=== PATIENT | female | born 1975 | race Caucasian/White ===

== ENCOUNTER → 2021-01-23 09:36 | Outpatient (CLI) | payer BC, OTHER, SELFPAY ==
[2021-01-23 11:00] LABS: Add Manual Diff / Slide Review NO; Basophils Absolute Auto 0 /uL (0-100); Basophils Percent Auto 0.5 % (0-2); Eosinophils Absolute Auto 100 /uL (0-450); Eosinophils Percent Auto 1.3 % (2-4); Hematocrit 39.8 % (36-46); Hemoglobin 13.2 g/dL (12.0-16.0); Lymphocytes Absolute Auto 1500 /uL (1100-4500); Lymphocytes Percent Auto 23.9 % (25-40); Mean Corpuscular HGB Conc 33.2 % (30-36); Mean Corpuscular Hemoglobin 28.2 PG (26-34); Monocytes Absolute Auto 600 /uL (0-900); Monocytes Percent Auto 9.8 % (3-14); Neutrophils Absolute Auto 4000 /uL (1500-7000); Neutrophils Percent Auto 64.5 % (50-75); Platelet Count 216 X10^3/uL (150-400); Red Blood Cell Count 4.69 X10^6/uL (4.0-5.2); Red Cell Distribution Width 13.9 % (11.6-14.8); White Blood Cell Count 6.3 X10^3/uL (4.5-11.0)
[2021-01-23 11:17] LABS: Cholesterol 144 mg/dL (140-199); HDL Cholesterol 40 mg/dL (40-60); LDL Cholesterol Calculated 90 mg/dL (<100); Triglycerides 71 mg/dL (35-150)
[2021-01-23 11:23] LABS: Hemoglobin A1C% w Est Avg Glu 5.2 % (4.0-6.0)
[2021-01-23 12:17] LABS: Thyroid Stimulating Hormone 2.18 uIU/mL (0.47-4.68)
[2021-01-27 09:58] LABS: Percent Free Testosterone 2.05 % (0.50-2.80); Testosterone Free 0.48 ng/dL (0.10-0.85); Testosterone Total 23.3 ng/dL (.)
== END ==
PROVIDERS: PCP Family Medicine; Referring Provider Family Medicine; Visit Provider Family Medicine
DX: L68.0 Hirsutism (principal); N92.6 Irregular menstruation, unspecified; K21.9 Gastro-esophageal reflux disease without esophagitis; J45.20 Mild intermittent asthma, uncomplicated
CPT/HCPCS: 36415; 80061; 83036; 84402; 84403; 84443; 85025

== ENCOUNTER → 2021-01-30 15:47 | Outpatient (CLI) | payer BC, OTHER, SELFPAY ==
--- NOTE | 2021-01-30 15:49 | DI.RAD.S_ITS ---
PROCEDURE: XR KUB INDICATIONS: RLQ pain (no appendix) TECHNIQUE: One view of the abdomen acquired. COMPARISON: None. FINDINGS: Surgical changes and devices: Right abdominal and right upper quadrant surgical clips. Bowel: [id number] stool. Soft tissues: No suspicious abdominal calcifications. Visualized solid organ contours appear normal in size. Bones: No suspicious bony lesions. IMPRESSION: No specific evidence of bowel obstruction seen at this time although if the patient's symptoms do not improve, continued surveillance with abdominal series radiographs could be performed. Dictated by: Ry Jordan M.D. on 01/30/2021 at 16:34 Approved by: Ry Jordan M.D. on 01/30/2021 at 16:35
[2021-01-30 15:52] LABS: Bacteria Urine None Seen; RBC Urine None Seen (0-5/HPF); WBC Urine None Seen (0-5/HPF)
[2021-01-30 16:47] LABS: Add Manual Diff / Slide Review NO; Basophils Absolute Auto 0 /uL (0-100); Basophils Percent Auto 0.4 % (0-2); Eosinophils Absolute Auto 100 /uL (0-450); Eosinophils Percent Auto 1.2 % (2-4); Hematocrit 38.6 % (36-46); Lymphocytes Absolute Auto 2000 /uL (1100-4500); Mean Corpuscular HGB Conc 33.7 % (30-36); Mean Corpuscular Hemoglobin 28.6 PG (26-34); Mean Corpuscular Volume 84.8 fL (80-100); Monocytes Absolute Auto 900 /uL (0-900); Monocytes Percent Auto 10.6 % (3-14); Neutrophils Absolute Auto 5400 /uL (1500-7000); Neutrophils Percent Auto 63.8 % (50-75); Platelet Count 225 X10^3/uL (150-400); Red Blood Cell Count 4.55 X10^6/uL (4.0-5.2); Red Cell Distribution Width 14.3 % (11.6-14.8); White Blood Cell Count 8.5 X10^3/uL (4.5-11.0)
[2021-01-30 17:19] LABS: Alanine Aminotransferase 33 IU/L (<35); Albumin 3.9 g/dL (3.5-5.0); Albumin Globulin Ratio 1.1 (1.0-2.8); Alkaline Phosphatase 78 U/L (38-126); Aspartate Aminotransferase 25 IU/L (14-36); BUN Creatinine Ratio 21.7 (6-22); Bilirubin Total 0.5 mg/dL (0.2-1.3); Blood Urea Nitrogen 15 mg/dL (7-17); Calcium 9.1 mg/dL (8.4-10.2); Carbon Dioxide 27 mmol/L (22-32); Chloride 105 mmol/L (98-107); Estimated Glomerular Filt Rate > 60.0 mL/min (>60); Globulin 3.5 g/dL (1.7-4.1); Glucose 89 mg/dL (70-100); HEMOLYSIS < 15 (0-50); Potassium 4.4 mmol/L (3.4-5.1); Sodium 138 mmol/L (137-145); Total Protein 7.4 g/dL (6.3-8.2)
[2021-01-30 18:19] LABS: Appearance Urine UA CLEAR; Bilirubin Urine UA NEGATIVE (NEGATIVE); Color Urine UA YELLOW; Glucose Urine UA NEGATIVE (Negative); Ketones Urine UA NEGATIVE (NEGATIVE); Leukocyte Esterase Urine UA NEGATIVE (NEGATIVE); Nitrite Urine UA NEGATIVE (Negative); Occult Blood Urine UA NEGATIVE (Negative); Protein Urine UA NEGATIVE (Negative); Specific Gravity Urine UA 1.025 (1.000-1.035); Urobilinogen Urine UA 0.2 E.U./dL (0.2)
[2021-01-30 18:27] LABS: Culture Indicated Urine Cult Not Indicated; Squamous Epithelial Cell Urine 5-10 /HPF (0-5/HPF)
== END ==
PROVIDERS: PCP Family Medicine; Referring Provider Family Medicine; Visit Provider Family Medicine
DX: R10.31 Right lower quadrant pain (principal); L68.0 Hirsutism; N92.6 Irregular menstruation, unspecified
CPT/HCPCS: 36415; 74018; 80053; 81001; 85025

== ENCOUNTER 2021-01-31 17:08 | Emergency (ER) | payer BC, OTHER, SELFPAY ==
[2021-01-31 17:38] VITALS: BP 132/85; PULSE 81; RESP 20; TEMP 37.3; O2SAT 99
--- NOTE | 2021-01-31 17:42 | DI.US.S_ITS ---
PROCEDURE: US PELVIC COMPLETE INDICATIONS: ?RUPTURED OVARIAN CYST TECHNIQUE: Real-time scanning was performed of the pelvic organs, with image documentation. Additional endovaginal scanning was necessary due to incomplete visualization of the adnexal and endometrial structures by transabdominal scanning. COMPARISON: None. FINDINGS: Uterus: Uterus is enlarged measuring 10.8 x 6.2 x 7.0 cm. The endometrium measures 16.6 mm in combined thickness. There is a left posterior subserosal focus of heterogeneous echogenicity measuring 1.9 x 1.8 x 1.7 cm. Ovaries: Right ovary measures 3.3 x 1.8 x 1.7 cm. Left ovary measures 4.0 x 2.4 x 2.7 cm. There is a focus decreased echogenicity within the right ovary measuring 3.0 x 2.0 x 2.7 cm. Other: No pathologic free abdominal or pelvic fluid. IMPRESSION: 1. Uterine fibroid. 2. Simple left ovarian cyst. Dictated by: Tina Byrne M.D. on 01/31/2021 at 18:31 Approved by: Tina Byrne M.D. on 01/31/2021 at 18:32
[2021-01-31] MEDS: KETOROLAC 30 MG/ML VIAL IM (18:27)
[2021-01-31] MEDS: OXYCODONE/ACETAMINOPHEN 5/325 TABLET 1 TAB PO (20:00)
--- NOTE | 2021-01-31 20:44 | ED_ITS ---
HPI - Abdominal Pain General Chief Complaint: Abdominal Pain Stated Complaint: states possible ruptured ovarian cyst Time Seen by Provider: 01/31/21 17:42 Source: patient Mode of arrival: Ambulatory Limitations: no limitations History of Present Illness HPI narrative: 45F nonsmoker with history of ovarian cyst and asthma presents with a chief complaint of a few days of lower abdominal discomfort that reminds her of prior episodes of ovarian trouble. She states that she has pain largely in her right lower quadrant that seems to be worse with motion and improved with rest. She denies any radiation of her discomfort. She denies any fever or chills. She denies vaginal bleeding or discharge. She denies dysuria, frequency or urgency. She was seen and evaluated thoroughly by her primary care provider yesterday with CT scan and lab work. She was instructed to present to the emergency department for worsening symptoms. Related Data Home Medications Medication Instructions Recorded Confirmed cyclobenzaprine 10 mg tablet 10 mg PO tab 01/16/21 01/16/21 ibuprofen 800 mg tablet 800 mg PO tab 01/16/21 01/16/21 Previous Rx's Medication Instructions Recorded albuterol sulfate 90 mcg/actuation 2 puff INHALATION Q6H PRN #6.7 g 01/16/21 aerosol inhaler montelukast 10 mg tablet 10 mg PO BEDTIME #90 tab 01/16/21 omeprazole 20 mg capsule,delayed 20 mg PO BID #180 cap 01/16/21 release hydrocodone-acetaminophen 1 tab PO Q4-6H PRN #10 tab 01/31/21 ketorolac 10 mg PO Q6H PRN #14 tab 01/31/21 ondansetron 4 mg PO TID-QID PRN #10 tab 01/31/21 Allergies Allergy/AdvReac Type Severity Reaction Status Date / Time naproxen Allergy Severe feels Verified 01/16/21 14:53 like throat is closing nitrofurantoin Allergy Severe Rash Verified 01/16/21 14:53 [From Macrobid] Sulfa (Sulfonamide Allergy Severe Rash Verified 01/16/21 14:53 Antibiotics) Review of Systems Constitutional Constitutional: Denies chills, Denies fatigue, Denies fever(s), Denies frequent falls, Denies lethargy and Denies weakness Eyes Eyes: Denies change in vision, Denies eye discharge, Denies irritation and Denies loss of vision ENT Ears, Nose, Mouth, and Throat: Denies change in voice, Denies dizziness, Denies neck pain, Denies sore throat and Denies throat swelling Cardiovascular Cardiovascular: Denies chest pain, Denies irregular heart rhythm, Denies lightheadedness, Denies palpitations, Denies dyspnea, Denies dyspnea on exertion and Denies orthopnea Respiratory Respiratory: Denies cough, Denies dyspnea, Denies dyspnea on exertion and Denies wheezing Gastrointestinal Gastrointestinal: Reports abdominal pain, Denies change in bowel habits, Denies diarrhea, Denies nausea and Denies vomiting Musculoskeletal Musculoskeletal: Denies neck pain and Denies numbness Integumentary/Breasts Skin/Breast: Denies pruritus, Denies erythema, Denies rash and Denies wounds Neurologic Neurologic: Denies behavioral changes, Denies confusion, Denies dizziness, Denies frequent falls, Denies loss of vision, Denies numbness and Denies weakness Psychiatric Psychiatric: Denies anxiety, Denies behavioral changes, Denies confusion, Denies depression, Denies homicidal ideation and Denies suicidal ideation Endocrine Endocrine: Denies fatigue, Denies flushing and Denies palpitations Hematologic/Lymphatic Hematologic/Lymphatic: Denies easy bruising Allergic/Immunologic Allergic/Immunologic: Denies urticaria, Denies throat swelling and Denies wheezing Patient History Medical History Asthma, mild intermittent GERD (gastroesophageal reflux disease) Irregular menstruation Social History Smoking Status: Never smoker second hand exposure: Yes Smoking Status: Never smoker Exam Narrative Exam Narrative: GENERAL: [45] year old patient appears stated age. Well- developed patient, in mild distress. HEAD: Atraumatic. Normocephalic. EYES: Pupils equal round and reactive. Extraocular motions intact. No scleral icterus. No injection or drainage. ENT: Nose without bleeding, purulent drainage. Throat without erythema, tonsillar hypertrophy or exudate. Airway patent. NECK: Trachea midline. Non tender CARDIOVASCULAR: Regular rate and rhythm without murmurs, gallops, or rubs. RESPIRATORY: Clear to auscultation. Breath sounds equal bilaterally. No wheezes, rales, or rhonchi. GASTROINTESTINAL: Abdomen soft, right lower quadrant pain on exam, no rebound or guarding, bowel sounds present in all 4 quadrants, nondistended. EXTREMITIES: No edema or joint tenderness. BACK: Nontender without deformity or crepitance. No flank tenderness. NEURO: AOx3. SKIN: No rash or erythema of visible areas Initial Vital Signs Initial Vital Signs: Vital Signs Temperature 99.1 F 01/31/21 17:38 Pulse Rate 81 01/31/21 17:38 Respiratory Rate 20 01/31/21 17:38 Blood Pressure 132/85 01/31/21 17:38 Pulse Oximetry 99 01/31/21 17:38 Course Orders Ordered: ED Orders 01/31/21 17:42 US pelvic complete Stat 01/31/21 21:05 Complete Blood Count AUTO DIFF Stat Comprehensive Metabolic Panel Stat Discontinued Medications Sodium Chloride (Normal Saline 0.9%) 1,000 mls @ 1,000 mls/hr IV BOLUS ONE Stop: 01/31/21 21:52 Ketorolac Tromethamine (Ketorolac 30 Mg/Ml Vial) 30 mg IM NOW ONE Stop: 01/31/21 17:43 Last Admin: 01/31/21 18:27 Dose: 30 mg Documented by: ESSIE Ondansetron HCl (Ondansetron 4 Mg Odt Prepack) 1 bottle MISC SEEINSTR ONE Stop: 01/31/21 21:50 Last Admin: 01/31/21 22:06 Dose: 1 bottle Documented by: ESSIE Oxycodone/Acetaminophen (Oxycodone/Acetaminophen 5/325 Tablet) 1 tab PO NOW ONE Stop: 01/31/21 17:43 Last Admin: 01/31/21 20:00 Dose: 1 tab Documented by: BANDAR Oxycodone/Acetaminophen (Oxycodone/Apap 5/325 Prepack) 1 bottle MISC SEEINSTR ONE Stop: 01/31/21 21:50 Last Admin: 01/31/21 22:06 Dose: 1 bottle Documented by: ESSIE Reevaluation(s) Reevaluation #1: Patient feeling much better after the above-stated therapies Vital Signs Vital signs: Vital Signs - 8 hr 01/31/21 22:28 Pulse Rate 67 Respiratory Rate 16 Blood Pressure 118/84 Pulse Oximetry 100 MDM - Abdominal Pain Lab Data Result diagrams: 01/31/21 21:05 01/31/21 21:05 Labs: Lab Results 01/31/21 01/31/21 Range/Units 21:05 21:05 WBC 8.9 (4.5-11.0) X10^3/uL RBC 4.63 (4.0-5.2) X10^6/uL Hgb 13.0 (12.0-16.0) g/dL Hct 39.3 (36-46) % MCV 85.0 (80-100) fL MCH 28.2 (26-34) PG MCHC 33.1 (30-36) % RDW 13.9 (11.6-14.8) % Plt Count 206 (150-400) X10^3/uL Neut % (Auto) 65.9 (50-75) % Lymph % (Auto) 24.0 L (25-40) % [place] % (Auto) 8.5 (3-14) % Eos % (Auto) 1.1 L (2-4) % Baso % (Auto) 0.5 (0-2) % Neut # (Auto) 5900 (3031-1128) /uL Lymph # (Auto) 2100 (5838-8757) /uL [place] # (Auto) 800 (0-900) /uL Eos # (Auto) 100 (0-450) /uL Baso # (Auto) 0 (0-100) /uL Sodium 137 (137-145) mmol/L Potassium 3.8 (3.4-5.1) mmol/L Chloride 104 (98-107) mmol/L Carbon Dioxide 26 (22-32) mmol/L BUN 11 (7-17) mg/dL Creatinine 0.67 (0.52-1.04) mg/dL Estimated GFR > 60.0 (>60) mL/min BUN/Creatinine Ratio 16.4 (6-22) Glucose 92 (70-100) mg/dL Calcium 8.6 (8.4-10.2) mg/dL Total Bilirubin 0.5 (0.2-1.3) mg/dL AST 23 (14-36) IU/L ALT 30 (<35) IU/L Alkaline Phosphatase 81 (38-126) U/L Total Protein 7.0 (6.3-8.2) g/dL Albumin 3.8 (3.5-5.0) g/dL Globulin 3.2 (1.7-4.1) g/dL Albumin/Globulin Ratio 1.2 (1.0-2.8) MDM Narrative Medical decision making narrative: Patient felt much better after the above- stated therapies. This feels quite similar to prior episodes of ovarian trouble. Ultrasound is very reassuring and repeat labs are unremarkable. We discussed whether not to pursue another CT scan, however as there is really no change in her symptoms and no change in her labs we will treat symptomatic lead encouraged close follow-up. Patient is given return precautions and is had questions answered to her apparent satisfaction Discharge Plan Departure Patient Disposition: Home Clinical Impression: Pelvic pain Ovarian cyst Qualifiers: Laterality: unspecified laterality Qualified Code(s): N83.209 - Unspecified ovarian cyst, unspecified side Instructions: DI for Abdominal Pain-Adult Activity Restrictions/Additional Instructions: *You have been diagnosed with [pelvic pain, reassuring labs, exam and ultrasound.] *What to do: *Please continue to take your regular medications as directed. [ x] New medication prescriptions sent to your pharmacy: [ ] [ ] New medication written as a paper prescription [ ] No new medications given *Please follow up with your primary care provider in 2-3 days, call for an appointment. Let them know you were seen in the Emergency Department and that we ask that you be seen in follow up. We will electronically transmit a record of today's note if your PCP is in our system *If you do not have a primary care provider please contact the [facility] Resource line at [phone]. They will ask some questions about your medical history and help get you set up with a doctor in the community. *Return to Emergency Department if you should have any new, worsening or concerning symptoms, such as [fever greater than 101 F, shaking chills, worsening pain, persistent vomiting or other bothersome symptoms] Prescriptions: New hydrocodone-acetaminophen 5-325 mg tablet 1 tab PO Q4-6H PRN (Reason: pain) Qty: 10 RF: 0 ketorolac 10 mg tablet 10 mg PO Q6H PRN (Reason: pain) Qty: 14 RF: 0 ondansetron 4 mg tablet,disintegrating 4 mg PO TID-QID PRN (Reason: nausea and vomiting) Qty: 10 RF: 0 No Action ibuprofen 800 mg tablet 800 mg PO RF: 0 cyclobenzaprine 10 mg tablet 10 mg PO RF: 0 omeprazole 20 mg capsule,delayed release(DR/EC) 20 mg PO BID Qty: 180 RF: 2 montelukast [Singulair] 10 mg tablet 10 mg PO BEDTIME Qty: 90 RF: 3 albuterol sulfate [ProAir HFA] 90 mcg/actuation HFA aerosol inhaler 2 puff inhalation Q6H PRN (Reason: bronchospasm) Qty: 6.7 RF: 3 Referrals: Landon Trujillo MD [Primary Care Provider] - Stand Alone Forms: Work Release Note
[2021-01-31 21:20] LABS: Add Manual Diff / Slide Review NO; Basophils Absolute Auto 0 /uL (0-100); Basophils Percent Auto 0.5 % (0-2); Eosinophils Absolute Auto 100 /uL (0-450); Eosinophils Percent Auto 1.1 % (2-4); Hematocrit 39.3 % (36-46); Lymphocytes Absolute Auto 2100 /uL (1100-4500); Mean Corpuscular HGB Conc 33.1 % (30-36); Mean Corpuscular Hemoglobin 28.2 PG (26-34); Monocytes Absolute Auto 800 /uL (0-900); Monocytes Percent Auto 8.5 % (3-14); Neutrophils Absolute Auto 5900 /uL (1500-7000); Neutrophils Percent Auto 65.9 % (50-75); Platelet Count 206 X10^3/uL (150-400); Red Blood Cell Count 4.63 X10^6/uL (4.0-5.2); Red Cell Distribution Width 13.9 % (11.6-14.8); White Blood Cell Count 8.9 X10^3/uL (4.5-11.0)
[2021-01-31 21:24] LABS: Alanine Aminotransferase 30 IU/L (<35); Albumin 3.8 g/dL (3.5-5.0); Albumin Globulin Ratio 1.2 (1.0-2.8); Alkaline Phosphatase 81 U/L (38-126); Aspartate Aminotransferase 23 IU/L (14-36); BUN Creatinine Ratio 16.4 (6-22); Bilirubin Total 0.5 mg/dL (0.2-1.3); Blood Urea Nitrogen 11 mg/dL (7-17); Calcium 8.6 mg/dL (8.4-10.2); Carbon Dioxide 26 mmol/L (22-32); Chloride 104 mmol/L (98-107); Estimated Glomerular Filt Rate > 60.0 mL/min (>60); Globulin 3.2 g/dL (1.7-4.1); Glucose 92 mg/dL (70-100); HEMOLYSIS < 15 (0-50); Potassium 3.8 mmol/L (3.4-5.1); Sodium 137 mmol/L (137-145)
[2021-01-31] MEDS: ONDANSETRON 4 MG ODT PREPACK 1 BOTTLE MISC (22:06)
[2021-01-31] MEDS: OXYCODONE/APAP 5/325 PREPACK 1 BOTTLE MISC (22:06)
[2021-01-31 22:28] VITALS: BP 118/84; PULSE 67; RESP 16; O2SAT 100
== END 2021-01-31 22:28 | disposition home or self-care (01) ==
PROVIDERS: Emergency Provider Emergency Medicine; PCP Family Medicine; Referring Provider Family Medicine
DX: N83.202 Unspecified ovarian cyst, left side (principal); R10.2 Pelvic and perineal pain
CPT/HCPCS: 36415; 76830; 76856; 80053; 85025; 96372; 99284; J1885

== ENCOUNTER 2021-02-01 12:03 | Emergency (ER) | payer BC, OTHER, SELFPAY ==
[2021-02-01 12:05] VITALS: BP 126/82; PULSE 75; RESP 18; TEMP 36.7; O2SAT 98; BMI 42.3
[2021-02-01 12:33] VITALS: PULSE 68; O2SAT 98
--- NOTE | 2021-02-01 12:44 | ED.ABDPAIN ---
HPI - Abdominal Pain General Chief Complaint: Abdominal Pain Stated Complaint: abdominal pain since last Time Seen by Provider: 02/01/21 12:20 Source: patient Mode of arrival: Ambulatory Limitations: no limitations History of Present Illness HPI narrative: Patient is a 45-year-old female who presents with persistent right lower quadrant pain. She was seen evaluated here last night had a pelvic ultrasound diagnosed with an ovarian cyst and discharged home with pain medicine. She has not taken anything for pain and has increasing pain. She has a history of an appendectomy. No fever or chills no changes in bowel habits no nausea or vomiting. MD complaint: abdominal pain Onset (ago): day(s) Pain Consistency: constant Location: RLQ Quality: cramping Migration to: no migration Relieving factors: nothing Related Data Home Medications Medication Instructions Recorded Confirmed cyclobenzaprine 10 mg tablet 10 mg PO tab 01/16/21 01/16/21 ibuprofen 800 mg tablet 800 mg PO tab 01/16/21 01/16/21 Previous Rx's Medication Instructions Recorded albuterol sulfate 90 mcg/actuation 2 puff INHALATION Q6H PRN #6.7 g 01/16/21 aerosol inhaler montelukast 10 mg tablet 10 mg PO BEDTIME #90 tab 01/16/21 omeprazole 20 mg capsule,delayed 20 mg PO BID #180 cap 01/16/21 release hydrocodone-acetaminophen 1 tab PO Q4-6H PRN #10 tab 01/31/21 ketorolac 10 mg PO Q6H PRN #14 tab 01/31/21 ondansetron 4 mg PO TID-QID PRN #10 tab 01/31/21 Allergies Allergy/AdvReac Type Severity Reaction Status Date / Time naproxen Allergy Severe feels Verified 02/01/21 12:52 like throat is closing nitrofurantoin Allergy Severe Rash Verified 02/01/21 12:52 [From Macrobid] Sulfa (Sulfonamide Allergy Severe Rash Verified 02/01/21 12:52 Antibiotics) Review of Systems Review of Systems Narrative: GENERAL: Denies chills, fatigue, malaise, fever, sweats, travel HEENT: Denies sinus pain, ear pain, sore throat, difficulty swallowing, neck pain RESPIRATORY: Denies dyspnea, cough, wheezing, hemoptysis, sputum. CARDIOVASCULAR: Denies chest pain, palpitations, orthopnea, edema GASTROINTESTINAL: See HPI : Denies dysuria, frequency, incontinence, hematuria, urinary retention, flank pain. MUSCULOSKELETAL: Denies weakness, joint pain, or bony pain SKIN: No rash, no erythema, no pruritus NEUROLOGIC: Denies weakness, dizziness, headache, numbness, change in speech, confusion PSYCHIATRIC: No concerning psychosocial issues. 12 point review of systems is negative except for those stated above and HPI Patient History Medical History Asthma, mild intermittent GERD (gastroesophageal reflux disease) Irregular menstruation Social History Smoking Status: Never smoker second hand exposure: Yes Smoking Status: Never smoker Substance Use Type: does not use Exam Initial Vital Signs Initial Vital Signs: Vital Signs Temperature 98.0 F 02/01/21 12:05 Pulse Rate 75 02/01/21 12:05 Respiratory Rate 18 02/01/21 12:05 Blood Pressure 126/82 02/01/21 12:05 Pulse Oximetry 98 02/01/21 12:05 GENERAL: Well-appearing, well-nourished and in no acute distress. HEENT: Head atraumatic,EOMI, pupils reactive, face symmetric, moist mucous membranes CARDIOVASCULAR: Regular rate and rhythm without murmurs, rubs or gallops. RESPIRATORY: Breath sounds equal bilaterally, no wheezes rales or rhonchi. ABDOMEN: Soft, mild right lower quadrant tenderness no guarding or rebound negative Diehl sign. Normoactive bowel sounds all 4 quadrants. No guarding or rebound. EXTREMITIES: Normal range of motion, no clubbing or edema. Neurovascularly intact NEUROLOGICAL: Alert and oriented x4.Normal gait and speech. SKIN: Warm, dry, no laceration, no petechiae, no rashes or lesions. Course Orders Ordered: ED Orders 02/01/21 12:46 CT abdomen pelvis w con Stat 02/01/21 13:10 Complete Blood Count AUTO DIFF Stat Comprehensive Metabolic Panel Stat Discontinued Medications Ketorolac Tromethamine (Ketorolac 30 Mg/Ml Vial) 30 mg IV NOW ONE Stop: 02/01/21 12:50 Last Admin: 02/01/21 12:58 Dose: 30 mg Documented by: MELLY Vital Signs Vital signs: Vital Signs - 8 hr 02/01/21 12:05 02/01/21 12:33 02/01/21 13:45 Temperature 98.0 F Pulse Rate 75 68 62 Respiratory Rate 18 Blood Pressure 126/82 107/69 Pulse Oximetry 98 98 98 02/01/21 14:00 02/01/21 14:30 02/01/21 15:00 Temperature Pulse Rate 57 L 56 L 59 L Respiratory Rate Blood Pressure 106/69 120/77 Pulse Oximetry 97 97 97 MDM - Abdominal Pain Lab Data Attestation: I reviewed the patient's lab results. Result diagrams: 02/01/21 13:10 02/01/21 13:10 Labs: Lab Results 02/01/21 02/01/21 Range/Units 13:10 13:10 WBC 7.4 (4.5-11.0) X10^3/uL RBC 4.90 (4.0-5.2) X10^6/uL Hgb 14.0 (12.0-16.0) g/dL Hct 41.8 (36-46) % MCV 85.4 (80-100) fL MCH 28.5 (26-34) PG MCHC 33.4 (30-36) % RDW 14.3 (11.6-14.8) % Plt Count 205 (150-400) X10^3/uL Neut % (Auto) 68.3 (50-75) % Lymph % (Auto) 20.4 L (25-40) % [place] % (Auto) 9.4 (3-14) % Eos % (Auto) 1.3 L (2-4) % Baso % (Auto) 0.6 (0-2) % Neut # (Auto) 5000 (3563-5576) /uL Lymph # (Auto) 1500 (5323-6906) /uL [place] # (Auto) 700 (0-900) /uL Eos # (Auto) 100 (0-450) /uL Baso # (Auto) 0 (0-100) /uL Sodium 137 (137-145) mmol/L Potassium 4.3 (3.4-5.1) mmol/L Chloride 104 (98-107) mmol/L Carbon Dioxide 28 (22-32) mmol/L BUN 11 (7-17) mg/dL Creatinine 0.78 (0.52-1.04) mg/dL Estimated GFR > 60.0 (>60) mL/min BUN/Creatinine Ratio 14.1 (6-22) Glucose 97 (70-100) mg/dL Calcium 9.1 (8.4-10.2) mg/dL Total Bilirubin 0.8 (0.2-1.3) mg/dL AST 26 (14-36) IU/L ALT 35 H (<35) IU/L Alkaline Phosphatase 84 (38-126) U/L Total Protein 7.7 (6.3-8.2) g/dL Albumin 4.1 (3.5-5.0) g/dL Globulin 3.6 (1.7-4.1) g/dL Albumin/Globulin Ratio 1.1 (1.0-2.8) Point of care testing: Point of Care Testing Test Results Negative Urine Dip Bedside Urine Glucose Negative Bedside Urine Bilirubin - Negative Bedside Urine Ketone - Negative Urine Specific [place] 1.025 Bedside Urine Occult Blood - Negative Bedside Urine pH 6.0 Bedside Urine Protein - Negative Bedside Urine Urobilinogen - Negative Bedside Urine Nitrite - Negative Bedside Urine Leukocytes - Negative Esterase Imaging Data CT scan - abdomen/pelvis: Radiologist's Impression: PROCEDURE: CT ABDOMEN PELVIS W CON INDICATIONS: Right lower quadrant pain. TECHNIQUE: After the administration of intravenous contrast, axial sections acquired from the lung bases to the pubic symphysis. Coronal and sagittal reformats were performed. For radiation dose reduction, the following was used: automated exposure control, adjustment of mA and/or kV according to patient size. COMPARISON: [facility], CR, XR KUB, 01/30/2021, 16:07. [facility], US, US PELVIC COMPLETE, 01/31/2021, 17:01. FINDINGS: Image quality: Excellent. Lung bases: Unremarkable. There is a small hiatal hernia. Heart: No significant findings. ABDOMEN: Liver: Unremarkable. Gallbladder: Surgically removed. Biliary ducts: Unremarkable. Pancreas: Unremarkable. Spleen: Unremarkable. Adrenal Glands: Unremarkable. Kidneys and Ureters: Unremarkable. Stomach and Bowel: Appendix is not identified. There are no inflammatory changes in the right lower quadrant to suggest acute appendicitis. Stomach, small bowel loops, and colon are normal in caliber. There is a moderate amount of stool in colon.. Moderate amount of stool in colon. Peritoneum: No abnormal intraperitoneal fluid. No free air. Ventral Wall: There is a small fat containing umbilical hernia. Abdominal Nodes: No retroperitoneal or mesenteric adenopathy by size criteria. Vessels: Aorta and inferior vena cava are normal in size. PELVIS: Pelvic Organs: There is a 3.5 cm left ovarian cyst. Ovaries are otherwise normal. A 1.1 cm nodule adjacent to the left uterine wall compatible with the subserosal fibroid seen on the pelvic ultrasound. There is a trace amount of free fluid in the cul-de-sac. Bladder: Bladder is contracted. Pelvic Nodes: No enlarged lymph nodes. Miscellaneous: No hernias are seen. Bones: Unremarkable. Subtle sclerotic changes in the superior aspect S1 abutting the superior endplate may be degenerative in nature. IMPRESSION: 1. No acute abnormalities in abdomen or pelvis. 2. Appendix is not identified. No secondary signs for acute appendicitis. 3. Moderate amount of stool in colon. 4. Small hiatal hernia. 5. A 3.5 cm left ovarian cyst. A trace amount of free fluid in the cul-de-sac is probably within the physiological limits. The result was discussed with Dr. Anderson. Dictated by: Elodia Osuna M.D. on 02/01/2021 at 14:23 Approved by: Elodia Osuna M.D. on 02/01/2021 at 14:56 MDM Narrative Medical decision making narrative: Patient states she has had Toradol in the past including last night without any issue and is willing to take it again. Blood work and CT are overall reassuring. CT does not find any abnormal findings are cause of right lower quadrant pain. Discharge Plan Departure Patient Disposition: Home Clinical Impression: Abdominal pain Qualifiers: Abdominal location: right lower quadrant Qualified Code(s): R10.31 - Right lower quadrant pain Instructions: DI for Abdominal Pain-Adult Activity Restrictions/Additional Instructions: *You have been diagnosed with abdominal pain *What to do: At this time there is no evidence or I had identifiable cause for your pain. He actually do have a left ovarian cyst. I recommend taking her pain medication as prescribed last evening. *Continue to take medications as directed *Follow up with your primary care provider in 2-3 days *Return to ER if you should have increasing pain, bloody stool, persistent vomiting, dizziness lightheadedness or passing or any new, worsening or concerning symptoms Prescriptions: No Action ibuprofen 800 mg tablet 800 mg PO RF: 0 cyclobenzaprine 10 mg tablet 10 mg PO RF: 0 omeprazole 20 mg capsule,delayed release(DR/EC) 20 mg PO BID Qty: 180 RF: 2 montelukast [Singulair] 10 mg tablet 10 mg PO BEDTIME Qty: 90 RF: 3 albuterol sulfate [ProAir HFA] 90 mcg/actuation HFA aerosol inhaler 2 puff inhalation Q6H PRN (Reason: bronchospasm) Qty: 6.7 RF: 3 hydrocodone-acetaminophen 5-325 mg tablet 1 tab PO Q4-6H PRN (Reason: pain) Qty: 10 RF: 0 ketorolac 10 mg tablet 10 mg PO Q6H PRN (Reason: pain) Qty: 14 RF: 0 ondansetron 4 mg tablet,disintegrating 4 mg PO TID-QID PRN (Reason: nausea and vomiting) Qty: 10 RF: 0 Referrals: Landon Trujillo MD [Primary Care Provider] -
[2021-02-01] MEDS: KETOROLAC 30 MG/ML VIAL IV (12:58)
[2021-02-01 13:23] LABS: Add Manual Diff / Slide Review NO; Basophils Absolute Auto 0 /uL (0-100); Basophils Percent Auto 0.6 % (0-2); Eosinophils Absolute Auto 100 /uL (0-450); Eosinophils Percent Auto 1.3 % (2-4); Hematocrit 41.8 % (36-46); Lymphocytes Absolute Auto 1500 /uL (1100-4500); Lymphocytes Percent Auto 20.4 % (25-40); Mean Corpuscular HGB Conc 33.4 % (30-36); Mean Corpuscular Hemoglobin 28.5 PG (26-34); Mean Corpuscular Volume 85.4 fL (80-100); Monocytes Absolute Auto 700 /uL (0-900); Monocytes Percent Auto 9.4 % (3-14); Neutrophils Absolute Auto 5000 /uL (1500-7000); Neutrophils Percent Auto 68.3 % (50-75); Platelet Count 205 X10^3/uL (150-400); Red Cell Distribution Width 14.3 % (11.6-14.8); White Blood Cell Count 7.4 X10^3/uL (4.5-11.0)
[2021-02-01 13:31] LABS: Alanine Aminotransferase 35 IU/L (<35); Albumin 4.1 g/dL (3.5-5.0); Albumin Globulin Ratio 1.1 (1.0-2.8); Alkaline Phosphatase 84 U/L (38-126); Aspartate Aminotransferase 26 IU/L (14-36); BUN Creatinine Ratio 14.1 (6-22); Bilirubin Total 0.8 mg/dL (0.2-1.3); Blood Urea Nitrogen 11 mg/dL (7-17); Calcium 9.1 mg/dL (8.4-10.2); Carbon Dioxide 28 mmol/L (22-32); Chloride 104 mmol/L (98-107); Estimated Glomerular Filt Rate > 60.0 mL/min (>60); Globulin 3.6 g/dL (1.7-4.1); Glucose 97 mg/dL (70-100); HEMOLYSIS < 15 (0-50); Potassium 4.3 mmol/L (3.4-5.1); Sodium 137 mmol/L (137-145); Total Protein 7.7 g/dL (6.3-8.2)
[2021-02-01 13:45] VITALS: BP 107/69; PULSE 62; O2SAT 98
[2021-02-01 14:00] VITALS: BP 106/69; PULSE 57; O2SAT 97
[2021-02-01 14:30] VITALS: PULSE 56; O2SAT 97
[2021-02-01 15:00] VITALS: BP 120/77; PULSE 59; O2SAT 97
== END 2021-02-01 15:24 | disposition home or self-care (01) ==
PROVIDERS: Emergency Provider Emergency Medicine; PCP Family Medicine
DX: R10.31 Right lower quadrant pain (principal); N83.209 Unspecified ovarian cyst, unspecified side
CPT/HCPCS: 36415; 74177; 80053; 81003; 81025; 85025; 96374; 99284; J1885; Q9967

== ENCOUNTER → 2021-02-16 16:25 | Outpatient (CLI) | payer BC, OTHER, SELFPAY ==
[2021-02-16 17:18] LABS: COVID19 -Nasal RAPID Negative (Negative)
== END ==
PROVIDERS: PCP Family Medicine; Visit Provider Specialist
DX: Z01.812 Encounter for preprocedural laboratory examination (principal); Z20.822 Contact with and (suspected) exposure to COVID-19
CPT/HCPCS: 87635

== ENCOUNTER 2021-02-17 06:50 | Day surgery (SDC) | payer BC, OTHER, SELFPAY ==
[2021-02-14 08:11] VITALS: BMI 42.1
[2021-02-17] VITALS (10 sets, daily range): BP systolic 109–143; BP diastolic 61–89; PULSE 55–82; RESP 12–18; TEMP 36.1–36.6; O2SAT 98–100; BMI 42.1
--- NOTE | 2021-02-17 | PATH_ITS ---
[facility] Accession Number: [id number] . 01 Material submitted: . PART A: fallopian tube - RT FALLOPIAN TUBE AND OVARY; LT TUBAL REMNANT PART B: endometrium - ENDOMETRIAL . 02 Diagnosis: A. Right Fallopian Tube Remnant and Ovary, Left Tubal Remnant, Right Salpingo-oophorectomy and Left Partial Salpingectomy: Right ovary with multiple benign cortical follicular cysts, stromal thecosis, and one region of intraparenchymal hemorrhage with a partial lining suggestive of benign hemorrhagic follicular cyst. Fallopian tube remnants x 2 with complete cross-sections and no significant histomorphologic abnormality; negative for atypia or malignancy. Aggregate of soft tissue fragments demonstrate portions of cortical ovarian tissue with benign follicular cysts and capsular adhesions, nonspecific. . B. Endometrial: Portions of dys-synchronous endometrium; negative for glandular hyperplasia, cytologic atypia, or malignancy. Some endometrial fragments demonstrate prominent vessels, suggestive of polyp, if clinical and imaging studies are concordant. Some endometrial tissue has attached myometrium; negative for atypia or malignancy. Avulsed portions of squamous mucosa with reactive features; negative for squamous dysplasia or malignancy. MRV 02/23/2021 1329 Local . 02 Electronically signed: . Jessica Chairez MD, Pathologist NPI- [id number] . 01 Gross description: . A. Received in formalin and labeled right fallopian tube and ovary, left tubal remnant. It consists of a 4.2 x 2.5 x 1.5 cm, purple-anders to caballero-anders, bosselated ovary. The resection margin is inked black. The ovary is serially sectioned. Sectioning reveals pink-anders to purple anders, fibrous, focally hemorrhagic cut surfaces with focal areas of cystic degeneration involved in approximately 20% of cut surfaces. Also received are two fragments of continuous fallopian tube ranging from 2.2 cm to 3.2 cm in greatest dimension. The serosa of the tubes is purple-anders and diffusely congested. Sectioning reveals pink-anders unremarkable mucosa, a pinpoint lumen, and verma that average 0.4 cm in thickness. Also received is a 3.5 x 3.5 x 0.9 cm aggregate of pink anders to purple-anders, rubbery, fibrous soft tissue fragments. Sectioning reveals pink-anders, fibrous cut surfaces. Field Hand sections are submitted. . Summary of sections: A1-A3 = Ovary, serially sectioned, pharmacy services representative, one piece. A4 = Fimbria, quadrisected, four pieces. A5 = Fallopian tube, serially sectioned, pharmacy services representative, four pieces. A6-A7 = Additional connective tissue aggregate, three pieces. . B. Received in formalin and labeled endometrial curetting. It consists of a 3.3 x 2.3 x 0.7 cm aggregate of yellow-anders to pink-anders, ragged, diffusely hemorrhagic soft tissue fragments with no distinguishing features. The specimen is submitted entirely. . Summary of sections: B1-B2 = Endometrial curettings, aggregate. ([id number]) /[facility] 02/18/2021 1839 Local . 02 Pathologist provided ICD-10: R93.41, N83.209 . 02 CPT . 904902, [id number] Performed at: 01 [facility] [address] [place] [address] [id number] MD Jim Xie MD Phone: [phone] Performed at: [address] [id number] MD Haily Barnett MD Phone: [phone]
--- NOTE | 2021-02-17 07:17 | SUR.OPER ---
Lithotomy on padded OR bed, head on pillow, arms secured on padded arm boards at <90 degrees abduction. Legs secured in padded yellow fins stirrups.
--- NOTE | 2021-02-17 07:25 | PM.PREOP ---
Pre-operative Note COVID-19 COVID-19 status: Negative Result date/Date tested (Pos, Neg/Pending): 02/16/21 Interval Note History & Physical reviewed/Exam performed by Physician: Yes Changes to H&P: No
[2021-02-17] MEDS: LACTATED RINGERS 1,000 ML 100 ML IV ×2 (07:30→08:25)
[2021-02-17] MEDS: BUPIVACAINE 0.5% (PF) VIAL 30 ML INJ (08:14)
[2021-02-17] MEDS: EPINEPHrine 1 MG/ML 0.15 MG INJ (08:15)
[2021-02-17] MEDS: METOCLOPRAMIDE 10 MG/2 ML INJ IV (09:10)
--- NOTE | 2021-02-17 09:14 | PM.OP.1 ---
Operative Date/Time/Diagnoses Date of procedure: 02/17/21 Time of procedure: 09:15 Pre-op diagnosis: Menorrhagia, right lower quadrant pain with right ovarian cyst Post-op diagnosis: same Procedure & Clinicians Procedure: Hysteroscopy D&C, laparoscopic RSO with left salpingectomy Same procedure as scheduled: Yes Indications: Patient with significant right lower quadrant pain with ovarian cyst on ultrasound requesting right salpingo oophorectomy. Patient with menorrhagia for hysteroscopy D&C with removal of abnormalities if found Surgeon: Keri Raphael Behavioral Geneticist: Ricardo Bliss Anesthesia Type: General Operative Notes Findings: Normal appearing pelvis. Status post bilateral tubal ligation. Small posterior subserosal fibroid. Normal appearing ovaries bilaterally. Minimal scar tissue, no endometriosis, no internal hernias. Closure Type: primary Specimen(s): other (Right fallopian tube and ovary, left fallopian tube remnant, uterine curettings.) Estimated Blood Loss (mL): 10 Blood products transfused: none Procedure in detail: Patient was brought to the operating room where she underwent general anesthesia. She was placed in low [facility] stirrups and prepped and draped in usual sterile fashion. No antibiotics were indicated. Pulsatile stockings were in place and functional. Warming was with blankets. A single-tooth tenaculum was placed on the anterior lip of the cervix and the cervix dilated to #6 Hegar dilator. The Carmen uterine manipulator was placed and balloon inflated with 3 mL of air. The area of the incisions were injected with half percent Marcaine with epinephrine. An incision was made in the umbilicus with a scalpel and the Verres needle placed in the abdomen. Confirmation of correct placement of the needle was performed by withdrawing on the syringe and then allowing fluid to fall freely through the needle. The abdomen was insufflated to 4 L of CO2. A 5 mm trocar was placed under direct visualization. 2 other 5 mm trochars were placed in the right and left lower quadrant under direct visualization after incising the skin. There did not appear to be any damage with placement of the trocars. The left fallopian tube remnant was grasped and removed by cauterizing and cutting the mesosalpinx with the PK generator. The right infundibulopelvic ligament was cauterized and cut with the PK generator. Sequential bites taken along the broad ligament. The utero-ovarian ligament was cauterized and cut allowing the tube and ovary to be freed. The segment of the fallopian tube next to the uterus was also cauterized and cut with the PK on the right side. A 11 mm trocar was placed suprapubically under direct visualization without damage to internal structures. The tubes and right ovary were placed in an Endo-Catch bag brought up out of the abdomen. The bilateral tubes and right ovary were sent to pathology. Adequate hemostasis was noted. The CO2 was allowed to escape from the abdomen. The trochars were removed. Skin was closed with 4-0 monocryl. The procedure was switched to vaginally. The hysteroscope was placed into the uterus with a sorbitol solution running and under constant suction. The resecting loop set at 80 W of cutting was used to resect areas of thickened endometrium. An endometrial curettage was performed. The endometrial curettage was sent to pathology. The patient went to recovery room in good condition counts of instruments and sponges were correct. The sorbitol solution I=O approximately 1000 mL. Complications: none Post-operative Condition: stable Disposition: same day surgery Plan for aftercare: Home when awake and stable
[2021-02-17] MEDS: HYDROMORPHONE 2 MG INJ IV ×2 (09:19→09:24)
[2021-02-17] MEDS: OXYCODONE/ACETAMINOPHEN 5/325 TABLET 1 TAB PO (09:43)
== END 2021-02-17 10:57 | disposition home or self-care (01) ==
PROVIDERS: PCP Family Medicine; Referring Provider Specialist; Visit Provider Specialist
PROC: (CPT 58661; principal; 2021-02-17 07:45)
PROC: 0UDB8ZZ Extraction of Endometrium, Via Natural or Artificial Opening Endoscopic (ICD-10-PCS; CPT 58558; 2021-02-17 07:45)
DX: D25.2 Subserosal leiomyoma of uterus (principal); K21.9 Gastro-esophageal reflux disease without esophagitis; J45.20 Mild intermittent asthma, uncomplicated; N83.01 Follicular cyst of right ovary
CPT/HCPCS: 58661; 58558; 81025; 82962; J0171; J0330; J1100; J1170; J1885; J2405; J2704; J2765; J3010

== ENCOUNTER → 2021-09-15 13:39 | Outpatient (CLI) | payer BC, OTHER, SELFPAY ==
--- NOTE | 2021-09-15 | DI.RAD.S_ITS ---
PROCEDURE: XR SACRUM COCCYX MIN 2V INDICATIONS: Fall (on) (from) other stairs and steps, initial encounter TECHNIQUE: 3 views of the sacrum and coccyx acquired. COMPARISON: [facility], CR, XR LUMBAR SPINE 2-3V, 09/15/2021, 13:36. [facility], CT, CT ABDOMEN PELVIS W CON, 02/01/2021, 13:34. FINDINGS: Bones: No fractures or dislocations. No suspicious bony lesions. SI joints appear symmetric. Soft tissues: Visualized bowel gas pattern is normal. No suspicious soft tissue densities. IMPRESSION: No sacral fracture seen. Dictated by: Homero Palomares M.D. on 09/15/2021 at 16:09 Approved by: Homero Palomares M.D. on 09/15/2021 at 16:10
--- NOTE | 2021-09-15 13:41 | DI.RAD.S_ITS ---
PROCEDURE: XR LUMBAR SPINE 2-3V INDICATIONS: Fell earlier this month. Severe lower back pain TECHNIQUE: 3 views of the lumbar spine were acquired. COMPARISON: None. FINDINGS: Bones: 5 [id number] vertebrae are present. Mild dextrocurvature, which may be positional. Facet arthrosis at L4-S1. No vertebral body compression fractures. No suspicious bony lesions. Soft tissues: Overlying bowel gas pattern is normal. No suspicious soft tissue calcifications. IMPRESSION: No acute osseous abnormality. Dictated by: John Ribera M.D. on 09/15/2021 at 14:14 Approved by: John Ribera M.D. on 09/15/2021 at 14:16
== END ==
PROVIDERS: PCP Family Medicine; Referring Provider Physician Assistant; Visit Provider Physician Assistant
DX: M54.50 Low back pain, unspecified (principal)
CPT/HCPCS: 72100; 72220

== ENCOUNTER → 2022-02-27 10:27 | Outpatient (CLI) | payer BC, OTHER, SELFPAY ==
--- NOTE | 2022-02-27 10:29 | DI.RAD.S_ITS ---
PROCEDURE: XR KNEE RT 3V INDICATIONS: bilateral knee pain TECHNIQUE: 3 views of the knee were acquired. COMPARISON: [facility], CR, XR KNEE LT 3V, 02/27/2022, 11:20. FINDINGS: Bones: No fractures or dislocations. No suspicious bony lesions. Mild medial compartment narrowing and possible mild patellofemoral compartment narrowing. Soft tissues: No joint effusion. No suspicious soft tissue calcifications. IMPRESSION: 1. No acute osseous abnormality. 2. Mild degenerative changes of the knee. Dictated by: Wood Guallpa M.D. on 02/27/2022 at 20:36 Approved by: Wood Guallpa M.D. on 02/27/2022 at 20:38
--- NOTE | 2022-02-27 10:29 | DI.RAD.S_ITS ---
PROCEDURE: XR KNEE LT 3V INDICATIONS: bilateral knee pain TECHNIQUE: 3 views of the knee were acquired. COMPARISON: None. FINDINGS: Bones: No fractures or dislocations. No suspicious bony lesions. Mild medial compartment joint space narrowing. Soft tissues: No joint effusion. No suspicious soft tissue calcifications. IMPRESSION: 1. No acute osseous abnormality. 2. Mild degenerative changes of the knee. Dictated by: Wood Guallpa M.D. on 02/27/2022 at 20:35 Approved by: Wood Guallpa M.D. on 02/27/2022 at 20:36
== END ==
PROVIDERS: Family Provider Family Medicine; PCP Family Medicine; Referring Provider Family Medicine; Visit Provider Family Medicine
DX: M25.561 Pain in right knee (principal); M25.562 Pain in left knee
CPT/HCPCS: 73562

== ENCOUNTER 2022-05-28 14:30 | Outpatient (RCR) | payer BC, OTHER, SELFPAY ==
--- NOTE | 2021-09-26 17:54 | PT.OIE ---
Current Diagnoses Lumbago with sciatica, unspecified side (09/26/21) Past Medical History (Last Reviewed 09/15/21 @ 19:33 by Graciela Newton PA-C) Abnormal vaginal bleeding with endometrial thickness less than 16 mm present on transvaginal ultrasound in premenopausal patient Acne (~1987) Allergies (~2005) Ankle pain (~2017) Asthma, mild intermittent (~2003) Carpal tunnel syndrome (~2008) Chicken pox (~1980) Chronic back pain (~2013) Depression Female hirsutism Foot pain (~2009) Fracture of left wrist GERD (gastroesophageal reflux disease) H/O left wrist surgery (~02/1995) Hemorrhagic cyst History of History of tubal ligation (~03/15/12) History of urinary incontinence (~2008) Hx of appendectomy (~2000) Hx of cholecystectomy (~1997) Irregular menstruation (~2011) Measles Menorrhagia (~1992) Plantar warts (~1993) Recurrent sinusitis Scarlet fever (~1985) Shoulder pain (~2010) Uterine fibroid Past Surgical History (Last Reviewed 09/15/21 @ 19:33 by Graciela Newton PA-C) Anesthesia H/O left wrist surgery (~02/1995) History of History of tubal ligation (~03/15/12) Hx of appendectomy (~2000) Hx of cholecystectomy (~1997) Visit Care Team Role Provider Type Landon Trujillo MD Family Provider Physician Primary Care Provider Specialty: Family Practice Address: [address] [place] [address] Email: [email or web address] Graciela Newton PA-C Attending Provider Advanced Radiation Control Specialist Referring Provider Specialty: Address: [address] [place] [address], [facility] Email: [email or web address] Physical Therapy Initial Evaluation PT-OP-A Visit Information Start: 09/21/21 17:15 Freq: Status: Active Protocol: Document 09/26/21 08:17 LRN (Rec: 09/26/21 09:39 LRN [id number]) Out-Patient Physical Therapy Visit Information Visit Information Visit Type Initial Evaluation Visit Start Time 08:17 Visit Stop Time 09:06 Total Visit Minutes 49 Visit Number 1 Evaluation Information Evaluation Date 09/26/21 Precautions Precautions Per chart review: PTSD, Chronic back pain. 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 PT-OP-B Current Condition Start: 09/21/21 17:15 Freq: Status: Active Protocol: Document 09/26/21 08:17 LRN (Rec: 09/26/21 09:39 [facility] [id number]) Current Condition History of Current Condition Onset Date 07/18/21 Current Complaints LBP, Lewis hip and knee pain. History of Current Condition Low back pain onset 07/18/21, fell down 8 stairs, R foot went out from under her, L knee buckled and L knee ended up bent and behind her when sliding down the stairs feet first (like sliding into a base in baseball). Had horrendous pain. Did not seek medical care hoping it would go away. Two weeks later went to chiropractor and 2 weeks later ended up in ER. hemodialysis patient care specialist was helpful, but she was getting only a couple hours of pain relief. Now children's zoo caretaker gives 3-4 days relief. She feels she has aggrevated an old injury (see Developmental history below). States the L4 -S1 jt is grinding. Has tried yoga stretches and states her problem feels structural and thinks she has started loosening things too soon. States the R>L hip joints hurt , thus now the knees hurt, because of modifying how she goes up/down the stairs. Pt points to her R lateral gluteal ms and sacral region as areas of pain denoted as pelvic pain. Denies urinary problems or lower abdominal pelvic pain. She is having pain with intercourse; therefore the pt may need Pelvic rehabilitation in the future. 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 Pt has been on light duty since fall. Prior Treatments and Tests hemodialysis patient care specialist 1-2 days/ week ([facility] in [place]). X-ray: shows no fractures in Sacrum, Coccyx, and lumbar vertebra. Developmental History Developmental History 17 yrs old fractured what she thinks is the SI, possibly Sacrum L4-S1 Cracked. In 2006 fell on steel pipe landing on L knee. Treatment Goals Patient/Caregiver Goals Pt goals are: *Get hip flexors to release in order to start moving normal (stairs, walking, bending). *Get back to place to start exercising (not doing any currently that is considered purposeful), because she is only doing daily living exercise. *Wear 16# belt around waist and leather gear that carries the items of the belt. * Be able to do Lethel force training (run, crawl, bend, twist, wrestle a suspect, bend down and put someone in handcuffs). Prior Functional Status Baseline Function- ADL's Independent Baseline Function- Mobility Independent Baseline Function- Work/School Was not exercising before fall . Walking 2 miles in/outside Weight lifting legs, arms, back a couple yrs ago Baseline Function- Other Able to sleep without pain. Current Functional Impairments (Reported) Functional Limitations- ADL's Limited in ability to bend, lift > 15#, twisting, sitting > 1 hr, standing > 1 hr, able to sleep w/medication. Sitting to drive >1.5 hrs is too much. Functional Limitations- Mobility/Gait Stride is short on both sides and slower than normal. Functional Limitations- Work/School On light duty. 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 At home has 3 children and spouse has 2 children. PT-OP-C Subjective Start: 09/21/21 17:15 Freq: Status: Active Protocol: Document 09/26/21 08:17 LRN (Rec: 09/26/21 09:39 LRN [id number]) Patient Questionnaires Oswestry Low Back Index Oswestry Score 40 Oswestry Impairment 40 to 59% Impaired (Score 40- 59) OP-PT Pain Assessment Pain Assessment Grid Paper Pain Assessment Grid Completed Yes Location Knees Pain Location Details Bilateral knees Intensity 8 Description Aching,Sharp Frequency Frequent Pain Duration R knee 3-5/10, L knee 3-8 Pain Aggravating Factors Activity Pain Alleviating Factors Cold Hip Flexors Pain Location Details Hip flexors Intensity 6 Scale Used Numeric (0 - 10) Description Acute,Sharp Description- Other Pain range 4-6 Frequency Frequent Pain Duration 3-6/10 Pain Aggravating Factors Activity Pain Alleviating Factors Cold,Medication Sacrum Pain Location Details Sacral region Intensity 6 Scale Used Numeric (0 - 10) Description Aching,Sharp Description- Other Pain range 3-6/10 Frequency Frequent Pain Aggravating Factors Activity Pain Alleviating Factors Cold,Medication Other Pain Alleviating Factors Moving helps relieve pain that starts @ 3/10. Uses ice at end of work day. PT-OP-H Neuro Start: 09/21/21 17:15 Freq: Status: Active Protocol: Document 09/26/21 08:17 LRN (Rec: 09/26/21 09:39 LRN [id number]) Sensation Evaluation Gross Sensation Gross Sensation WNL PT-OP-J Posture/Palpation/Skin Start: 09/21/21 17:15 Freq: Status: Active Protocol: Document 09/26/21 08:17 LRN (Rec: 09/26/21 09:39 LRN [id number]) Posture Evaluation Position Standing L-Spine Posture Increased Lordosis Shoulder Posture (R) Elevated Pelvis Posture Anteriorly Tilted Weight Distribution Balanced Comments Posture Comments Dowagers hump Level Iliac Crest. Palpation Assessment Location Piriformis Palpation Location Lewis Piriformis Palpation Findings Soft Tissue Tightness,Muscle Guarding,Tenderness Low Back Palpation Location Paraspinals and QL bilaterally Palpation Findings Soft Tissue Tightness,Muscle Guarding,Tenderness PT-OP-K Range of Motion Start: 09/21/21 17:15 Freq: Status: Active Protocol: Document 09/26/21 08:17 LRN (Rec: 09/26/21 09:39 LRN [id number]) Lumbar Spine Range of Motion Lumbar Spine Active Degrees Testing Position Standing Flexion 85 Extension 18 Rotation Left 30 Rotation Right 25 Lateral Flexion Left 15 Lateral Flexion Right 10 ROM Limitations Soft Tissue Tightness,Pain Comments Pain R SB is at R Piriformis Active Percentage Comments Error in reporting AROM in percentage, see below for degree's ROM. Hip Goniometric Range of Motion Hip Right Active Testing Position Supine Straight Leg Raise 75 Internal Rotation 30 External Rotation 55 Left Passive Testing Position Supine Straight Leg Raise 78 Internal Rotation 10 External Rotation 65 PT-OP-L Special Tests Start: 09/21/21 17:15 Freq: Status: Active Protocol: Document 09/26/21 08:17 LRN (Rec: 09/26/21 09:39 LRN [id number]) Special Tests Lumbar Spine Special Tests Vertical Spine Loading Test Results negative Comments Performed in standing Slump Test Results Positive Left: SIJ pain, Negative R. Comments Hamstring tight on R. Straight Leg Raise Test Results Borderline positive Left Comments 75 deg's Right (posterior hip pain), 78 deg's Left (lumbar pain) Hip Special Tests Piriformis Test Results L positive, R anterior groin pain Comments ............... PT-OP-M Strength Start: 09/21/21 17:15 Freq: Status: Active Protocol: Document 09/26/21 08:17 LRN (Rec: 09/26/21 09:39 [facility] [id number]) Trunk Strength Trunk Manual Muscle Testing Core Stabilization Pt able to maintain core stability with hip flexion ms testing. Hip Strength Hip Manual Muscle Testing Right Flexion (L2) 5 Normal External Rotation 5 Normal Internal Rotation 3 Fair Left Flexion (L2) 5 Normal External Rotation 5 Normal Internal Rotation 3 Fair PT-OP-Q Treatments Start: 09/21/21 17:15 Freq: Status: Active Protocol: Document 09/26/21 08:17 LRN (Rec: 09/26/21 09:39 [facility] [id number]) Self-Care/Home Management Treatment Education Patient Education Body Mechanics Other Education Discussed results of evaluation, goals, and plan of care (POC). Pt agreeable to goals and POC. Discussed transfer training on /off plinth Activities Self-Care/Home Management Activities Discussed self care at home: use of ice, proper transfer technique. PT-OP-T Assessment and Plan Start: 09/21/21 17:15 Freq: Status: Active Protocol: Document 09/26/21 08:17 LRN (Rec: 09/26/21 09:39 [facility] [id number]) Physical Therapy Assessment Rehab Potential Rehabilitation Potential Good Evaluation Complexity Number of Personal Factors/Comorbidities 3 or More Number of Body Systems Impaired 3 Clinical Presentation at Evaluation Evolving Impairments Impairments Activity Tolerance,Pain, Posture,ROM,Soft Tissue Mobility,Strength,Transfers Goals Four Impairment Decreased function Impairment CHRISTELLE 20/50 = 40/100 (40-59% impaired, score 40-59). Stride is short on both sides and slower than normal. Limited in ability to bend, lift > 15#, twisting, sitting > 1 hr, standing > 1 hr, able to sleep w/medication. Sitting to drive >1.5 hrs is too much. Short Term Goal (STG) Pt will be able to improve hip flexors mobility to start moving normal (stairs, walking , bending). STG Duration 11/25/21 Penitentiary Goal (LTG) Improve function per CHRISTELLE score of 20-39 (20-39% impaired, score 20-39) LTG Duration 01/24/22 Three Impairment Decreased strength and work function. Impairment Pt on light duty. Not able to run, crawl, bend, twist, wrestle a suspect, bend down and put someone in handcuffs Short Term Goal (STG) Pt will be able to tolerate wearing a 16# belt around waist (leather gear and items it holds) while walking around for her job. 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 LTG Duration 01/24/22 Two Impairment Decreased ability to ex due to LBP, Lewis hip pain, Lewis knee pain. Impairment Pt not execising due to: LBP 4-6/10, R hip pain: anterolateral 4-6 /10, posterior 2-4/10, L hip pain: anterior 2-5/10, R knee pain: medial & lateral 3-8/10, L knee pain: medial & lateral 3-5/10. Short Term Goal (STG) Decrease bilateral hip and knee pain with pt able to intiate exercising (weight lifting) beyond her daily activities. STG Duration 11/25/21 Penitentiary Goal (LTG) Pt will be able to tolerate movements (run, crawl, bend, twist, wrestle someone to the ground to put handcuffs on) with tolerable pain, to complete quaterly Lethel force training. LTG Duration 01/24/22 One Impairment Pt lacks appropriate self care HEP. Short Term Goal (STG) Pt will be educated in log roll technique for transfers STG Duration 10/03/21 [employer] Code Enforcement Officer Goal (LTG) Independent with a self care HEP. LTG Duration 01/24/22 Assessment Summary Assessment Pt presents with soft tissue and mechanical dysfunction of the lumbar, hips and pelvic region. She has symptoms of L Piriformis syndrome and SIJ dysfunction due to her sliding down stairs with the R leg straight out in front and the L leg bent behind her with the knee in ~90 deg's flexion. She has soft tissue pain and muscle guarding at the L SIJ, bilateral low back and gluteal muscles, pain in the bilateral IT band and in the low back at the sacral level. She has stiffness and decreased mobility of her low back and hip rotators. She may have involvement of her lumbar spine. She presents with L hip pain on Trunk R SB and with sitting Slump Test she has onset of L SIJ pain. The pt is being seen by a chiropractor for adjustments that the pt notes provides her with 3-4 days of relief. The pt will benefit from skilled physical therapy for focus on decreasing soft tissue muscle guarding and pain, improving lumbar/hip mobility and for hip/core/pelvic stabilization. Pt education will be focused on proper transfers, self care and home exercise. Physical Therapy Plan Frequency and Duration Frequency of Treatment 2x/Week Plan of Care Start Date 09/26/21 Plan of Care End Date 01/24/22 Therapeutic Interventions Therapeutic Interventions Home Exercise Program,Joint Mobilizations,Manual Therapy, Neuromuscular Re-education, Patient/Caregiver Education, Self-Care/Home Management,Soft Tissue Mobilization,Taping, Therapeutic Activities, Therapeutic Exercises Modalities Cold Pack/Ice Massage,Electric Stimulation,Hot Packs, Ultrasound Next Visit Focus/Plan Next Note Type Treatment Note Next Visit Plan Mobility: ROM ex's for hip rotators, LB (KTC) Stabilization: Core, hips/ pelvis. Manual: STM: Lewis Piriformis, Gluteals, IT Bands, QL, lumbar Paraspinals. S/CS. Education: Transfer training, body mechanics training. Modalities: MH/IFES [LB] or [ L SIJ]. Assess: L SIJ, Pelvis (for rotation), Lumbar (traction)
--- NOTE | 2021-10-03 12:36 | PT.OTN ---
Current Diagnoses Lumbago with sciatica, unspecified side (10/03/21) Physical Therapy Treatment Note PT-OP-A Visit Information Start: 09/21/21 17:15 Freq: Status: Active Protocol: Document 10/03/21 08:10 LRN (Rec: 10/03/21 09:03 LRN [id number]) Out-Patient Physical Therapy Visit Information Visit Information Visit Type Treatment Note Visit Start Time 08:15 Visit Stop Time 09:01 Total Visit Minutes 46 Visit Number 2 Evaluation Information Evaluation Date 09/26/21 Precautions Precautions Per chart review: PTSD, Chronic back pain. 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 PT-OP-B Current Condition Start: 09/21/21 17:15 Freq: Status: Active Protocol: Document 09/26/21 08:17 LRN (Rec: 09/26/21 09:39 LRN [id number]) Current Condition History of Current Condition Onset Date 07/18/21 Current Complaints LBP, Lewis hip and knee pain. History of Current Condition Low back pain onset 07/18/21, fell down 8 stairs, R foot went out from under her, L knee buckled and L knee ended up bent and behind her when sliding down the stairs feet first (like sliding into a base in baseball). Had horrendous pain. Did not seek medical care hoping it would go away. Two weeks later went to chiropractor and 2 weeks later ended up in ER. child care aide was helpful, but she was getting only a couple hours of pain relief. Now day care worker gives 3-4 days relief. She feels she has aggrevated an old injury (see Developmental history below). States the L4 -S1 jt is grinding. Has tried yoga stretches and states her problem feels structural and thinks she has started loosening things too soon. States the R>L hip joints hurt , thus now the knees hurt, because of modifying how she goes up/down the stairs. Pt points to her R lateral gluteal ms and sacral region as areas of pain denoted as pelvic pain. Denies urinary problems or lower abdominal pelvic pain. She is having pain with intercourse; therefore the pt may need Pelvic rehabilitation in the future. 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 Pt has been on light duty since fall. Prior Treatments and Tests child care aide 1-2 days/ week ([facility] in [place]). X-ray: shows no fractures in Sacrum, Coccyx, and lumbar vertebra. Developmental History Developmental History 17 yrs old fractured what she thinks is the SI, possibly Sacrum L4-S1 Cracked. In 2006 fell on steel pipe landing on L knee. Treatment Goals Patient/Caregiver Goals Pt goals are: *Get hip flexors to release in order to start moving normal (stairs, walking, bending). *Get back to place to start exercising (not doing any currently that is considered purposeful), because she is only doing daily living exercise. *Wear 16# belt around waist and leather gear that carries the items of the belt. * Be able to do Lethel force training (run, crawl, bend, twist, wrestle a suspect, bend down and put someone in handcuffs). Prior Functional Status Baseline Function- ADL's Independent Baseline Function- Mobility Independent Baseline Function- Work/School Was not exercising before fall . Walking 2 miles in/outside Weight lifting legs, arms, back a couple yrs ago Baseline Function- Other Able to sleep without pain. Current Functional Impairments (Reported) Functional Limitations- ADL's Limited in ability to bend, lift > 15#, twisting, sitting > 1 hr, standing > 1 hr, able to sleep w/medication. Sitting to drive >1.5 hrs is too much. Functional Limitations- Mobility/Gait Stride is short on both sides and slower than normal. Functional Limitations- Work/School On light duty. 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 At home has 3 children and spouse has 2 children. PT-OP-C Subjective Start: 09/21/21 17:15 Freq: Status: Active Protocol: Document 10/03/21 08:10 LRN (Rec: 10/03/21 09:03 LRN [id number]) OP-PT Subjective Patient Comments Patient Comments Sore, chiro put her to lift no more than 10# and to not wear the service belt. Has been trying to wear it for the past 3 weeks. It causes severe in lumbar spine with stabbing pain on the R side. Next chiro visit is Mon or Tues (1x /week). PT-OP-H Neuro Start: 09/21/21 17:15 Freq: Status: Active Protocol: Document 09/26/21 08:17 LRN (Rec: 09/26/21 09:39 LRN [id number]) Sensation Evaluation Gross Sensation Gross Sensation WNL PT-OP-J Posture/Palpation/Skin Start: 09/21/21 17:15 Freq: Status: Active Protocol: Document 10/03/21 08:10 LRN (Rec: 10/03/21 09:03 LRN [id number]) Palpation Assessment Location L innominate Palpation Details Decreased PA mobility of L Ischial Tub Sacrum Palpation Location Sacrum Palpation Details Decreased mobility L inferior glide & PA of right DEEPIKA ( sacrum in R rot) ASIS Palpation Location ASIS Palpation Details R low and inflared. PT-OP-K Range of Motion Start: 09/21/21 17:15 Freq: Status: Active Protocol: Document 09/26/21 08:17 LRN (Rec: 09/26/21 09:39 LRN [id number]) Lumbar Spine Range of Motion Lumbar Spine Active Degrees Testing Position Standing Flexion 85 Extension 18 Rotation Left 30 Rotation Right 25 Lateral Flexion Left 15 Lateral Flexion Right 10 ROM Limitations Soft Tissue Tightness,Pain Comments Pain R SB is at R Piriformis Active Percentage Comments Error in reporting AROM in percentage, see below for degree's ROM. Hip Goniometric Range of Motion Hip Right Active Testing Position Supine Straight Leg Raise 75 Internal Rotation 30 External Rotation 55 Left Passive Testing Position Supine Straight Leg Raise 78 Internal Rotation 10 External Rotation 65 PT-OP-L Special Tests Start: 09/21/21 17:15 Freq: Status: Active Protocol: Document 10/03/21 08:10 LRN (Rec: 10/03/21 09:03 LRN [id number]) Special Tests Hip Special Tests YOJANA Test Results R possible positive Comments R side pain in posterolateral thigh L side groin pain. PT-OP-M Strength Start: 09/21/21 17:15 Freq: Status: Active Protocol: Document 09/26/21 08:17 LRN (Rec: 09/26/21 09:39 LRN [id number]) Trunk Strength Trunk Manual Muscle Testing Core Stabilization Pt able to maintain core stability with hip flexion ms testing. Hip Strength Hip Manual Muscle Testing Right Flexion (L2) 5 Normal External Rotation 5 Normal Internal Rotation 3 Fair Left Flexion (L2) 5 Normal External Rotation 5 Normal Internal Rotation 3 Fair PT-OP-Q Treatments Start: 09/21/21 17:15 Freq: Status: Active Protocol: Document 10/03/21 08:10 LRN (Rec: 10/03/21 09:03 LRN [id number]) Therapeutic Exercises Sidelying Exercises TA Sidelying Exercise Name TA Side left Reps/Minutes 10 H - 4' Comments Pt given extra rest Manual Therapy Treatment Soft Tissue Mobilization superior L Sacrum Body Location Inferior glide of L side of sacrum Mobilization Type Sustained Pressure Body Position Prone Comments Inferior glide Hips Body Location Right Piriformis Mobilization Type Strumming Intensity/Depth Moderate Body Position Prone Comments Very tight and tender along R sacral border > L Sacral border. LB Body Location Lewis QL, Sacrum Mobilization Type Strumming Intensity/Depth Moderate Body Position Prone Comments Greater tightness on R side L/S Paraspinal Body Location Lewis Paraspinals Mobilization Type Strumming Intensity/Depth Moderate Body Position Prone Comments Greater tightness on R side Joint Mobilizations SIJ Comments ................ inflare, L outflare correction. Self-Care/Home Management Treatment Activities Self-Care/Home Management Activities I/S pt to do TA contraction & use Ice to R Lateral hip often as needed. PT-OP-R Modalities Start: 09/21/21 17:15 Freq: Status: Active Protocol: Document 10/03/21 08:10 LRN (Rec: 10/03/21 09:03 LRN [id number]) Ultrasound Therapy Treatment R Grtt Trochanteric Bursa Treatment Duration (minutes) 8 Patient Position Sidelying Coupling Medium Ultrasound Gel Applicator Size (cm2) 10 Mode Setting Pulsed Duty Cycle 50% Intensity Setting (w/cm2) 1.0 PT-OP-T Assessment and Plan Start: 09/21/21 17:15 Freq: Status: Active Protocol: Document 10/03/21 08:10 LRN (Rec: 10/03/21 09:03 LRN [id number]) Physical Therapy Assessment Goals Four Impairment Decreased function Impairment CHRISTELLE 20/50 = 40/100 (40-59% impaired, score 40-59). Stride is short on both sides and slower than normal. Limited in ability to bend, lift > 15#, twisting, sitting > 1 hr, standing > 1 hr, able to sleep w/medication. Sitting to drive >1.5 hrs is too much. Short Term Goal (STG) Pt will be able to improve hip flexors mobility to start moving normal (stairs, walking , bending). STG Duration 11/25/21 Alf Goal (LTG) Improve function per CHRISTELLE score of 20-39 (20-39% impaired, score 20-39) LTG Duration 01/24/22 Three Impairment Decreased strength and work function. Impairment Pt on light duty. Not able to run, crawl, bend, twist, wrestle a suspect, bend down and put someone in handcuffs Short Term Goal (STG) Pt will be able to tolerate wearing a 16# belt around waist (leather gear and items it holds) while walking around for her job. 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 LTG Duration 01/24/22 Two Impairment Decreased ability to ex due to LBP, Lewis hip pain, Lewis knee pain. Impairment Pt not execising due to: LBP 4-6/10, R hip pain: anterolateral 4-6 /10, posterior 2-4/10, L hip pain: anterior 2-5/10, R knee pain: medial & lateral 3-8/10, L knee pain: medial & lateral 3-5/10. Short Term Goal (STG) Decrease bilateral hip and knee pain with pt able to intiate exercising (weight lifting) beyond her daily activities. STG Duration 11/25/21 Alf Goal (LTG) Pt will be able to tolerate movements (run, crawl, bend, twist, wrestle someone to the ground to put handcuffs on) with tolerable pain, to complete quaterly Lethel force training. LTG Duration 01/24/22 One Impairment Pt lacks appropriate self care HEP. Short Term Goal (STG) Pt will be educated in log roll technique for transfers STG Duration 10/03/21 Alf Goal (LTG) Independent with a self care HEP. LTG Duration 01/24/22 Assessment Summary Assessment Pt continues to present with soft tissue and mechanical dysfunction of the lumbar, hips and pelvic region, with symptoms of L Trochanteric Bursitis, Piriformis syndrome and SIJ dysfunction due to her sliding down stairs with the R leg straight out in front and the L leg bent behind her with the knee in ~90 deg's flexion. In supine: Able to correct R inflare after mob of R for inflare and L for outflare; leg length then appeared to be equal with equal level at ASIS' ( initially shown as lower R ASIS). Was unable to mobilize Sacrum due to tightness of R paraspinals, QL & Piriformis. Possible R greater trochanteric bursitis with extreme tenderness on palpation. Small area of bruising on R lateral thigh proximally along IT Band region. Pt slightly less pain at R hip after Ultrasound. Physical Therapy Plan Frequency and Duration Frequency of Treatment 2x/Week Plan of Care Start Date 09/26/21 Plan of Care End Date 01/24/22 Next Visit Focus/Plan Next Note Type Treatment Note Next Visit Plan Mobility: ROM ex's for hip rotators, LB ([facility]) Stabilization: Core, hips/ pelvis. Manual: Infer glide of R superior sacrum & balancing of pelvis, STM: Lewis Piriformis, Gluteals, IT Bands, QL, lumbar Paraspinals. S/CS. Education: Transfer training, body mechanics training. Modalities: MH/IFES [LB] or [ L SIJ]. Assess: L SIJ, Pelvis (for rotation), Lumbar (traction)
--- NOTE | 2021-10-05 08:15 | PT.OTN ---
Current Diagnoses Lumbago with sciatica, unspecified side (10/09/21) Physical Therapy Treatment Note PT-OP-A Visit Information Start: 09/21/21 17:15 Freq: Status: Active Protocol: Document 10/05/21 08:15 LRN (Rec: 10/05/21 09:05 LRN [id number]) Out-Patient Physical Therapy Visit Information Visit Information Visit Type Treatment Note Visit Start Time 08:15 Visit Stop Time 09:00 Total Visit Minutes 45 Visit Number 3 Evaluation Information Evaluation Date 09/26/21 Precautions Precautions Per chart review: PTSD, Chronic back pain. 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 PT-OP-B Current Condition Start: 09/21/21 17:15 Freq: Status: Active Protocol: Document 09/26/21 08:17 LRN (Rec: 09/26/21 09:39 LRN [id number]) Current Condition History of Current Condition Onset Date 07/18/21 Current Complaints LBP, Lewis hip and knee pain. History of Current Condition Low back pain onset 07/18/21, fell down 8 stairs, R foot went out from under her, L knee buckled and L knee ended up bent and behind her when sliding down the stairs feet first (like sliding into a base in baseball). Had horrendous pain. Did not seek medical care hoping it would go away. Two weeks later went to chiropractor and 2 weeks later ended up in ER. vision care associate was helpful, but she was getting only a couple hours of pain relief. Now clinical manager home care gives 3-4 days relief. She feels she has aggrevated an old injury (see Developmental history below). States the L4 -S1 jt is grinding. Has tried yoga stretches and states her problem feels structural and thinks she has started loosening things too soon. States the R>L hip joints hurt , thus now the knees hurt, because of modifying how she goes up/down the stairs. Pt points to her R lateral gluteal ms and sacral region as areas of pain denoted as pelvic pain. Denies urinary problems or lower abdominal pelvic pain. She is having pain with intercourse; therefore the pt may need Pelvic rehabilitation in the future. 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 Pt has been on light duty since fall. Prior Treatments and Tests vision care associate 1-2 days/ week ([facility] in [place]). X-ray: shows no fractures in Sacrum, Coccyx, and lumbar vertebra. Developmental History Developmental History 17 yrs old fractured what she thinks is the SI, possibly Sacrum L4-S1 Cracked. In 2006 fell on steel pipe landing on L knee. Treatment Goals Patient/Caregiver Goals Pt goals are: *Get hip flexors to release in order to start moving normal (stairs, walking, bending). *Get back to place to start exercising (not doing any currently that is considered purposeful), because she is only doing daily living exercise. *Wear 16# belt around waist and leather gear that carries the items of the belt. * Be able to do Lethel force training (run, crawl, bend, twist, wrestle a suspect, bend down and put someone in handcuffs). Prior Functional Status Baseline Function- ADL's Independent Baseline Function- Mobility Independent Baseline Function- Work/School Was not exercising before fall . Walking 2 miles in/outside Weight lifting legs, arms, back a couple yrs ago Baseline Function- Other Able to sleep without pain. Current Functional Impairments (Reported) Functional Limitations- ADL's Limited in ability to bend, lift > 15#, twisting, sitting > 1 hr, standing > 1 hr, able to sleep w/medication. Sitting to drive >1.5 hrs is too much. Functional Limitations- Mobility/Gait Stride is short on both sides and slower than normal. Functional Limitations- Work/School On light duty. 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 At home has 3 children and spouse has 2 children. PT-OP-C Subjective Start: 09/21/21 17:15 Freq: Status: Active Protocol: Document 10/05/21 08:15 LRN (Rec: 10/05/21 09:05 LRN [id number]) OP-PT Subjective Patient Comments Patient Comments Really sore, after last session. All pain is muscle related. 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 Low back pain. PT-OP-H Neuro Start: 09/21/21 17:15 Freq: Status: Active Protocol: Document 09/26/21 08:17 LRN (Rec: 09/26/21 09:39 LRN [id number]) Sensation Evaluation Gross Sensation Gross Sensation WNL PT-OP-J Posture/Palpation/Skin Start: 09/21/21 17:15 Freq: Status: Active Protocol: Document 10/03/21 08:10 LRN (Rec: 10/03/21 09:03 LRN [id number]) Palpation Assessment Location L innominate Palpation Details Decreased PA mobility of L Ischial Tub Sacrum Palpation Location Sacrum Palpation Details Decreased mobility L inferior glide & PA of right DEEPIKA ( sacrum in R rot) ASIS Palpation Location ASIS Palpation Details R low and inflared. PT-OP-K Range of Motion Start: 09/21/21 17:15 Freq: Status: Active Protocol: Document 09/26/21 08:17 LRN (Rec: 09/26/21 09:39 LRN [id number]) Lumbar Spine Range of Motion Lumbar Spine Active Degrees Testing Position Standing Flexion 85 Extension 18 Rotation Left 30 Rotation Right 25 Lateral Flexion Left 15 Lateral Flexion Right 10 ROM Limitations Soft Tissue Tightness,Pain Comments Pain R SB is at R Piriformis Active Percentage Comments Error in reporting AROM in percentage, see below for degree's ROM. Hip Goniometric Range of Motion Hip Right Active Testing Position Supine Straight Leg Raise 75 Internal Rotation 30 External Rotation 55 Left Passive Testing Position Supine Straight Leg Raise 78 Internal Rotation 10 External Rotation 65 PT-OP-L Special Tests Start: 09/21/21 17:15 Freq: Status: Active Protocol: Document 10/03/21 08:10 LRN (Rec: 10/03/21 09:03 LRN [id number]) Special Tests Hip Special Tests YOJANA Test Results R possible positive Comments R side pain in posterolateral thigh L side groin pain. PT-OP-M Strength Start: 09/21/21 17:15 Freq: Status: Active Protocol: Document 09/26/21 08:17 LRN (Rec: 09/26/21 09:39 LRN [id number]) Trunk Strength Trunk Manual Muscle Testing Core Stabilization Pt able to maintain core stability with hip flexion ms testing. Hip Strength Hip Manual Muscle Testing Right Flexion (L2) 5 Normal External Rotation 5 Normal Internal Rotation 3 Fair Left Flexion (L2) 5 Normal External Rotation 5 Normal Internal Rotation 3 Fair PT-OP-Q Treatments Start: 09/21/21 17:15 Freq: Status: Active Protocol: Document 10/05/21 08:15 LRN (Rec: 10/05/21 09:05 [facility] [id number]) Therapeutic Exercises Supine Exercises TA tightening Supine Exercise Name TA tightening training/ awareness training Reps/Minutes 6' Comments Phys help for awareness of self cuing at ASIS' Piriformis Supine Exercise Name Piriformis Side bilateral Reps/Minutes 6' Fig 4 Supine Exercise Name Fig 4 Side right Reps/Minutes 3' Manual Therapy Treatment Joint Mobilizations SIJ Joint Correctioni of L innominate outflare Body Position Supine Reps/Duration 10' Comments Correction on L side. Self-Care/Home Management Treatment Education Patient Education Home Exercise Program Activities Self-Care/Home Management Activities Issued & reveiwed HEP: TA tightening and neutral spine TA tightening. Fig 4 (R side) & Piriformis (bilaterally). PT-OP-R Modalities Start: 09/21/21 17:15 Freq: Status: Active Protocol: Document 10/05/21 08:15 LRN (Rec: 10/09/21 16:19 [facility] [id number]) Electric Stimulation Electric Stimulation Functional Electric Stimulation Body Location Sacrum Duration (Minutes) 15 Target/Sweep Target Patient Position Hooklying Combined With Heat/Cold Cold Pack Comments Good tolerance Hot Pack/Cold Pack Treatment Cold Pack Location Low Back Patient Position Hooklying Treatment Duration (minutes) 15 Patient Tolerance Good PT-OP-T Assessment and Plan Start: 09/21/21 17:15 Freq: Status: Active Protocol: Document 10/05/21 08:15 LRN (Rec: 10/05/21 09:05 [facility] [id number]) Physical Therapy Assessment Goals Four Impairment Decreased function Impairment CHRISTELLE 20/50 = 40/100 (40-59% impaired, score 40-59). Stride is short on both sides and slower than normal. Limited in ability to bend, lift > 15#, twisting, sitting > 1 hr, standing > 1 hr, able to sleep w/medication. Sitting to drive >1.5 hrs is too much. Short Term Goal (STG) Pt will be able to improve hip flexors mobility to start moving normal (stairs, walking , bending). STG Duration 11/25/21 Usp Goal (LTG) Improve function per CHRISTELLE score of 20-39 (20-39% impaired, score 20-39) LTG Duration 01/24/22 Three Impairment Decreased strength and work function. Impairment Pt on light duty. Not able to run, crawl, bend, twist, wrestle a suspect, bend down and put someone in handcuffs Short Term Goal (STG) Pt will be able to tolerate wearing a 16# belt around waist (leather gear and items it holds) while walking around for her job. 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 LTG Duration 01/24/22 Two Impairment Decreased ability to ex due to LBP, Lewis hip pain, Lewis knee pain. Impairment Pt not execising due to: LBP 4-6/10, R hip pain: anterolateral 4-6 /10, posterior 2-4/10, L hip pain: anterior 2-5/10, R knee pain: medial & lateral 3-8/10, L knee pain: medial & lateral 3-5/10. Short Term Goal (STG) Decrease bilateral hip and knee pain with pt able to intiate exercising (weight lifting) beyond her daily activities. STG Duration 11/25/21 Data Power Consultant Goal (LTG) Pt will be able to tolerate movements (run, crawl, bend, twist, wrestle someone to the ground to put handcuffs on) with tolerable pain, to complete quaterly Lethel force training. LTG Duration 01/24/22 One Impairment Pt lacks appropriate self care HEP. Short Term Goal (STG) Pt will be educated in log roll technique for transfers STG Duration 10/03/21 Data Power Consultant Goal (LTG) Independent with a self care HEP. LTG Duration 01/24/22 Assessment Summary Assessment Pt shows good transfer technique sit>supine. Pt able to correct L outflare; therefore L lateral hip stretch not painful (was painful to start before SIJ correction). Pt's L TA is inhibited and weak when pt fernanda. Physical Therapy Plan Frequency and Duration Frequency of Treatment 2x/Week Plan of Care Start Date 09/26/21 Plan of Care End Date 01/24/22 Next Visit Focus/Plan Next Note Type Treatment Note Next Visit Plan Assess response to ESTim at lower level than pt uses at home on her personal TNS unit. Review proper transfer sit<> sup Review ROM ex's for hip rotators & TA tightening for equal contraction on L side compared to R side. Mobility: Add HEP ROM ex's for LB ([facility]) Stabilization: Core, hips/ pelvis (LE roll in/outs). Manual: Infer glide of R superior sacrum & balancing of pelvis, STM: Lewis Piriformis, Gluteals, IT Bands, QL, lumbar Paraspinals. S/CS. Education: body mechanics training. Modalities: MH/IFES [LB] or [ L SIJ]. Assess: L SIJ, Pelvis (for rotation), Lumbar (traction)
--- NOTE | 2021-10-05 09:07 | PT.OTN ---
Current Diagnoses Lumbago with sciatica, unspecified side (10/05/21) Physical Therapy Treatment Note PT-OP-A Visit Information Start: 09/21/21 17:15 Freq: Status: Active Protocol: Document 10/05/21 08:15 LRN (Rec: 10/05/21 09:05 LRN [id number]) Out-Patient Physical Therapy Visit Information Visit Information Visit Type Treatment Note Visit Start Time 08:15 Visit Stop Time 09:00 Total Visit Minutes 45 Visit Number 3 Evaluation Information Evaluation Date 09/26/21 Precautions Precautions Per chart review: PTSD, Chronic back pain. 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 PT-OP-B Current Condition Start: 09/21/21 17:15 Freq: Status: Active Protocol: Document 09/26/21 08:17 LRN (Rec: 09/26/21 09:39 LRN [id number]) Current Condition History of Current Condition Onset Date 07/18/21 Current Complaints LBP, Lewis hip and knee pain. History of Current Condition Low back pain onset 07/18/21, fell down 8 stairs, R foot went out from under her, L knee buckled and L knee ended up bent and behind her when sliding down the stairs feet first (like sliding into a base in baseball). Had horrendous pain. Did not seek medical care hoping it would go away. Two weeks later went to chiropractor and 2 weeks later ended up in ER. senior care assistant was helpful, but she was getting only a couple hours of pain relief. Now child care teacher gives 3-4 days relief. She feels she has aggrevated an old injury (see Developmental history below). States the L4 -S1 jt is grinding. Has tried yoga stretches and states her problem feels structural and thinks she has started loosening things too soon. States the R>L hip joints hurt , thus now the knees hurt, because of modifying how she goes up/down the stairs. Pt points to her R lateral gluteal ms and sacral region as areas of pain denoted as pelvic pain. Denies urinary problems or lower abdominal pelvic pain. She is having pain with intercourse; therefore the pt may need Pelvic rehabilitation in the future. 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 Pt has been on light duty since fall. Prior Treatments and Tests senior care assistant 1-2 days/ week ([facility] in [place]). X-ray: shows no fractures in Sacrum, Coccyx, and lumbar vertebra. Developmental History Developmental History 17 yrs old fractured what she thinks is the SI, possibly Sacrum L4-S1 Cracked. In 2006 fell on steel pipe landing on L knee. Treatment Goals Patient/Caregiver Goals Pt goals are: *Get hip flexors to release in order to start moving normal (stairs, walking, bending). *Get back to place to start exercising (not doing any currently that is considered purposeful), because she is only doing daily living exercise. *Wear 16# belt around waist and leather gear that carries the items of the belt. * Be able to do Lethel force training (run, crawl, bend, twist, wrestle a suspect, bend down and put someone in handcuffs). Prior Functional Status Baseline Function- ADL's Independent Baseline Function- Mobility Independent Baseline Function- Work/School Was not exercising before fall . Walking 2 miles in/outside Weight lifting legs, arms, back a couple yrs ago Baseline Function- Other Able to sleep without pain. Current Functional Impairments (Reported) Functional Limitations- ADL's Limited in ability to bend, lift > 15#, twisting, sitting > 1 hr, standing > 1 hr, able to sleep w/medication. Sitting to drive >1.5 hrs is too much. Functional Limitations- Mobility/Gait Stride is short on both sides and slower than normal. Functional Limitations- Work/School On light duty. 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 At home has 3 children and spouse has 2 children. PT-OP-C Subjective Start: 09/21/21 17:15 Freq: Status: Active Protocol: Document 10/05/21 08:15 LRN (Rec: 10/05/21 09:05 LRN [id number]) OP-PT Subjective Patient Comments Patient Comments Really sore, after last session. All pain is muscle related. 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 Low back pain. PT-OP-H Neuro Start: 09/21/21 17:15 Freq: Status: Active Protocol: Document 09/26/21 08:17 LRN (Rec: 09/26/21 09:39 LRN [id number]) Sensation Evaluation Gross Sensation Gross Sensation WNL PT-OP-J Posture/Palpation/Skin Start: 09/21/21 17:15 Freq: Status: Active Protocol: Document 10/03/21 08:10 LRN (Rec: 10/03/21 09:03 LRN [id number]) Palpation Assessment Location L innominate Palpation Details Decreased PA mobility of L Ischial Tub Sacrum Palpation Location Sacrum Palpation Details Decreased mobility L inferior glide & PA of right DEEPIKA ( sacrum in R rot) ASIS Palpation Location ASIS Palpation Details R low and inflared. PT-OP-K Range of Motion Start: 09/21/21 17:15 Freq: Status: Active Protocol: Document 09/26/21 08:17 LRN (Rec: 09/26/21 09:39 LRN [id number]) Lumbar Spine Range of Motion Lumbar Spine Active Degrees Testing Position Standing Flexion 85 Extension 18 Rotation Left 30 Rotation Right 25 Lateral Flexion Left 15 Lateral Flexion Right 10 ROM Limitations Soft Tissue Tightness,Pain Comments Pain R SB is at R Piriformis Active Percentage Comments Error in reporting AROM in percentage, see below for degree's ROM. Hip Goniometric Range of Motion Hip Right Active Testing Position Supine Straight Leg Raise 75 Internal Rotation 30 External Rotation 55 Left Passive Testing Position Supine Straight Leg Raise 78 Internal Rotation 10 External Rotation 65 PT-OP-L Special Tests Start: 09/21/21 17:15 Freq: Status: Active Protocol: Document 10/03/21 08:10 LRN (Rec: 10/03/21 09:03 LRN [id number]) Special Tests Hip Special Tests YOJANA Test Results R possible positive Comments R side pain in posterolateral thigh L side groin pain. PT-OP-M Strength Start: 09/21/21 17:15 Freq: Status: Active Protocol: Document 09/26/21 08:17 LRN (Rec: 09/26/21 09:39 LRN [id number]) Trunk Strength Trunk Manual Muscle Testing Core Stabilization Pt able to maintain core stability with hip flexion ms testing. Hip Strength Hip Manual Muscle Testing Right Flexion (L2) 5 Normal External Rotation 5 Normal Internal Rotation 3 Fair Left Flexion (L2) 5 Normal External Rotation 5 Normal Internal Rotation 3 Fair PT-OP-Q Treatments Start: 09/21/21 17:15 Freq: Status: Active Protocol: Document 10/05/21 08:15 LRN (Rec: 10/05/21 09:05 LRN [id number]) Therapeutic Exercises Supine Exercises TA tightening Supine Exercise Name TA tightening training/ awareness training Reps/Minutes 6' Comments Phys help for awareness of self cuing at ASIS' Piriformis Supine Exercise Name Piriformis Side bilateral Reps/Minutes 6' Fig 4 Supine Exercise Name Fig 4 Side right Reps/Minutes 3' Manual Therapy Treatment Joint Mobilizations SIJ Joint Correctioni of L innominate outflare Body Position Supine Reps/Duration 10' Comments Correction on L side. Self-Care/Home Management Treatment Education Patient Education Home Exercise Program Activities Self-Care/Home Management Activities Issued & reveiwed HEP: TA tightening and neutral spine TA tightening. Fig 4 (R side) & Piriformis (bilaterally). PT-OP-R Modalities Start: 09/21/21 17:15 Freq: Status: Active Protocol: Document 10/03/21 08:10 LRN (Rec: 10/03/21 09:03 [facility] [id number]) Ultrasound Therapy Treatment R Grtt Trochanteric Bursa Treatment Duration (minutes) 8 Patient Position Sidelying Coupling Medium Ultrasound Gel Applicator Size (cm2) 10 Mode Setting Pulsed Duty Cycle 50% Intensity Setting (w/cm2) 1.0 PT-OP-T Assessment and Plan Start: 09/21/21 17:15 Freq: Status: Active Protocol: Document 10/05/21 08:15 LRN (Rec: 10/05/21 09:05 [facility] [id number]) Physical Therapy Assessment Goals Four Impairment Decreased function Impairment CHRISTELLE 20/50 = 40/100 (40-59% impaired, score 40-59). Stride is short on both sides and slower than normal. Limited in ability to bend, lift > 15#, twisting, sitting > 1 hr, standing > 1 hr, able to sleep w/medication. Sitting to drive >1.5 hrs is too much. Short Term Goal (STG) Pt will be able to improve hip flexors mobility to start moving normal (stairs, walking , bending). STG Duration 11/25/21 Global Implementation Manager Goal (LTG) Improve function per CHRISTELLE score of 20-39 (20-39% impaired, score 20-39) LTG Duration 01/24/22 Three Impairment Decreased strength and work function. Impairment Pt on light duty. Not able to run, crawl, bend, twist, wrestle a suspect, bend down and put someone in handcuffs Short Term Goal (STG) Pt will be able to tolerate wearing a 16# belt around waist (leather gear and items it holds) while walking around for her job. 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 LTG Duration 01/24/22 Two Impairment Decreased ability to ex due to LBP, Lewis hip pain, Lewis knee pain. Impairment Pt not execising due to: LBP 4-6/10, R hip pain: anterolateral 4-6 /10, posterior 2-4/10, L hip pain: anterior 2-5/10, R knee pain: medial & lateral 3-8/10, L knee pain: medial & lateral 3-5/10. Short Term Goal (STG) Decrease bilateral hip and knee pain with pt able to intiate exercising (weight lifting) beyond her daily activities. STG Duration 11/25/21 Global Implementation Manager Goal (LTG) Pt will be able to tolerate movements (run, crawl, bend, twist, wrestle someone to the ground to put handcuffs on) with tolerable pain, to complete quaterly Lethel force training. LTG Duration 01/24/22 One Impairment Pt lacks appropriate self care HEP. Short Term Goal (STG) Pt will be educated in log roll technique for transfers STG Duration 10/03/21 Global Implementation Manager Goal (LTG) Independent with a self care HEP. LTG Duration 01/24/22 Assessment Summary Assessment Pt shows good transfer technique sit>supine. Pt able to correct L outflare; therefore L lateral hip stretch not painful (was painful to start before SIJ correction). Pt's L TA is inhibited and weak when pt fernanda. Physical Therapy Plan Frequency and Duration Frequency of Treatment 2x/Week Plan of Care Start Date 09/26/21 Plan of Care End Date 01/24/22 Next Visit Focus/Plan Next Note Type Treatment Note Next Visit Plan Assess response to ESTim at lower level than pt uses at home on her personal TNS unit. Review proper transfer sit<> sup Review ROM ex's for hip rotators & TA tightening for equal contraction on L side compared to R side. Mobility: Add HEP ROM ex's for LB (KTC) Stabilization: Core, hips/ pelvis (LE roll in/outs). Manual: Infer glide of R superior sacrum & balancing of pelvis, STM: Lewis Piriformis, Gluteals, IT Bands, QL, lumbar Paraspinals. S/CS. Education: body mechanics training. Modalities: MH/IFES [LB] or [ L SIJ]. Assess: L SIJ, Pelvis (for rotation), Lumbar (traction)
--- NOTE | 2021-10-09 16:34 | PT.OTN ---
Current Diagnoses Lumbago with sciatica, unspecified side (10/09/21) Physical Therapy Treatment Note PT-OP-A Visit Information Start: 09/21/21 17:15 Freq: Status: Active Protocol: Document 10/09/21 14:31 LRN (Rec: 10/09/21 15:09 LRN [id number]) Out-Patient Physical Therapy Visit Information Visit Information Visit Type Treatment Note Visit Start Time 14:31 Visit Stop Time 15:17 Total Visit Minutes 46 Visit Number 4 Evaluation Information Evaluation Date 09/26/21 Precautions Precautions Per chart review: PTSD, Chronic back pain. 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 PT-OP-B Current Condition Start: 09/21/21 17:15 Freq: Status: Active Protocol: Document 09/26/21 08:17 LRN (Rec: 09/26/21 09:39 LRN [id number]) Current Condition History of Current Condition Onset Date 07/18/21 Current Complaints LBP, Lewis hip and knee pain. History of Current Condition Low back pain onset 07/18/21, fell down 8 stairs, R foot went out from under her, L knee buckled and L knee ended up bent and behind her when sliding down the stairs feet first (like sliding into a base in baseball). Had horrendous pain. Did not seek medical care hoping it would go away. Two weeks later went to chiropractor and 2 weeks later ended up in ER. geriatric care manager was helpful, but she was getting only a couple hours of pain relief. Now career services manager gives 3-4 days relief. She feels she has aggrevated an old injury (see Developmental history below). States the L4 -S1 jt is grinding. Has tried yoga stretches and states her problem feels structural and thinks she has started loosening things too soon. States the R>L hip joints hurt , thus now the knees hurt, because of modifying how she goes up/down the stairs. Pt points to her R lateral gluteal ms and sacral region as areas of pain denoted as pelvic pain. Denies urinary problems or lower abdominal pelvic pain. She is having pain with intercourse; therefore the pt may need Pelvic rehabilitation in the future. 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 Pt has been on light duty since fall. Prior Treatments and Tests geriatric care manager 1-2 days/ week ([facility] in [place]). X-ray: shows no fractures in Sacrum, Coccyx, and lumbar vertebra. Developmental History Developmental History 17 yrs old fractured what she thinks is the SI, possibly Sacrum L4-S1 Cracked. In 2006 fell on steel pipe landing on L knee. Treatment Goals Patient/Caregiver Goals Pt goals are: *Get hip flexors to release in order to start moving normal (stairs, walking, bending). *Get back to place to start exercising (not doing any currently that is considered purposeful), because she is only doing daily living exercise. *Wear 16# belt around waist and leather gear that carries the items of the belt. * Be able to do Lethel force training (run, crawl, bend, twist, wrestle a suspect, bend down and put someone in handcuffs). Prior Functional Status Baseline Function- ADL's Independent Baseline Function- Mobility Independent Baseline Function- Work/School Was not exercising before fall . Walking 2 miles in/outside Weight lifting legs, arms, back a couple yrs ago Baseline Function- Other Able to sleep without pain. Current Functional Impairments (Reported) Functional Limitations- ADL's Limited in ability to bend, lift > 15#, twisting, sitting > 1 hr, standing > 1 hr, able to sleep w/medication. Sitting to drive >1.5 hrs is too much. Functional Limitations- Mobility/Gait Stride is short on both sides and slower than normal. Functional Limitations- Work/School On light duty. 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 At home has 3 children and spouse has 2 children. PT-OP-C Subjective Start: 09/21/21 17:15 Freq: Status: Active Protocol: Document 10/09/21 14:31 LRN (Rec: 10/09/21 15:09 LRN [id number]) OP-PT Subjective Patient Comments Patient Comments States lower lumbar screamed at her all weekend long. STates she also saw her Chiropractor the day sfter therapy. Pain is worse in the sacral pain. ESTim felt good. PT-OP-H Neuro Start: 09/21/21 17:15 Freq: Status: Active Protocol: Document 09/26/21 08:17 LRN (Rec: 09/26/21 09:39 LRN [id number]) Sensation Evaluation Gross Sensation Gross Sensation WNL PT-OP-J Posture/Palpation/Skin Start: 09/21/21 17:15 Freq: Status: Active Protocol: Document 10/03/21 08:10 LRN (Rec: 10/03/21 09:03 LRN [id number]) Palpation Assessment Location L innominate Palpation Details Decreased PA mobility of L Ischial Tub Sacrum Palpation Location Sacrum Palpation Details Decreased mobility L inferior glide & PA of right DEEPIKA ( sacrum in R rot) ASIS Palpation Location ASIS Palpation Details R low and inflared. PT-OP-K Range of Motion Start: 09/21/21 17:15 Freq: Status: Active Protocol: Document 09/26/21 08:17 LRN (Rec: 09/26/21 09:39 LRN [id number]) Lumbar Spine Range of Motion Lumbar Spine Active Degrees Testing Position Standing Flexion 85 Extension 18 Rotation Left 30 Rotation Right 25 Lateral Flexion Left 15 Lateral Flexion Right 10 ROM Limitations Soft Tissue Tightness,Pain Comments Pain R SB is at R Piriformis Active Percentage Comments Error in reporting AROM in percentage, see below for degree's ROM. Hip Goniometric Range of Motion Hip Right Active Testing Position Supine Straight Leg Raise 75 Internal Rotation 30 External Rotation 55 Left Passive Testing Position Supine Straight Leg Raise 78 Internal Rotation 10 External Rotation 65 PT-OP-L Special Tests Start: 09/21/21 17:15 Freq: Status: Active Protocol: Document 10/03/21 08:10 LRN (Rec: 10/03/21 09:03 LRN [id number]) Special Tests Hip Special Tests YOJANA Test Results R possible positive Comments R side pain in posterolateral thigh L side groin pain. PT-OP-M Strength Start: 09/21/21 17:15 Freq: Status: Active Protocol: Document 09/26/21 08:17 LRN (Rec: 09/26/21 09:39 LRN [id number]) Trunk Strength Trunk Manual Muscle Testing Core Stabilization Pt able to maintain core stability with hip flexion ms testing. Hip Strength Hip Manual Muscle Testing Right Flexion (L2) 5 Normal External Rotation 5 Normal Internal Rotation 3 Fair Left Flexion (L2) 5 Normal External Rotation 5 Normal Internal Rotation 3 Fair PT-OP-Q Treatments Start: 09/21/21 17:15 Freq: Status: Active Protocol: Document 10/09/21 14:31 LRN (Rec: 10/09/21 15:09 LRN [id number]) Therapeutic Exercises Supine Exercises TA tightening Supine Exercise Name TA tightening training - I/S for HEP Reps/Minutes 6' Comments Phys help for awareness of self cuing at ASIS' Prone Exercises Hip ER stretch Prone Exercise Name Stretch to ER's - Contract/ Relax Side bilateral Reps/Minutes 8' TA tightening Prone Exercise Name TA - I/S for HEP Reps/Minutes 6' Sidelying Exercises TA Sidelying Exercise Name TA - I/S for HEP Side right Reps/Minutes 10 H - 6' Comments Pt given extra rest Manual Therapy Treatment Soft Tissue Mobilization Balancing of Sacrum/SIJ's Body Location SIJ's/Sacrum Mobilization Type Myofascial Release Intensity/Depth Moderate Body Position Prone PT-OP-R Modalities Start: 09/21/21 17:15 Freq: Status: Active Protocol: Document 10/09/21 14:31 LRN (Rec: 10/09/21 15:09 LRN [id number]) Electric Stimulation Electric Stimulation Functional Electric Stimulation Body Location [Sacrum] Duration (Minutes) 10 Intensity 9 Target/Sweep Target Patient Position Hooklying Combined With Heat/Cold Cold Pack Comments Legs on Bolster Hot Pack/Cold Pack Treatment Cold Pack Location Low Back Patient Position Hooklying Treatment Duration (minutes) 10 Patient Tolerance Good Comments Done with EStim Legs on Bolster PT-OP-T Assessment and Plan Start: 09/21/21 17:15 Freq: Status: Active Protocol: Document 10/09/21 14:31 LRN (Rec: 10/09/21 15:09 LRN [id number]) Physical Therapy Assessment Goals Four Impairment Decreased function Impairment CHRISTELLE 20/50 = 40/100 (40-59% impaired, score 40-59). Stride is short on both sides and slower than normal. Limited in ability to bend, lift > 15#, twisting, sitting > 1 hr, standing > 1 hr, able to sleep w/medication. Sitting to drive >1.5 hrs is too much. Short Term Goal (STG) Pt will be able to improve hip flexors mobility to start moving normal (stairs, walking , bending). STG Duration 11/25/21 Clay Maker Goal (LTG) Improve function per CHRISTELLE score of 20-39 (20-39% impaired, score 20-39) LTG Duration 01/24/22 Three Impairment Decreased strength and work function. Impairment Pt on light duty. Not able to run, crawl, bend, twist, wrestle a suspect, bend down and put someone in handcuffs Short Term Goal (STG) Pt will be able to tolerate wearing a 16# belt around waist (leather gear and items it holds) while walking around for her job. 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 LTG Duration 01/24/22 Two Impairment Decreased ability to ex due to LBP, Lewis hip pain, Lewis knee pain. Impairment Pt not execising due to: LBP 4-6/10, R hip pain: anterolateral 4-6 /10, posterior 2-4/10, L hip pain: anterior 2-5/10, R knee pain: medial & lateral 3-8/10, L knee pain: medial & lateral 3-5/10. Short Term Goal (STG) Decrease bilateral hip and knee pain with pt able to intiate exercising (weight lifting) beyond her daily activities. STG Duration 11/25/21 Clay Maker Goal (LTG) Pt will be able to tolerate movements (run, crawl, bend, twist, wrestle someone to the ground to put handcuffs on) with tolerable pain, to complete quaterly Lethel force training. LTG Duration 01/24/22 One Impairment Pt lacks appropriate self care HEP. Short Term Goal (STG) Pt will be educated in log roll technique for transfers (10/09/21: Pt educated in log roll technique for transfers) STG Duration 10/03/21 (10/09/21: MET GOAL) Fpc Goal (LTG) Independent with a self care HEP. (10/09/21: HEP I/S: TA tightening in sidelie for strengthening and practice in prone & sup). LTG Duration 01/24/22 (10/09/21: Progressed) Progress Towards Goals Progress Comments Progressed HEP. STG #1: MET GOAL. Assessment Summary Assessment Pt pain level of sacrum to start is 2/10 and pain only at sacral level across low back. Pt has fairly good mechanics with sit<>supine transfer, but could benefit from further training, her legs/feet move separately when transferring. Pelvis was neutral today possibly from seeing chiropractor this morning. Pt has + response to use of EStim to decrease pain. Physical Therapy Plan Frequency and Duration Frequency of Treatment 2x/Week Plan of Care Start Date 09/26/21 Plan of Care End Date 01/24/22 Next Visit Focus/Plan Next Note Type Treatment Note Next Visit Plan Review proper transfer sit<> sup Review ROM ex's for hip ER's/R hip IR, & TA tightening for equal contraction on L side compared to R side. Mobility: Add HEP ROM ex's for LB (KTC) Stabilization: Core, hips/ pelvis (LE roll in/outs). Manual: Infer glide of R superior sacrum & balancing of pelvis, STM: Lewis Piriformis, Gluteals, IT Bands, QL, lumbar Paraspinals. S/CS. Education: body mechanics training. Modalities: MH/IFES [LB] or [ L SIJ]. Assess: L SIJ, Pelvis (for rotation), Lumbar (traction)
--- NOTE | 2021-10-16 16:28 | PT.OTN ---
Current Diagnoses Lumbago with sciatica, unspecified side (10/16/21) Physical Therapy Treatment Note PT-OP-A Visit Information Start: 09/21/21 17:15 Freq: Status: Active Protocol: Document 10/16/21 08:17 LRN (Rec: 10/16/21 09:02 LRN [id number]) Out-Patient Physical Therapy Visit Information Visit Information Visit Type Treatment Note Visit Start Time 08:17 Visit Stop Time 08:59 Total Visit Minutes 42 Visit Number 5 Evaluation Information Evaluation Date 09/26/21 Precautions Precautions Per chart review: PTSD, Chronic back pain. 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 PT-OP-B Current Condition Start: 09/21/21 17:15 Freq: Status: Active Protocol: Document 09/26/21 08:17 LRN (Rec: 09/26/21 09:39 LRN [id number]) Current Condition History of Current Condition Onset Date 07/18/21 Current Complaints LBP, Lewis hip and knee pain. History of Current Condition Low back pain onset 07/18/21, fell down 8 stairs, R foot went out from under her, L knee buckled and L knee ended up bent and behind her when sliding down the stairs feet first (like sliding into a base in baseball). Had horrendous pain. Did not seek medical care hoping it would go away. Two weeks later went to chiropractor and 2 weeks later ended up in ER. housekeeper child care was helpful, but she was getting only a couple hours of pain relief. Now healthcare network pricing consultant gives 3-4 days relief. She feels she has aggrevated an old injury (see Developmental history below). States the L4 -S1 jt is grinding. Has tried yoga stretches and states her problem feels structural and thinks she has started loosening things too soon. States the R>L hip joints hurt , thus now the knees hurt, because of modifying how she goes up/down the stairs. Pt points to her R lateral gluteal ms and sacral region as areas of pain denoted as pelvic pain. Denies urinary problems or lower abdominal pelvic pain. She is having pain with intercourse; therefore the pt may need Pelvic rehabilitation in the future. 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 Pt has been on light duty since fall. Prior Treatments and Tests housekeeper child care 1-2 days/ week ([facility] in [place]). X-ray: shows no fractures in Sacrum, Coccyx, and lumbar vertebra. Developmental History Developmental History 17 yrs old fractured what she thinks is the SI, possibly Sacrum L4-S1 Cracked. In 2006 fell on steel pipe landing on L knee. Treatment Goals Patient/Caregiver Goals Pt goals are: *Get hip flexors to release in order to start moving normal (stairs, walking, bending). *Get back to place to start exercising (not doing any currently that is considered purposeful), because she is only doing daily living exercise. *Wear 16# belt around waist and leather gear that carries the items of the belt. * Be able to do Lethel force training (run, crawl, bend, twist, wrestle a suspect, bend down and put someone in handcuffs). Prior Functional Status Baseline Function- ADL's Independent Baseline Function- Mobility Independent Baseline Function- Work/School Was not exercising before fall . Walking 2 miles in/outside Weight lifting legs, arms, back a couple yrs ago Baseline Function- Other Able to sleep without pain. Current Functional Impairments (Reported) Functional Limitations- ADL's Limited in ability to bend, lift > 15#, twisting, sitting > 1 hr, standing > 1 hr, able to sleep w/medication. Sitting to drive >1.5 hrs is too much. Functional Limitations- Mobility/Gait Stride is short on both sides and slower than normal. Functional Limitations- Work/School On light duty. 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 At home has 3 children and spouse has 2 children. PT-OP-C Subjective Start: 09/21/21 17:15 Freq: Status: Active Protocol: Document 10/16/21 08:17 LRN (Rec: 10/16/21 09:02 LRN [id number]) OP-PT Subjective Patient Comments Patient Comments Not able to go without Ms relaxor over the weekend. Feels the L abdominal ms is engaging better, but instabiity of SI is causing a lot of pain. Pain acoss LB is 4/10. Pt going to chiropractor after therapy and is supposed to go to work, but might not now. PT-OP-H Neuro Start: 09/21/21 17:15 Freq: Status: Active Protocol: Document 09/26/21 08:17 LRN (Rec: 09/26/21 09:39 LRN [id number]) Sensation Evaluation Gross Sensation Gross Sensation WNL PT-OP-J Posture/Palpation/Skin Start: 09/21/21 17:15 Freq: Status: Active Protocol: Document 10/03/21 08:10 LRN (Rec: 10/03/21 09:03 LRN [id number]) Palpation Assessment Location L innominate Palpation Details Decreased PA mobility of L Ischial Tub Sacrum Palpation Location Sacrum Palpation Details Decreased mobility L inferior glide & PA of right DEEPIKA ( sacrum in R rot) ASIS Palpation Location ASIS Palpation Details R low and inflared. PT-OP-K Range of Motion Start: 09/21/21 17:15 Freq: Status: Active Protocol: Document 09/26/21 08:17 LRN (Rec: 09/26/21 09:39 LRN [id number]) Lumbar Spine Range of Motion Lumbar Spine Active Degrees Testing Position Standing Flexion 85 Extension 18 Rotation Left 30 Rotation Right 25 Lateral Flexion Left 15 Lateral Flexion Right 10 ROM Limitations Soft Tissue Tightness,Pain Comments Pain R SB is at R Piriformis Active Percentage Comments Error in reporting AROM in percentage, see below for degree's ROM. Hip Goniometric Range of Motion Hip Right Active Testing Position Supine Straight Leg Raise 75 Internal Rotation 30 External Rotation 55 Left Passive Testing Position Supine Straight Leg Raise 78 Internal Rotation 10 External Rotation 65 PT-OP-L Special Tests Start: 09/21/21 17:15 Freq: Status: Active Protocol: Document 10/03/21 08:10 LRN (Rec: 10/03/21 09:03 LRN [id number]) Special Tests Hip Special Tests YOJANA Test Results R possible positive Comments R side pain in posterolateral thigh L side groin pain. PT-OP-M Strength Start: 09/21/21 17:15 Freq: Status: Active Protocol: Document 09/26/21 08:17 LRN (Rec: 09/26/21 09:39 LRN [id number]) Trunk Strength Trunk Manual Muscle Testing Core Stabilization Pt able to maintain core stability with hip flexion ms testing. Hip Strength Hip Manual Muscle Testing Right Flexion (L2) 5 Normal External Rotation 5 Normal Internal Rotation 3 Fair Left Flexion (L2) 5 Normal External Rotation 5 Normal Internal Rotation 3 Fair PT-OP-Q Treatments Start: 09/21/21 17:15 Freq: Status: Active Protocol: Document 10/16/21 08:17 LRN (Rec: 10/16/21 09:02 LRN [id number]) Therapeutic Exercises Supine Exercises Bridge Supine Exercise Name Bridge Reps/Minutes 10x Comments Pt moves slowly due to pain TA tightening Supine Exercise Name TA tightening training - I/S for HEP Reps/Minutes 4' Comments Phys help for awareness of self cuing at ASIS' Piriformis Supine Exercise Name Piriformis Side bilateral Reps/Minutes 6' Fig 4 Supine Exercise Name Fig 4 Side right Reps/Minutes 3' Prone Exercises TA tightening Prone Exercise Name TA after SIJ balancing Reps/Minutes 2' Sidelying Exercises TA Sidelying Exercise Name TA - I/S for HEP Side right Reps/Minutes 10 H - 10' Comments Pt given extra rest Therapeutic Activity Therapeutic Activity Sit<>Sit Name Sit<>stand transfers Reps/Minutes 3' Manual Therapy Treatment Soft Tissue Mobilization Balancing of Sacrum/SIJ's Body Location SIJ's/Sacrum Mobilization Type Myofascial Release Intensity/Depth Moderate Body Position Prone Comments Inferior glide L sacrum x 2 PA of R DEEPIKA x 2 6 pt SIJ balancing. PT-OP-R Modalities Start: 09/21/21 17:15 Freq: Status: Active Protocol: Document 10/09/21 14:31 LRN (Rec: 10/09/21 15:09 [facility] [id number]) Electric Stimulation Electric Stimulation Functional Electric Stimulation Body Location [Sacrum] Duration (Minutes) 10 Intensity 9 Target/Sweep Target Patient Position Hooklying Combined With Heat/Cold Cold Pack Comments Legs on Bolster Hot Pack/Cold Pack Treatment Cold Pack Location Low Back Patient Position Hooklying Treatment Duration (minutes) 10 Patient Tolerance Good Comments Done with EStim Legs on Bolster PT-OP-T Assessment and Plan Start: 09/21/21 17:15 Freq: Status: Active Protocol: Document 10/16/21 08:17 LRN (Rec: 10/16/21 09:02 [facility] [id number]) Physical Therapy Assessment Goals Four Impairment Decreased function Impairment CHRISTELLE 20/50 = 40/100 (40-59% impaired, score 40-59). Stride is short on both sides and slower than normal. Limited in ability to bend, lift > 15#, twisting, sitting > 1 hr, standing > 1 hr, able to sleep w/medication. Sitting to drive >1.5 hrs is too much. Short Term Goal (STG) Pt will be able to improve hip flexors mobility to start moving normal (stairs, walking , bending). STG Duration 11/25/21 Senior Living Goal (LTG) Improve function per CHRISTELLE score of 20-39 (20-39% impaired, score 20-39) LTG Duration 01/24/22 Three Impairment Decreased strength and work function. Impairment Pt on light duty. Not able to run, crawl, bend, twist, wrestle a suspect, bend down and put someone in handcuffs Short Term Goal (STG) Pt will be able to tolerate wearing a 16# belt around waist (leather gear and items it holds) while walking around for her job. 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 LTG Duration 01/24/22 Two Impairment Decreased ability to ex due to LBP, Lewis hip pain, Lewis knee pain. Impairment Pt not execising due to: LBP 4-6/10, R hip pain: anterolateral 4-6 /10, posterior 2-4/10, L hip pain: anterior 2-5/10, R knee pain: medial & lateral 3-8/10, L knee pain: medial & lateral 3-5/10. Short Term Goal (STG) Decrease bilateral hip and knee pain with pt able to intiate exercising (weight lifting) beyond her daily activities. STG Duration 11/25/21 Senior Living Goal (LTG) Pt will be able to tolerate movements (run, crawl, bend, twist, wrestle someone to the ground to put handcuffs on) with tolerable pain, to complete quaterly Lethel force training. LTG Duration 01/24/22 One Impairment Pt lacks appropriate self care HEP. Short Term Goal (STG) Pt will be educated in log roll technique for transfers (10/09/21: Pt educated in log roll technique for transfers) STG Duration 10/03/21 (10/09/21: MET GOAL) Truck Headlight Assembler Goal (LTG) Independent with a self care HEP. (10/09/21: HEP I/S: TA tightening in sidelie for strengthening and practice in prone & sup). LTG Duration 01/24/22 (10/09/21: Progressed) Assessment Summary Assessment Pt reports feeling same after therapy but she may be more prone to cramping now. Pain below ribcage is notable in supine with pt wincing. Transfer sit to supine was wutg good mechanics and not painful, but supine lying is. Physical Therapy Plan Frequency and Duration Frequency of Treatment 2x/Week Plan of Care Start Date 09/26/21 Plan of Care End Date 01/24/22 Next Visit Focus/Plan Next Note Type Treatment Note Next Visit Plan Assess response to manual therapy of last session and s/ p chiropractic treatment. ROM ex's for hip ER's/R hip IR , & TA tightening for equal contraction on L side compared to R side. Mobility: Add HEP ROM ex's for LB (KTC) Stabilization: Core, hips/ pelvis (LE roll in/outs). Manual: Infer glide of R superior sacrum & balancing of pelvis, STM: Lewis Piriformis, Gluteals, IT Bands, QL, lumbar Paraspinals. S/CS. Education: body mechanics training. Modalities: MH/IFES [LB] or [ L SIJ]. Assess: L SIJ, Pelvis (for rotation), Lumbar (traction)
--- NOTE | 2021-10-20 16:57 | PT.OTN ---
Current Diagnoses Lumbago with sciatica, unspecified side (10/20/21) Physical Therapy Treatment Note PT-OP-A Visit Information Start: 09/21/21 17:15 Freq: Status: Active Protocol: Document 10/20/21 08:18 LRN (Rec: 10/20/21 09:04 LRN [id number]) Out-Patient Physical Therapy Visit Information Visit Information Visit Type Treatment Note Visit Start Time 08:18 Visit Stop Time 09:00 Total Visit Minutes 42 Visit Number 6 Evaluation Information Evaluation Date 09/26/21 Precautions Precautions Per chart review: PTSD, Chronic back pain. 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 PT-OP-B Current Condition Start: 09/21/21 17:15 Freq: Status: Active Protocol: Document 09/26/21 08:17 LRN (Rec: 09/26/21 09:39 LRN [id number]) Current Condition History of Current Condition Onset Date 07/18/21 Current Complaints LBP, Lewis hip and knee pain. History of Current Condition Low back pain onset 07/18/21, fell down 8 stairs, R foot went out from under her, L knee buckled and L knee ended up bent and behind her when sliding down the stairs feet first (like sliding into a base in baseball). Had horrendous pain. Did not seek medical care hoping it would go away. Two weeks later went to chiropractor and 2 weeks later ended up in ER. post acute care registered nurse was helpful, but she was getting only a couple hours of pain relief. Now point of care technician gives 3-4 days relief. She feels she has aggrevated an old injury (see Developmental history below). States the L4 -S1 jt is grinding. Has tried yoga stretches and states her problem feels structural and thinks she has started loosening things too soon. States the R>L hip joints hurt , thus now the knees hurt, because of modifying how she goes up/down the stairs. Pt points to her R lateral gluteal ms and sacral region as areas of pain denoted as pelvic pain. Denies urinary problems or lower abdominal pelvic pain. She is having pain with intercourse; therefore the pt may need Pelvic rehabilitation in the future. 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 Pt has been on light duty since fall. Prior Treatments and Tests post acute care registered nurse 1-2 days/ week ([facility] in [place]). X-ray: shows no fractures in Sacrum, Coccyx, and lumbar vertebra. Developmental History Developmental History 17 yrs old fractured what she thinks is the SI, possibly Sacrum L4-S1 Cracked. In 2006 fell on steel pipe landing on L knee. Treatment Goals Patient/Caregiver Goals Pt goals are: *Get hip flexors to release in order to start moving normal (stairs, walking, bending). *Get back to place to start exercising (not doing any currently that is considered purposeful), because she is only doing daily living exercise. *Wear 16# belt around waist and leather gear that carries the items of the belt. * Be able to do Lethel force training (run, crawl, bend, twist, wrestle a suspect, bend down and put someone in handcuffs). Prior Functional Status Baseline Function- ADL's Independent Baseline Function- Mobility Independent Baseline Function- Work/School Was not exercising before fall . Walking 2 miles in/outside Weight lifting legs, arms, back a couple yrs ago Baseline Function- Other Able to sleep without pain. Current Functional Impairments (Reported) Functional Limitations- ADL's Limited in ability to bend, lift > 15#, twisting, sitting > 1 hr, standing > 1 hr, able to sleep w/medication. Sitting to drive >1.5 hrs is too much. Functional Limitations- Mobility/Gait Stride is short on both sides and slower than normal. Functional Limitations- Work/School On light duty. 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 At home has 3 children and spouse has 2 children. PT-OP-C Subjective Start: 09/21/21 17:15 Freq: Status: Active Protocol: Document 10/20/21 08:18 LRN (Rec: 10/20/21 09:04 LRN [id number]) OP-PT Subjective Patient Comments Patient Comments After last session, was toasted and the chiropractor was really gentle. Had to take ms relaxors. Better than post treatment and better than yesterday. SI popped on the R side when bending down to get a file and had a knot in th back, but yesterday was okay. Feels the L side engages better than when first started. States her low back switches. PT-OP-H Neuro Start: 09/21/21 17:15 Freq: Status: Active Protocol: Document 09/26/21 08:17 LRN (Rec: 09/26/21 09:39 LRN [id number]) Sensation Evaluation Gross Sensation Gross Sensation WNL PT-OP-J Posture/Palpation/Skin Start: 09/21/21 17:15 Freq: Status: Active Protocol: Document 10/03/21 08:10 LRN (Rec: 10/03/21 09:03 LRN [id number]) Palpation Assessment Location L innominate Palpation Details Decreased PA mobility of L Ischial Tub Sacrum Palpation Location Sacrum Palpation Details Decreased mobility L inferior glide & PA of right DEEPIKA ( sacrum in R rot) ASIS Palpation Location ASIS Palpation Details R low and inflared. PT-OP-K Range of Motion Start: 09/21/21 17:15 Freq: Status: Active Protocol: Document 09/26/21 08:17 LRN (Rec: 09/26/21 09:39 LRN [id number]) Lumbar Spine Range of Motion Lumbar Spine Active Degrees Testing Position Standing Flexion 85 Extension 18 Rotation Left 30 Rotation Right 25 Lateral Flexion Left 15 Lateral Flexion Right 10 ROM Limitations Soft Tissue Tightness,Pain Comments Pain R SB is at R Piriformis Active Percentage Comments Error in reporting AROM in percentage, see below for degree's ROM. Hip Goniometric Range of Motion Hip Right Active Testing Position Supine Straight Leg Raise 75 Internal Rotation 30 External Rotation 55 Left Passive Testing Position Supine Straight Leg Raise 78 Internal Rotation 10 External Rotation 65 PT-OP-L Special Tests Start: 09/21/21 17:15 Freq: Status: Active Protocol: Document 10/03/21 08:10 LRN (Rec: 10/03/21 09:03 LRN [id number]) Special Tests Hip Special Tests YOJANA Test Results R possible positive Comments R side pain in posterolateral thigh L side groin pain. PT-OP-M Strength Start: 09/21/21 17:15 Freq: Status: Active Protocol: Document 09/26/21 08:17 LRN (Rec: 09/26/21 09:39 LRN [id number]) Trunk Strength Trunk Manual Muscle Testing Core Stabilization Pt able to maintain core stability with hip flexion ms testing. Hip Strength Hip Manual Muscle Testing Right Flexion (L2) 5 Normal External Rotation 5 Normal Internal Rotation 3 Fair Left Flexion (L2) 5 Normal External Rotation 5 Normal Internal Rotation 3 Fair PT-OP-Q Treatments Start: 09/21/21 17:15 Freq: Status: Active Protocol: Document 10/20/21 08:18 LRN (Rec: 10/20/21 09:04 LRN [id number]) Therapeutic Exercises Supine Exercises DKTC stretch Supine Exercise Name Assisted DKTC stretch Reps/Minutes 10 x 10 Bridge Supine Exercise Name Bridge Reps/Minutes 10x Comments Pt moves slowly due to pain TA tightening Supine Exercise Name TA tightening training - I/S for HEP Reps/Minutes 4' Comments Phys help for awareness of self cuing at ASIS' Prone Exercises TA tightening Prone Exercise Name TA tightening Reps/Minutes 2' Sidelying Exercises TA Sidelying Exercise Name TA Side bilateral Reps/Minutes 10 H - 10' Comments Pt given extra rest Manual Therapy Treatment Soft Tissue Mobilization Hips Body Location Lewis L>R Piriformis Mobilization Type Strumming Intensity/Depth Moderate Body Position Prone Comments Mild tight and tender along L sacral border > R Sacral border. LB Body Location Lewis QL, Sacrum Mobilization Type Strumming Intensity/Depth Moderate Body Position Prone Comments Mild Greater tightness on R side L/S Paraspinal Body Location Lewis Paraspinals Mobilization Type Strumming Intensity/Depth Moderate Body Position Prone Comments Mild Greater tightness on R side PT-OP-R Modalities Start: 09/21/21 17:15 Freq: Status: Active Protocol: Document 10/20/21 08:18 LRN (Rec: 10/20/21 09:04 LRN [id number]) Electric Stimulation Electric Stimulation Interferential Current (IFC) Body Location Sacrum Duration (Minutes) 15 Intensity 9 Frequency [upper L/S > Lower gluteals Target/Sweep Target Patient Position Hooklying Combined With Heat/Cold Hot Pack Comments Legs on Bolster Hot Pack/Cold Pack Treatment Hot Pack Location Low Back Patient Position Hooklying Treatment Duration (minutes) 10 Patient Tolerance Good Comments Done with EStim Legs on Bolster PT-OP-T Assessment and Plan Start: 09/21/21 17:15 Freq: Status: Active Protocol: Document 10/20/21 08:18 LRN (Rec: 10/20/21 09:04 LRN [id number]) Physical Therapy Assessment Goals Three Impairment Decreased strength and work function. Impairment Pt on light duty. Not able to run, crawl, bend, twist, wrestle a suspect, bend down and put someone in handcuffs Short Term Goal (STG) Pt will be able to tolerate wearing a 16# belt around waist (leather gear and items it holds) while walking around for her job. 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 LTG Duration 01/24/22 Two Impairment Decreased ability to ex due to LBP, Lewis hip pain, Lewis knee pain. Impairment Pt not execising due to: LBP 4-6/10, R hip pain: anterolateral 4-6 /10, posterior 2-4/10, L hip pain: anterior 2-5/10, R knee pain: medial & lateral 3-8/10, L knee pain: medial & lateral 3-5/10. Short Term Goal (STG) Decrease bilateral hip and knee pain with pt able to intiate exercising (weight lifting) beyond her daily activities. STG Duration 11/25/21 Pattern Changer And Repairer Goal (LTG) Pt will be able to tolerate movements (run, crawl, bend, twist, wrestle someone to the ground to put handcuffs on) with tolerable pain, to complete quaterly Lethel force training. LTG Duration 01/24/22 One Impairment Pt lacks appropriate self care HEP. Short Term Goal (STG) Pt will be educated in log roll technique for transfers (10/09/21: Pt educated in log roll technique for transfers) STG Duration 10/03/21 (10/09/21: MET GOAL) Pattern Changer And Repairer Goal (LTG) Independent with a self care HEP. (10/09/21: HEP I/S: TA tightening in sidelie for strengthening and practice in prone & sup). LTG Duration 01/24/22 (10/09/21: Progressed) Progress Towards Goals Progress Comments No worsening in hips/LB after treatment. Assessment Summary Assessment Pt had continued soreness since last session untl yesterday, had pop in her back ; possible self mobilization. Today her tightness is at the L hips (last session was R hip). She appears to have symmetry at her SIJ and LB, only mild tightness in R gluteals with slight R rot of sacrum; possibly due to L gluteal tightness (as noted by tenderness L vs R gluteals). Pt TA strength improved with L>R strength in supine. Pt appears to be gaining symmetry in low back. Her Sacrum is very flexed, causing anterior tilt of pelvis. Physical Therapy Plan Next Visit Focus/Plan Next Note Type Treatment Note Next Visit Plan Assess response to manual therapy of last session and s/ p chiropractic treatment. ROM ex's for hip ER's/R hip IR , & TA tightening for equal contraction on L side compared to R side. Mobility: Add HEP ROM ex's for LB (KTC) Stabilization: Core, hips/ pelvis (LE roll in/outs). Manual: Infer glide of R superior sacrum & balancing of pelvis, STM: Lewis Piriformis, Gluteals, IT Bands, QL, lumbar Paraspinals. S/CS. Education: body mechanics training. Modalities: MH/IFES [LB] or [ L SIJ]. Assess: L SIJ, Pelvis (for rotation), Lumbar (traction)
--- NOTE | 2021-10-23 14:09 | PT.OTN ---
Current Diagnoses Lumbago with sciatica, unspecified side (10/23/21) Physical Therapy Treatment Note PT-OP-A Visit Information Start: 09/21/21 17:15 Freq: Status: Active Protocol: Document 10/23/21 13:07 LRN (Rec: 10/23/21 14:08 LRN [id number]) Out-Patient Physical Therapy Visit Information Visit Information Visit Type Treatment Note Visit Start Time 13:07 Visit Stop Time 13:50 Total Visit Minutes 50 Visit Number 7 Evaluation Information Evaluation Date 09/26/21 Precautions Precautions Per chart review: PTSD, Chronic back pain. 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 PT-OP-B Current Condition Start: 09/21/21 17:15 Freq: Status: Active Protocol: Document 09/26/21 08:17 LRN (Rec: 09/26/21 09:39 LRN [id number]) Current Condition History of Current Condition Onset Date 07/18/21 Current Complaints LBP, Lewis hip and knee pain. History of Current Condition Low back pain onset 07/18/21, fell down 8 stairs, R foot went out from under her, L knee buckled and L knee ended up bent and behind her when sliding down the stairs feet first (like sliding into a base in baseball). Had horrendous pain. Did not seek medical care hoping it would go away. Two weeks later went to chiropractor and 2 weeks later ended up in ER. day care teacher was helpful, but she was getting only a couple hours of pain relief. Now client care representative gives 3-4 days relief. She feels she has aggrevated an old injury (see Developmental history below). States the L4 -S1 jt is grinding. Has tried yoga stretches and states her problem feels structural and thinks she has started loosening things too soon. States the R>L hip joints hurt , thus now the knees hurt, because of modifying how she goes up/down the stairs. Pt points to her R lateral gluteal ms and sacral region as areas of pain denoted as pelvic pain. Denies urinary problems or lower abdominal pelvic pain. She is having pain with intercourse; therefore the pt may need Pelvic rehabilitation in the future. 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 Pt has been on light duty since fall. 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 X-ray: shows no fractures in Sacrum, Coccyx, and lumbar vertebra. Developmental History Developmental History 17 yrs old fractured what she thinks is the SI, possibly Sacrum L4-S1 Cracked. In 2006 fell on steel pipe landing on L knee. Treatment Goals Patient/Caregiver Goals Pt goals are: *Get hip flexors to release in order to start moving normal (stairs, walking, bending). *Get back to place to start exercising (not doing any currently that is considered purposeful), because she is only doing daily living exercise. *Wear 16# belt around waist and leather gear that carries the items of the belt. * Be able to do Lethel force training (run, crawl, bend, twist, wrestle a suspect, bend down and put someone in handcuffs). Prior Functional Status Baseline Function- ADL's Independent Baseline Function- Mobility Independent Baseline Function- Work/School Was not exercising before fall . Walking 2 miles in/outside Weight lifting legs, arms, back a couple yrs ago Baseline Function- Other Able to sleep without pain. Current Functional Impairments (Reported) Functional Limitations- ADL's Limited in ability to bend, lift > 15#, twisting, sitting > 1 hr, standing > 1 hr, able to sleep w/medication. Sitting to drive >1.5 hrs is too much. Functional Limitations- Mobility/Gait Stride is short on both sides and slower than normal. Functional Limitations- Work/School On light duty. 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 At home has 3 children and spouse has 2 children. PT-OP-C Subjective Start: 09/21/21 17:15 Freq: Status: Active Protocol: Document 10/23/21 13:07 LRN (Rec: 10/23/21 14:08 LRN [id number]) OP-PT Subjective Patient Comments Patient Comments Terrible weekend. After last session went great and made it through work, then went to [employer] and something gvien in her mid back (~T6-L1) , her back locked up and couldn't bend/twist. Happened again this morning. Did see the chiro after therapy last session, but won't see him until tomorrow. PT-OP-H Neuro Start: 09/21/21 17:15 Freq: Status: Active Protocol: Document 09/26/21 08:17 LRN (Rec: 09/26/21 09:39 LRN [id number]) Sensation Evaluation Gross Sensation Gross Sensation WNL PT-OP-J Posture/Palpation/Skin Start: 09/21/21 17:15 Freq: Status: Active Protocol: Document 10/03/21 08:10 LRN (Rec: 10/03/21 09:03 LRN [id number]) Palpation Assessment Location L innominate Palpation Details Decreased PA mobility of L Ischial Tub Sacrum Palpation Location Sacrum Palpation Details Decreased mobility L inferior glide & PA of right DEEPIKA ( sacrum in R rot) ASIS Palpation Location ASIS Palpation Details R low and inflared. PT-OP-K Range of Motion Start: 09/21/21 17:15 Freq: Status: Active Protocol: Document 09/26/21 08:17 LRN (Rec: 09/26/21 09:39 LRN [id number]) Lumbar Spine Range of Motion Lumbar Spine Active Degrees Testing Position Standing Flexion 85 Extension 18 Rotation Left 30 Rotation Right 25 Lateral Flexion Left 15 Lateral Flexion Right 10 ROM Limitations Soft Tissue Tightness,Pain Comments Pain R SB is at R Piriformis Active Percentage Comments Error in reporting AROM in percentage, see below for degree's ROM. Hip Goniometric Range of Motion Hip Right Active Testing Position Supine Straight Leg Raise 75 Internal Rotation 30 External Rotation 55 Left Passive Testing Position Supine Straight Leg Raise 78 Internal Rotation 10 External Rotation 65 PT-OP-L Special Tests Start: 09/21/21 17:15 Freq: Status: Active Protocol: Document 10/03/21 08:10 LRN (Rec: 10/03/21 09:03 LRN [id number]) Special Tests Hip Special Tests [id number] Test Results R possible positive Comments R side pain in posterolateral thigh L side groin pain. PT-OP-M Strength Start: 09/21/21 17:15 Freq: Status: Active Protocol: Document 09/26/21 08:17 LRN (Rec: 09/26/21 09:39 LRN [id number]) Trunk Strength Trunk Manual Muscle Testing Core Stabilization Pt able to maintain core stability with hip flexion ms testing. Hip Strength Hip Manual Muscle Testing Right Flexion (L2) 5 Normal External Rotation 5 Normal Internal Rotation 3 Fair Left Flexion (L2) 5 Normal External Rotation 5 Normal Internal Rotation 3 Fair PT-OP-Q Treatments Start: 09/21/21 17:15 Freq: Status: Active Protocol: Document 10/23/21 13:07 LRN (Rec: 10/23/21 14:08 LRN [id number]) Therapeutic Exercises Supine Exercises Aurora hip AB Supine Exercise Name BKFO w/Lev 3 TB Side bilateral Equipment Used Lev 3 TBand Reps/Minutes 10 H (3 breaths) x 10 Comments Extra time to determine 10 hold with breath TA tightening Supine Exercise Name TA tightening with sup<>prone transfers x 2 Reps/Minutes 5' Prone Exercises TA tightening Prone Exercise Name TA tightening Reps/Minutes 2' Manual Therapy Treatment Soft Tissue Mobilization Mid Thoracic paraspinals Body Location Mid Thoracic Mobilization Type Strumming,Sustained Pressure Intensity/Depth Superficial to Moderate Body Position Prone Balancing of Sacrum/SIJ's Body Location SIJ's/Sacrum Mobilization Type Myofascial Release Intensity/Depth Moderate Body Position Prone Comments Inferior glide R sacrum x 2 PA of R DEEPIKA x 2, R ALA x 1, & Ischium Pub balancing LB Body Location Lewis Sacral border Mobilization Type Strumming Intensity/Depth Moderate Body Position Prone Comments Mild Greater tightness on R side Joint Mobilizations T2-T5 Joint T2, T2, T4, T5 Direction AP Grade II Body Position Prone Reps/Duration 10 Comments Balancing of mid T/S Manual Techniques Placement of pt's electrode Type Placed pt's personal 2 electrodes Body Location T2-T4 Paraspinals, bilaterally Body Position Prone Reps/Duration 2' Comments Pt left to turn her personal TNS unit on. PT-OP-R Modalities Start: 09/21/21 17:15 Freq: Status: Active Protocol: Document 10/20/21 08:18 LRN (Rec: 10/20/21 09:04 LRN [id number]) Electric Stimulation Electric Stimulation Interferential Current (IFC) Body Location Sacrum Duration (Minutes) 15 Intensity 9 Frequency [upper L/S > Lower gluteals Target/Sweep Target Patient Position Hooklying Combined With Heat/Cold Hot Pack Comments Legs on Bolster Hot Pack/Cold Pack Treatment Hot Pack Location Low Back Patient Position Hooklying Treatment Duration (minutes) 10 Patient Tolerance Good Comments Done with EStim Legs on Bolster PT-OP-T Assessment and Plan Start: 09/21/21 17:15 Freq: Status: Active Protocol: Document 10/23/21 13:07 LRN (Rec: 10/23/21 14:08 LRN [id number]) Physical Therapy Assessment Goals Four Impairment Decreased function Impairment CHRISTELLE 20/50 = 40/100 (40-59% impaired, score 40-59). Stride is short on both sides and slower than normal. Limited in ability to bend, lift > 15#, twisting, sitting > 1 hr, standing > 1 hr, able to sleep w/medication. Sitting to drive >1.5 hrs is too much. Short Term Goal (STG) Pt will be able to improve hip flexors mobility to start moving normal (stairs, walking , bending). STG Duration 11/25/21 Penitentiary Goal (LTG) Improve function per CHRISTELLE score of 20-39 (20-39% impaired, score 20-39) LTG Duration 01/24/22 Three Impairment Decreased strength and work function. Impairment Pt on light duty. Not able to run, crawl, bend, twist, wrestle a suspect, bend down and put someone in handcuffs Short Term Goal (STG) Pt will be able to tolerate wearing a 16# belt around waist (leather gear and items it holds) while walking around for her job. 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 LTG Duration 01/24/22 Two Impairment Decreased ability to ex due to LBP, Lewis hip pain, Lewis knee pain. Impairment Pt not execising due to: LBP 4-6/10, R hip pain: anterolateral 4-6 /10, posterior 2-4/10, L hip pain: anterior 2-5/10, R knee pain: medial & lateral 3-8/10, L knee pain: medial & lateral 3-5/10. Short Term Goal (STG) Decrease bilateral hip and knee pain with pt able to intiate exercising (weight lifting) beyond her daily activities. STG Duration 11/25/21 Penitentiary Goal (LTG) Pt will be able to tolerate movements (run, crawl, bend, twist, wrestle someone to the ground to put handcuffs on) with tolerable pain, to complete quaterly Lethel force training. LTG Duration 01/24/22 One Impairment Pt lacks appropriate self care HEP. Short Term Goal (STG) Pt will be educated in log roll technique for transfers (10/09/21: Pt educated in log roll technique for transfers) STG Duration 10/03/21 (10/09/21: MET GOAL) Penitentiary Goal (LTG) Independent with a self care HEP. (10/09/21: HEP I/S: TA tightening in sidelie for strengthening and practice in prone & sup). LTG Duration 01/24/22 (10/09/21: Progressed) Progress Towards Goals Progress Towards Goals Progressing Toward Goals Progress Comments No back pain complaints after therapy. Assessment Summary Assessment Pt lumbar LB (QL & Paraspinals ) appears to have symmetry of tone and positioning. Sacrum is R rotated. Pt had onset of midback ms spasms after pelvic balancing, but eliminated after STM of midback. No complaints of pain after treatment. Pt improved symmetry of pelvis and low back after manual therapy may be resulting in shifting of positioning of upper back and therefore ms spasms. With exercise to minimize pub separation, pt tends to breath hold, but she was able to do breathing with aurora hip AB after training. Physical Therapy Plan Frequency and Duration Frequency of Treatment 2x/Week Plan of Care Start Date 09/26/21 Plan of Care End Date 01/24/22 Next Visit Focus/Plan Next Note Type Treatment Note Next Visit Plan Assess response to manual therapy of last session for the day without chiro care. ROM ex's for hip ER's/R hip IR , & TA tightening for equal contraction on L side compared to R side. Mobility: Add HEP ROM ex's for LB (KT) Stabilization: Core, hips/ pelvis (LE roll in/outs). Manual: Balancing of pelvis, STM: Lewis Piriformis, Gluteals as needed, IT Bands. Education: body mechanics training. Modalities: MH/IFES [LB] or [ L SIJ]. Assess: L SIJ, Pelvis (for rotation), Lumbar (traction)
--- NOTE | 2021-10-27 10:18 | PT.OTN ---
Current Diagnoses Lumbago with sciatica, unspecified side (10/27/21) Physical Therapy Treatment Note PT-OP-A Visit Information Start: 09/21/21 17:15 Freq: Status: Active Protocol: Document 10/27/21 08:17 LRN (Rec: 10/27/21 09:03 LRN [id number]) Out-Patient Physical Therapy Visit Information Visit Information Visit Type Treatment Note Visit Start Time 08:17 Visit Stop Time 08:55 Total Visit Minutes 38 Visit Number 8 Evaluation Information Evaluation Date 09/26/21 Precautions Precautions Per chart review: PTSD, Chronic back pain. 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 PT-OP-B Current Condition Start: 09/21/21 17:15 Freq: Status: Active Protocol: Document 09/26/21 08:17 LRN (Rec: 09/26/21 09:39 LRN [id number]) Current Condition History of Current Condition Onset Date 07/18/21 Current Complaints LBP, Lewis hip and knee pain. History of Current Condition Low back pain onset 07/18/21, fell down 8 stairs, R foot went out from under her, L knee buckled and L knee ended up bent and behind her when sliding down the stairs feet first (like sliding into a base in baseball). Had horrendous pain. Did not seek medical care hoping it would go away. Two weeks later went to chiropractor and 2 weeks later ended up in ER. medicare compliance auditor was helpful, but she was getting only a couple hours of pain relief. Now medicare compliance auditor gives 3-4 days relief. She feels she has aggrevated an old injury (see Developmental history below). States the L4 -S1 jt is grinding. Has tried yoga stretches and states her problem feels structural and thinks she has started loosening things too soon. States the R>L hip joints hurt , thus now the knees hurt, because of modifying how she goes up/down the stairs. Pt points to her R lateral gluteal ms and sacral region as areas of pain denoted as pelvic pain. Denies urinary problems or lower abdominal pelvic pain. She is having pain with intercourse; therefore the pt may need Pelvic rehabilitation in the future. 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 Pt has been on light duty since fall. Prior Treatments and Tests medicare compliance auditor 1-2 days/ week ([facility] in [place]). X-ray: shows no fractures in Sacrum, Coccyx, and lumbar vertebra. Developmental History Developmental History 17 yrs old fractured what she thinks is the SI, possibly Sacrum L4-S1 Cracked. In 2006 fell on steel pipe landing on L knee. Treatment Goals Patient/Caregiver Goals Pt goals are: *Get hip flexors to release in order to start moving normal (stairs, walking, bending). *Get back to place to start exercising (not doing any currently that is considered purposeful), because she is only doing daily living exercise. *Wear 16# belt around waist and leather gear that carries the items of the belt. * Be able to do Lethel force training (run, crawl, bend, twist, wrestle a suspect, bend down and put someone in handcuffs). Prior Functional Status Baseline Function- ADL's Independent Baseline Function- Mobility Independent Baseline Function- Work/School Was not exercising before fall . Walking 2 miles in/outside Weight lifting legs, arms, back a couple yrs ago Baseline Function- Other Able to sleep without pain. Current Functional Impairments (Reported) Functional Limitations- ADL's Limited in ability to bend, lift > 15#, twisting, sitting > 1 hr, standing > 1 hr, able to sleep w/medication. Sitting to drive >1.5 hrs is too much. Functional Limitations- Mobility/Gait Stride is short on both sides and slower than normal. Functional Limitations- Work/School On light duty. 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 At home has 3 children and spouse has 2 children. PT-OP-C Subjective Start: 09/21/21 17:15 Freq: Status: Active Protocol: Document 10/27/21 08:17 LRN (Rec: 10/27/21 09:03 LRN [id number]) OP-PT Subjective Patient Comments Patient Comments Was sore from the lowback and up, after last session and used self TNS machine several times that day. Next day, Dulce Maria saw chiro and the back ( from bra line to top of hips) seized up while he was working on her. Was sore in the low [place] R hip socket feels sore. Seeing chiro this afternoon and also going to work. PT-OP-H Neuro Start: 09/21/21 17:15 Freq: Status: Active Protocol: Document 09/26/21 08:17 LRN (Rec: 09/26/21 09:39 LRN [id number]) Sensation Evaluation Gross Sensation Gross Sensation WNL PT-OP-J Posture/Palpation/Skin Start: 09/21/21 17:15 Freq: Status: Active Protocol: Document 10/03/21 08:10 LRN (Rec: 10/03/21 09:03 LRN [id number]) Palpation Assessment Location L innominate Palpation Details Decreased PA mobility of L Ischial Tub Sacrum Palpation Location Sacrum Palpation Details Decreased mobility L inferior glide & PA of right DEEPIKA ( sacrum in R rot) ASIS Palpation Location ASIS Palpation Details R low and inflared. PT-OP-K Range of Motion Start: 09/21/21 17:15 Freq: Status: Active Protocol: Document 09/26/21 08:17 LRN (Rec: 09/26/21 09:39 LRN [id number]) Lumbar Spine Range of Motion Lumbar Spine Active Degrees Testing Position Standing Flexion 85 Extension 18 Rotation Left 30 Rotation Right 25 Lateral Flexion Left 15 Lateral Flexion Right 10 ROM Limitations Soft Tissue Tightness,Pain Comments Pain R SB is at R Piriformis Active Percentage Comments Error in reporting AROM in percentage, see below for degree's ROM. Hip Goniometric Range of Motion Hip Right Active Testing Position Supine Straight Leg Raise 75 Internal Rotation 30 External Rotation 55 Left Passive Testing Position Supine Straight Leg Raise 78 Internal Rotation 10 External Rotation 65 PT-OP-L Special Tests Start: 09/21/21 17:15 Freq: Status: Active Protocol: Document 10/03/21 08:10 LRN (Rec: 10/03/21 09:03 LRN [id number]) Special Tests Hip Special Tests YOJANA Test Results R possible positive Comments R side pain in posterolateral thigh L side groin pain. PT-OP-M Strength Start: 09/21/21 17:15 Freq: Status: Active Protocol: Document 09/26/21 08:17 LRN (Rec: 09/26/21 09:39 LRN [id number]) Trunk Strength Trunk Manual Muscle Testing Core Stabilization Pt able to maintain core stability with hip flexion ms testing. Hip Strength Hip Manual Muscle Testing Right Flexion (L2) 5 Normal External Rotation 5 Normal Internal Rotation 3 Fair Left Flexion (L2) 5 Normal External Rotation 5 Normal Internal Rotation 3 Fair PT-OP-Q Treatments Start: 09/21/21 17:15 Freq: Status: Active Protocol: Document 10/27/21 08:17 LRN (Rec: 10/27/21 09:03 LRN [id number]) Therapeutic Exercises Supine Exercises [place] hip AB Supine Exercise Name BKFO w/Lev 2 & 3 TB Side bilateral Equipment Used Lev 2 & 3 TBand Reps/Minutes 10 H (3 breaths), 15x @ each band Comments Extra time to determine 10 hold with breath DKTC stretch Supine Exercise Name DKTC stretch w/bolster/PF & breathing Equipment Used bolster to rest legs on for LB stretch Reps/Minutes 10 x 5, stopped due to LBP Comments Cuing needed for breathing & PF contraction, xtra time for positioning Bridge Supine Exercise Name Bridge Reps/Minutes 15 x Comments Pt moves slowly due to pain Sidelying Exercises TA/CLamshell Sidelying Exercise Name TA/Clamshelll Side bilateral Reps/Minutes 10x each, moving slowly Comments light cuing at ASIS to keep pelvis netural TA Sidelying Exercise Name TA Side bilateral Reps/Minutes 10 H - 10' Comments Pt given extra rest Manual Therapy Treatment Soft Tissue Mobilization Mid Thoracic paraspinals Body Location Mid Thoracic Mobilization Type Strumming Intensity/Depth Superficial to Moderate Body Position Prone LB Body Location Sacrum/Isch TUb Mobilization Type Sustained Pressure Intensity/Depth Moderate Body Position Prone Comments Assessing mobility Self-Care/Home Management Treatment Education Patient Education Home Exercise Program Other Education Educated pt in use of the different resistance TBands issued (issued today Lev 2), for movement ex vs isometric ex. PT-OP-R Modalities Start: 09/21/21 17:15 Freq: Status: Active Protocol: Document 10/20/21 08:18 LRN (Rec: 10/20/21 09:04 LRN [id number]) Electric Stimulation Electric Stimulation Interferential Current (IFC) Body Location Sacrum Duration (Minutes) 15 Intensity 9 Frequency [upper L/S > Lower gluteals Target/Sweep Target Patient Position Hooklying Combined With Heat/Cold Hot Pack Comments Legs on Bolster Hot Pack/Cold Pack Treatment Hot Pack Location Low Back Patient Position Hooklying Treatment Duration (minutes) 10 Patient Tolerance Good Comments Done with EStim Legs on Bolster PT-OP-T Assessment and Plan Start: 09/21/21 17:15 Freq: Status: Active Protocol: Document 10/27/21 08:17 LRN (Rec: 10/27/21 09:03 LRN [id number]) Physical Therapy Assessment Goals Four Impairment Decreased function Impairment CHRISTELLE 20/50 = 40/100 (40-59% impaired, score 40-59). Stride is short on both sides and slower than normal. Limited in ability to bend, lift > 15#, twisting, sitting > 1 hr, standing > 1 hr, able to sleep w/medication. Sitting to drive >1.5 hrs is too much. Short Term Goal (STG) Pt will be able to improve hip flexors mobility to start moving normal (stairs, walking , bending). STG Duration 11/25/21 [facility] Goal (LTG) Improve function per CHRISTELLE score of 20-39 (20-39% impaired, score 20-39) LTG Duration 01/24/22 Three Impairment Decreased strength and work function. Impairment Pt on light duty. Not able to run, crawl, bend, twist, wrestle a suspect, bend down and put someone in handcuffs Short Term Goal (STG) Pt will be able to tolerate wearing a 16# belt around waist (leather gear and items it holds) while walking around for her job. 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 LTG Duration 01/24/22 Two Impairment Decreased ability to ex due to LBP, Lewis hip pain, Lewis knee pain. Impairment Pt not execising due to: LBP 4-6/10, R hip pain: anterolateral 4-6 /10, posterior 2-4/10, L hip pain: anterior 2-5/10, R knee pain: medial & lateral 3-8/10, L knee pain: medial & lateral 3-5/10. Short Term Goal (STG) Decrease bilateral hip and knee pain with pt able to intiate exercising (weight lifting) beyond her daily activities. STG Duration 11/25/21 [facility] Goal (LTG) Pt will be able to tolerate movements (run, crawl, bend, twist, wrestle someone to the ground to put handcuffs on) with tolerable pain, to complete quaterly Lethel force training. LTG Duration 01/24/22 One Impairment Pt lacks appropriate self care HEP. Short Term Goal (STG) Pt will be educated in log roll technique for transfers (10/09/21: Pt educated in log roll technique for transfers) STG Duration 10/03/21 (10/09/21: MET GOAL) [facility] Goal (LTG) Independent with a self care HEP. (10/09/21: HEP I/S: TA tightening in sidelie for strengthening and practice in prone & sup). LTG Duration 01/24/22 (10/09/21: Progressed) Assessment Summary Assessment Pt moves slowly through exercises. Her pain is now in the lower back vs at midback. Improved tolerance to ex with pt able to perform DKTC stretch without assistance. Pain less after treatment, start was 3-4/10, after treatment 3/10 walking and 1/ 10 sitting. Physical Therapy Plan Frequency and Duration Frequency of Treatment 2x/Week Plan of Care Start Date 09/26/21 Plan of Care End Date 01/24/22 Next Visit Focus/Plan Next Note Type Treatment Note Next Visit Plan If tolerated, add ROM ex's for hip ER's/R hip IR, & TA tightening for equal contraction on L side compared to R side. Mobility: Add HEP ROM ex's for LB ([facility]) Stabilization: Core, hips/ pelvis (LE roll in/outs). Manual: Balancing of pelvis, STM: Lewis Piriformis, Gluteals as needed, IT Bands. Education: body mechanics training. Modalities: MH/IFES [LB] or [ L SIJ]. Assess: L SIJ, Pelvis (for rotation), Lumbar (traction)
--- NOTE | 2021-10-30 10:17 | PT.OTN ---
Current Diagnoses Lumbago with sciatica, unspecified side (10/30/21) Physical Therapy Treatment Note PT-OP-A Visit Information Start: 09/21/21 17:15 Freq: Status: Active Protocol: Document 10/30/21 09:06 LRN (Rec: 10/30/21 10:12 LRN [id number]) Out-Patient Physical Therapy Visit Information Visit Information Visit Type Treatment Note Visit Start Time 09:06 Visit Stop Time 09:56 Total Visit Minutes 50 Visit Number 9 Evaluation Information Evaluation Date 09/26/21 Precautions Precautions Per chart review: PTSD, Chronic back pain. 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 PT-OP-B Current Condition Start: 09/21/21 17:15 Freq: Status: Active Protocol: Document 09/26/21 08:17 LRN (Rec: 09/26/21 09:39 LRN [id number]) Current Condition History of Current Condition Onset Date 07/18/21 Current Complaints LBP, Lewis hip and knee pain. History of Current Condition Low back pain onset 07/18/21, fell down 8 stairs, R foot went out from under her, L knee buckled and L knee ended up bent and behind her when sliding down the stairs feet first (like sliding into a base in baseball). Had horrendous pain. Did not seek medical care hoping it would go away. Two weeks later went to chiropractor and 2 weeks later ended up in ER. rn home care was helpful, but she was getting only a couple hours of pain relief. Now child caregiver private home gives 3-4 days relief. She feels she has aggrevated an old injury (see Developmental history below). States the L4 -S1 jt is grinding. Has tried yoga stretches and states her problem feels structural and thinks she has started loosening things too soon. States the R>L hip joints hurt , thus now the knees hurt, because of modifying how she goes up/down the stairs. Pt points to her R lateral gluteal ms and sacral region as areas of pain denoted as pelvic pain. Denies urinary problems or lower abdominal pelvic pain. She is having pain with intercourse; therefore the pt may need Pelvic rehabilitation in the future. 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 Pt has been on light duty since fall. Prior Treatments and Tests rn home care 1-2 days/ week ([facility] in [place]). X-ray: shows no fractures in Sacrum, Coccyx, and lumbar vertebra. Developmental History Developmental History 17 yrs old fractured what she thinks is the SI, possibly Sacrum L4-S1 Cracked. In 2006 fell on steel pipe landing on L knee. Treatment Goals Patient/Caregiver Goals Pt goals are: *Get hip flexors to release in order to start moving normal (stairs, walking, bending). *Get back to place to start exercising (not doing any currently that is considered purposeful), because she is only doing daily living exercise. *Wear 16# belt around waist and leather gear that carries the items of the belt. * Be able to do Lethel force training (run, crawl, bend, twist, wrestle a suspect, bend down and put someone in handcuffs). Prior Functional Status Baseline Function- ADL's Independent Baseline Function- Mobility Independent Baseline Function- Work/School Was not exercising before fall . Walking 2 miles in/outside Weight lifting legs, arms, back a couple yrs ago Baseline Function- Other Able to sleep without pain. Current Functional Impairments (Reported) Functional Limitations- ADL's Limited in ability to bend, lift > 15#, twisting, sitting > 1 hr, standing > 1 hr, able to sleep w/medication. Sitting to drive >1.5 hrs is too much. Functional Limitations- Mobility/Gait Stride is short on both sides and slower than normal. Functional Limitations- Work/School On light duty. 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 At home has 3 children and spouse has 2 children. PT-OP-C Subjective Start: 09/21/21 17:15 Freq: Status: Active Protocol: Document 10/30/21 09:06 LRN (Rec: 10/30/21 10:12 LRN [id number]) OP-PT Subjective Patient Comments Patient Comments States her mid back has been a problem all weekend long. Chiropractic treatment helped for a couple hours. PT-OP-H Neuro Start: 09/21/21 17:15 Freq: Status: Active Protocol: Document 09/26/21 08:17 LRN (Rec: 09/26/21 09:39 LRN [id number]) Sensation Evaluation Gross Sensation Gross Sensation WNL PT-OP-J Posture/Palpation/Skin Start: 09/21/21 17:15 Freq: Status: Active Protocol: Document 10/03/21 08:10 LRN (Rec: 10/03/21 09:03 LRN [id number]) Palpation Assessment Location L innominate Palpation Details Decreased PA mobility of L Ischial Tub Sacrum Palpation Location Sacrum Palpation Details Decreased mobility L inferior glide & PA of right DEEPIKA ( sacrum in R rot) ASIS Palpation Location ASIS Palpation Details R low and inflared. PT-OP-K Range of Motion Start: 09/21/21 17:15 Freq: Status: Active Protocol: Document 09/26/21 08:17 LRN (Rec: 09/26/21 09:39 LRN [id number]) Lumbar Spine Range of Motion Lumbar Spine Active Degrees Testing Position Standing Flexion 85 Extension 18 Rotation Left 30 Rotation Right 25 Lateral Flexion Left 15 Lateral Flexion Right 10 ROM Limitations Soft Tissue Tightness,Pain Comments Pain R SB is at R Piriformis Active Percentage Comments Error in reporting AROM in percentage, see below for degree's ROM. Hip Goniometric Range of Motion Hip Right Active Testing Position Supine Straight Leg Raise 75 Internal Rotation 30 External Rotation 55 Left Passive Testing Position Supine Straight Leg Raise 78 Internal Rotation 10 External Rotation 65 PT-OP-L Special Tests Start: 09/21/21 17:15 Freq: Status: Active Protocol: Document 10/03/21 08:10 LRN (Rec: 10/03/21 09:03 LRN [id number]) Special Tests Hip Special Tests YOJANA Test Results R possible positive Comments R side pain in posterolateral thigh L side groin pain. PT-OP-M Strength Start: 09/21/21 17:15 Freq: Status: Active Protocol: Document 09/26/21 08:17 LRN (Rec: 09/26/21 09:39 LRN [id number]) Trunk Strength Trunk Manual Muscle Testing Core Stabilization Pt able to maintain core stability with hip flexion ms testing. Hip Strength Hip Manual Muscle Testing Right Flexion (L2) 5 Normal External Rotation 5 Normal Internal Rotation 3 Fair Left Flexion (L2) 5 Normal External Rotation 5 Normal Internal Rotation 3 Fair PT-OP-Q Treatments Start: 09/21/21 17:15 Freq: Status: Active Protocol: Document 10/30/21 09:06 LRN (Rec: 10/30/21 10:12 LRN [id number]) Therapeutic Exercises Prone Exercises TA tightening Prone Exercise Name TA tightening Reps/Minutes 8x Comments Pt moves slow with ex Sidelying Exercises TA Sidelying Exercise Name TA Side bilateral Reps/Minutes 10 H , 5x R, 8x L Comments Pt given extra rest, slow w/ex 's Sitting Exercises Cat/Cow Sitting Exercise Name Cat/Cow for flex of mid>Low back as tolerated Reps/Minutes 6' Comments Cuing for ROM tolerance and rest when needed. Manual Therapy Treatment Soft Tissue Mobilization Mid T/S > L/S Body Location T/S > L/S Paraspinals and QL Mobilization Type Myofascial Release,Strumming, Trigger Point Release Intensity/Depth Superficial Body Position Prone Mid Thoracic paraspinals Body Location Mid Thoracic Mobilization Type Strumming,Trigger Point Release Intensity/Depth Superficial to Moderate Body Position Prone Comments Trigger point release was not well tolerated. Extra time taken to move into different positions. Self-Care/Home Management Treatment Education Patient Education Home Exercise Program Other Education Pt I/S to increase use of ice/ heat for pain and to do HEP when tolerated. Activities Self-Care/Home Management Activities I/S pt in sitting cat/cow ex to improve lower thoracic flex mobility. PT-OP-R Modalities Start: 09/21/21 17:15 Freq: Status: Active Protocol: Document 10/30/21 09:06 LRN (Rec: 10/30/21 10:12 LR [id number]) Electric Stimulation Electric Stimulation Pre-Modulated Body Location Mid T/S (~T5/T6 level) > L5 level Duration (Minutes) 11 Intensity 12 R, 10 L Patient Position Hooklying Combined With Heat/Cold Cold Pack Hot Pack/Cold Pack Treatment Cold Pack Location MId>Low BAck Patient Position Hooklying Treatment Duration (minutes) 11 Comments Treatment in conjunction with EStim Ultrasound Therapy Treatment T/S > L/S Treatment Duration (minutes) 8 Patient Position Sitting Coupling Medium Ultrasound Gel Applicator Size (cm2) 10 Mode Setting Continuous Intensity Setting (w/cm2) 1.0 PT-OP-T Assessment and Plan Start: 09/21/21 17:15 Freq: Status: Active Protocol: Document 10/30/21 09:06 LRN (Rec: 10/30/21 10:12 LRN [id number]) Physical Therapy Assessment Progress Towards Goals Progress Comments Pain with modalities decreased from 410 to 310. Assessment Summary Assessment Pt had very low tolerance to trigger point treatment, tolerable to superficial massage to T/S paraspinals. Pt had lower tolerance to Premod EStim on the L side than R. Tight in upper T/S on L, and mildly tight R gluteals. US & ex decreased back pain from 4-10/19. Pain with estim from 3- Physical Therapy Plan Frequency and Duration Frequency of Treatment 2x/Week Plan of Care Start Date 09/26/21 Plan of Care End Date 01/24/22 Next Visit Focus/Plan Next Note Type Treatment Note Next Visit Plan Assess response to treatment for pain management. When tolerated, add ROM ex's for hip ER's/R hip IR, & TA tightening for equal contraction on L side compared to R side. Mobility: Add HEP ROM ex's for LB ([facility]) Stabilization: Core, hips/ pelvis (LE roll in/outs). Manual: Balancing of pelvis, STM: Lewis Piriformis, Gluteals as needed, IT Bands. Education: body mechanics training. Modalities: MH/IFES [LB] or [ L SIJ]. Assess: L SIJ, Pelvis (for rotation), Lumbar (traction)
--- NOTE | 2021-11-06 10:30 | PT.OTN ---
Current Diagnoses Lumbago with sciatica, unspecified side (11/06/21) Physical Therapy Treatment Note PT-OP-A Visit Information Start: 09/21/21 17:15 Freq: Status: Active Protocol: Document 11/06/21 08:14 LRN (Rec: 11/06/21 09:05 LRN [id number]) Out-Patient Physical Therapy Visit Information Visit Information Visit Type Progress Note Visit Start Time 08:14 Visit Stop Time 09:00 Total Visit Minutes 46 Visit Number 10 Evaluation Information Evaluation Date 09/26/21 Precautions Precautions Per chart review: PTSD, Chronic back pain. 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 PT-OP-B Current Condition Start: 09/21/21 17:15 Freq: Status: Active Protocol: Document 09/26/21 08:17 LRN (Rec: 09/26/21 09:39 LRN [id number]) Current Condition History of Current Condition Onset Date 07/18/21 Current Complaints LBP, Lewis hip and knee pain. History of Current Condition Low back pain onset 07/18/21, fell down 8 stairs, R foot went out from under her, L knee buckled and L knee ended up bent and behind her when sliding down the stairs feet first (like sliding into a base in baseball). Had horrendous pain. Did not seek medical care hoping it would go away. Two weeks later went to chiropractor and 2 weeks later ended up in ER. home care specialist was helpful, but she was getting only a couple hours of pain relief. Now grounds caretaker gives 3-4 days relief. She feels she has aggrevated an old injury (see Developmental history below). States the L4 -S1 jt is grinding. Has tried yoga stretches and states her problem feels structural and thinks she has started loosening things too soon. States the R>L hip joints hurt , thus now the knees hurt, because of modifying how she goes up/down the stairs. Pt points to her R lateral gluteal ms and sacral region as areas of pain denoted as pelvic pain. Denies urinary problems or lower abdominal pelvic pain. She is having pain with intercourse; therefore the pt may need Pelvic rehabilitation in the future. 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 Pt has been on light duty since fall. Prior Treatments and Tests home care specialist 1-2 days/ week ([facility] in [place]). X-ray: shows no fractures in Sacrum, Coccyx, and lumbar vertebra. Developmental History Developmental History 17 yrs old fractured what she thinks is the SI, possibly Sacrum L4-S1 Cracked. In 2006 fell on steel pipe landing on L knee. Treatment Goals Patient/Caregiver Goals Pt goals are: *Get hip flexors to release in order to start moving normal (stairs, walking, bending). *Get back to place to start exercising (not doing any currently that is considered purposeful), because she is only doing daily living exercise. *Wear 16# belt around waist and leather gear that carries the items of the belt. * Be able to do Lethel force training (run, crawl, bend, twist, wrestle a suspect, bend down and put someone in handcuffs). Prior Functional Status Baseline Function- ADL's Independent Baseline Function- Mobility Independent Baseline Function- Work/School Was not exercising before fall . Walking 2 miles in/outside Weight lifting legs, arms, back a couple yrs ago Baseline Function- Other Able to sleep without pain. Current Functional Impairments (Reported) Functional Limitations- ADL's Limited in ability to bend, lift > 15#, twisting, sitting > 1 hr, standing > 1 hr, able to sleep w/medication. Sitting to drive >1.5 hrs is too much. Functional Limitations- Mobility/Gait Stride is short on both sides and slower than normal. Functional Limitations- Work/School On light duty. 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 At home has 3 children and spouse has 2 children. PT-OP-C Subjective Start: 09/21/21 17:15 Freq: Status: Active Protocol: Document 11/06/21 08:14 LRN (Rec: 11/06/21 09:05 LRN [id number]) OP-PT Subjective Patient Comments Patient Comments Since 11/02/21 she has had ms spasms of the back. After last session went to outpt and had a shot of Toradol. Did not go to work or chiropractor . Went to work Thurs and on the way home the back was in so much spasm, stopped at ER in [facility] and was given a patch of lidocaine, taking the edge off the pain PT-OP-H Neuro Start: 09/21/21 17:15 Freq: Status: Active Protocol: Document 09/26/21 08:17 LRN (Rec: 09/26/21 09:39 LRN [id number]) Sensation Evaluation Gross Sensation Gross Sensation WNL PT-OP-J Posture/Palpation/Skin Start: 09/21/21 17:15 Freq: Status: Active Protocol: Document 10/03/21 08:10 LRN (Rec: 10/03/21 09:03 LRN [id number]) Palpation Assessment Location L innominate Palpation Details Decreased PA mobility of L Ischial Tub Sacrum Palpation Location Sacrum Palpation Details Decreased mobility L inferior glide & PA of right DEEPIKA ( sacrum in R rot) ASIS Palpation Location ASIS Palpation Details R low and inflared. PT-OP-K Range of Motion Start: 09/21/21 17:15 Freq: Status: Active Protocol: Document 11/06/21 08:14 LRN (Rec: 11/06/21 09:05 LRN [id number]) Hip Goniometric Range of Motion Hip Right Active Testing Position Supine Internal Rotation 32 External Rotation 75 Left Passive Testing Position Supine Internal Rotation 25 External Rotation 85 PT-OP-L Special Tests Start: 09/21/21 17:15 Freq: Status: Active Protocol: Document 11/06/21 08:14 LRN (Rec: 11/06/21 09:05 LRN [id number]) Special Tests Lumbar Spine Special Tests Slump Test Results negative Straight Leg Raise Test Results 90 left, 95 right Comments C/O hip socket pain bilterally . PT-OP-M Strength Start: 09/21/21 17:15 Freq: Status: Active Protocol: Document 09/26/21 08:17 LRN (Rec: 09/26/21 09:39 LRN [id number]) Trunk Strength Trunk Manual Muscle Testing Core Stabilization Pt able to maintain core stability with hip flexion ms testing. Hip Strength Hip Manual Muscle Testing Right Flexion (L2) 5 Normal External Rotation 5 Normal Internal Rotation 3 Fair Left Flexion (L2) 5 Normal External Rotation 5 Normal Internal Rotation 3 Fair PT-OP-Q Treatments Start: 09/21/21 17:15 Freq: Status: Active Protocol: Document 11/06/21 08:14 LRN (Rec: 11/06/21 09:05 LRN [id number]) Therapeutic Exercises Supine Exercises DKTC stretch Supine Exercise Name DKTC stretch w/bolster/PF & breathing Equipment Used bolster to rest legs on for LB stretch Reps/Minutes 10 x 5, stopped due to LBP Comments Cuing needed for breathing & PF contraction, xtra time for positioning Bridge Supine Exercise Name Bridge Reps/Minutes 1 x Comments Pt moves slowly due to pain TA tightening Supine Exercise Name TA tightening Reps/Minutes 3' Comments R stronger contraction than L. Piriformis Supine Exercise Name Piriformis stretch bilaterally and on the left Side left Reps/Minutes 8' Fig 4 Supine Exercise Name Fig 4 Side right Reps/Minutes 3' Manual Therapy Treatment Soft Tissue Mobilization Mid T/S > L/S Body Location R T/S > L/S Paraspinals Mobilization Type Myofascial Release,Trigger Point Release Intensity/Depth Moderate Body Position Supine Joint Mobilizations T/S Joint T5-T6 & T8-T11 Direction AP Body Position Supine Reps/Duration 19' Comments Balancing of T/S at sternum, Sternalcostal joints & lower ribs for costovertebral joints . PT-OP-R Modalities Start: 09/21/21 17:15 Freq: Status: Active Protocol: Document 10/30/21 09:06 LRN (Rec: 10/30/21 10:12 LRN [id number]) Electric Stimulation Electric Stimulation Pre-Modulated Body Location Mid T/S (~T5/T6 level) > L5 level Duration (Minutes) 11 Intensity 12 R, 10 L Patient Position Hooklying Combined With Heat/Cold Cold Pack Hot Pack/Cold Pack Treatment Cold Pack Location MId>Low BAck Patient Position Hooklying Treatment Duration (minutes) 11 Comments Treatment in conjunction with EStim Ultrasound Therapy Treatment T/S > L/S Treatment Duration (minutes) 8 Patient Position Sitting Coupling Medium Ultrasound Gel Applicator Size (cm2) 10 Mode Setting Continuous Intensity Setting (w/cm2) 1.0 PT-OP-T Assessment and Plan Start: 09/21/21 17:15 Freq: Status: Active Protocol: Document 11/06/21 08:14 LRN (Rec: 11/06/21 09:05 N [id number]) Physical Therapy Assessment Rehab Potential Rehabilitation Potential Good Evaluation Complexity Number of Personal Factors/Comorbidities 3 or More Number of Body Systems Impaired 3 Clinical Presentation at Evaluation Evolving Impairments Impairments Activity Tolerance,Pain, Posture,ROM,Soft Tissue Mobility,Strength,Transfers Goals Four Impairment Decreased function Impairment CHRISTELLE 20/50 = 40/100 (40-59% impaired, score 40-59). Stride is short on both sides and slower than normal. Limited in ability to bend, lift > 15#, twisting, sitting > 1 hr, standing > 1 hr, able to sleep w/medication. Sitting to drive >1.5 hrs is too much. Short Term Goal (STG) Pt will be able to improve hip flexors mobility to start moving normal (stairs, walking , bending). (11/06/21: Walking with small shuffle steps, stairs are difficult, bending is very difficult). STG Duration 11/25/21 [facility] Goal (LTG) Improve function per CHRISTELLE score of 20-39 (20-39% impaired, score 20-39) LTG Duration 01/24/22 Three Impairment Decreased strength and work function. Impairment Pt on light duty. Not able to run, crawl, bend, twist, wrestle a suspect, bend down and put someone in handcuffs Short Term Goal (STG) Pt will be able to tolerate wearing a 16# belt around waist (leather gear and items it holds) while walking around for her job. 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 LTG Duration 01/24/22 Two Impairment Decreased ability to ex due to LBP, Lewis hip pain, Lewis knee pain. Impairment Pt not execising due to: LBP 4-6/10, R hip pain: anterolateral 4-6 /10, posterior 2-4/10, L hip pain: anterior 2-5/10, R knee pain: medial & lateral 3-8/10, L knee pain: medial & lateral 3-5/10. Short Term Goal (STG) Decrease bilateral hip and knee pain with pt able to intiate exercising (weight lifting) beyond her daily activities. STG Duration 11/25/21 [facility] Goal (LTG) Pt will be able to tolerate movements (run, crawl, bend, twist, wrestle someone to the ground to put handcuffs on) with tolerable pain, to complete quaterly Lethel force training. LTG Duration 01/24/22 One Impairment Pt lacks appropriate self care HEP. Short Term Goal (STG) Pt will be educated in log roll technique for transfers (10/09/21: Pt educated in log roll technique for transfers) STG Duration 10/03/21 (10/09/21: MET GOAL) [facility] Goal (LTG) Independent with a self care HEP. (10/09/21: HEP I/S: TA tightening in sidelie for strengthening and practice in prone & sup). LTG Duration 01/24/22 (10/09/21: Progressed) Progress Towards Goals Progress Comments Improved hip mobility bilateral and improved symmetry. Assessment Summary Assessment Pt attends in flare up state with thoracic pain from shoulder blades to low back since 11/02/21. Pt response to treatment last session was not enough to minimize pain; therefore pt sought visit to walk in clinic afterwards for medications. Her low back and pelvic alignment is normal, but it appears her upper back is responding to the mechanical correction. Pt has improved her TA tightening strength on L side but it is weaker than R side. Normalizing of hip mobility is improving with 10 deg's greater ER in right and 7 deg' s greater IR on left. Pt lumbar and pelvic region appears symmetrical. Her thoracic region is in L rotation at T5-T6 & T8-T11 with greater tenderness at corresponding Costosternal joints and costovertebral joints. I would recommend the pt continue physical therapy and that she will benefit from continued therapy to facilitate normalization of her thoracic and lumbar spine positioning and to improve her core and LE strength in order to return the pt back to her prior level of function. Physical Therapy Plan Frequency and Duration Frequency of Treatment 2x/Week Plan of Care Start Date 09/26/21 Plan of Care End Date 01/24/22 Therapeutic Interventions Therapeutic Interventions Home Exercise Program,Joint Mobilizations,Manual Therapy, Neuromuscular Re-education, Patient/Caregiver Education, Self-Care/Home Management,Soft Tissue Mobilization,Taping, Therapeutic Activities, Therapeutic Exercises Modalities Cold Pack/Ice Massage,Electric Stimulation,Hot Packs, Ultrasound Next Visit Focus/Plan Next Note Type Treatment Note Next Visit Plan Progress HEP with issuance of ROM ex's for R hip ER/L hip IR , & TA tightening (L>R) for equal contraction on L side compared to R side and for LB (KTC) Manual therapy to: Normalize & stabilize Thoracic Core, hips /pelvis (LE roll in/outs). Manual: Balancing of thoracic region, STM: Lewis T/S paraspinals, check LB/IT Bands . Education: body mechanics training. Modalities: MH/IFES [thoracic & lumbar spine.
--- NOTE | 2021-11-06 17:00 | PT.OTN ---
Current Diagnoses Lumbago with sciatica, unspecified side (11/06/21) Physical Therapy Treatment Note PT-OP-A Visit Information Start: 09/21/21 17:15 Freq: Status: Active Protocol: Document 11/06/21 08:14 LRN (Rec: 11/06/21 09:05 LRN [id number]) Out-Patient Physical Therapy Visit Information Visit Information Visit Type Progress Note Visit Start Time 08:14 Visit Stop Time 09:00 Total Visit Minutes 46 Visit Number 10 Evaluation Information Evaluation Date 09/26/21 Precautions Precautions Per chart review: PTSD, Chronic back pain. 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 PT-OP-B Current Condition Start: 09/21/21 17:15 Freq: Status: Active Protocol: Document 09/26/21 08:17 LRN (Rec: 09/26/21 09:39 LRN [id number]) Current Condition History of Current Condition Onset Date 07/18/21 Current Complaints LBP, Lewis hip and knee pain. History of Current Condition Low back pain onset 07/18/21, fell down 8 stairs, R foot went out from under her, L knee buckled and L knee ended up bent and behind her when sliding down the stairs feet first (like sliding into a base in baseball). Had horrendous pain. Did not seek medical care hoping it would go away. Two weeks later went to chiropractor and 2 weeks later ended up in ER. health care coach was helpful, but she was getting only a couple hours of pain relief. Now patient care nursing assistant gives 3-4 days relief. She feels she has aggrevated an old injury (see Developmental history below). States the L4 -S1 jt is grinding. Has tried yoga stretches and states her problem feels structural and thinks she has started loosening things too soon. States the R>L hip joints hurt , thus now the knees hurt, because of modifying how she goes up/down the stairs. Pt points to her R lateral gluteal ms and sacral region as areas of pain denoted as pelvic pain. Denies urinary problems or lower abdominal pelvic pain. She is having pain with intercourse; therefore the pt may need Pelvic rehabilitation in the future. 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 Pt has been on light duty since fall. Prior Treatments and Tests health care coach 1-2 days/ week ([facility] in [place]). X-ray: shows no fractures in Sacrum, Coccyx, and lumbar vertebra. Developmental History Developmental History 17 yrs old fractured what she thinks is the SI, possibly Sacrum L4-S1 Cracked. In 2006 fell on steel pipe landing on L knee. Treatment Goals Patient/Caregiver Goals Pt goals are: *Get hip flexors to release in order to start moving normal (stairs, walking, bending). *Get back to place to start exercising (not doing any currently that is considered purposeful), because she is only doing daily living exercise. *Wear 16# belt around waist and leather gear that carries the items of the belt. * Be able to do Lethel force training (run, crawl, bend, twist, wrestle a suspect, bend down and put someone in handcuffs). Prior Functional Status Baseline Function- ADL's Independent Baseline Function- Mobility Independent Baseline Function- Work/School Was not exercising before fall . Walking 2 miles in/outside Weight lifting legs, arms, back a couple yrs ago Baseline Function- Other Able to sleep without pain. Current Functional Impairments (Reported) Functional Limitations- ADL's Limited in ability to bend, lift > 15#, twisting, sitting > 1 hr, standing > 1 hr, able to sleep w/medication. Sitting to drive >1.5 hrs is too much. Functional Limitations- Mobility/Gait Stride is short on both sides and slower than normal. Functional Limitations- Work/School On light duty. 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 At home has 3 children and spouse has 2 children. PT-OP-C Subjective Start: 09/21/21 17:15 Freq: Status: Active Protocol: Document 11/06/21 08:14 LRN (Rec: 11/06/21 09:05 LRN [id number]) OP-PT Subjective Patient Comments Patient Comments Since 11/02/21 she has had ms spasms of the back. After last session went to outpt and had a shot of Toradol. Did not go to work or chiropractor . Went to work Thurs and on the way home the back was in so much spasm, stopped at ER in [facility] and was given a patch of lidocaine, taking the edge off the pain Patient Questionnaires Oswestry Low Back Index Oswestry Score 31 Oswestry Impairment 20 to 39% Impaired (Score 20- 39) OP-PT Pain Assessment Location Thoracic region Pain Location Details L thoracic region Intensity 9 Scale Used Numeric (0 - 10) Description Shooting Sternum Pain Location Details Sternal region Intensity 3 Scale Used Numeric (0 - 10) Description Spasm Knees Pain Location Details Bilateral knees Intensity 0 Scale Used Numeric (0 - 10) Hip Flexors Pain Location Details Hip flexors Intensity 0 Scale Used Numeric (0 - 10) Description- Other Pain with palpation Sacrum Pain Location Details Sacral region on palpation Intensity 4 Scale Used Numeric (0 - 10) PT-OP-H Neuro Start: 09/21/21 17:15 Freq: Status: Active Protocol: Document 09/26/21 08:17 LRN (Rec: 09/26/21 09:39 LRN [id number]) Sensation Evaluation Gross Sensation Gross Sensation WNL PT-OP-J Posture/Palpation/Skin Start: 09/21/21 17:15 Freq: Status: Active Protocol: Document 10/03/21 08:10 LRN (Rec: 10/03/21 09:03 LRN [id number]) Palpation Assessment Location L innominate Palpation Details Decreased PA mobility of L Ischial Tub Sacrum Palpation Location Sacrum Palpation Details Decreased mobility L inferior glide & PA of right DEEPIKA ( sacrum in R rot) ASIS Palpation Location ASIS Palpation Details R low and inflared. PT-OP-K Range of Motion Start: 09/21/21 17:15 Freq: Status: Active Protocol: Document 11/06/21 08:14 LRN (Rec: 11/06/21 09:05 LRN [id number]) Hip Goniometric Range of Motion Hip Right Active Testing Position Supine Internal Rotation 32 External Rotation 75 Left Passive Testing Position Supine Internal Rotation 25 External Rotation 85 PT-OP-L Special Tests Start: 09/21/21 17:15 Freq: Status: Active Protocol: Document 11/06/21 08:14 LRN (Rec: 11/06/21 09:05 LRN [id number]) Special Tests Lumbar Spine Special Tests Slump Test Results negative Straight Leg Raise Test Results 90 left, 95 right Comments C/O hip socket pain bilterally . PT-OP-M Strength Start: 09/21/21 17:15 Freq: Status: Active Protocol: Document 09/26/21 08:17 LRN (Rec: 09/26/21 09:39 LRN [id number]) Trunk Strength Trunk Manual Muscle Testing Core Stabilization Pt able to maintain core stability with hip flexion ms testing. Hip Strength Hip Manual Muscle Testing Right Flexion (L2) 5 Normal External Rotation 5 Normal Internal Rotation 3 Fair Left Flexion (L2) 5 Normal External Rotation 5 Normal Internal Rotation 3 Fair PT-OP-Q Treatments Start: 09/21/21 17:15 Freq: Status: Active Protocol: Document 11/06/21 08:14 LRN (Rec: 11/06/21 09:05 LRN [id number]) Therapeutic Exercises Supine Exercises DKTC stretch Supine Exercise Name DKTC stretch w/bolster/PF & breathing Equipment Used bolster to rest legs on for LB stretch Reps/Minutes 10 x 5, stopped due to LBP Comments Cuing needed for breathing & PF contraction, xtra time for positioning Bridge Supine Exercise Name Bridge Reps/Minutes 1 x Comments Pt moves slowly due to pain TA tightening Supine Exercise Name TA tightening Reps/Minutes 3' Comments R stronger contraction than L. Piriformis Supine Exercise Name Piriformis stretch bilaterally and on the left Side left Reps/Minutes 8' Fig 4 Supine Exercise Name Fig 4 Side right Reps/Minutes 3' Manual Therapy Treatment Soft Tissue Mobilization Mid T/S > L/S Body Location R T/S > L/S Paraspinals Mobilization Type Myofascial Release,Trigger Point Release Intensity/Depth Moderate Body Position Supine Joint Mobilizations T/S Joint T5-T6 & T8-T11 Direction AP Body Position Supine Reps/Duration 19' Comments Balancing of T/S at sternum, Sternalcostal joints & lower ribs for costovertebral joints . PT-OP-R Modalities Start: 09/21/21 17:15 Freq: Status: Active Protocol: Document 10/30/21 09:06 LRN (Rec: 10/30/21 10:12 LRN [id number]) Electric Stimulation Electric Stimulation Pre-Modulated Body Location Mid T/S (~T5/T6 level) > L5 level Duration (Minutes) 11 Intensity 12 R, 10 L Patient Position Hooklying Combined With Heat/Cold Cold Pack Hot Pack/Cold Pack Treatment Cold Pack Location MId>Low BAck Patient Position Hooklying Treatment Duration (minutes) 11 Comments Treatment in conjunction with EStim Ultrasound Therapy Treatment T/S > L/S Treatment Duration (minutes) 8 Patient Position Sitting Coupling Medium Ultrasound Gel Applicator Size (cm2) 10 Mode Setting Continuous Intensity Setting (w/cm2) 1.0 PT-OP-T Assessment and Plan Start: 09/21/21 17:15 Freq: Status: Active Protocol: Document 11/06/21 08:14 LRN (Rec: 11/06/21 09:05 LRN [id number]) Physical Therapy Assessment Rehab Potential Rehabilitation Potential Good Evaluation Complexity Number of Personal Factors/Comorbidities 3 or More Number of Body Systems Impaired 3 Clinical Presentation at Evaluation Evolving Impairments Impairments Activity Tolerance,Pain, Posture,ROM,Soft Tissue Mobility,Strength,Transfers Goals Four Impairment Decreased function Impairment CHRISTELLE 20/50 = 40/100 (40-59% impaired, score 40-59). Stride is short on both sides and slower than normal. Limited in ability to bend, lift > 15#, twisting, sitting > 1 hr, standing > 1 hr, able to sleep w/medication. Sitting to drive >1.5 hrs is too much. Short Term Goal (STG) Pt will be able to improve hip flexors mobility to start moving normal (stairs, walking , bending). (11/06/21: Walking with small shuffle steps, stairs are difficult, bending is very difficult). STG Duration 11/25/21 Fiber [employer] Assembly Worker Goal (LTG) Improve function per CHRISTELLE score of 20-39 (20-39% impaired, score 20-39) LTG Duration 01/24/22 Three Impairment Decreased strength and work function. Impairment Pt on light duty. Not able to run, crawl, bend, twist, wrestle a suspect, bend down and put someone in handcuffs Short Term Goal (STG) Pt will be able to tolerate wearing a 16# belt around waist (leather gear and items it holds) while walking around for her job. 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 LTG Duration 01/24/22 Two Impairment Decreased ability to ex due to LBP, Lewis hip pain, Lewis knee pain. Impairment Pt not execising due to: LBP 4-6/10, R hip pain: anterolateral 4-6 /10, posterior 2-4/10, L hip pain: anterior 2-5/10, R knee pain: medial & lateral 3-8/10, L knee pain: medial & lateral 3-5/10. Short Term Goal (STG) Decrease bilateral hip and knee pain with pt able to intiate exercising (weight lifting) beyond her daily activities. STG Duration 11/25/21 [employer] Assembly Worker Goal (LTG) Pt will be able to tolerate movements (run, crawl, bend, twist, wrestle someone to the ground to put handcuffs on) with tolerable pain, to complete quaterly Lethel force training. LTG Duration 01/24/22 One Impairment Pt lacks appropriate self care HEP. Short Term Goal (STG) Pt will be educated in log roll technique for transfers (10/09/21: Pt educated in log roll technique for transfers) STG Duration 10/03/21 (10/09/21: MET GOAL) Fiber Optic Assembly Worker Goal (LTG) Independent with a self care HEP. (10/09/21: HEP I/S: TA tightening in sidelie for strengthening and practice in prone & sup). LTG Duration 01/24/22 (10/09/21: Progressed) Progress Towards Goals Progress Comments Improved hip mobility bilateral and improved symmetry. Assessment Summary Assessment Pt attends in flare up state with thoracic pain from shoulder blades to low back since 11/02/21. Pt response to treatment last session was not enough to minimize midback pain; therefore pt sought visit to walk in clinic afterwards for medications. Her low back and pelvic alignment is normal, but it appears her upper back is responding to the mechanical corrections (normalization) of the low back. Her complaints recently has been of mid to low back pain. Pt has improved her TA tightening strength on L side but it is weaker than R side. Normalizing of hip mobility is improving with 10 deg's greater ER in right and 7 deg' s greater IR on left. Pt lumbar and pelvic region appears symmetrical. Her thoracic region is in L rotation at T5-T6 & T8-T11 with greater tenderness at corresponding Costosternal joints and costovertebral joints. I would recommend the pt continue physical therapy to facilitate normalization of her thoracic and lumbar spine positioning and to improve her core and LE strength in order to return the pt back to her prior level of function. The pt has been slow to progress due to her difficulty of prolonged driving posturing to [place] and back for her job; therefore her recovery may be longer than initially expected. Physical Therapy Plan Frequency and Duration Frequency of Treatment 2x/Week Plan of Care Start Date 09/26/21 Plan of Care End Date 01/24/22 Therapeutic Interventions Therapeutic Interventions Home Exercise Program,Joint Mobilizations,Manual Therapy, Neuromuscular Re-education, Patient/Caregiver Education, Self-Care/Home Management,Soft Tissue Mobilization,Taping, Therapeutic Activities, Therapeutic Exercises Modalities Cold Pack/Ice Massage,Electric Stimulation,Hot Packs, Ultrasound Next Visit Focus/Plan Next Note Type Treatment Note Next Visit Plan Progress HEP with issuance of ROM ex's for R hip ER/L hip IR , & TA tightening (L>R) for equal contraction on L side compared to R side and for LB (KTC) Manual therapy to: Normalize & stabilize Thoracic Core, hips /pelvis (LE roll in/outs). Manual: Balancing of thoracic region, STM: Lewis T/S paraspinals, check LB/IT Bands . Education: body mechanics training. Modalities: MH/IFES [thoracic & lumbar spine.
--- NOTE | 2021-11-10 16:58 | PT.OTN ---
Current Diagnoses Lumbago with sciatica, unspecified side (11/10/21) Physical Therapy Treatment Note PT-OP-A Visit Information Start: 09/21/21 17:15 Freq: Status: Active Protocol: Document 11/10/21 08:16 LRN (Rec: 11/10/21 09:07 LRN [id number]) Out-Patient Physical Therapy Visit Information Visit Information Visit Type Treatment Note Visit Note 1 after PN Visit Start Time 08:16 Visit Stop Time 09:02 Total Visit Minutes 46 Visit Number 11 Evaluation Information Evaluation Date 09/26/21 Precautions Precautions Per chart review: PTSD, Chronic back pain. 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 PT-OP-B Current Condition Start: 09/21/21 17:15 Freq: Status: Active Protocol: Document 09/26/21 08:17 LRN (Rec: 09/26/21 09:39 LRN [id number]) Current Condition History of Current Condition Onset Date 07/18/21 Current Complaints LBP, Lewis hip and knee pain. History of Current Condition Low back pain onset 07/18/21, fell down 8 stairs, R foot went out from under her, L knee buckled and L knee ended up bent and behind her when sliding down the stairs feet first (like sliding into a base in baseball). Had horrendous pain. Did not seek medical care hoping it would go away. Two weeks later went to chiropractor and 2 weeks later ended up in ER. campground caretaker was helpful, but she was getting only a couple hours of pain relief. Now summer child caregiver gives 3-4 days relief. She feels she has aggrevated an old injury (see Developmental history below). States the L4 -S1 jt is grinding. Has tried yoga stretches and states her problem feels structural and thinks she has started loosening things too soon. States the R>L hip joints hurt , thus now the knees hurt, because of modifying how she goes up/down the stairs. Pt points to her R lateral gluteal ms and sacral region as areas of pain denoted as pelvic pain. Denies urinary problems or lower abdominal pelvic pain. She is having pain with intercourse; therefore the pt may need Pelvic rehabilitation in the future. 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 Pt has been on light duty since fall. Prior Treatments and Tests campground caretaker 1-2 days/ week ([facility] in [place]). X-ray: shows no fractures in Sacrum, Coccyx, and lumbar vertebra. Developmental History Developmental History 17 yrs old fractured what she thinks is the SI, possibly Sacrum L4-S1 Cracked. In 2006 fell on steel pipe landing on L knee. Treatment Goals Patient/Caregiver Goals Pt goals are: *Get hip flexors to release in order to start moving normal (stairs, walking, bending). *Get back to place to start exercising (not doing any currently that is considered purposeful), because she is only doing daily living exercise. *Wear 16# belt around waist and leather gear that carries the items of the belt. * Be able to do Lethel force training (run, crawl, bend, twist, wrestle a suspect, bend down and put someone in handcuffs). Prior Functional Status Baseline Function- ADL's Independent Baseline Function- Mobility Independent Baseline Function- Work/School Was not exercising before fall . Walking 2 miles in/outside Weight lifting legs, arms, back a couple yrs ago Baseline Function- Other Able to sleep without pain. Current Functional Impairments (Reported) Functional Limitations- ADL's Limited in ability to bend, lift > 15#, twisting, sitting > 1 hr, standing > 1 hr, able to sleep w/medication. Sitting to drive >1.5 hrs is too much. Functional Limitations- Mobility/Gait Stride is short on both sides and slower than normal. Functional Limitations- Work/School On light duty. 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 At home has 3 children and spouse has 2 children. PT-OP-C Subjective Start: 09/21/21 17:15 Freq: Status: Active Protocol: Document 11/10/21 08:16 LRN (Rec: 11/10/21 09:07 LRN [id number]) OP-PT Subjective Patient Comments Patient Comments Shuffling again. Pain in lower midback, Sacrum, and R Piriformis. Had massage and pain relief for 16 hrs. Tues folded laundry, had accupuncture, saw ortho surgeon (will be getting MRI), took DA to [place]. Pain returned Wed. PT-OP-H Neuro Start: 09/21/21 17:15 Freq: Status: Active Protocol: Document 09/26/21 08:17 LRN (Rec: 09/26/21 09:39 LRN [id number]) Sensation Evaluation Gross Sensation Gross Sensation WNL PT-OP-J Posture/Palpation/Skin Start: 09/21/21 17:15 Freq: Status: Active Protocol: Document 10/03/21 08:10 LRN (Rec: 10/03/21 09:03 LRN [id number]) Palpation Assessment Location L innominate Palpation Details Decreased PA mobility of L Ischial Tub Sacrum Palpation Location Sacrum Palpation Details Decreased mobility L inferior glide & PA of right DEEPIKA ( sacrum in R rot) ASIS Palpation Location ASIS Palpation Details R low and inflared. PT-OP-K Range of Motion Start: 09/21/21 17:15 Freq: Status: Active Protocol: Document 11/10/21 08:16 LRN (Rec: 11/10/21 09:07 LRN [id number]) Hip Goniometric Range of Motion Hip Right Active Testing Position Supine Internal Rotation 30 External Rotation 45 Comments Measurements were approximate Left Passive Testing Position Supine Internal Rotation 25 External Rotation 45 Comments Measurements were approximate PT-OP-L Special Tests Start: 09/21/21 17:15 Freq: Status: Active Protocol: Document 11/06/21 08:14 LRN (Rec: 11/06/21 09:05 LRN [id number]) Special Tests Lumbar Spine Special Tests Slump Test Results negative Straight Leg Raise Test Results 90 left, 95 right Comments C/O hip socket pain bilterally . PT-OP-M Strength Start: 09/21/21 17:15 Freq: Status: Active Protocol: Document 09/26/21 08:17 LRN (Rec: 09/26/21 09:39 LRN [id number]) Trunk Strength Trunk Manual Muscle Testing Core Stabilization Pt able to maintain core stability with hip flexion ms testing. Hip Strength Hip Manual Muscle Testing Right Flexion (L2) 5 Normal External Rotation 5 Normal Internal Rotation 3 Fair Left Flexion (L2) 5 Normal External Rotation 5 Normal Internal Rotation 3 Fair PT-OP-Q Treatments Start: 09/21/21 17:15 Freq: Status: Active Protocol: Document 11/10/21 08:16 LRN (Rec: 11/10/21 09:07 LRN [id number]) Therapeutic Exercises Supine Exercises Lateral Hip stretch Supine Exercise Name Lateral Hip stretch Side left Reps/Minutes 3' Comments cuing for proper positioning. DKTC stretch Supine Exercise Name DKTC stretch w/bolster/PF & breathing Equipment Used bolster to rest legs on for LB stretch Reps/Minutes 1x Comments Cuing needed for breathing & PF contraction, xtra time for positioning TA tightening Supine Exercise Name TA tightening Reps/Minutes 3' Comments R stronger contraction than L. Piriformis Supine Exercise Name Piriformis stretch bilaterally and on the left Side left Reps/Minutes 8' Fig 4 Supine Exercise Name Fig 4 Side bilateral Reps/Minutes 3' Sidelying Exercises TA Sidelying Exercise Name TA Side bilateral Reps/Minutes 10 H , 5x R, 8x L Comments Pt given extra rest, slow w/ex 's Manual Therapy Treatment Soft Tissue Mobilization Balancing of Sacrum/SIJ's Body Location Balancing at Pubs Mobilization Type Myofascial Release Body Position Supine L/S Paraspinal Body Location Lewis Paraspinals L 2-4 Mobilization Type Strumming Intensity/Depth Moderate Body Position Prone Comments Mild Greater tightness on R side Joint Mobilizations SIJ Joint Lewis SIJ: Direction Correcting anterior rot R innominate Body Position Supine Comments Also correcting Inflare L, Outflare R. PT-OP-R Modalities Start: 09/21/21 17:15 Freq: Status: Active Protocol: Document 10/30/21 09:06 LRN (Rec: 10/30/21 10:12 LRN [id number]) Electric Stimulation Electric Stimulation Pre-Modulated Body Location Mid T/S (~T5/T6 level) > L5 level Duration (Minutes) 11 Intensity 12 R, 10 L Patient Position Hooklying Combined With Heat/Cold Cold Pack Hot Pack/Cold Pack Treatment Cold Pack Location MId>Low BAck Patient Position Hooklying Treatment Duration (minutes) 11 Comments Treatment in conjunction with EStim Ultrasound Therapy Treatment T/S > L/S Treatment Duration (minutes) 8 Patient Position Sitting Coupling Medium Ultrasound Gel Applicator Size (cm2) 10 Mode Setting Continuous Intensity Setting (w/cm2) 1.0 PT-OP-T Assessment and Plan Start: 09/21/21 17:15 Freq: Status: Active Protocol: Document 11/10/21 08:16 LRN (Rec: 11/10/21 09:07 LRN [id number]) Physical Therapy Assessment Goals Three Impairment Decreased strength and work function. Impairment Pt on light duty. Not able to run, crawl, bend, twist, wrestle a suspect, bend down and put someone in handcuffs Short Term Goal (STG) Pt will be able to tolerate wearing a 16# belt around waist (leather gear and items it holds) while walking around for her job. 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 LTG Duration 01/24/22 Two Impairment Decreased ability to ex due to LBP, Lewis hip pain, Lewis knee pain. Impairment Pt not execising due to: LBP 4-6/10, R hip pain: anterolateral 4-6 /10, posterior 2-4/10, L hip pain: anterior 2-5/10, R knee pain: medial & lateral 3-8/10, L knee pain: medial & lateral 3-5/10. Short Term Goal (STG) Decrease bilateral hip and knee pain with pt able to intiate exercising (weight lifting) beyond her daily activities. STG Duration 11/25/21 Cyber Security Goal (LTG) Pt will be able to tolerate movements (run, crawl, bend, twist, wrestle someone to the ground to put handcuffs on) with tolerable pain, to complete quaterly Lethel force training. LTG Duration 01/24/22 One Impairment Pt lacks appropriate self care HEP. Short Term Goal (STG) Pt will be educated in log roll technique for transfers (10/09/21: Pt educated in log roll technique for transfers) STG Duration 10/03/21 (10/09/21: MET GOAL) Half-Way Goal (LTG) Independent with a self care HEP. (10/09/21: HEP I/S: TA tightening in sidelie for strengthening and practice in prone & sup). (11/10/21: Reviewed previously issued HEP: Hip ER, and IR (L >R) stretch. LTG Duration 01/24/22 (10/09/21: Progressed) Assessment Summary Assessment Corrected R outflare and anterior rotated innominate. Hip ER was close to symmetrica bilaterally, L hip IR is decreased compared to R. No significant change in pain after treatment. Pt may be doing too much and keeps exacerbating her condition. Driving 1 hr to and from her job is making progress slow. Physical Therapy Plan Frequency and Duration Frequency of Treatment 2x/Week Plan of Care Start Date 09/26/21 Plan of Care End Date 01/24/22 Next Visit Focus/Plan Next Note Type Treatment Note Next Visit Plan TA tightening (L>R) for equal contraction on L side compared to R side and for LB (KTC) Manual therapy to: Normalize & stabilize Thoracic Core, hips /pelvis (LE roll in/outs). Manual: Balancing of thoracic region, STM: Lewis T/S paraspinals, check LB/IT Bands . Education: body mechanics training. Exer: Stabilize LB/Pelvis and strengthen thoracic region. Modalities: MH/IFES [thoracic & lumbar spine].
--- NOTE | 2021-11-13 16:48 | PT.OTN ---
Current Diagnoses Lumbago with sciatica, unspecified side (11/13/21) Physical Therapy Treatment Note PT-OP-A Visit Information Start: 09/21/21 17:15 Freq: Status: Active Protocol: Document 11/13/21 08:17 LRN (Rec: 11/13/21 12:39 LRN [id number]) Out-Patient Physical Therapy Visit Information Visit Information Visit Type Treatment Note Visit Start Time 08:16 Visit Stop Time 08:56 Total Visit Minutes 40 Visit Number 12 Evaluation Information Evaluation Date 09/26/21 Precautions Precautions Per chart review: PTSD, Chronic back pain. 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 PT-OP-B Current Condition Start: 09/21/21 17:15 Freq: Status: Active Protocol: Document 09/26/21 08:17 LRN (Rec: 09/26/21 09:39 LRN [id number]) Current Condition History of Current Condition Onset Date 07/18/21 Current Complaints LBP, Lewis hip and knee pain. History of Current Condition Low back pain onset 07/18/21, fell down 8 stairs, R foot went out from under her, L knee buckled and L knee ended up bent and behind her when sliding down the stairs feet first (like sliding into a base in baseball). Had horrendous pain. Did not seek medical care hoping it would go away. Two weeks later went to chiropractor and 2 weeks later ended up in ER. certified caregiver was helpful, but she was getting only a couple hours of pain relief. Now pharmacist critical care gives 3-4 days relief. She feels she has aggrevated an old injury (see Developmental history below). States the L4 -S1 jt is grinding. Has tried yoga stretches and states her problem feels structural and thinks she has started loosening things too soon. States the R>L hip joints hurt , thus now the knees hurt, because of modifying how she goes up/down the stairs. Pt points to her R lateral gluteal ms and sacral region as areas of pain denoted as pelvic pain. Denies urinary problems or lower abdominal pelvic pain. She is having pain with intercourse; therefore the pt may need Pelvic rehabilitation in the future. 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 Pt has been on light duty since fall. Prior Treatments and Tests certified caregiver 1-2 days/ week ([facility] in [place]). X-ray: shows no fractures in Sacrum, Coccyx, and lumbar vertebra. Developmental History Developmental History 17 yrs old fractured what she thinks is the SI, possibly Sacrum L4-S1 Cracked. In 2006 fell on steel pipe landing on L knee. Treatment Goals Patient/Caregiver Goals Pt goals are: *Get hip flexors to release in order to start moving normal (stairs, walking, bending). *Get back to place to start exercising (not doing any currently that is considered purposeful), because she is only doing daily living exercise. *Wear 16# belt around waist and leather gear that carries the items of the belt. * Be able to do Lethel force training (run, crawl, bend, twist, wrestle a suspect, bend down and put someone in handcuffs). Prior Functional Status Baseline Function- ADL's Independent Baseline Function- Mobility Independent Baseline Function- Work/School Was not exercising before fall . Walking 2 miles in/outside Weight lifting legs, arms, back a couple yrs ago Baseline Function- Other Able to sleep without pain. Current Functional Impairments (Reported) Functional Limitations- ADL's Limited in ability to bend, lift > 15#, twisting, sitting > 1 hr, standing > 1 hr, able to sleep w/medication. Sitting to drive >1.5 hrs is too much. Functional Limitations- Mobility/Gait Stride is short on both sides and slower than normal. Functional Limitations- Work/School On light duty. 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 At home has 3 children and spouse has 2 children. PT-OP-C Subjective Start: 09/21/21 17:15 Freq: Status: Active Protocol: Document 11/13/21 08:17 LRN (Rec: 11/13/21 12:39 LRN [id number]) OP-PT Subjective Patient Comments Patient Comments Worst pain is in the hip sockets (pointing to SIJ's) bilaterally and states at the end of the day her midback pain starts. Hurts to be in uniform. Pain is 2-3/10. PT-OP-H Neuro Start: 09/21/21 17:15 Freq: Status: Active Protocol: Document 09/26/21 08:17 LRN (Rec: 09/26/21 09:39 LRN [id number]) Sensation Evaluation Gross Sensation Gross Sensation WNL PT-OP-J Posture/Palpation/Skin Start: 09/21/21 17:15 Freq: Status: Active Protocol: Document 10/03/21 08:10 LRN (Rec: 10/03/21 09:03 LRN [id number]) Palpation Assessment Location L innominate Palpation Details Decreased PA mobility of L Ischial Tub Sacrum Palpation Location Sacrum Palpation Details Decreased mobility L inferior glide & PA of right DEEPIKA ( sacrum in R rot) ASIS Palpation Location ASIS Palpation Details R low and inflared. PT-OP-K Range of Motion Start: 09/21/21 17:15 Freq: Status: Active Protocol: Document 11/10/21 08:16 LRN (Rec: 11/10/21 09:07 LRN [id number]) Hip Goniometric Range of Motion Hip Right Active Testing Position Supine Internal Rotation 30 External Rotation 45 Comments Measurements were approximate Left Passive Testing Position Supine Internal Rotation 25 External Rotation 45 Comments Measurements were approximate PT-OP-L Special Tests Start: 09/21/21 17:15 Freq: Status: Active Protocol: Document 11/06/21 08:14 LRN (Rec: 11/06/21 09:05 LRN [id number]) Special Tests Lumbar Spine Special Tests Slump Test Results negative Straight Leg Raise Test Results 90 left, 95 right Comments C/O hip socket pain bilterally . PT-OP-M Strength Start: 09/21/21 17:15 Freq: Status: Active Protocol: Document 09/26/21 08:17 LRN (Rec: 09/26/21 09:39 LRN [id number]) Trunk Strength Trunk Manual Muscle Testing Core Stabilization Pt able to maintain core stability with hip flexion ms testing. Hip Strength Hip Manual Muscle Testing Right Flexion (L2) 5 Normal External Rotation 5 Normal Internal Rotation 3 Fair Left Flexion (L2) 5 Normal External Rotation 5 Normal Internal Rotation 3 Fair PT-OP-Q Treatments Start: 09/21/21 17:15 Freq: Status: Active Protocol: Document 11/13/21 08:17 LRN (Rec: 11/13/21 12:39 LRN [id number]) Therapeutic Exercises Supine Exercises Piriformis Supine Exercise Name Piriformis stretch Side left Reps/Minutes 2' Fig 4 Supine Exercise Name Fig 4 Side bilateral Reps/Minutes 3' Comments Pt reported feeling a pop in R hip socket and less pain with ex. Sidelying Exercises TA/CLamshell Sidelying Exercise Name TA/Clamshell Side bilateral Reps/Minutes 10x each, moving slowly Comments light cuing at ASIS to keep pelvis netural Manual Therapy Treatment Soft Tissue Mobilization L Ribs Body Location Ribs 3-7 Mobilization Type Myofascial Release Intensity/Depth Superficial to moderate Body Position R sidelie Comments v cuing needed for pt to breath into hands on her lateral ribs to get greater excursion of ribs, and quick releases. I/S pt in deep breathing in R sidelie for self mob of L ribs with self manual cuing of lateral side of ribs. Mid T/S > L/S Body Location R T/S > L/S Paraspinals Mobilization Type Myofascial Release,Trigger Point Release Intensity/Depth Moderate Body Position Supine Mid Thoracic paraspinals Body Location Mid Thoracic Mobilization Type Strumming,Trigger Point Release Intensity/Depth Superficial to Moderate Body Position Prone Comments Trigger point release was not well tolerated. Extra time taken to move into different positions. PT-OP-R Modalities Start: 09/21/21 17:15 Freq: Status: Active Protocol: Document 11/13/21 08:17 LRN (Rec: 11/13/21 12:39 LRN [id number]) Electric Stimulation Electric Stimulation Interferential Current (IFC) Body Location [T5-T6], Supraspinatus>LB Duration (Minutes) 10 Intensity 13 Target/Sweep Sweep Patient Position Hooklying Combined With Heat/Cold Cold Pack Comments Legs on bolster Large CP in mid>LB Cervical CP at sacral level. Hot Pack/Cold Pack Treatment Cold Pack Location Back & Sacrum Patient Position Hooklying Treatment Duration (minutes) 10 Patient Tolerance Good Comments Bolster under legs PT-OP-T Assessment and Plan Start: 09/21/21 17:15 Freq: Status: Active Protocol: Document 11/13/21 08:17 LRN (Rec: 11/13/21 12:39 LRN [id number]) Physical Therapy Assessment Goals Four Impairment Decreased function Impairment CHRISTELLE 20/50 = 40/100 (40-59% impaired, score 40-59). Stride is short on both sides and slower than normal. Limited in ability to bend, lift > 15#, twisting, sitting > 1 hr, standing > 1 hr, able to sleep w/medication. Sitting to drive >1.5 hrs is too much. Short Term Goal (STG) Pt will be able to improve hip flexors mobility to start moving normal (stairs, walking , bending). (11/06/21: Walking with small shuffle steps, stairs are difficult, bending is very difficult). STG Duration 11/25/21 Prison Goal (LTG) Improve function per CHRISTELLE score of 20-39 (20-39% impaired, score 20-39) LTG Duration 01/24/22 Three Impairment Decreased strength and work function. Impairment Pt on light duty. Not able to run, crawl, bend, twist, wrestle a suspect, bend down and put someone in handcuffs Short Term Goal (STG) Pt will be able to tolerate wearing a 16# belt around waist (leather gear and items it holds) while walking around for her job. 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 LTG Duration 01/24/22 Two Impairment Decreased ability to ex due to LBP, Lewis hip pain, Lewis knee pain. Impairment Pt not execising due to: LBP 4-6/10, R hip pain: anterolateral 4-6 /10, posterior 2-4/10, L hip pain: anterior 2-5/10, R knee pain: medial & lateral 3-8/10, L knee pain: medial & lateral 3-5/10. Short Term Goal (STG) Decrease bilateral hip and knee pain with pt able to intiate exercising (weight lifting) beyond her daily activities. STG Duration 11/25/21 Prison Goal (LTG) Pt will be able to tolerate movements (run, crawl, bend, twist, wrestle someone to the ground to put handcuffs on) with tolerable pain, to complete quaterly Lethel force training. LTG Duration 01/24/22 One Impairment Pt lacks appropriate self care HEP. Short Term Goal (STG) Pt will be educated in log roll technique for transfers (10/09/21: Pt educated in log roll technique for transfers) STG Duration 10/03/21 (10/09/21: MET GOAL) Certified Nurse Practitioner Goal (LTG) Independent with a self care HEP. (10/09/21: HEP I/S: TA tightening in sidelie for strengthening and practice in prone & sup). (11/10/21: Reviewed previously issued HEP: Hip ER, and IR (L >R) stretch. LTG Duration 01/24/22 (10/09/21: Progressed) Assessment Summary Assessment Standing Iliac Crest & SIJ's are level, tightness in L mid back. Prone: Tightness in R LB & thoracic and lumbar spine posterior on R side indicating trunk in R rot with tightness and tenderness L paraspinals. Reduced excursion of L ribs with deep breathing. Physical Therapy Plan Frequency and Duration Frequency of Treatment 2x/Week Plan of Care Start Date 09/26/21 Plan of Care End Date 01/24/22 Next Visit Focus/Plan Next Note Type Treatment Note Next Visit Plan Assess response to self rib mobs, if improved and review if needed. Education: body mechanics training. Assess hip flexors mobility to start moving normal (stairs, walking, bending). Start Exer: Stabilize LB/ Pelvis and strengthen thoracic region if pain down. TA tightening (L>R) for equal contraction on L side compared to R side and for LB (KTC) Manual therapy to: Normalize & stabilize Thoracic Core, hips /pelvis (LE roll in/outs). Manual: Balancing of thoracic region, STM: Lewis T/S paraspinals, check LB/IT Bands . Modalities as needed: MH/IFES [thoracic & lumbar spine].
--- NOTE | 2021-11-17 16:04 | PT.OTN ---
Current Diagnoses Lumbago with sciatica, unspecified side (11/17/21) Physical Therapy Treatment Note PT-OP-A Visit Information Start: 09/21/21 17:15 Freq: Status: Active Protocol: Document 11/17/21 08:09 LRN (Rec: 11/17/21 09:06 LRN [id number]) Out-Patient Physical Therapy Visit Information Visit Information Visit Type Treatment Note Visit Note 3 after PN Visit Start Time 08:15 Visit Stop Time 09:06 Total Visit Minutes 51 Visit Number 13 Evaluation Information Evaluation Date 09/26/21 Precautions Precautions Per chart review: PTSD, Chronic back pain. 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 PT-OP-B Current Condition Start: 09/21/21 17:15 Freq: Status: Active Protocol: Document 09/26/21 08:17 LRN (Rec: 09/26/21 09:39 LRN [id number]) Current Condition History of Current Condition Onset Date 07/18/21 Current Complaints LBP, Lewis hip and knee pain. History of Current Condition Low back pain onset 07/18/21, fell down 8 stairs, R foot went out from under her, L knee buckled and L knee ended up bent and behind her when sliding down the stairs feet first (like sliding into a base in baseball). Had horrendous pain. Did not seek medical care hoping it would go away. Two weeks later went to chiropractor and 2 weeks later ended up in ER. managed care liaison was helpful, but she was getting only a couple hours of pain relief. 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 She feels she has aggrevated an old injury (see Developmental history below). States the L4 -S1 jt is grinding. Has tried yoga stretches and states her problem feels structural and thinks she has started loosening things too soon. States the R>L hip joints hurt , thus now the knees hurt, because of modifying how she goes up/down the stairs. Pt points to her R lateral gluteal ms and sacral region as areas of pain denoted as pelvic pain. Denies urinary problems or lower abdominal pelvic pain. She is having pain with intercourse; therefore the pt may need Pelvic rehabilitation in the future. 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 Pt has been on light duty since fall. Prior Treatments and Tests managed care liaison 1-2 days/ week ([facility] in [place]). X-ray: shows no fractures in Sacrum, Coccyx, and lumbar vertebra. Developmental History Developmental History 17 yrs old fractured what she thinks is the SI, possibly Sacrum L4-S1 Cracked. In 2006 fell on steel pipe landing on L knee. Treatment Goals Patient/Caregiver Goals Pt goals are: *Get hip flexors to release in order to start moving normal (stairs, walking, bending). *Get back to place to start exercising (not doing any currently that is considered purposeful), because she is only doing daily living exercise. *Wear 16# belt around waist and leather gear that carries the items of the belt. * Be able to do Lethel force training (run, crawl, bend, twist, wrestle a suspect, bend down and put someone in handcuffs). Prior Functional Status Baseline Function- ADL's Independent Baseline Function- Mobility Independent Baseline Function- Work/School Was not exercising before fall . Walking 2 miles in/outside Weight lifting legs, arms, back a couple yrs ago Baseline Function- Other Able to sleep without pain. Current Functional Impairments (Reported) Functional Limitations- ADL's Limited in ability to bend, lift > 15#, twisting, sitting > 1 hr, standing > 1 hr, able to sleep w/medication. Sitting to drive >1.5 hrs is too much. Functional Limitations- Mobility/Gait Stride is short on both sides and slower than normal. Functional Limitations- Work/School On light duty. 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 At home has 3 children and spouse has 2 children. PT-OP-C Subjective Start: 09/21/21 17:15 Freq: Status: Active Protocol: Document 11/17/21 08:09 LRN (Rec: 11/17/21 09:06 LRN [id number]) OP-PT Subjective Patient Comments Patient Comments Really sore, had massage yesterday. Hips and midback were not happy with me. States she worked the muscles deeper than she had been; therefore on the verge of spasms and can't take deep breaths. Not shuffling with walking though. Pain rated at 4/10, in sacral region (L4, S1) and 4 inches of midback into ribs. Slept hard last night but took ms relaxor and sleeping all night, 2-3 nights didn't take anything. PT-OP-H Neuro Start: 09/21/21 17:15 Freq: Status: Active Protocol: Document 09/26/21 08:17 LRN (Rec: 09/26/21 09:39 LRN [id number]) Sensation Evaluation Gross Sensation Gross Sensation WNL PT-OP-J Posture/Palpation/Skin Start: 09/21/21 17:15 Freq: Status: Active Protocol: Document 10/03/21 08:10 LRN (Rec: 10/03/21 09:03 LRN [id number]) Palpation Assessment Location L innominate Palpation Details Decreased PA mobility of L Ischial Tub Sacrum Palpation Location Sacrum Palpation Details Decreased mobility L inferior glide & PA of right DEEPIKA ( sacrum in R rot) ASIS Palpation Location ASIS Palpation Details R low and inflared. PT-OP-K Range of Motion Start: 09/21/21 17:15 Freq: Status: Active Protocol: Document 11/10/21 08:16 LRN (Rec: 11/10/21 09:07 LRN [id number]) Hip Goniometric Range of Motion Hip Right Active Testing Position Supine Internal Rotation 30 External Rotation 45 Comments Measurements were approximate Left Passive Testing Position Supine Internal Rotation 25 External Rotation 45 Comments Measurements were approximate PT-OP-L Special Tests Start: 09/21/21 17:15 Freq: Status: Active Protocol: Document 11/06/21 08:14 LRN (Rec: 11/06/21 09:05 LRN [id number]) Special Tests Lumbar Spine Special Tests Slump Test Results negative Straight Leg Raise Test Results 90 left, 95 right Comments C/O hip socket pain bilterally . PT-OP-M Strength Start: 09/21/21 17:15 Freq: Status: Active Protocol: Document 09/26/21 08:17 LRN (Rec: 09/26/21 09:39 LRN [id number]) Trunk Strength Trunk Manual Muscle Testing Core Stabilization Pt able to maintain core stability with hip flexion ms testing. Hip Strength Hip Manual Muscle Testing Right Flexion (L2) 5 Normal External Rotation 5 Normal Internal Rotation 3 Fair Left Flexion (L2) 5 Normal External Rotation 5 Normal Internal Rotation 3 Fair PT-OP-Q Treatments Start: 09/21/21 17:15 Freq: Status: Active Protocol: Document 11/17/21 08:09 LRN (Rec: 11/17/21 09:06 LRN [id number]) Therapeutic Exercises Supine Exercises Lewis hip flex w/TBall Supine Exercise Name Flex/Ext of hips with Red TBall Equipment Used Red TBall Reps/Minutes 10x with slow careful mvmt for core stab Comments Phys & v cuing required. Deep breathing for R chest/rib mob Supine Exercise Name R chest/rib expansion Side right Reps/Minutes 10' Comments phys cuing and awareness training needed to start. Lateral Hip stretch Supine Exercise Name Lateral Hip stretch Side left Reps/Minutes 5' Comments Assist needed due to initial cramp in hip AD DKTC stretch Supine Exercise Name DKTC started, but pt LB spasmed. Reps/Minutes 2' TA tightening Supine Exercise Name TA tightening Reps/Minutes 1' Comments R stronger contraction than L. Piriformis Supine Exercise Name Piriformis stretch Side left Reps/Minutes 3' Comments 1 stretch added to R hip Fig 4 Supine Exercise Name Fig 4 Side bilateral Reps/Minutes 4' Comments Pt reported feeling a pop in R hip socket and less pain with ex. Sitting Exercises Trunk mid rot Sitting Exercise Name Trunk rot mid range Reps/Minutes 10x Comments phys cuing needed for max vincenzo range Manual Therapy Treatment Soft Tissue Mobilization R ribs Body Location R ribs Mobilization Type Myofascial Release Body Position Supine Comments For R rib expansion, pt educated in self assessment of rib mobility. Self-Care/Home Management Treatment Education Patient Education Body Mechanics,Home Exercise Program Other Education Education: body mechanics training. Issued & reviewed handouts of proper ADL body mechanics and transfers sit<>supine. Reviewed proper sit<>stand transfers pivoting at hips. PT-OP-R Modalities Start: 09/21/21 17:15 Freq: Status: Active Protocol: Document 11/17/21 08:09 LRN (Rec: 11/17/21 09:06 LRN [id number]) Electric Stimulation Electric Stimulation Interferential Current (IFC) Body Location [T5-T6], Supraspinatus>LB Duration (Minutes) 10 Intensity 14 Target/Sweep Sweep Patient Position Hooklying Combined With Heat/Cold Cold Pack Comments Legs on bolster Large CP in mid>LB Cervical CP at sacral level. PT-OP-T Assessment and Plan Start: 09/21/21 17:15 Freq: Status: Active Protocol: Document 11/17/21 08:09 LRN (Rec: 11/17/21 09:06 LRN [id number]) Physical Therapy Assessment Goals Four Impairment Decreased function Impairment CHRISTELLE 20/50 = 40/100 (40-59% impaired, score 40-59). Stride is short on both sides and slower than normal. Limited in ability to bend, lift > 15#, twisting, sitting > 1 hr, standing > 1 hr, able to sleep w/medication. Sitting to drive >1.5 hrs is too much. Short Term Goal (STG) Pt will be able to improve hip flexors mobility to start moving normal (stairs, walking , bending). (11/06/21: Walking with small shuffle steps, stairs are difficult, bending is very difficult). STG Duration 11/25/21 Long-Term Goal (LTG) Improve function per CHRISTELLE score of 20-39 (20-39% impaired, score 20-39) LTG Duration 01/24/22 Three Impairment Decreased strength and work function. Impairment Pt on light duty. Not able to run, crawl, bend, twist, wrestle a suspect, bend down and put someone in handcuffs Short Term Goal (STG) Pt will be able to tolerate wearing a 16# belt around waist (leather gear and items it holds) while walking around for her job. 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 LTG Duration 01/24/22 Two Impairment Decreased ability to ex due to LBP, Lewis hip pain, Lewis knee pain. Impairment Pt not execising due to: LBP 4-6/10, R hip pain: anterolateral 4-6 /10, posterior 2-4/10, L hip pain: anterior 2-5/10, R knee pain: medial & lateral 3-8/10, L knee pain: medial & lateral 3-5/10. Short Term Goal (STG) Decrease bilateral hip and knee pain with pt able to initiate exercising (weight lifting) beyond her daily activities. STG Duration 11/25/21 Long-Term Goal (LTG) Pt will be able to tolerate movements (run, crawl, bend, twist, wrestle someone to the ground to put handcuffs on) with tolerable pain, to complete quaterly Lethel force training. LTG Duration 01/24/22 One Impairment Pt lacks appropriate self care HEP. Short Term Goal (STG) Pt will be educated in log roll technique for transfers (10/09/21: Pt educated in log roll technique for transfers) STG Duration 10/03/21 (10/09/21: MET GOAL) Production Supervisor Goal (LTG) Independent with a self care HEP. (10/09/21: HEP I/S: TA tightening in sidelie for strengthening and practice in prone & sup). (11/10/21: Reviewed previously issued HEP: Hip ER, and IR (L >R) stretch. LTG Duration 01/24/22 (10/09/21: Progressed) Assessment Summary Assessment Pt is moving with greater ease walking in and not completely shuffling her feet. In supine her chest and lower ribs are R rotated. Pt did not do self rib mobs. Her pelvis and low back appeared symmetrical. Pt reported no significant difference immediately after EStim. Overall pain is slowly decreasing with pain rated today 4/10 in low and midback, and her being able to decrease use of ms relaxors. Physical Therapy Plan Frequency and Duration Frequency of Treatment 2x/Week Plan of Care Start Date 09/26/21 Plan of Care End Date 01/24/22 Next Visit Focus/Plan Next Note Type Treatment Note Next Visit Plan Try Shuttle Recovery for bilateral squat exercise. Assess response to self rib mobs (if improved). Assess hip flexors mobility to start moving normal (stairs, walking, bending). Start Exer: Stabilize LB/ Pelvis and strengthen thoracic region if pain down. TA tightening (L>R) for equal contraction on L side compared to R side and for LB (KTC) Manual therapy to: Normalize & stabilize Thoracic Core, hips /pelvis (LE roll in/outs). Manual: Balancing of thoracic region, STM: Lewis T/S paraspinals, check LB/IT Bands . Modalities as needed: /IFES [thoracic & lumbar spine].
--- NOTE | 2021-11-20 09:12 | PT.OTN ---
Current Diagnoses Lumbago with sciatica, unspecified side (11/20/21) Physical Therapy Treatment Note PT-OP-A Visit Information Start: 09/21/21 17:15 Freq: Status: Active Protocol: Document 11/20/21 08:15 LRN (Rec: 11/20/21 08:56 LRN [id number]) Out-Patient Physical Therapy Visit Information Visit Information Visit Type Treatment Note Visit Start Time 08:15 Visit Stop Time 08:46 Total Visit Minutes 45 Visit Number 14 Evaluation Information Evaluation Date 09/26/21 Precautions Precautions Per chart review: PTSD, Chronic back pain. 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 PT-OP-B Current Condition Start: 09/21/21 17:15 Freq: Status: Active Protocol: Document 09/26/21 08:17 LRN (Rec: 09/26/21 09:39 LRN [id number]) Current Condition History of Current Condition Onset Date 07/18/21 Current Complaints LBP, Lewis hip and knee pain. History of Current Condition Low back pain onset 07/18/21, fell down 8 stairs, R foot went out from under her, L knee buckled and L knee ended up bent and behind her when sliding down the stairs feet first (like sliding into a base in baseball). Had horrendous pain. Did not seek medical care hoping it would go away. Two weeks later went to chiropractor and 2 weeks later ended up in ER. healthcare management was helpful, but she was getting only a couple hours of pain relief. Now healthcare consultant gives 3-4 days relief. She feels she has aggrevated an old injury (see Developmental history below). States the L4 -S1 jt is grinding. Has tried yoga stretches and states her problem feels structural and thinks she has started loosening things too soon. States the R>L hip joints hurt , thus now the knees hurt, because of modifying how she goes up/down the stairs. Pt points to her R lateral gluteal ms and sacral region as areas of pain denoted as pelvic pain. Denies urinary problems or lower abdominal pelvic pain. She is having pain with intercourse; therefore the pt may need Pelvic rehabilitation in the future. 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 Pt has been on light duty since fall. Prior Treatments and Tests healthcare management 1-2 days/ week ([facility] in [place]). X-ray: shows no fractures in Sacrum, Coccyx, and lumbar vertebra. Developmental History Developmental History 17 yrs old fractured what she thinks is the SI, possibly Sacrum L4-S1 Cracked. In 2006 fell on steel pipe landing on L knee. Treatment Goals Patient/Caregiver Goals Pt goals are: *Get hip flexors to release in order to start moving normal (stairs, walking, bending). *Get back to place to start exercising (not doing any currently that is considered purposeful), because she is only doing daily living exercise. *Wear 16# belt around waist and leather gear that carries the items of the belt. * Be able to do Lethel force training (run, crawl, bend, twist, wrestle a suspect, bend down and put someone in handcuffs). Prior Functional Status Baseline Function- ADL's Independent Baseline Function- Mobility Independent Baseline Function- Work/School Was not exercising before fall . Walking 2 miles in/outside Weight lifting legs, arms, back a couple yrs ago Baseline Function- Other Able to sleep without pain. Current Functional Impairments (Reported) Functional Limitations- ADL's Limited in ability to bend, lift > 15#, twisting, sitting > 1 hr, standing > 1 hr, able to sleep w/medication. Sitting to drive >1.5 hrs is too much. Functional Limitations- Mobility/Gait Stride is short on both sides and slower than normal. Functional Limitations- Work/School On light duty. 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 At home has 3 children and spouse has 2 children. PT-OP-C Subjective Start: 09/21/21 17:15 Freq: Status: Active Protocol: Document 11/20/21 08:15 LRN (Rec: 11/20/21 08:56 LRN [id number]) OP-PT Subjective Patient Comments Patient Comments Pain currently is 2/10 in both hips and upperback. States woke up stiff. Yesterday working on [employer] and had a fight with daughter. 2 days ago got a calf and helped her middle daughter feed calfs. PT-OP-H Neuro Start: 09/21/21 17:15 Freq: Status: Active Protocol: Document 09/26/21 08:17 LRN (Rec: 09/26/21 09:39 LRN [id number]) Sensation Evaluation Gross Sensation Gross Sensation WNL PT-OP-J Posture/Palpation/Skin Start: 09/21/21 17:15 Freq: Status: Active Protocol: Document 10/03/21 08:10 LRN (Rec: 10/03/21 09:03 LRN [id number]) Palpation Assessment Location L innominate Palpation Details Decreased PA mobility of L Ischial Tub Sacrum Palpation Location Sacrum Palpation Details Decreased mobility L inferior glide & PA of right [id number] ( sacrum in R rot) ASIS Palpation Location ASIS Palpation Details R low and inflared. PT-OP-K Range of Motion Start: 09/21/21 17:15 Freq: Status: Active Protocol: Document 11/10/21 08:16 LRN (Rec: 11/10/21 09:07 LRN [id number]) Hip Goniometric Range of Motion Hip Right Active Testing Position Supine Internal Rotation 30 External Rotation 45 Comments Measurements were approximate Left Passive Testing Position Supine Internal Rotation 25 External Rotation 45 Comments Measurements were approximate PT-OP-L Special Tests Start: 09/21/21 17:15 Freq: Status: Active Protocol: Document 11/06/21 08:14 LRN (Rec: 11/06/21 09:05 LRN [id number]) Special Tests Lumbar Spine Special Tests Slump Test Results negative Straight Leg Raise Test Results 90 left, 95 right Comments C/O hip socket pain bilterally . PT-OP-M Strength Start: 09/21/21 17:15 Freq: Status: Active Protocol: Document 09/26/21 08:17 LRN (Rec: 09/26/21 09:39 LRN [id number]) Trunk Strength Trunk Manual Muscle Testing Core Stabilization Pt able to maintain core stability with hip flexion ms testing. Hip Strength Hip Manual Muscle Testing Right Flexion (L2) 5 Normal External Rotation 5 Normal Internal Rotation 3 Fair Left Flexion (L2) 5 Normal External Rotation 5 Normal Internal Rotation 3 Fair PT-OP-Q Treatments Start: 09/21/21 17:15 Freq: Status: Active Protocol: Document 11/20/21 08:15 LRN (Rec: 11/20/21 08:56 LRN [id number]) Gym Equipment Shuttle Recovery Bilateral Squats Details Lewis Squats in neutral spine Resistance 50#, 25# Shuttle Recovery Platform Stable Reps/Time 15x each Therapeutic Exercises Supine Exercises Lewis hip flex w/TBall Supine Exercise Name Flex/Ext of hips with Red TBall Equipment Used Red TBall Reps/Minutes 15x with slow careful mvmt for core stab Comments Phys & v cuing required. Deep breathing for R chest/rib mob Supine Exercise Name R rib expansion (below breast Side right Reps/Minutes 8x Comments phys cuing and awareness training needed to start. Lateral Hip stretch Supine Exercise Name Lateral Hip stretch Side left Reps/Minutes 2' Comments Assist needed due to initial cramp in hip AD Bridge Supine Exercise Name Bridge Reps/Minutes 15 x Comments Pt moves slowly Piriformis Supine Exercise Name Piriformis stretch Side left Reps/Minutes 3' Comments 1 stretch added to R hip Manual Therapy Treatment Soft Tissue Mobilization L Ribs Body Location Lower Ribs 6-7 Mobilization Type Myofascial Release Intensity/Depth Superficial to moderate Body Position Supine Comments v cuing needed for pt to breath into hands on her lateral ribs to get greater excursion of ribs, and quick releases. I/S pt in deep breathing in R sidelie for self mob of L ribs with self manual cuing of lateral side of ribs. PT-OP-R Modalities Start: 09/21/21 17:15 Freq: Status: Active Protocol: Document 11/20/21 08:15 LRN (Rec: 11/20/21 08:56 LRN [id number]) Electric Stimulation Electric Stimulation Interferential Current (IFC) Body Location [T5-T6], Supraspinatus>LB Duration (Minutes) 12 Intensity 14 Target/Sweep Sweep Patient Position Hooklying Combined With Heat/Cold Cold Pack Comments Legs on bolster Large CP in mid>LB Cervical CP at sacral level. Hot Pack/Cold Pack Treatment Hot Pack Location Low Back Patient Position Hooklying Treatment Duration (minutes) 12 Patient Tolerance Good Comments Done with EStim Legs on Bolster PT-OP-T Assessment and Plan Start: 09/21/21 17:15 Freq: Status: Active Protocol: Document 11/20/21 08:15 LRN (Rec: 11/20/21 08:56 LRN [id number]) Physical Therapy Assessment Goals Four Impairment Decreased function Impairment CHRISTELLE 20/50 = 40/100 (40-59% impaired, score 40-59). Stride is short on both sides and slower than normal. Limited in ability to bend, lift > 15#, twisting, sitting > 1 hr, standing > 1 hr, able to sleep w/medication. Sitting to drive >1.5 hrs is too much. Short Term Goal (STG) Pt will be able to improve hip flexors mobility to start moving normal (stairs, walking , bending). (11/06/21: Walking with small shuffle steps, stairs are difficult, bending is very difficult). STG Duration 11/25/21 Greenkeeper Goal (LTG) Improve function per CHRISTELLE score of 20-39 (20-39% impaired, score 20-39) LTG Duration 01/24/22 Three Impairment Decreased strength and work function. Impairment Pt on light duty. Not able to run, crawl, bend, twist, wrestle a suspect, bend down and put someone in handcuffs Short Term Goal (STG) Pt will be able to tolerate wearing a 16# belt around waist (leather gear and items it holds) while walking around for her job. 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 LTG Duration 01/24/22 Two Impairment Decreased ability to ex due to LBP, Lewis hip pain, Lewis knee pain. Impairment Pt not execising due to: LBP 4-6/10, R hip pain: anterolateral 4-6 /10, posterior 2-4/10, L hip pain: anterior 2-5/10, R knee pain: medial & lateral 3-8/10, L knee pain: medial & lateral 3-5/10. Short Term Goal (STG) Decrease bilateral hip and knee pain with pt able to initiate exercising (weight lifting) beyond her daily activities. STG Duration 11/25/21 Greenkeeper Goal (LTG) Pt will be able to tolerate movements (run, crawl, bend, twist, wrestle someone to the ground to put handcuffs on) with tolerable pain, to complete quaterly Lethel force training. LTG Duration 01/24/22 One Impairment Pt lacks appropriate self care HEP. Short Term Goal (STG) Pt will be educated in log roll technique for transfers (10/09/21: Pt educated in log roll technique for transfers) STG Duration 10/03/21 (10/09/21: MET GOAL) Greenkeeper Goal (LTG) Independent with a self care HEP. (10/09/21: HEP I/S: TA tightening in sidelie for strengthening and practice in prone & sup). (11/10/21: Reviewed previously issued HEP: Hip ER, and IR (L >R) stretch. LTG Duration 01/24/22 (10/09/21: Progressed) Progress Towards Goals Progress Comments Pain decreased to 2/10 to start first in AM. Assessment Summary Assessment Pt did not c/o pain with new exs. Pt rib positioning has improved except R lateral ribs . Physical Therapy Plan Frequency and Duration Frequency of Treatment 2x/Week Plan of Care Start Date 09/26/21 Plan of Care End Date 01/24/22 Next Visit Focus/Plan Next Note Type Treatment Note Next Visit Plan Assess response to self rib mobs (if improved). Assess hip flexors mobility to start moving normal (stairs, walking, bending). Start Exer: Stabilize LB/ Pelvis and strengthen thoracic region if pain down. TA tightening (L>R) for equal contraction on L side compared to R side and for LB (KTC) Manual therapy to: Normalize & stabilize Thoracic Core, hips /pelvis (LE roll in/outs). Manual: Balancing of thoracic region, STM: Lewis T/S paraspinals, check LB/IT Bands . Modalities as needed: MH/IFES [thoracic & lumbar spine].
--- NOTE | 2021-11-24 13:21 | PT.OTRE ---
Current Diagnoses Lumbago with sciatica, unspecified side (11/24/21) Past Medical History (Last Reviewed 10/30/21 @ 11:31 by Graciela Newton PA-C) Abnormal vaginal bleeding with endometrial thickness less than 16 mm present on transvaginal ultrasound in premenopausal patient Acne (~1987) Allergies (~2005) Ankle pain (~2017) Asthma, mild intermittent (~2003) Carpal tunnel syndrome (~2008) Chicken pox (~1980) Chronic back pain (~2013) Depression Female hirsutism Foot pain (~2009) Fracture of left wrist GERD (gastroesophageal reflux disease) H/O left wrist surgery (~02/1995) Hemorrhagic cyst History of History of tubal ligation (~03/15/12) History of urinary incontinence (~2008) Hx of appendectomy (~2000) Hx of cholecystectomy (~1997) Irregular menstruation (~2011) Measles Menorrhagia (~1992) Plantar warts (~1993) Recurrent sinusitis Scarlet fever (~1985) Shoulder pain (~2010) Uterine fibroid Surgical History (Last Reviewed 10/30/21 @ 11:31 by Graciela Newton PA-C) Anesthesia H/O left wrist surgery (~02/1995) History of History of tubal ligation (~03/15/12) Hx of appendectomy (~2000) Hx of cholecystectomy (~1997) Visit Care Team Role Provider Type Landon Trujillo MD Family Provider Physician Primary Care Provider Specialty: Family Practice Address: [address] [place] [address] Email: [email or web address] Graciela Newton PA-C Attending Provider Advanced Master Fisher Referring Provider Specialty: Address: [address] [place] [address], [facility] Email: [email or web address] Physical Therapy Re-Evaluation PT-OP-A Visit Information Start: 09/21/21 17:15 Freq: Status: Active Protocol: Document 11/24/21 08:18 LRN (Rec: 11/24/21 09:01 LRN [id number]) Out-Patient Physical Therapy Visit Information Visit Information Visit Type Treatment Note Visit Note 5 after PN Pt Brings in MRI report Visit Start Time 08:18 Visit Stop Time 08:58 Total Visit Minutes 40 Visit Number 15 Evaluation Information Evaluation Date 09/26/21 Precautions Precautions Per chart review: PTSD, Chronic back pain. 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 MRI 11/22/21: Degen facet arthritic chnages particulary at L4-L5. No central or foraminal stenosis. PT-OP-B Current Condition Start: 09/21/21 17:15 Freq: Status: Active Protocol: Document 09/26/21 08:17 LRN (Rec: 09/26/21 09:39 LRN [id number]) Current Condition History of Current Condition Onset Date 07/18/21 Current Complaints LBP, Lewis hip and knee pain. History of Current Condition Low back pain onset 07/18/21, fell down 8 stairs, R foot went out from under her, L knee buckled and L knee ended up bent and behind her when sliding down the stairs feet first (like sliding into a base in baseball). Had horrendous pain. Did not seek medical care hoping it would go away. Two weeks later went to chiropractor and 2 weeks later ended up in ER. care transition mgr was helpful, but she was getting only a couple hours of pain relief. Now care companion gives 3-4 days relief. She feels she has aggrevated an old injury (see Developmental history below). States the L4 -S1 jt is grinding. Has tried yoga stretches and states her problem feels structural and thinks she has started loosening things too soon. States the R>L hip joints hurt , thus now the knees hurt, because of modifying how she goes up/down the stairs. Pt points to her R lateral gluteal ms and sacral region as areas of pain denoted as pelvic pain. Denies urinary problems or lower abdominal pelvic pain. She is having pain with intercourse; therefore the pt may need Pelvic rehabilitation in the future. 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 Pt has been on light duty since fall. Prior Treatments and Tests care transition mgr 1-2 days/ week ([facility] in [place]). X-ray: shows no fractures in Sacrum, Coccyx, and lumbar vertebra. Developmental History Developmental History 17 yrs old fractured what she thinks is the SI, possibly Sacrum L4-S1 Cracked. In 2006 fell on steel pipe landing on L knee. Treatment Goals Patient/Caregiver Goals Pt goals are: *Get hip flexors to release in order to start moving normal (stairs, walking, bending). *Get back to place to start exercising (not doing any currently that is considered purposeful), because she is only doing daily living exercise. *Wear 16# belt around waist and leather gear that carries the items of the belt. * Be able to do Lethel force training (run, crawl, bend, twist, wrestle a suspect, bend down and put someone in handcuffs). Prior Functional Status Baseline Function- ADL's Independent Baseline Function- Mobility Independent Baseline Function- Work/School Was not exercising before fall . Walking 2 miles in/outside Weight lifting legs, arms, back a couple yrs ago Baseline Function- Other Able to sleep without pain. Current Functional Impairments (Reported) Functional Limitations- ADL's Limited in ability to bend, lift > 15#, twisting, sitting > 1 hr, standing > 1 hr, able to sleep w/medication. Sitting to drive >1.5 hrs is too much. Functional Limitations- Mobility/Gait Stride is short on both sides and slower than normal. Functional Limitations- Work/School On light duty. 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 At home has 3 children and spouse has 2 children. PT-OP-C Subjective Start: 09/21/21 17:15 Freq: Status: Active Protocol: Document 11/24/21 08:18 LRN (Rec: 11/24/21 09:01 LRN [id number]) OP-PT Subjective Patient Comments Patient Comments Stiff in hips, midback is not screaming at me, but it is sore. Pain rated hips 2/10, midback, 1/10. States Dr Irvin reports her problem is degeneration and because she has an extra lumbar vertebra, treatment plan is injection with a nerve block and if not works, an ablation. PT-OP-H Neuro Start: 09/21/21 17:15 Freq: Status: Active Protocol: Document 09/26/21 08:17 LRN (Rec: 09/26/21 09:39 LRN [id number]) Sensation Evaluation Gross Sensation Gross Sensation WNL PT-OP-J Posture/Palpation/Skin Start: 09/21/21 17:15 Freq: Status: Active Protocol: Document 10/03/21 08:10 LRN (Rec: 10/03/21 09:03 LRN [id number]) Palpation Assessment Location L innominate Palpation Details Decreased PA mobility of L Ischial Tub Sacrum Palpation Location Sacrum Palpation Details Decreased mobility L inferior glide & PA of right [id number] ( sacrum in R rot) ASIS Palpation Location ASIS Palpation Details R low and inflared. PT-OP-K Range of Motion Start: 09/21/21 17:15 Freq: Status: Active Protocol: Document 11/24/21 08:18 LRN (Rec: 11/24/21 09:01 LRN [id number]) Hip Goniometric Range of Motion Hip Measured in Degrees Right Active Testing Position Supine Internal Rotation 35 External Rotation 85 Left Passive Testing Position Supine Internal Rotation 25 External Rotation 75 PT-OP-L Special Tests Start: 09/21/21 17:15 Freq: Status: Active Protocol: Document 11/06/21 08:14 LRN (Rec: 11/06/21 09:05 LRN [id number]) Special Tests Lumbar Spine Special Tests Slump Test Results negative Straight Leg Raise Test Results 90 left, 95 right Comments C/O hip socket pain bilterally . PT-OP-M Strength Start: 09/21/21 17:15 Freq: Status: Active Protocol: Document 09/26/21 08:17 LRN (Rec: 09/26/21 09:39 LRN [id number]) Trunk Strength Trunk Manual Muscle Testing Core Stabilization Pt able to maintain core stability with hip flexion ms testing. Hip Strength Hip Manual Muscle Testing Right Flexion (L2) 5 Normal External Rotation 5 Normal Internal Rotation 3 Fair Left Flexion (L2) 5 Normal External Rotation 5 Normal Internal Rotation 3 Fair PT-OP-Q Treatments Start: 09/21/21 17:15 Freq: Status: Active Protocol: Document 11/24/21 08:18 LRN (Rec: 11/24/21 09:01 LRN [id number]) Cardio Equipment Recumbent Bicycle Duration (Minutes) 6 Resistance 3 Other actual ex time 5' Gym Equipment Shuttle Recovery Bilateral Squats Details Lewis Squats in neutral spine Resistance 50#, 25# Shuttle Recovery Platform Stable Reps/Time 15x2, 15x respectively Therapeutic Exercises Supine Exercises Lewis Hip stretch Supine Exercise Name Passive hip ER/IR stretch Side bilateral Reps/Minutes 4' Comments ROM taken Lewis Heel slides w/TA Supine Exercise Name Lewis Heel Slides w/TA Side bilateral Reps/Minutes 15x KTC Supine Exercise Name KTC stretch Side bilateral Reps/Minutes 3' Lewis hip flex w/TBall Supine Exercise Name Flex/Ext of hips with Red TBall Equipment Used Red TBall Reps/Minutes 15x with core stab Comments Phys & v cuing required. Lateral Hip stretch Supine Exercise Name Lateral Hip stretch Side left Reps/Minutes 2' Comments Assist needed due to initial cramp in hip AD Bridge Supine Exercise Name Bridge Reps/Minutes 15 x Comments Pt moves slowly Piriformis Supine Exercise Name Piriformis stretch Side left Reps/Minutes 3' Comments 1 stretch added to R hip Sitting Exercises TA/Double leg lifts Sitting Exercise Name TA Double leg lifts Side bilateral Reps/Minutes 3' Comments w/ice to back, v cuing for stab of neutral spine position TA/Single leg lifts Sitting Exercise Name TA/Single leg lifts Side bilateral Reps/Minutes 3' Comments v cuing for stab of neutral spine position PT-OP-R Modalities Start: 09/21/21 17:15 Freq: Status: Active Protocol: Document 11/20/21 08:15 LRN (Rec: 11/20/21 08:56 LRN [id number]) Electric Stimulation Electric Stimulation Interferential Current (IFC) Body Location [T5-T6], Supraspinatus>LB Duration (Minutes) 12 Intensity 14 Target/Sweep Sweep Patient Position Hooklying Combined With Heat/Cold Cold Pack Comments Legs on bolster Large CP in mid>LB Cervical CP at sacral level. Hot Pack/Cold Pack Treatment Hot Pack Location Low Back Patient Position Hooklying Treatment Duration (minutes) 12 Patient Tolerance Good Comments Done with EStim Legs on Bolster PT-OP-T Assessment and Plan Start: 09/21/21 17:15 Freq: Status: Active Protocol: Document 11/24/21 08:18 LRN (Rec: 11/24/21 09:01 LRN [id number]) Physical Therapy Assessment Goals Four Impairment Decreased function Impairment CHRISTELLE 20/50 = 40/100 (40-59% impaired, score 40-59). Stride is short on both sides and slower than normal. Limited in ability to bend, lift > 15#, twisting, sitting > 1 hr, standing > 1 hr, able to sleep w/medication. Sitting to drive >1.5 hrs is too much. Short Term Goal (STG) Pt will be able to improve hip flexors mobility to start moving normal (stairs, walking , bending). (11/06/21: Walking with small shuffle steps, stairs are difficult, bending is very difficult). STG Duration 11/25/21 Scientist Propagator Goal (LTG) Improve function per CHRISTELLE score of 20-39 (20-39% impaired, score 20-39) LTG Duration 01/24/22 Three Impairment Decreased strength and work function. Impairment Pt on light duty. Not able to run, crawl, bend, twist, wrestle a suspect, bend down and put someone in handcuffs Short Term Goal (STG) Pt will be able to tolerate wearing a 16# belt around waist (leather gear and items it holds) while walking around for her job. 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 LTG Duration 01/24/22 Two Impairment Decreased ability to ex due to LBP, Lewis hip pain, Lewis knee pain. Impairment Pt not execising due to: LBP 4-6/10, R hip pain: anterolateral 4-6 /10, posterior 2-4/10, L hip pain: anterior 2-5/10, R knee pain: medial & lateral 3-8/10, L knee pain: medial & lateral 3-5/10. Short Term Goal (STG) Decrease bilateral hip and knee pain with pt able to initiate exercising (weight lifting) beyond her daily activities. STG Duration 11/25/21 Scientist Propagator Goal (LTG) Pt will be able to tolerate movements (run, crawl, bend, twist, wrestle someone to the ground to put handcuffs on) with tolerable pain, to complete quaterly Lethel force training. LTG Duration 01/24/22 One Impairment Pt lacks appropriate self care HEP. Short Term Goal (STG) Pt will be educated in log roll technique for transfers (10/09/21: Pt educated in log roll technique for transfers) STG Duration 10/03/21 (10/09/21: MET GOAL) [facility] Goal (LTG) Independent with a self care HEP. (10/09/21: HEP I/S: TA tightening in sidelie for strengthening and practice in prone & sup). (11/10/21: Reviewed previously issued HEP: Hip ER, and IR (L >R) stretch). (11/24/21: I/S pt in sitting core ex' of leg lifts alternating and together). LTG Duration 01/24/22 (11/24/21: Progressed) Assessment Summary Assessment MRI report received indicates degenerative facet changes of L/S spine with greatest change at L4-L5, no central of foraminal canal stenosis. Good tolerance to aerobic ex without c/o ms spasms, except started in sitting with double leg lifts, but back muscles did not completely spasm. Pt slowly improving in activity tolerance. Physical Therapy Plan Frequency and Duration Frequency of Treatment 2x/Week Plan of Care Start Date 09/26/21 Plan of Care End Date 01/24/22 Next Visit Focus/Plan Next Note Type Treatment Note Next Visit Plan Progress ex's that she can do at work and wgt lifting as tolerated. Try core stab with stair ambulation. Assess response to self rib mobs (if improved). Assess hip flexors mobility to start moving normal (stairs, walking, bending). Start Exer: Stabilize LB/ Pelvis and strengthen thoracic region if pain down. TA tightening (L>R) for equal contraction on L side compared to R side and for LB (KTC) Manual therapy to: Normalize & stabilize Thoracic Core, hips /pelvis (LE roll in/outs). Manual: Balancing of thoracic region, check LB/IT Bands. Modalities as needed: MH/IFES [thoracic & lumbar spine].
--- NOTE | 2021-11-27 17:38 | PT.OTN ---
Current Diagnoses Lumbago with sciatica, unspecified side (11/27/21) Physical Therapy Treatment Note PT-OP-A Visit Information Start: 09/21/21 17:15 Freq: Status: Active Protocol: Document 11/27/21 08:09 LRN (Rec: 11/27/21 09:02 LRN [id number]) Out-Patient Physical Therapy Visit Information Visit Information Visit Type Treatment Note Visit Start Time 08:15 Visit Stop Time 08:53 Total Visit Minutes 38 Visit Number 16 Evaluation Information Evaluation Date 09/26/21 Precautions Precautions Per chart review: PTSD, Chronic back pain. 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 MRI 11/22/21: Degen facet arthritic chnages particulary at L4-L5. No central or foraminal stenosis. PT-OP-B Current Condition Start: 09/21/21 17:15 Freq: Status: Active Protocol: Document 09/26/21 08:17 LRN (Rec: 09/26/21 09:39 LRN [id number]) Current Condition History of Current Condition Onset Date 07/18/21 Current Complaints LBP, Lewis hip and knee pain. History of Current Condition Low back pain onset 07/18/21, fell down 8 stairs, R foot went out from under her, L knee buckled and L knee ended up bent and behind her when sliding down the stairs feet first (like sliding into a base in baseball). Had horrendous pain. Did not seek medical care hoping it would go away. Two weeks later went to chiropractor and 2 weeks later ended up in ER. primary care md was helpful, but she was getting only a couple hours of pain relief. Now health careers instructor gives 3-4 days relief. She feels she has aggrevated an old injury (see Developmental history below). States the L4 -S1 jt is grinding. Has tried yoga stretches and states her problem feels structural and thinks she has started loosening things too soon. States the R>L hip joints hurt , thus now the knees hurt, because of modifying how she goes up/down the stairs. Pt points to her R lateral gluteal ms and sacral region as areas of pain denoted as pelvic pain. Denies urinary problems or lower abdominal pelvic pain. She is having pain with intercourse; therefore the pt may need Pelvic rehabilitation in the future. 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 Pt has been on light duty since fall. Prior Treatments and Tests primary care md 1-2 days/ week ([facility] in [place]). X-ray: shows no fractures in Sacrum, Coccyx, and lumbar vertebra. Developmental History Developmental History 17 yrs old fractured what she thinks is the SI, possibly Sacrum L4-S1 Cracked. In 2006 fell on steel pipe landing on L knee. Treatment Goals Patient/Caregiver Goals Pt goals are: *Get hip flexors to release in order to start moving normal (stairs, walking, bending). *Get back to place to start exercising (not doing any currently that is considered purposeful), because she is only doing daily living exercise. *Wear 16# belt around waist and leather gear that carries the items of the belt. * Be able to do Lethel force training (run, crawl, bend, twist, wrestle a suspect, bend down and put someone in handcuffs). Prior Functional Status Baseline Function- ADL's Independent Baseline Function- Mobility Independent Baseline Function- Work/School Was not exercising before fall . Walking 2 miles in/outside Weight lifting legs, arms, back a couple yrs ago Baseline Function- Other Able to sleep without pain. Current Functional Impairments (Reported) Functional Limitations- ADL's Limited in ability to bend, lift > 15#, twisting, sitting > 1 hr, standing > 1 hr, able to sleep w/medication. Sitting to drive >1.5 hrs is too much. Functional Limitations- Mobility/Gait Stride is short on both sides and slower than normal. Functional Limitations- Work/School On light duty. 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 At home has 3 children and spouse has 2 children. PT-OP-C Subjective Start: 09/21/21 17:15 Freq: Status: Active Protocol: Document 11/27/21 08:09 LRN (Rec: 11/27/21 09:02 LRN [id number]) OP-PT Subjective Patient Comments Patient Comments States pain is in the hips 2-3 /10, mid back is 2/10. States she planted strawberries in planter and did many loads of laundry at home with increased back pain, but no onset of ms spasms. PT-OP-H Neuro Start: 09/21/21 17:15 Freq: Status: Active Protocol: Document 09/26/21 08:17 LRN (Rec: 09/26/21 09:39 LRN [id number]) Sensation Evaluation Gross Sensation Gross Sensation WNL PT-OP-J Posture/Palpation/Skin Start: 09/21/21 17:15 Freq: Status: Active Protocol: Document 10/03/21 08:10 LRN (Rec: 10/03/21 09:03 LRN [id number]) Palpation Assessment Location L innominate Palpation Details Decreased PA mobility of L Ischial Tub Sacrum Palpation Location Sacrum Palpation Details Decreased mobility L inferior glide & PA of right [id number] ( sacrum in R rot) ASIS Palpation Location ASIS Palpation Details R low and inflared. PT-OP-K Range of Motion Start: 09/21/21 17:15 Freq: Status: Active Protocol: Document 11/24/21 08:18 LRN (Rec: 11/24/21 09:01 LRN [id number]) Hip Goniometric Range of Motion Hip Right Active Testing Position Supine Internal Rotation 35 External Rotation 85 Left Passive Testing Position Supine Internal Rotation 25 External Rotation 75 PT-OP-L Special Tests Start: 09/21/21 17:15 Freq: Status: Active Protocol: Document 11/06/21 08:14 LRN (Rec: 11/06/21 09:05 LRN [id number]) Special Tests Lumbar Spine Special Tests Slump Test Results negative Straight Leg Raise Test Results 90 left, 95 right Comments C/O hip socket pain bilterally . PT-OP-M Strength Start: 09/21/21 17:15 Freq: Status: Active Protocol: Document 09/26/21 08:17 LRN (Rec: 09/26/21 09:39 LRN [id number]) Trunk Strength Trunk Manual Muscle Testing Core Stabilization Pt able to maintain core stability with hip flexion ms testing. Hip Strength Hip Manual Muscle Testing Right Flexion (L2) 5 Normal External Rotation 5 Normal Internal Rotation 3 Fair Left Flexion (L2) 5 Normal External Rotation 5 Normal Internal Rotation 3 Fair PT-OP-Q Treatments Start: 09/21/21 17:15 Freq: Status: Active Protocol: Document 11/27/21 08:09 LRN (Rec: 11/27/21 09:02 LRN [id number]) Cardio Equipment Recumbent Bicycle Duration (Minutes) 6 Resistance 4 Seat Position 5 Gym Equipment Shuttle Recovery Bilateral Squats Details Lewis Squats in neutral spine Resistance 63#, 50# Shuttle Recovery Platform Stable Reps/Time 10x2, 10x respectively Sport Cord Cord on R: fwd/bkwd walk Exercise Details Cord on R side: fwd/bkwe walking Cord/Resistance Blue Reps/Duration 1' Comments Extra time for set up Cord on L: fwd/bkwd walk Exercise Details Cord on L side: fwd/bkwe walking Cord/Resistance Blue Reps/Duration 1' Comments Extra time for set up Side stepping Exercise Details side stepping, strap right below bra level Cord/Resistance Blue Reps/Duration 1' Therapeutic Exercises Supine Exercises Lewis Hip stretch Supine Exercise Name Passive hip ER/IR stretch Side bilateral Reps/Minutes 3' Comments While on MH Lewis Heel slides w/TA Supine Exercise Name Lewis Heel Slides w/TA Side bilateral Equipment Used Towel under feet Reps/Minutes 3' KTC Supine Exercise Name KTC stretch Side bilateral Reps/Minutes 3' Comments While on MH Lateral Hip stretch Supine Exercise Name Lateral Hip stretch Side left Reps/Minutes 2' Comments Assist needed due to initial cramp in hip AD Piriformis Supine Exercise Name Piriformis stretch Side left Reps/Minutes 3' Comments 1 stretch added to R hip PT-OP-R Modalities Start: 09/21/21 17:15 Freq: Status: Active Protocol: Document 11/20/21 08:15 LRN (Rec: 11/20/21 08:56 LRN [id number]) Electric Stimulation Electric Stimulation Interferential Current (IFC) Body Location [T5-T6], Supraspinatus>LB Duration (Minutes) 12 Intensity 14 Target/Sweep Sweep Patient Position Hooklying Combined With Heat/Cold Cold Pack Comments Legs on bolster Large CP in mid>LB Cervical CP at sacral level. Hot Pack/Cold Pack Treatment Hot Pack Location Low Back Patient Position Hooklying Treatment Duration (minutes) 12 Patient Tolerance Good Comments Done with EStim Legs on Bolster PT-OP-T Assessment and Plan Start: 09/21/21 17:15 Freq: Status: Active Protocol: Document 11/27/21 08:09 LRN (Rec: 11/27/21 09:02 LRN [id number]) Physical Therapy Assessment Goals Four Impairment Decreased function Impairment CHRISTELLE 20/50 = 40/100 (40-59% impaired, score 40-59). Stride is short on both sides and slower than normal. Limited in ability to bend, lift > 15#, twisting, sitting > 1 hr, standing > 1 hr, able to sleep w/medication. Sitting to drive >1.5 hrs is too much. Short Term Goal (STG) Pt will be able to improve hip flexors mobility to start moving normal (stairs, walking , bending). (11/06/21: Walking with small shuffle steps, stairs are difficult, bending is very difficult). STG Duration 11/25/21 Revenue Cycle Manager Goal (LTG) Improve function per CHRISTELLE score of 20-39 (20-39% impaired, score 20-39) LTG Duration 01/24/22 Three Impairment Decreased strength and work function. Impairment Pt on light duty. Not able to run, crawl, bend, twist, wrestle a suspect, bend down and put someone in handcuffs Short Term Goal (STG) Pt will be able to tolerate wearing a 16# belt around waist (leather gear and items it holds) while walking around for her job. 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 LTG Duration 01/24/22 Two Impairment Decreased ability to ex due to LBP, Lewis hip pain, Lewis knee pain. Impairment Pt not execising due to: LBP 4-6/10, R hip pain: anterolateral 4-6 /10, posterior 2-4/10, L hip pain: anterior 2-5/10, R knee pain: medial & lateral 3-8/10, L knee pain: medial & lateral 3-5/10. Short Term Goal (STG) Decrease bilateral hip and knee pain with pt able to initiate exercising (weight lifting) beyond her daily activities. STG Duration 11/25/21 Revenue Cycle Manager Goal (LTG) Pt will be able to tolerate movements (run, crawl, bend, twist, wrestle someone to the ground to put handcuffs on) with tolerable pain, to complete quaterly Lethel force training. LTG Duration 01/24/22 One Impairment Pt lacks appropriate self care HEP. Short Term Goal (STG) Pt will be educated in log roll technique for transfers (10/09/21: Pt educated in log roll technique for transfers) STG Duration 10/03/21 (10/09/21: MET GOAL) Group Home Goal (LTG) Independent with a self care HEP. (10/09/21: HEP I/S: TA tightening in sidelie for strengthening and practice in prone & sup). (11/10/21: Reviewed previously issued HEP: Hip ER, and IR (L >R) stretch). (11/24/21: I/S pt in sitting core ex' of leg lifts alternating and together). LTG Duration 01/24/22 (11/24/21: Progressed) Assessment Summary Assessment Pt was able to tolerate increased ex without an increase in hip/midback pain overall. She had increase in hip pain with walking ex and had temporary increase LBP upon lying down on back for hip stretches after sport cord walking exercises. Pt appears to be progressing slowly but without flare up with strengthening program. Physical Therapy Plan Frequency and Duration Frequency of Treatment 2x/Week Plan of Care Start Date 09/26/21 Plan of Care End Date 01/24/22 Next Visit Focus/Plan Next Note Type Treatment Note Next Visit Plan Start Try core stab with stair ambulation. Check LB/IT Bands. Assess hip flexors mobility to start moving normal (stairs, walking, bending). Assess response to self rib mobs (if improved). Progress ex's that she can do at work and wgt lifting as tolerated. Stabilize LB/Pelvis and strengthen thoracic region if pain down. Monitor TA tightening (L>R) for equal contraction on L side compared to R side and for LB (KTC) Manual therapy as needed to: Normalize & stabilize Thoracic Core, hips/pelvis (LE roll in /outs). If needed, Manual: Balancing of thoracic region. Modalities as needed: MH/IFES [thoracic & lumbar spine].
--- NOTE | 2021-12-01 11:08 | PT.OTN ---
Current Diagnoses Lumbago with sciatica, unspecified side (12/01/21) Physical Therapy Treatment Note PT-OP-A Visit Information Start: 09/21/21 17:15 Freq: Status: Active Protocol: Document 12/01/21 08:16 LRN (Rec: 12/01/21 09:03 LRN [id number]) Out-Patient Physical Therapy Visit Information Visit Information Visit Type Treatment Note Visit Start Time 08:16 Visit Stop Time 08:56 Total Visit Minutes 40 Visit Number 17 Evaluation Information Evaluation Date 09/26/21 Precautions Precautions Per chart review: PTSD, Chronic back pain. 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 MRI 11/22/21: Degen facet arthritic chnages particulary at L4-L5. No central or foraminal stenosis. PT-OP-B Current Condition Start: 09/21/21 17:15 Freq: Status: Active Protocol: Document 09/26/21 08:17 LRN (Rec: 09/26/21 09:39 LRN [id number]) Current Condition History of Current Condition Onset Date 07/18/21 Current Complaints LBP, Lewis hip and knee pain. History of Current Condition Low back pain onset 07/18/21, fell down 8 stairs, R foot went out from under her, L knee buckled and L knee ended up bent and behind her when sliding down the stairs feet first (like sliding into a base in baseball). Had horrendous pain. Did not seek medical care hoping it would go away. Two weeks later went to chiropractor and 2 weeks later ended up in ER. professional healthcare representative was helpful, but she was getting only a couple hours of pain relief. Now home care giver gives 3-4 days relief. She feels she has aggrevated an old injury (see Developmental history below). States the L4 -S1 jt is grinding. Has tried yoga stretches and states her problem feels structural and thinks she has started loosening things too soon. States the R>L hip joints hurt , thus now the knees hurt, because of modifying how she goes up/down the stairs. Pt points to her R lateral gluteal ms and sacral region as areas of pain denoted as pelvic pain. Denies urinary problems or lower abdominal pelvic pain. She is having pain with intercourse; therefore the pt may need Pelvic rehabilitation in the future. 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 Pt has been on light duty since fall. Prior Treatments and Tests professional healthcare representative 1-2 days/ week ([facility] in [place]). X-ray: shows no fractures in Sacrum, Coccyx, and lumbar vertebra. Developmental History Developmental History 17 yrs old fractured what she thinks is the SI, possibly Sacrum L4-S1 Cracked. In 2006 fell on steel pipe landing on L knee. Treatment Goals Patient/Caregiver Goals Pt goals are: *Get hip flexors to release in order to start moving normal (stairs, walking, bending). *Get back to place to start exercising (not doing any currently that is considered purposeful), because she is only doing daily living exercise. *Wear 16# belt around waist and leather gear that carries the items of the belt. * Be able to do Lethel force training (run, crawl, bend, twist, wrestle a suspect, bend down and put someone in handcuffs). Prior Functional Status Baseline Function- ADL's Independent Baseline Function- Mobility Independent Baseline Function- Work/School Was not exercising before fall . Walking 2 miles in/outside Weight lifting legs, arms, back a couple yrs ago Baseline Function- Other Able to sleep without pain. Current Functional Impairments (Reported) Functional Limitations- ADL's Limited in ability to bend, lift > 15#, twisting, sitting > 1 hr, standing > 1 hr, able to sleep w/medication. Sitting to drive >1.5 hrs is too much. Functional Limitations- Mobility/Gait Stride is short on both sides and slower than normal. Functional Limitations- Work/School On light duty. 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 At home has 3 children and spouse has 2 children. PT-OP-C Subjective Start: 09/21/21 17:15 Freq: Status: Active Protocol: Document 12/01/21 08:16 LRN (Rec: 12/01/21 09:03 LRN [id number]) OP-PT Subjective Patient Comments Patient Comments States her hips pain and back pain are rated 2/10. Worked 2 days and days off will be S, M, Tu but taking today off. PT-OP-H Neuro Start: 09/21/21 17:15 Freq: Status: Active Protocol: Document 09/26/21 08:17 LRN (Rec: 09/26/21 09:39 LRN [id number]) Sensation Evaluation Gross Sensation Gross Sensation WNL PT-OP-J Posture/Palpation/Skin Start: 09/21/21 17:15 Freq: Status: Active Protocol: Document 10/03/21 08:10 LRN (Rec: 10/03/21 09:03 LRN [id number]) Palpation Assessment Location L innominate Palpation Details Decreased PA mobility of L Ischial Tub Sacrum Palpation Location Sacrum Palpation Details Decreased mobility L inferior glide & PA of right [id number] ( sacrum in R rot) ASIS Palpation Location ASIS Palpation Details R low and inflared. PT-OP-K Range of Motion Start: 09/21/21 17:15 Freq: Status: Active Protocol: Document 11/24/21 08:18 LRN (Rec: 11/24/21 09:01 LRN [id number]) Hip Goniometric Range of Motion Hip Right Active Testing Position Supine Internal Rotation 35 External Rotation 85 Left Passive Testing Position Supine Internal Rotation 25 External Rotation 75 PT-OP-L Special Tests Start: 09/21/21 17:15 Freq: Status: Active Protocol: Document 11/06/21 08:14 LRN (Rec: 11/06/21 09:05 LRN [id number]) Special Tests Lumbar Spine Special Tests Slump Test Results negative Straight Leg Raise Test Results 90 left, 95 right Comments C/O hip socket pain bilterally . PT-OP-M Strength Start: 09/21/21 17:15 Freq: Status: Active Protocol: Document 09/26/21 08:17 LRN (Rec: 09/26/21 09:39 LRN [id number]) Trunk Strength Trunk Manual Muscle Testing Core Stabilization Pt able to maintain core stability with hip flexion ms testing. Hip Strength Hip Manual Muscle Testing Right Flexion (L2) 5 Normal External Rotation 5 Normal Internal Rotation 3 Fair Left Flexion (L2) 5 Normal External Rotation 5 Normal Internal Rotation 3 Fair PT-OP-Q Treatments Start: 09/21/21 17:15 Freq: Status: Active Protocol: Document 12/01/21 08:16 LRN (Rec: 12/01/21 09:03 LRN [id number]) Cardio Equipment Recumbent Bicycle Duration (Minutes) 8 Resistance 4 Seat Position 5 Gym Equipment Shuttle Recovery Unilateral Squats Details Unilateral squat Resistance 50# Shuttle Recovery Platform Stable Reps/Time 10x each Bilateral Squats Details Lewis Squats in neutral spine Resistance 75#, 63#, 50# Shuttle Recovery Platform Stable Reps/Time 10x each Sport Cord Cord on R: fwd/bkwd walk Exercise Details Cord on R side: fwd/bkwe walking Cord/Resistance Blue Reps/Duration 1' Comments Extra time for set up Cord on L: fwd/bkwd walk Exercise Details Cord on L side: fwd/bkwe walking Cord/Resistance Blue Reps/Duration 1' Comments Extra time for set up Side stepping Exercise Details side stepping, strap right below bra level Cord/Resistance Blue Reps/Duration 1' Therapeutic Exercises Supine Exercises Lewis Hip stretch Supine Exercise Name Passive hip ER/IR stretch Side bilateral Reps/Minutes 3' Comments While on MH KTC Supine Exercise Name KTC stretch Side bilateral Reps/Minutes 3' Comments While on MH Lateral Hip stretch Supine Exercise Name Lateral Hip stretch Side left Reps/Minutes 2' Comments Assist needed due to initial cramp in hip AD Piriformis Supine Exercise Name Piriformis stretch Side left Reps/Minutes 3' Comments 1 stretch added to R hip Other Exercises TA w/stairs Other Exercise Name TA/core stab w/stairs Reps/Minutes 2' Trunk Rot Other Exercise Name Trunk rot Side bilateral Equipment Used Lev 2 TB Reps/Minutes 15x Comments phys & v cuing to isolate trunk rot, keeping hips stable Chest press Other Exercise Name Abdom strengthening: Chest press Equipment Used Lev 2 TB Reps/Minutes 30x Comments Cuing to maintain stable core Lewis Shldr ext Other Exercise Name Trunk ext w/Lewis Shldr ext Side bilateral Equipment Used Lev 2 TB Reps/Minutes 30x Comments Cuing to maintain stable core PT-OP-R Modalities Start: 09/21/21 17:15 Freq: Status: Active Protocol: Document 11/20/21 08:15 LRN (Rec: 11/20/21 08:56 LRN [id number]) Electric Stimulation Electric Stimulation Interferential Current (IFC) Body Location [T5-T6], Supraspinatus>LB Duration (Minutes) 12 Intensity 14 Target/Sweep Sweep Patient Position Hooklying Combined With Heat/Cold Cold Pack Comments Legs on bolster Large CP in mid>LB Cervical CP at sacral level. Hot Pack/Cold Pack Treatment Hot Pack Location Low Back Patient Position Hooklying Treatment Duration (minutes) 12 Patient Tolerance Good Comments Done with EStim Legs on Bolster PT-OP-T Assessment and Plan Start: 09/21/21 17:15 Freq: Status: Active Protocol: Document 12/01/21 08:16 LRN (Rec: 12/01/21 09:03 LRN [id number]) Physical Therapy Assessment Goals Four Impairment Decreased function Impairment CHRISTELLE 20/50 = 40/100 (40-59% impaired, score 40-59). Stride is short on both sides and slower than normal. Limited in ability to bend, lift > 15#, twisting, sitting > 1 hr, standing > 1 hr, able to sleep w/medication. Sitting to drive >1.5 hrs is too much. Short Term Goal (STG) Pt will be able to improve hip flexors mobility to start moving normal (stairs, walking , bending). (11/06/21: Walking with small shuffle steps, stairs are difficult, bending is very difficult). STG Duration 11/25/21 Research Hydrologist Goal (LTG) Improve function per CHRISTELLE score of 20-39 (20-39% impaired, score 20-39) LTG Duration 01/24/22 Three Impairment Decreased strength and work function. Impairment Pt on light duty. Not able to run, crawl, bend, twist, wrestle a suspect, bend down and put someone in handcuffs Short Term Goal (STG) Pt will be able to tolerate wearing a 16# belt around waist (leather gear and items it holds) while walking around for her job. 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 LTG Duration 01/24/22 Two Impairment Decreased ability to ex due to LBP, Lewis hip pain, Lewis knee pain. Impairment Pt not execising due to: LBP 4-6/10, R hip pain: anterolateral 4-6 /10, posterior 2-4/10, L hip pain: anterior 2-5/10, R knee pain: medial & lateral 3-8/10, L knee pain: medial & lateral 3-5/10. Short Term Goal (STG) Decrease bilateral hip and knee pain with pt able to initiate exercising (weight lifting) beyond her daily activities. STG Duration 11/25/21 Group Home Goal (LTG) Pt will be able to tolerate movements (run, crawl, bend, twist, wrestle someone to the ground to put handcuffs on) with tolerable pain, to complete quaterly Lethel force training. LTG Duration 01/24/22 One Impairment Pt lacks appropriate self care HEP. Short Term Goal (STG) Pt will be educated in log roll technique for transfers (10/09/21: Pt educated in log roll technique for transfers) STG Duration 10/03/21 (10/09/21: MET GOAL) Group Home Goal (LTG) Independent with a self care HEP. (10/09/21: HEP I/S: TA tightening in sidelie for strengthening and practice in prone & sup). (11/10/21: Reviewed previously issued HEP: Hip ER, and IR (L >R) stretch). (11/24/21: I/S pt in sitting core ex' of leg lifts alternating and together). LTG Duration 01/24/22 (11/24/21: Progressed) Assessment Summary Assessment Pt may tolerate knee strengthening on shuttle recovery better if doing single leg first to start. Pt knees sore after shuttle but able to recover. Physical Therapy Plan Frequency and Duration Frequency of Treatment 2x/Week Plan of Care Start Date 09/26/21 Plan of Care End Date 01/24/22 Next Visit Focus/Plan Next Note Type Treatment Note Next Visit Plan Assess response to stair ambulation, shuttle knee strengthening.. Add weight lifting ex for return to work. Check LB/IT Bands. Assess hip flexors mobility to start moving normal (stairs, walking, bending). Assess response to self rib mobs (if improved). Progress ex's that she can do at work and wgt lifting as tolerated. Stabilize LB/Pelvis and strengthen thoracic region if pain down. Monitor TA tightening (L>R) for equal contraction on L side compared to R side and for LB (KT) Manual therapy as needed to: Normalize & stabilize Thoracic Core, hips/pelvis (LE roll in /outs). If needed, Manual: Balancing of thoracic region. Modalities as needed: MH/IFES [thoracic & lumbar spine].
--- NOTE | 2022-01-11 17:19 | PT.OTN ---
Current Diagnoses Lumbago with sciatica, unspecified side (01/11/22) Physical Therapy Treatment Note PT-OP-A Visit Information Start: 09/21/21 17:15 Freq: Status: Active Protocol: Document 01/11/22 08:16 LRN (Rec: 01/11/22 09:04 LRN [id number]) Out-Patient Physical Therapy Visit Information Visit Information Visit Type Treatment Note Visit Note 8 after last PN Visit Start Time 08:16 Visit Stop Time 09:04 Total Visit Minutes 48 Visit Number 19 Evaluation Information Evaluation Date 09/26/21 Precautions Precautions Per chart review: PTSD, Chronic back pain. 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 MRI 11/22/21: Degen facet arthritic chnages particulary at L4-L5. No central or foraminal stenosis. PT-OP-B Current Condition Start: 09/21/21 17:15 Freq: Status: Active Protocol: Document 09/26/21 08:17 LRN (Rec: 09/26/21 09:39 LRN [id number]) Current Condition History of Current Condition Onset Date 07/18/21 Current Complaints LBP, Lewis hip and knee pain. History of Current Condition Low back pain onset 07/18/21, fell down 8 stairs, R foot went out from under her, L knee buckled and L knee ended up bent and behind her when sliding down the stairs feet first (like sliding into a base in baseball). Had horrendous pain. Did not seek medical care hoping it would go away. Two weeks later went to chiropractor and 2 weeks later ended up in ER. post acute care nurse was helpful, but she was getting only a couple hours of pain relief. Now direct support professional caregiver gives 3-4 days relief. She feels she has aggrevated an old injury (see Developmental history below). States the L4 -S1 jt is grinding. Has tried yoga stretches and states her problem feels structural and thinks she has started loosening things too soon. States the R>L hip joints hurt , thus now the knees hurt, because of modifying how she goes up/down the stairs. Pt points to her R lateral gluteal ms and sacral region as areas of pain denoted as pelvic pain. Denies urinary problems or lower abdominal pelvic pain. She is having pain with intercourse; therefore the pt may need Pelvic rehabilitation in the future. 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 Pt has been on light duty since fall. Prior Treatments and Tests post acute care nurse 1-2 days/ week ([facility] in [place]). X-ray: shows no fractures in Sacrum, Coccyx, and lumbar vertebra. Developmental History Developmental History 17 yrs old fractured what she thinks is the SI, possibly Sacrum L4-S1 Cracked. In 2006 fell on steel pipe landing on L knee. Treatment Goals Patient/Caregiver Goals Pt goals are: *Get hip flexors to release in order to start moving normal (stairs, walking, bending). *Get back to place to start exercising (not doing any currently that is considered purposeful), because she is only doing daily living exercise. *Wear 16# belt around waist and leather gear that carries the items of the belt. * Be able to do Lethel force training (run, crawl, bend, twist, wrestle a suspect, bend down and put someone in handcuffs). Prior Functional Status Baseline Function- ADL's Independent Baseline Function- Mobility Independent Baseline Function- Work/School Was not exercising before fall . Walking 2 miles in/outside Weight lifting legs, arms, back a couple yrs ago Baseline Function- Other Able to sleep without pain. Current Functional Impairments (Reported) Functional Limitations- ADL's Limited in ability to bend, lift > 15#, twisting, sitting > 1 hr, standing > 1 hr, able to sleep w/medication. Sitting to drive >1.5 hrs is too much. Functional Limitations- Mobility/Gait Stride is short on both sides and slower than normal. Functional Limitations- Work/School On light duty. 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 At home has 3 children and spouse has 2 children. PT-OP-C Subjective Start: 09/21/21 17:15 Freq: Status: Active Protocol: Document 01/11/22 08:16 LRN (Rec: 01/11/22 09:04 LRN [id number]) OP-PT Subjective Patient Comments Patient Comments Thinks she will have to take a medical group home. States she was doing better, but had a nerve block injection (L5, L4, L3) both sides, a week ago on saturday (01/08) but it didn' t work. It caused her a lot of pain and had to take time off. She reports can't lift, carry duty belt and wrestle. Has recovered faster. Back pain is 4/10, across the low back and radiates up the back and down the hamstring (R>L). [place] been walking around [place] farm and sometimes back pain is better. Low Back pain after E-Stim was unchanged at 4/10. PT-OP-H Neuro Start: 09/21/21 17:15 Freq: Status: Active Protocol: Document 09/26/21 08:17 LRN (Rec: 09/26/21 09:39 LRN [id number]) Sensation Evaluation Gross Sensation Gross Sensation WNL PT-OP-J Posture/Palpation/Skin Start: 09/21/21 17:15 Freq: Status: Active Protocol: Document 10/03/21 08:10 LRN (Rec: 10/03/21 09:03 LRN [id number]) Palpation Assessment Location L innominate Palpation Details Decreased PA mobility of L Ischial Tub Sacrum Palpation Location Sacrum Palpation Details Decreased mobility L inferior glide & PA of right [id number] ( sacrum in R rot) ASIS Palpation Location ASIS Palpation Details R low and inflared. PT-OP-K Range of Motion Start: 09/21/21 17:15 Freq: Status: Active Protocol: Document 11/24/21 08:18 LRN (Rec: 11/24/21 09:01 LRN [id number]) Hip Goniometric Range of Motion Hip Right Active Testing Position Supine Internal Rotation 35 External Rotation 85 Left Passive Testing Position Supine Internal Rotation 25 External Rotation 75 PT-OP-L Special Tests Start: 09/21/21 17:15 Freq: Status: Active Protocol: Document 11/06/21 08:14 LRN (Rec: 11/06/21 09:05 LRN [id number]) Special Tests Lumbar Spine Special Tests Slump Test Results negative Straight Leg Raise Test Results 90 left, 95 right Comments C/O hip socket pain bilterally . PT-OP-M Strength Start: 09/21/21 17:15 Freq: Status: Active Protocol: Document 09/26/21 08:17 LRN (Rec: 09/26/21 09:39 LRN [id number]) Trunk Strength Trunk Manual Muscle Testing Core Stabilization Pt able to maintain core stability with hip flexion ms testing. Hip Strength Hip Manual Muscle Testing Right Flexion (L2) 5 Normal External Rotation 5 Normal Internal Rotation 3 Fair Left Flexion (L2) 5 Normal External Rotation 5 Normal Internal Rotation 3 Fair PT-OP-Q Treatments Start: 09/21/21 17:15 Freq: Status: Active Protocol: Document 01/11/22 08:16 LRN (Rec: 01/11/22 09:04 LRN [id number]) Gym Equipment Shuttle Recovery Bilateral Squats Details Lewis Squats in neutral spine Resistance 50#, 75#, 100# Shuttle Recovery Platform Stable Reps/Time 10x each Therapeutic Exercises Supine Exercises KTC Supine Exercise Name KTC stretch Side bilateral Reps/Minutes 3' Comments While on MH Lateral Hip stretch Supine Exercise Name Lateral Hip stretch Side left Reps/Minutes 2' Comments Assist needed due to initial cramp in hip AD Bridge Supine Exercise Name Bridge Reps/Minutes 15 x Comments Pt moves slowly Piriformis Supine Exercise Name Piriformis stretch Side left Reps/Minutes 3' Comments 1 stretch added to R hip Fig 4 Supine Exercise Name Fig 4 Side bilateral Reps/Minutes 4' Comments Pt reported feeling a pop in R hip socket and less pain with ex. Standing Exercises Stairs Standing Exercise Name Ascend/descend 6 steps Equipment Used rails Reps/Minutes x3 Comments Slow and cautious gait. L knee pain causing caution w/ stairs PT-OP-R Modalities Start: 09/21/21 17:15 Freq: Status: Active Protocol: Document 01/11/22 08:16 LRN (Rec: 01/11/22 09:04 LRN [id number]) Electric Stimulation Electric Stimulation Interferential Current (IFC) Body Location [L1>opposite side of sacrum] Duration (Minutes) 10 Intensity 11 Target/Sweep Sweep Patient Position Hooklying Combined With Heat/Cold Cold Pack Comments Legs on bolster Large CP in mid>LB PT-OP-T Assessment and Plan Start: 09/21/21 17:15 Freq: Status: Active Protocol: Document 01/11/22 08:16 LRN (Rec: 01/11/22 09:04 LRN [id number]) Physical Therapy Assessment Goals Four Impairment Decreased function Impairment CHRISTELLE 20/50 = 40/100 (40-59% impaired, score 40-59). Stride is short on both sides and slower than normal. Limited in ability to bend, lift > 15#, twisting, sitting > 1 hr, standing > 1 hr, able to sleep w/medication. Sitting to drive >1.5 hrs is too much. Short Term Goal (STG) Pt will be able to improve hip flexors mobility to start moving normal (stairs, walking , bending). (11/06/21: Walking with small shuffle steps, stairs are difficult, bending is very difficult). (12/05/21: Walking slow but normal, pain with stairs and bending). STG Duration 11/25/21 (12/05/21: Progressing) Orthotist Prosthetist Goal (LTG) Improve function per CHRISTELLE score of 20-39 (20-39% impaired, score 20-39) LTG Duration 01/24/22 Three Impairment Decreased strength and work function. Impairment Pt on light duty. Not able to run, crawl, bend, twist, wrestle a suspect, bend down and put someone in handcuffs Short Term Goal (STG) Pt will be able to tolerate wearing a 16# belt around waist (leather gear and items it holds) while walking around for her job. 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 LTG Duration 01/24/22 Two Impairment Decreased ability to ex due to LBP, Lewis hip pain, Lewis knee pain. Impairment Pt not execising due to: LBP 4-6/10, R hip pain: anterolateral 4-6 /10, posterior 2-4/10, L hip pain: anterior 2-5/10, R knee pain: medial & lateral 3-8/10, L knee pain: medial & lateral 3-5/10. Short Term Goal (STG) Decrease bilateral hip and knee pain with pt able to initiate exercising (weight lifting) beyond her daily activities. (01/11/22: twinges of pain in the R anterolateral thigh STG Duration 11/25/21 Orthotist Prosthetist Goal (LTG) Pt will be able to tolerate movements (run, crawl, bend, twist, wrestle someone to the ground to put handcuffs on) with tolerable pain, to complete quaterly Lethel force training. LTG Duration 01/24/22 One Impairment Pt lacks appropriate self care HEP. Short Term Goal (STG) Pt will be educated in log roll technique for transfers (10/09/21: Pt educated in log roll technique for transfers) STG Duration 10/03/21 (10/09/21: MET GOAL) Assisted Goal (LTG) Independent with a self care HEP. (10/09/21: HEP I/S: TA tightening in sidelie for strengthening and practice in prone & sup). (11/10/21: Reviewed previously issued HEP: Hip ER, and IR (L >R) stretch). (11/24/21: I/S pt in sitting core ex' of leg lifts alternating and together). LTG Duration 01/24/22 (11/24/21: Progressed) Assessment Summary Assessment Pt wants new goal if has to take a medical group home: NEW GOAL: Carry light weights of 50# for 50 ft. without becoming debilitated. Today pt had no change with pain after ex, pain after EStim remained 4/10. Pt was able to ambulate stairs with railing and primarily limited by L medial knee pain. Assessment may be needed for the L knee due to hindrance of her back rehab. Physical Therapy Plan Frequency and Duration Frequency of Treatment 2x/Week Plan of Care Start Date 09/26/21 Plan of Care End Date 01/24/22 Next Visit Focus/Plan Next Note Type Treatment Note Next Visit Plan Reassess for PN in 1 week. Modify POC if pt decides to take a medical group home (NEW GOAL: Carry light weights of 50# for 50 ft. without becoming debilitated). End with cryotherapy/ES if EStim needed. 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 Shuttle knee strengthening. Assess L knee pain. Check LB/IT Bands. Assess hip flexors mobility to start moving normal (stairs, walking, bending). Assess response to self rib mobs (if improved). Progress ex's that she can do at work and wgt lifting as tolerated. Stabilize LB/Pelvis and strengthen thoracic region if pain down. Monitor TA tightening (L>R) for equal contraction on L side compared to R side and for LB (KTC) Manual therapy as needed to: Normalize & stabilize Thoracic Core, hips/pelvis (LE roll in /outs). If needed, Manual: Balancing of thoracic region. Modalities as needed: MH/IFES [thoracic & lumbar spine].
--- NOTE | 2022-01-29 16:37 | PT.OTN ---
Current Diagnoses Lumbago with sciatica, unspecified side (01/29/22) Physical Therapy Treatment Note PT-OP-A Visit Information Start: 09/21/21 17:15 Freq: Status: Active Protocol: Document 01/29/22 13:03 LRN (Rec: 01/29/22 13:50 LRN [id number]) Out-Patient Physical Therapy Visit Information Visit Information Visit Type Treatment Note Visit Start Time 13:03 Visit Stop Time 13:49 Total Visit Minutes 46 Visit Number Evaluation Information Evaluation Date 09/26/21 Precautions Precautions Per chart review: PTSD, Chronic back pain. 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 MRI 11/22/21: Degen facet arthritic chnages particulary at L4-L5. No central or foraminal stenosis. PT-OP-B Current Condition Start: 09/21/21 17:15 Freq: Status: Active Protocol: Document 09/26/21 08:17 LRN (Rec: 09/26/21 09:39 LRN [id number]) Current Condition History of Current Condition Onset Date 07/18/21 Current Complaints LBP, Aime hip and knee pain. History of Current Condition Low back pain onset 07/18/21, fell down 8 stairs, R foot went out from under her, L knee buckled and L knee ended up bent and behind her when sliding down the stairs feet first (like sliding into a base in baseball). Had horrendous pain. Did not seek medical care hoping it would go away. Two weeks later went to chiropractor and 2 weeks later ended up in ER. critical care nurse specialist was helpful, but she was getting only a couple hours of pain relief. Now animal caretaker gives 3-4 days relief. She feels she has aggrevated an old injury (see Developmental history below). States the L4 -S1 jt is grinding. Has tried yoga stretches and states her problem feels structural and thinks she has started loosening things too soon. States the R>L hip joints hurt , thus now the knees hurt, because of modifying how she goes up/down the stairs. Pt points to her R lateral gluteal ms and sacral region as areas of pain denoted as pelvic pain. Denies urinary problems or lower abdominal pelvic pain. She is having pain with intercourse; therefore the pt may need Pelvic rehabilitation in the future. 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 Pt has been on light duty since fall. Prior Treatments and Tests critical care nurse specialist 1-2 days/ week ([facility] in [place]). X-ray: shows no fractures in Sacrum, Coccyx, and lumbar vertebra. Developmental History Developmental History 17 yrs old fractured what she thinks is the SI, possibly Sacrum L4-S1 Cracked. In 2006 fell on steel pipe landing on L knee. Treatment Goals Patient/Caregiver Goals Pt goals are: *Get hip flexors to release in order to start moving normal (stairs, walking, bending). *Get back to place to start exercising (not doing any currently that is considered purposeful), because she is only doing daily living exercise. *Wear 16# belt around waist and leather gear that carries the items of the belt. * Be able to do Lethel force training (run, crawl, bend, twist, wrestle a suspect, bend down and put someone in handcuffs). Prior Functional Status Baseline Function- ADL's Independent Baseline Function- Mobility Independent Baseline Function- Work/School Was not exercising before fall . Walking 2 miles in/outside Weight lifting legs, arms, back a couple yrs ago Baseline Function- Other Able to sleep without pain. Current Functional Impairments (Reported) Functional Limitations- ADL's Limited in ability to bend, lift > 15#, twisting, sitting > 1 hr, standing > 1 hr, able to sleep w/medication. Sitting to drive >1.5 hrs is too much. Functional Limitations- Mobility/Gait Stride is short on both sides and slower than normal. Functional Limitations- Work/School On light duty. 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 At home has 3 children and spouse has 2 children. PT-OP-C Subjective Start: 09/21/21 17:15 Freq: Status: Active Protocol: Document 01/29/22 13:03 LRN (Rec: 01/29/22 13:50 LRN [id number]) OP-PT Subjective Patient Comments Patient Comments Just saw chiro so she feels in alignment. Pain in middle of back (bra area) is 1/2, (L4- S1) is 2/3 and at L hip socket is 3/10. Last week was milking a goat and after being done had to lay down where she was and stretch due to whole back being in spasm. Had to take ms spasm medications. Patient Questionnaires Oswestry Low Back Index Oswestry Score 40 Oswestry Impairment 40 to 59% Impaired (Score 40- 59) OP-PT Pain Assessment Location Thoracic region Pain Location Details L thoracic region Intensity 2 Scale Used Numeric (0 - 10) Description Aching Description- Other Pain worsens as day progress and after functional activities Knees Intensity 0 Scale Used Numeric (0 - 10) Frequency Intermittent Pain Duration R knee 0-5/10, L knee 0-8 Other Pain Aggravating Factors Knee flexion Hip Flexors Pain Location Details L hip joint Intensity 3 Scale Used Numeric (0 - 10) Description Acute,Sharp Description- Other Pain worsens as day progress and after functional activities Sacrum Pain Location Details L4-S1 region (pt lacks L5 vertebra and has extra disc btn L4-S1) Intensity 3 Scale Used Numeric (0 - 10) Description Aching,Sharp Description- Other Pain worsens as day progress and after functional activities PT-OP-H Neuro Start: 09/21/21 17:15 Freq: Status: Active Protocol: Document 09/26/21 08:17 LRN (Rec: 09/26/21 09:39 LRN [id number]) Sensation Evaluation Gross Sensation Gross Sensation WNL PT-OP-J Posture/Palpation/Skin Start: 09/21/21 17:15 Freq: Status: Active Protocol: Document 10/03/21 08:10 LRN (Rec: 10/03/21 09:03 LRN [id number]) Palpation Assessment Location L innominate Palpation Details Decreased PA mobility of L Ischial Tub Sacrum Palpation Location Sacrum Palpation Details Decreased mobility L inferior glide & PA of right DEEPIKA ( sacrum in R rot) ASIS Palpation Location ASIS Palpation Details R low and inflared. PT-OP-K Range of Motion Start: 09/21/21 17:15 Freq: Status: Active Protocol: Document 11/24/21 08:18 LRN (Rec: 11/24/21 09:01 LRN [id number]) Hip Goniometric Range of Motion Hip Right Active Testing Position Supine Internal Rotation 35 External Rotation 85 Left Passive Testing Position Supine Internal Rotation 25 External Rotation 75 PT-OP-L Special Tests Start: 09/21/21 17:15 Freq: Status: Active Protocol: Document 11/06/21 08:14 LRN (Rec: 11/06/21 09:05 LRN [id number]) Special Tests Lumbar Spine Special Tests Slump Test Results negative Straight Leg Raise Test Results 90 left, 95 right Comments C/O hip socket pain bilterally . PT-OP-M Strength Start: 09/21/21 17:15 Freq: Status: Active Protocol: Document 09/26/21 08:17 LRN (Rec: 09/26/21 09:39 LRN [id number]) Trunk Strength Trunk Manual Muscle Testing Core Stabilization Pt able to maintain core stability with hip flexion ms testing. Hip Strength Hip Manual Muscle Testing Right Flexion (L2) 5 Normal External Rotation 5 Normal Internal Rotation 3 Fair Left Flexion (L2) 5 Normal External Rotation 5 Normal Internal Rotation 3 Fair PT-OP-Q Treatments Start: 09/21/21 17:15 Freq: Status: Active Protocol: Document 01/29/22 13:03 LRN (Rec: 01/29/22 13:50 LRN [id number]) Gym Equipment Cable Column (Body Solid) Leg Extension Details Limited aime knees Resistance 10# Reps/Time 15x Leg Curl Resistance 30# Reps/Time 15x Shuttle Recovery Bilateral Squats Details Aime Squats in neutral spine Resistance 50# Shuttle Recovery Platform Stable Reps/Time 30x each Therapeutic Exercises Supine Exercises Post Pelvic Tilt Supine Exercise Name PPT w/ball squeeze & PF tightening Reps/Minutes 10x 3 Aime Heel slides w/TA Supine Exercise Name Aime Heel Slides with feet on Sm red TBall w/TA Side bilateral Equipment Used Sm Red TBall Reps/Minutes 3' Deep breathing for R chest/rib mob Supine Exercise Name R rib expansion (below breast Side right Reps/Minutes 8x Comments phys cuing and awareness training needed to start. Bridge Supine Exercise Name Bridge Reps/Minutes 15 x, rest f/b 5x Comments Pt moves slowly Sidelying Exercises TA/CLamshell Sidelying Exercise Name TA/Clamshell Side bilateral Reps/Minutes 15x each, moving slowly Comments light cuing at ASIS to keep pelvis netural Sitting Exercises TA/Double leg lifts Sitting Exercise Name TA Double knee ext leg lifts Side bilateral Equipment Used 0#, 5#, 10# Reps/Minutes 10x each Comments stab of neutral spine position to eliminate popping between L4 & S1 PT-OP-R Modalities Start: 09/21/21 17:15 Freq: Status: Active Protocol: Document 01/11/22 08:16 LRN (Rec: 01/11/22 09:04 LRN [id number]) Electric Stimulation Electric Stimulation Interferential Current (IFC) Body Location [L1>opposite side of sacrum] Duration (Minutes) 10 Intensity 11 Target/Sweep Sweep Patient Position Hooklying Combined With Heat/Cold Cold Pack Comments Legs on bolster Large CP in mid>LB PT-OP-T Assessment and Plan Start: 09/21/21 17:15 Freq: Status: Active Protocol: Document 01/29/22 13:03 LRN (Rec: 01/29/22 13:50 LRN [id number]) Physical Therapy Assessment Rehab Potential Rehabilitation Potential Good Evaluation Complexity Number of Personal Factors/Comorbidities 3 or More Number of Body Systems Impaired 4 or More Clinical Presentation at Evaluation Evolving Impairments Impairments Activity Tolerance,Functional Activities,Functional Mobility ,Gait,Pain,Posture,ROM,Soft Tissue Mobility,Strength, Transfers Goals Four Impairment Decreased function Impairment CHRISTELLE 20/50 = 40/100 (40-59% impaired, score 40-59). 01/29/22: Pt feels stride is short on both sides and slower than normal, now 6 shuffle steps, 1-2 mph speed; used to be 3 mph easily). Limited in ability to bend, lift > 15#, twisting, sitting > 1 hr, standing > 1 hr, able to sleep w/medication. Sitting to drive >1.5 hrs is too much. Short Term Goal (STG) Pt will be able to improve hip flexors mobility to start moving normal (stairs, walking ). (11/06/21: Walking with small shuffle steps, stairs are difficult, bending is very difficult). (12/05/21: Walking slow but normal, pain with stairs and bending). (01/29/22: Stairs: Up normal, down one at time; walkin steps her back (at L4-S1 ) hurts and hips are swinging around going from R to L) STG Duration 03/14/22 (01/29/22: Progressing, normal gait ascending stairs) Alf Goal (LTG) OLD GOAL: Improve function per CHRISTELLE score of 20-39 (20-39% impaired, score 20-39) HOME GOAL: Carry light weights of 50# for 50 ft. without becoming debilitated. (01/29/22: CHRISTELLE Score is 20/50 = 40/100). LTG Duration 04/29/22 (01/29/22: NO CHANGE ) Three Impairment Decreased strength and home work function. Impairment Pt on light duty. WORK: Not able to run, crawl, bend, twist, wrestle a suspect , bend down to put someone in handcuffs. Pain starts at 2-4/10 and ends at 7-9/10 at work. HOME: (01/29/22) Not able to fold clothes and remove casserole from oven due to back pain. Short Term Goal (STG) WORK GOAL: Pt will be able to tolerate wearing a 16# belt around waist (leather gear and items it holds) while walking around for her job. NEW HOME GOAL (01/29/22): Pt able to tolerate bring groceries into home after shopping. 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 NEW HOME GOAL: Be able to fold clothes, and getting cassole out of oven with pain no greater than 3/10. (01/29/22: Started weight strengthening program of LE's) LTG Duration 04/29/22 (01/29/22: Progressing) Two Impairment Decreased ability to ex due to LBP, Aime hip pain, Aime knee pain. Impairment Pt not execising due to: LBP 4-6/10, R hip pain: anterolateral 4-6 /10, posterior 2-4/10, L hip pain: anterior 2-5/10, R knee pain: medial & lateral 3-8/10, L knee pain: medial & lateral 3-5/10. 01/29/22: Able to walk 1500 steps in a day. Functionally must use arms to lift self to upright after bending over. Short Term Goal (STG) WORK GOAL: Decrease bilateral hip and knee pain with pt able to initiate exercising ( weight lifting) beyond her daily activities. (01/11/22: twinges of pain in the R anterolateral thigh NEW HOME GOAL: Walk 5000 steps in a day. (01/29/22: Started weight strengthening program of LE's) STG Duration 03/14/22 (01/29/22: Progressing) Director Risk Goal (LTG) WORK GOAL: Pt will be able to tolerate movements (run, crawl, bend, twist, wrestle someone to the ground to put handcuffs on) with tolerable pain, to complete quaterly Lethel force training. NEW HOME GOAL: Pt will be able to tolerate movements (be able to bend over and not have to use UE's to work self back up to standing. LTG Duration 05/29/22 One Impairment Pt lacks appropriate self care HEP. Short Term Goal (STG) Pt will be educated in log roll technique for transfers (10/09/21: Pt educated in log roll technique for transfers) STG Duration 10/03/21 (10/09/21: MET GOAL) Alf Goal (LTG) Independent with a self care HEP. (10/09/21: HEP I/S: TA tightening in sidelie for strengthening and practice in prone & sup). (11/10/21: Reviewed previously issued HEP: Hip ER, and IR (L >R) stretch). (11/24/21: I/S pt in sitting core ex' of leg lifts alternating and together). LTG Duration 05/29/22 (11/24/21: Progressed) Assessment Summary Assessment Pt progress has been very slow , due to low back pain onset with travel time associated with travelling to her job (1 hour away), soft tissue and mechanical dysfunction of the spine. Her progress has been variable, also associated to travelling to work and from daily activities at home ( child and pet care). She has improved greatly in her pain presentation and she is now able to tolerate low level core strengthening ex's and sometimes demonstrates less restriction with her gait, although onset of pain is variable. She is receiving animal caretaker that appears to be helpful as noted by increased tolerance to exercise in therapy after her chiropractic treatment. Her progress is hindered by bilateral knee pain limiting proper body mechanics, causing her to pivot at the low back vs bending at the knees with all bending/lifting for safety to prevent her knees from buckling. With the limitations at the knees progress is expected to be very slow. The pt will benefit from continued skilled physical therapy to progress her core strengthening/ stabilization and continue to work towards modification of her body mechanics to limit flexion stress at the low back and hips, decrease pain, improve gait and improve functional mobility. Physical Therapy Plan Frequency and Duration Frequency of Treatment 2x/Week Plan of Care Start Date 01/29/22 Plan of Care End Date 05/29/22 Therapeutic Interventions Therapeutic Interventions Aquatic Therapy,Balance Training,Gait Training,Home Exercise Program,Joint Mobilizations,Manual Therapy, Neuromuscular Re-education, Patient/Caregiver Education, Self-Care/Home Management,Soft Tissue Mobilization,Taping, Therapeutic Activities, Therapeutic Exercises Modalities Cold Pack/Ice Massage,Electric Stimulation,Hot Packs, Ultrasound Next Visit Focus/Plan Next Note Type Treatment Note Next Visit Plan End with cryotherapy/ES if EStim needed. 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 Shuttle knee strengthening. Assess L knee pain. Check LB/IT Bands. Assess hip flexors mobility to start moving normal (stairs, walking, bending). Assess response to self rib mobs (if improved). Progress ex's that she can do at work and wgt lifting as tolerated. Stabilize LB/Pelvis and strengthen thoracic region if pain down. Monitor TA tightening (L>R) for equal contraction on L side compared to R side and for LB (KTC) Manual therapy as needed to: Normalize & stabilize Thoracic Core, hips/pelvis (LE roll in /outs). Modify POC if pt decides to take a medical shelter If needed, Manual: Balancing of thoracic region. Modalities as needed: MH/IFES [thoracic & lumbar spine].
--- NOTE | 2022-02-13 17:55 | PT.OTN ---
Current Diagnoses Lumbago with sciatica, unspecified side (02/13/22) Physical Therapy Treatment Note PT-OP-A Visit Information Start: 09/21/21 17:15 Freq: Status: Active Protocol: Document 02/13/22 13:00 LRN (Rec: 02/13/22 13:52 LRN [id number]) Out-Patient Physical Therapy Visit Information Visit Information Visit Type Treatment Note Visit Start Time 13:05 Visit Stop Time 13:51 Total Visit Minutes 46 Visit Number Evaluation Information Evaluation Date 09/26/21 Precautions Precautions Per chart review: PTSD, Chronic back pain. 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 MRI 11/22/21: Degen facet arthritic chnages particulary at L4-L5. No central or foraminal stenosis. PT-OP-B Current Condition Start: 09/21/21 17:15 Freq: Status: Active Protocol: Document 09/26/21 08:17 LRN (Rec: 09/26/21 09:39 LRN [id number]) Current Condition History of Current Condition Onset Date 07/18/21 Current Complaints LBP, Aime hip and knee pain. History of Current Condition Low back pain onset 07/18/21, fell down 8 stairs, R foot went out from under her, L knee buckled and L knee ended up bent and behind her when sliding down the stairs feet first (like sliding into a base in baseball). Had horrendous pain. Did not seek medical care hoping it would go away. Two weeks later went to chiropractor and 2 weeks later ended up in ER. furnace caretaker was helpful, but she was getting only a couple hours of pain relief. Now rn home care gives 3-4 days relief. She feels she has aggrevated an old injury (see Developmental history below). States the L4 -S1 jt is grinding. Has tried yoga stretches and states her problem feels structural and thinks she has started loosening things too soon. States the R>L hip joints hurt , thus now the knees hurt, because of modifying how she goes up/down the stairs. Pt points to her R lateral gluteal ms and sacral region as areas of pain denoted as pelvic pain. Denies urinary problems or lower abdominal pelvic pain. She is having pain with intercourse; therefore the pt may need Pelvic rehabilitation in the future. 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 Pt has been on light duty since fall. Prior Treatments and Tests furnace caretaker 1-2 days/ week ([facility] in [place]). X-ray: shows no fractures in Sacrum, Coccyx, and lumbar vertebra. Developmental History Developmental History 17 yrs old fractured what she thinks is the SI, possibly Sacrum L4-S1 Cracked. In 2006 fell on steel pipe landing on L knee. Treatment Goals Patient/Caregiver Goals Pt goals are: *Get hip flexors to release in order to start moving normal (stairs, walking, bending). *Get back to place to start exercising (not doing any currently that is considered purposeful), because she is only doing daily living exercise. *Wear 16# belt around waist and leather gear that carries the items of the belt. * Be able to do Lethel force training (run, crawl, bend, twist, wrestle a suspect, bend down and put someone in handcuffs). Prior Functional Status Baseline Function- ADL's Independent Baseline Function- Mobility Independent Baseline Function- Work/School Was not exercising before fall . Walking 2 miles in/outside Weight lifting legs, arms, back a couple yrs ago Baseline Function- Other Able to sleep without pain. Current Functional Impairments (Reported) Functional Limitations- ADL's Limited in ability to bend, lift > 15#, twisting, sitting > 1 hr, standing > 1 hr, able to sleep w/medication. Sitting to drive >1.5 hrs is too much. Functional Limitations- Mobility/Gait Stride is short on both sides and slower than normal. Functional Limitations- Work/School On light duty. 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 At home has 3 children and spouse has 2 children. PT-OP-C Subjective Start: 09/21/21 17:15 Freq: Status: Active Protocol: Document 02/13/22 13:00 LRN (Rec: 02/13/22 13:52 LRN [id number]) OP-PT Subjective Patient Comments Patient Comments Had Covid last week and was in bed for a couple of days. Made her back and knees more sore. Mowed lawn 4 days ago and weeded. Yesterday did a cooking and standing. Saw software analyst 02/01/22 and is documented that she won't be able to return to prior function. Has started the process for medical long-term ; therefore work goals are no longer needed. Will work towards home goals. Pain 2/10 in low back at SIJ level. PT-OP-H Neuro Start: 09/21/21 17:15 Freq: Status: Active Protocol: Document 09/26/21 08:17 LRN (Rec: 09/26/21 09:39 LRN [id number]) Sensation Evaluation Gross Sensation Gross Sensation WNL PT-OP-J Posture/Palpation/Skin Start: 09/21/21 17:15 Freq: Status: Active Protocol: Document 10/03/21 08:10 LRN (Rec: 10/03/21 09:03 LRN [id number]) Palpation Assessment Location L innominate Palpation Details Decreased PA mobility of L Ischial Tub Sacrum Palpation Location Sacrum Palpation Details Decreased mobility L inferior glide & PA of right DEEPIKA ( sacrum in R rot) ASIS Palpation Location ASIS Palpation Details R low and inflared. PT-OP-K Range of Motion Start: 09/21/21 17:15 Freq: Status: Active Protocol: Document 11/24/21 08:18 LRN (Rec: 11/24/21 09:01 LRN [id number]) Hip Goniometric Range of Motion Hip Right Active Testing Position Supine Internal Rotation 35 External Rotation 85 Left Passive Testing Position Supine Internal Rotation 25 External Rotation 75 PT-OP-L Special Tests Start: 09/21/21 17:15 Freq: Status: Active Protocol: Document 11/06/21 08:14 LRN (Rec: 11/06/21 09:05 LRN [id number]) Special Tests Lumbar Spine Special Tests Slump Test Results negative Straight Leg Raise Test Results 90 left, 95 right Comments C/O hip socket pain bilterally . PT-OP-M Strength Start: 09/21/21 17:15 Freq: Status: Active Protocol: Document 09/26/21 08:17 LRN (Rec: 09/26/21 09:39 LRN [id number]) Trunk Strength Trunk Manual Muscle Testing Core Stabilization Pt able to maintain core stability with hip flexion ms testing. Hip Strength Hip Manual Muscle Testing Right Flexion (L2) 5 Normal External Rotation 5 Normal Internal Rotation 3 Fair Left Flexion (L2) 5 Normal External Rotation 5 Normal Internal Rotation 3 Fair PT-OP-Q Treatments Start: 09/21/21 17:15 Freq: Status: Active Protocol: Document 02/13/22 13:00 LRN (Rec: 02/13/22 13:52 LRN [id number]) Gym Equipment Cable Column (Body Solid) Leg Ext Aurora Details Aurora holds at 90 de' Resistance 110# 10 sec holds x 2 each Reps/Time Resting btn sets with active kne ext. Wheel at 4, 5, 6, 7, 8, 9. Leg Extension Details aime knees, conc with slow and careful movement. Resistance 10# Reps/Time 8x 2 Leg Curl Details Leg Curl Resistance 35# Reps/Time 15x Shuttle Recovery Bilateral Squats Details Aime Squats in neutral spine Resistance 62# Shuttle Recovery Platform Stable Reps/Time 15x 2 each Manual Therapy Treatment Soft Tissue Mobilization Mid T/S > L/S Body Location R Lower T/S > L/S Paraspinals and sacral region Mobilization Type Cross-Friction,Strumming Intensity/Depth Moderate Body Position Sidelying Comments Pt in L sidelie. Pt low back at sacral level was increased in temp. Self-Care/Home Management Treatment Education Other Education Pt I/S to ice at home for pain management after use of her oils due to palpated increase in temp in the area. PT-OP-R Modalities Start: 09/21/21 17:15 Freq: Status: Active Protocol: Document 01/11/22 08:16 LRN (Rec: 01/11/22 09:04 N [id number]) Electric Stimulation Electric Stimulation Interferential Current (IFC) Body Location [L1>opposite side of sacrum] Duration (Minutes) 10 Intensity 11 Target/Sweep Sweep Patient Position Hooklying Combined With Heat/Cold Cold Pack Comments Legs on bolster Large CP in mid>LB PT-OP-T Assessment and Plan Start: 09/21/21 17:15 Freq: Status: Active Protocol: Document 02/13/22 13:00 LRN (Rec: 02/13/22 13:52 [facility] [id number]) Physical Therapy Assessment Goals Four Impairment Decreased function Impairment CHRISTELLE 20/50 = 40/100 (40-59% impaired, score 40-59). 01/29/22: Pt feels stride is short on both sides and slower than normal, now 6 shuffle steps, 1-2 mph speed; used to be 3 mph easily). Limited in ability to bend, lift > 15#, twisting, sitting > 1 hr, standing > 1 hr, able to sleep w/medication. Sitting to drive >1.5 hrs is too much. Short Term Goal (STG) Pt will be able to improve hip flexors mobility to start moving normal (stairs, walking ). (11/06/21: Walking with small shuffle steps, stairs are difficult, bending is very difficult). (12/05/21: Walking slow but normal, pain with stairs and bending). (01/29/22: Stairs: Up normal, down one at time; walkin steps her back (at L4-S1 ) hurts and hips are swinging around going from R to L) (02/13/22: 1st in AM, can't go down steps normal, sometime can in evening. Walking must be careful with walking and turning due to onset of hip pain. Can walk 90% normal straight except after 2500- 2800 steps in a day, starts to shuffle). STG Duration 03/14/22 (01/29/22: Progressing, normal gait ascending stairs) Halfway Goal (LTG) OLD GOAL: Improve function per CHRISTELLE score of 20-39 (20-39% impaired, score 20-39) HOME GOAL: Carry light weights of 50# for 50 ft. without becoming debilitated. (01/29/22: CHRISTELLE Score is 20/50 = 40/100). LTG Duration 04/29/22 (01/29/22: NO CHANGE ) Three Impairment Decreased strength and home work function. Impairment Pt on light duty. WORK: Not able to run, crawl, bend, twist, wrestle a suspect , bend down to put someone in handcuffs. Pain starts at 2-4/10 and ends at 7-9/10 at work. HOME: (01/29/22) Not able to fold clothes and remove casserole from oven due to back pain. Short Term Goal (STG) WORK GOAL: Pt will be able to tolerate wearing a 16# belt around waist (leather gear and items it holds) while walking around for her job. NEW HOME GOAL (01/29/22): Pt able to tolerate bring groceries into home after shopping. 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 NEW HOME GOAL: Be able to fold clothes, and getting cassole out of oven with pain no greater than 3/10. (01/29/22: Started weight strengthening program of LE's) LTG Duration 04/29/22 (01/29/22: Progressing) Two Impairment Decreased ability to ex due to LBP, Aime hip pain, Aime knee pain. Impairment Pt not execising due to: LBP 4-6/10, R hip pain: anterolateral 4-6 /10, posterior 2-4/10, L hip pain: anterior 2-5/10, R knee pain: medial & lateral 3-8/10, L knee pain: medial & lateral 3-5/10. 01/29/22: Able to walk 1500 steps in a day. Functionally must use arms to lift self to upright after bending over. Short Term Goal (STG) WORK GOAL: Decrease bilateral hip and knee pain with pt able to initiate exercising ( weight lifting) beyond her daily activities. (01/11/22: twinges of pain in the R anterolateral thigh NEW HOME GOAL: Walk 5000 steps in a day. (01/29/22: Started weight strengthening program of LE's) (02/13/22: Walks max before having to stop, on a busy day, [id number] steps). STG Duration 03/14/22 (01/29/22: Progressing) Bias Binding Cutter Goal (LTG) WORK GOAL: Pt will be able to tolerate movements (run, crawl, bend, twist, wrestle someone to the ground to put handcuffs on) with tolerable pain, to complete quaterly Lethel force training. NEW HOME GOAL: Pt will be able to tolerate movements (be able to bend over and not have to use UE's to work self back up to standing. LTG Duration 05/29/22 One Impairment Pt lacks appropriate self care HEP. Short Term Goal (STG) Pt will be educated in log roll technique for transfers (10/09/21: Pt educated in log roll technique for transfers) STG Duration 10/03/21 (10/09/21: MET GOAL) Bias Binding Cutter Goal (LTG) Independent with a self care HEP. (10/09/21: HEP I/S: TA tightening in sidelie for strengthening and practice in prone & sup). (11/10/21: Reviewed previously issued HEP: Hip ER, and IR (L >R) stretch). (11/24/21: I/S pt in sitting core ex' of leg lifts alternating and together). LTG Duration 05/29/22 (11/24/21: Progressed) Assessment Summary Assessment Pt was able to progress ext strengthening if done isometrically. Pain in knees with isometric extension hold at 60 deg's flex, otherwise pt able to perform without knee pain. Pt moves slowly through exercise. She was not able to tolerate supine lying after exer; therefore pt needed STM today. Her low back at the sacral level was very much increased in palpable temp, indicating inflammation in the area. Physical Therapy Plan Frequency and Duration Frequency of Treatment 2x/Week Plan of Care Start Date 01/29/22 Plan of Care End Date 05/29/22 Next Visit Focus/Plan Next Note Type Treatment Note Next Visit Plan End with cryotherapy/ES if EStim needed. Pt is planning on applying for medical leave disability, Modify [facility], [place] work goals, when medical leave applied. 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 Shuttle knee strengthening. Assess L knee pain. Check LB/IT Bands. Assess hip flexors mobility to start moving normal (stairs, walking, bending). Assess response to self rib mobs (if improved). Progress ex's that she can do at work and wgt lifting as tolerated. Stabilize LB/Pelvis and strengthen thoracic region if pain down. Monitor TA tightening (L>R) for equal contraction on L side compared to R side and for LB (KTC) Manual therapy as needed to: Normalize & stabilize Thoracic Core, hips/pelvis (LE roll in /outs). If needed, Manual: Balancing of thoracic region. Modalities as needed: MH/IFES [thoracic & lumbar spine].
--- NOTE | 2022-03-12 10:52 | PT.OTN ---
Current Diagnoses Lumbago with sciatica, unspecified side (03/12/22) Physical Therapy Treatment Note PT-OP-A Visit Information Start: 09/21/21 17:15 Freq: Status: Active Protocol: Document 03/12/22 09:51 LRN (Rec: 03/12/22 10:50 LRN [id number]) Out-Patient Physical Therapy Visit Information Visit Information Visit Type Treatment Note Visit Start Time 09:51 Visit Stop Time 10:39 Total Visit Minutes 48 Visit Number PT-OP-B Current Condition Start: 09/21/21 17:15 Freq: Status: Active Protocol: Document 09/26/21 08:17 LRN (Rec: 09/26/21 09:39 LRN [id number]) Current Condition History of Current Condition Onset Date 07/18/21 Current Complaints LBP, Aime hip and knee pain. History of Current Condition Low back pain onset 07/18/21, fell down 8 stairs, R foot went out from under her, L knee buckled and L knee ended up bent and behind her when sliding down the stairs feet first (like sliding into a base in baseball). Had horrendous pain. Did not seek medical care hoping it would go away. Two weeks later went to chiropractor and 2 weeks later ended up in ER. career portals teacher was helpful, but she was getting only a couple hours of pain relief. Now wound care specialist gives 3-4 days relief. She feels she has aggrevated an old injury (see Developmental history below). States the L4 -S1 jt is grinding. Has tried yoga stretches and states her problem feels structural and thinks she has started loosening things too soon. States the R>L hip joints hurt , thus now the knees hurt, because of modifying how she goes up/down the stairs. Pt points to her R lateral gluteal ms and sacral region as areas of pain denoted as pelvic pain. Denies urinary problems or lower abdominal pelvic pain. She is having pain with intercourse; therefore the pt may need Pelvic rehabilitation in the future. 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 Pt has been on light duty since fall. Prior Treatments and Tests career portals teacher 1-2 days/ week ([employer] in [place]). X-ray: shows no fractures in Sacrum, Coccyx, and lumbar vertebra. Developmental History Developmental History 17 yrs old fractured what she thinks is the SI, possibly Sacrum L4-S1 Cracked. In 2006 fell on steel pipe landing on L knee. Treatment Goals Patient/Caregiver Goals Pt goals are: *Get hip flexors to release in order to start moving normal (stairs, walking, bending). *Get back to place to start exercising (not doing any currently that is considered purposeful), because she is only doing daily living exercise. *Wear 16# belt around waist and leather gear that carries the items of the belt. * Be able to do Lethel force training (run, crawl, bend, twist, wrestle a suspect, bend down and put someone in handcuffs). Prior Functional Status Baseline Function- ADL's Independent Baseline Function- Mobility Independent Baseline Function- Work/School Was not exercising before fall . Walking 2 miles in/outside Weight lifting legs, arms, back a couple yrs ago Baseline Function- Other Able to sleep without pain. Current Functional Impairments (Reported) Functional Limitations- ADL's Limited in ability to bend, lift > 15#, twisting, sitting > 1 hr, standing > 1 hr, able to sleep w/medication. Sitting to drive >1.5 hrs is too much. Functional Limitations- Mobility/Gait Stride is short on both sides and slower than normal. Functional Limitations- Work/School On light duty. 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 At home has 3 children and spouse has 2 children. 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 Last week getting out of bed the back spasm, across the back and up/ down the spine, and in SIJ. Pain is 5-6/10 and if lays down pain is 1-2/10. Hasn't made it to work. Folding clothes is getting easier, but must use of cane to switch laurdry and is using the cane to walk to increase stride and to do shopping. Kids are trying to help her at home. Pt reported less pain after EStim. PT-OP-H Neuro Start: 09/21/21 17:15 Freq: Status: Active Protocol: Document 09/26/21 08:17 LRN (Rec: 09/26/21 09:39 LRN [id number]) Sensation Evaluation Gross Sensation Gross Sensation WNL PT-OP-J Posture/Palpation/Skin Start: 09/21/21 17:15 Freq: Status: Active Protocol: Document 10/03/21 08:10 LRN (Rec: 10/03/21 09:03 LRN [id number]) Palpation Assessment Location L innominate Palpation Details Decreased PA mobility of L Ischial Tub Sacrum Palpation Location Sacrum Palpation Details Decreased mobility L inferior glide & PA of right DEEPIKA ( sacrum in R rot) ASIS Palpation Location ASIS Palpation Details R low and inflared. PT-OP-K Range of Motion Start: 09/21/21 17:15 Freq: Status: Active Protocol: Document 11/24/21 08:18 LRN (Rec: 11/24/21 09:01 LRN [id number]) Hip Goniometric Range of Motion Hip Right Active Testing Position Supine Internal Rotation 35 External Rotation 85 Left Passive Testing Position Supine Internal Rotation 25 External Rotation 75 PT-OP-L Special Tests Start: 09/21/21 17:15 Freq: Status: Active Protocol: Document 11/06/21 08:14 LRN (Rec: 11/06/21 09:05 LRN [id number]) Special Tests Lumbar Spine Special Tests Slump Test Results negative Straight Leg Raise Test Results 90 left, 95 right Comments C/O hip socket pain bilterally . PT-OP-M Strength Start: 09/21/21 17:15 Freq: Status: Active Protocol: Document 09/26/21 08:17 LRN (Rec: 09/26/21 09:39 LRN [id number]) Trunk Strength Trunk Manual Muscle Testing Core Stabilization Pt able to maintain core stability with hip flexion ms testing. Hip Strength Hip Manual Muscle Testing Right Flexion (L2) 5 Normal External Rotation 5 Normal Internal Rotation 3 Fair Left Flexion (L2) 5 Normal External Rotation 5 Normal Internal Rotation 3 Fair PT-OP-Q Treatments Start: 09/21/21 17:15 Freq: Status: Active Protocol: Document 03/12/22 09:51 LRN (Rec: 03/12/22 10:50 LRN [id number]) Gym Equipment Cable Column (Body Solid) Leg Ext Aurora Details Aurora holds at 90 deg's > 0 deg 's Resistance 110# 10 sec holds x 2 each Reps/Time Resting btn sets with active kne ext. Wheel at 2,3, 5, 6, 7 , 8, 10, 12, 14. Leg Extension Details aime knees, conc with slow and careful movement. Resistance 10# Reps/Time 8x 2 Leg Curl Details Leg Curl Resistance 35# Reps/Time 15x Shuttle Recovery Bilateral Squats Details Aime Squats in neutral spine Resistance 62#, 50# Shuttle Recovery Platform Stable Reps/Time 15x 1 each L knee more pain. Therapeutic Exercises Standing Exercises Trunk rot Standing Exercise Name Trunk rot strengthening w/TA tight to start Side bilateral Equipment Used Lev 2 TB Reps/Minutes 15x 2 each Comments L SIJ pn. Pt moving slowly through exercise PT-OP-R Modalities Start: 09/21/21 17:15 Freq: Status: Active Protocol: Document 03/12/22 09:51 LRN (Rec: 03/12/22 10:50 LRN [id number]) Electric Stimulation Electric Stimulation Interferential Current (IFC) Body Location [L1>opposite side of sacrum] Duration (Minutes) 11 Intensity 11 Target/Sweep Sweep Patient Position Hooklying Combined With Heat/Cold Cold Pack Comments Legs on bolster Large CP in mid>LB Hot Pack/Cold Pack Treatment Cold Pack Location Back & Sacrum Patient Position Hooklying Treatment Duration (minutes) 11 Patient Tolerance Good Comments Bolster under legs PT-OP-T Assessment and Plan Start: 09/21/21 17:15 Freq: Status: Active Protocol: Document 03/12/22 09:51 LRN (Rec: 03/12/22 10:50 LRN [id number]) Physical Therapy Assessment Goals Four Impairment Decreased function Impairment CHRISTELLE 20/50 = 40/100 (40-59% impaired, score 40-59). 01/29/22: Pt feels stride is short on both sides and slower than normal, now 6 shuffle steps, 1-2 mph speed; used to be 3 mph easily). Limited in ability to bend, lift > 15#, twisting, sitting > 1 hr, standing > 1 hr, able to sleep w/medication. Sitting to drive >1.5 hrs is too much. Short Term Goal (STG) Pt will be able to improve hip flexors mobility to start moving normal (stairs, walking ). (11/06/21: Walking with small shuffle steps, stairs are difficult, bending is very difficult). (12/05/21: Walking slow but normal, pain with stairs and bending). (01/29/22: Stairs: Up normal, down one at time; walkin steps her back (at L4-S1 ) hurts and hips are swinging around going from R to L) (02/13/22: 1st in AM, can't go down steps normal, sometime can in evening. Walking must be careful with walking and turning due to onset of hip pain. Can walk 90% normal straight except after 2500- 2800 steps in a day, starts to shuffle). STG Duration 03/14/22 (01/29/22: Progressing, normal gait ascending stairs) Halfway Goal (LTG) OLD GOAL: Improve function per CHRISTELLE score of 20-39 (20-39% impaired, score 20-39) HOME GOAL: Carry light weights of 50# for 50 ft. without becoming debilitated. (01/29/22: CHRISTELLE Score is 20/50 = 40/100). LTG Duration 04/29/22 (01/29/22: NO CHANGE ) Three Impairment Decreased strength and home work function. Impairment Pt on light duty. WORK: Not able to run, crawl, bend, twist, wrestle a suspect , bend down to put someone in handcuffs. Pain starts at 2-4/10 and ends at 7-9/10 at work. HOME: (01/29/22) Not able to fold clothes and remove casserole from oven due to back pain. Short Term Goal (STG) WORK GOAL: Pt will be able to tolerate wearing a 16# belt around waist (leather gear and items it holds) while walking around for her job. NEW HOME GOAL (01/29/22): Pt able to tolerate bring groceries into home after shopping. 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 NEW HOME GOAL: Be able to fold clothes, and getting cassole out of oven with pain no greater than 3/10. (01/29/22: Started weight strengthening program of [employer]) (03/12/22: 6-7/10 pain getting casserole out of oven). LTG Duration 04/29/22 (01/29/22: Progressing) Two Impairment Decreased ability to ex due to LBP, Aime hip pain, Aime knee pain. Impairment Pt not execising due to: LBP 4-6/10, R hip pain: anterolateral 4-6 /10, posterior 2-4/10, L hip pain: anterior 2-5/10, R knee pain: medial & lateral 3-8/10, L knee pain: medial & lateral 3-5/10. 01/29/22: Able to walk 1500 steps in a day. Functionally must use arms to lift self to upright after bending over. Short Term Goal (STG) WORK GOAL: Decrease bilateral hip and knee pain with pt able to initiate exercising ( weight lifting) beyond her daily activities. (01/11/22: twinges of pain in the R anterolateral thigh NEW HOME GOAL: Walk 5000 steps in a day. (01/29/22: Started weight strengthening program of [employer]) (02/13/22: Walks max before having to stop, on a busy day, [id number] steps). STG Duration 03/14/22 (01/29/22: Progressing) Halfway Goal (LTG) WORK GOAL: Pt will be able to tolerate movements (run, crawl, bend, twist, wrestle someone to the ground to put handcuffs on) with tolerable pain, to complete quaterly Lethel force training. NEW HOME GOAL: Pt will be able to tolerate movements (be able to bend over and not have to use UE's to work self back up to standing. LTG Duration 05/29/22 One Impairment Pt lacks appropriate self care HEP. Short Term Goal (STG) Pt will be educated in log roll technique for transfers (10/09/21: Pt educated in log roll technique for transfers) STG Duration 10/03/21 (10/09/21: MET GOAL) Halfway Goal (LTG) Independent with a self care HEP. (10/09/21: HEP I/S: TA tightening in sidelie for strengthening and practice in prone & sup). (11/10/21: Reviewed previously issued HEP: Hip ER, and IR (L >R) stretch). (11/24/21: I/S pt in sitting core ex' of leg lifts alternating and together). LTG Duration 05/29/22 (11/24/21: Progressed) Assessment Summary Assessment Low tolerance to L knee strengthening due to pain. Trunk R rot is weaker and shows less stability (L rot stabiilty of pelvis is good). Pt has L SIJ clicking sometimes associated to pain when weightshifting onto LLE and ms spasm in RLB during core stabalizing when lifting RLE probably due to poor control on R side (?QL weak). Ice/EStim helped alleviate some of pt's LBP after exercise. Physical Therapy Plan Frequency and Duration Frequency of Treatment 2x/Week Plan of Care Start Date 01/29/22 Plan of Care End Date 05/29/22 Next Visit Focus/Plan Next Note Type Treatment Note Next Visit Plan End with cryotherapy/ES if EStim needed. Pt planning on applying for medical leave disability, Modify [facility], [place] work goals, when medical leave applied. 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 Assess L knee pain. Knee strengthening as tolerated. Check LB/IT Bands. Progress Hip flexion mobility to start moving normal (stairs , walking, bending). Assess response to self rib mobs (if improved). Progress ex's that she can do at work and wgt lifting as tolerated. Stabilize LB/Pelvis and strengthen thoracic region if pain down. Monitor TA tightening (L>R) for equal contraction on L side compared to R side and for LB (KTC) Manual therapy as needed to: Normalize & stabilize Thoracic Core, hips/pelvis (LE roll in /outs). If needed, Manual: Balancing of thoracic region. Modalities as needed: MH/IFES [thoracic & lumbar spine].
--- NOTE | 2022-04-02 17:02 | PT.OTN ---
Current Diagnoses Lumbago with sciatica, unspecified side (04/02/22) Physical Therapy Treatment Note PT-OP-A Visit Information Start: 09/21/21 17:15 Freq: Status: Active Protocol: Document 04/02/22 13:03 LRN (Rec: 04/02/22 13:49 LRN [id number]) Out-Patient Physical Therapy Visit Information Visit Information Visit Type Treatment Note Visit Start Time 13:03 Visit Stop Time 13:49 Total Visit Minutes 46 Visit Number Evaluation Information Evaluation Date 09/26/21 Precautions Precautions Per chart review: PTSD, Chronic back pain. 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 MRI 11/22/21: Degen facet arthritic chnages particulary at L4-L5. No central or foraminal stenosis. PT-OP-B Current Condition Start: 09/21/21 17:15 Freq: Status: Active Protocol: Document 09/26/21 08:17 LRN (Rec: 09/26/21 09:39 LRN [id number]) Current Condition History of Current Condition Onset Date 07/18/21 Current Complaints LBP, Aime hip and knee pain. History of Current Condition Low back pain onset 07/18/21, fell down 8 stairs, R foot went out from under her, L knee buckled and L knee ended up bent and behind her when sliding down the stairs feet first (like sliding into a base in baseball). Had horrendous pain. Did not seek medical care hoping it would go away. Two weeks later went to chiropractor and 2 weeks later ended up in ER. auto care center manager was helpful, but she was getting only a couple hours of pain relief. Now managed care specialist gives 3-4 days relief. She feels she has aggrevated an old injury (see Developmental history below). States the L4 -S1 jt is grinding. Has tried yoga stretches and states her problem feels structural and thinks she has started loosening things too soon. States the R>L hip joints hurt , thus now the knees hurt, because of modifying how she goes up/down the stairs. Pt points to her R lateral gluteal ms and sacral region as areas of pain denoted as pelvic pain. Denies urinary problems or lower abdominal pelvic pain. She is having pain with intercourse; therefore the pt may need Pelvic rehabilitation in the future. 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 Pt has been on light duty since fall. Prior Treatments and Tests auto care center manager 1-2 days/ week ([facility] in [place]). X-ray: shows no fractures in Sacrum, Coccyx, and lumbar vertebra. Developmental History Developmental History 17 yrs old fractured what she thinks is the SI, possibly Sacrum L4-S1 Cracked. In 2006 fell on steel pipe landing on L knee. Treatment Goals Patient/Caregiver Goals Pt goals are: *Get hip flexors to release in order to start moving normal (stairs, walking, bending). *Get back to place to start exercising (not doing any currently that is considered purposeful), because she is only doing daily living exercise. *Wear 16# belt around waist and leather gear that carries the items of the belt. * Be able to do Lethel force training (run, crawl, bend, twist, wrestle a suspect, bend down and put someone in handcuffs). Prior Functional Status Baseline Function- ADL's Independent Baseline Function- Mobility Independent Baseline Function- Work/School Was not exercising before fall . Walking 2 miles in/outside Weight lifting legs, arms, back a couple yrs ago Baseline Function- Other Able to sleep without pain. Current Functional Impairments (Reported) Functional Limitations- ADL's Limited in ability to bend, lift > 15#, twisting, sitting > 1 hr, standing > 1 hr, able to sleep w/medication. Sitting to drive >1.5 hrs is too much. Functional Limitations- Mobility/Gait Stride is short on both sides and slower than normal. Functional Limitations- Work/School On light duty. 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 At home has 3 children and spouse has 2 children. PT-OP-C Subjective Start: 09/21/21 17:15 Freq: Status: Active Protocol: Document 04/02/22 13:03 LRN (Rec: 04/02/22 13:49 LRN [id number]) OP-PT Subjective Patient Comments Patient Comments Has done gardening and pushe herself to the brink. Hasn't been using the cane as much, and the pain has been worse, but she thinks she might be getting stronger without using the cane. LBP rated 2-3/10; UBP 2/10. Has taken no pain med today PT-OP-H Neuro Start: 09/21/21 17:15 Freq: Status: Active Protocol: Document 09/26/21 08:17 LRN (Rec: 09/26/21 09:39 LRN [id number]) Sensation Evaluation Gross Sensation Gross Sensation WNL PT-OP-J Posture/Palpation/Skin Start: 09/21/21 17:15 Freq: Status: Active Protocol: Document 10/03/21 08:10 LRN (Rec: 10/03/21 09:03 LRN [id number]) Palpation Assessment Location L innominate Palpation Details Decreased PA mobility of L Ischial Tub Sacrum Palpation Location Sacrum Palpation Details Decreased mobility L inferior glide & PA of right DEEPIKA ( sacrum in R rot) ASIS Palpation Location ASIS Palpation Details R low and inflared. PT-OP-K Range of Motion Start: 09/21/21 17:15 Freq: Status: Active Protocol: Document 11/24/21 08:18 LRN (Rec: 11/24/21 09:01 LRN [id number]) Hip Goniometric Range of Motion Hip Right Active Testing Position Supine Internal Rotation 35 External Rotation 85 Left Passive Testing Position Supine Internal Rotation 25 External Rotation 75 PT-OP-L Special Tests Start: 09/21/21 17:15 Freq: Status: Active Protocol: Document 11/06/21 08:14 LRN (Rec: 11/06/21 09:05 LRN [id number]) Special Tests Lumbar Spine Special Tests Slump Test Results negative Straight Leg Raise Test Results 90 left, 95 right Comments C/O hip socket pain bilterally . PT-OP-M Strength Start: 09/21/21 17:15 Freq: Status: Active Protocol: Document 09/26/21 08:17 LRN (Rec: 09/26/21 09:39 LRN [id number]) Trunk Strength Trunk Manual Muscle Testing Core Stabilization Pt able to maintain core stability with hip flexion ms testing. Hip Strength Hip Manual Muscle Testing Right Flexion (L2) 5 Normal External Rotation 5 Normal Internal Rotation 3 Fair Left Flexion (L2) 5 Normal External Rotation 5 Normal Internal Rotation 3 Fair PT-OP-Q Treatments Start: 09/21/21 17:15 Freq: Status: Active Protocol: Document 04/02/22 13:03 LRN (Rec: 04/02/22 13:49 LRN [id number]) Gym Equipment Cable Column (Body Solid) Leg Ext Aurora Details Aurora holds at 90 deg's > 0 deg 's Resistance 110# 10 sec holds x 3 each Reps/Time Resting btn sets with active kne ext. Wheel at 2,3, 5, 6, 7 , 8, 10, 12. Leg Extension Details aime knees, conc with slow and careful movement. Resistance 10# Reps/Time 8x 3 Leg Curl Details Leg Curl Resistance 35# Reps/Time 10x Shuttle Recovery Unilateral Squats Resistance 62# Shuttle Recovery Platform Stable Reps/Time 8x 1 Bilateral Squats Details Aime Squats in neutral spine Resistance 75#, 62# Shuttle Recovery Platform Stable Reps/Time 15x 1 each L knee more pain. Therapeutic Exercises Sitting Exercises Hamstring stretch Sitting Exercise Name Leg on plinth Side bilateral Reps/Minutes 30 H x 2 Comments Cued pt to stretch on same side for >60 PT-OP-R Modalities Start: 09/21/21 17:15 Freq: Status: Active Protocol: Document 03/12/22 09:51 LRN (Rec: 03/12/22 10:50 LRN [id number]) Electric Stimulation Electric Stimulation Interferential Current (IFC) Body Location [L1>opposite side of sacrum] Duration (Minutes) 11 Intensity 11 Target/Sweep Sweep Patient Position Hooklying Combined With Heat/Cold Cold Pack Comments Legs on bolster Large CP in mid>LB Hot Pack/Cold Pack Treatment Cold Pack Location Back & Sacrum Patient Position Hooklying Treatment Duration (minutes) 11 Patient Tolerance Good Comments Bolster under legs PT-OP-T Assessment and Plan Start: 09/21/21 17:15 Freq: Status: Active Protocol: Document 04/02/22 13:03 LRN (Rec: 04/02/22 13:49 LRN [id number]) Physical Therapy Assessment Goals Four Impairment Decreased function Impairment CHRISTELLE 20/50 = 40/100 (40-59% impaired, score 40-59). 01/29/22: Pt feels stride is short on both sides and slower than normal, now 6 shuffle steps, 1-2 mph speed; used to be 3 mph easily). Limited in ability to bend, lift > 15#, twisting, sitting > 1 hr, standing > 1 hr, able to sleep w/medication. Sitting to drive >1.5 hrs is too much. Short Term Goal (STG) Pt will be able to improve hip flexors mobility to start moving normal (stairs, walking ). (11/06/21: Walking with small shuffle steps, stairs are difficult, bending is very difficult). (12/05/21: Walking slow but normal, pain with stairs and bending). (01/29/22: Stairs: Up normal, down one at time; walkin steps her back (at L4-S1 ) hurts and hips are swinging around going from R to L) (02/13/22: 1st in AM, can't go down steps normal, sometime can in evening. Walking must be careful with walking and turning due to onset of hip pain. Can walk 90% normal straight except after 2500- 2800 steps in a day, starts to shuffle). STG Duration 03/14/22 (01/29/22: Progressing, normal gait ascending stairs) Fdc Goal (LTG) OLD GOAL: Improve function per CHRISTELLE score of 20-39 (20-39% impaired, score 20-39) HOME GOAL: Carry light weights of 50# for 50 ft. without becoming debilitated. (01/29/22: CHRISTELLE Score is 20/50 = 40/100). LTG Duration 04/29/22 (01/29/22: NO CHANGE ) Three Impairment Decreased strength and home work function. Impairment Pt on light duty. WORK: Not able to run, crawl, bend, twist, wrestle a suspect , bend down to put someone in handcuffs. Pain starts at 2-4/10 and ends at 7-9/10 at work. HOME: (01/29/22) Not able to fold clothes and remove casserole from oven due to back pain. Short Term Goal (STG) WORK GOAL: Pt will be able to tolerate wearing a 16# belt around waist (leather gear and items it holds) while walking around for her job. NEW HOME GOAL (01/29/22): Pt able to tolerate bring groceries into home after shopping. 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 NEW HOME GOAL: Be able to fold clothes, and getting cassole out of oven with pain no greater than 3/10. (01/29/22: Started weight strengthening program of [employer]) (03/12/22: 6-7/10 pain getting casserole out of oven). LTG Duration 04/29/22 (01/29/22: Progressing) Two Impairment Decreased ability to ex due to LBP, Aime hip pain, Aime knee pain. Impairment Pt not execising due to: LBP 4-6/10, R hip pain: anterolateral 4-6 /10, posterior 2-4/10, L hip pain: anterior 2-5/10, R knee pain: medial & lateral 3-8/10, L knee pain: medial & lateral 3-5/10. 01/29/22: Able to walk 1500 steps in a day. Functionally must use arms to lift self to upright after bending over. Short Term Goal (STG) WORK GOAL: Decrease bilateral hip and knee pain with pt able to initiate exercising ( weight lifting) beyond her daily activities. (01/11/22: twinges of pain in the R anterolateral thigh NEW HOME GOAL: Walk 5000 steps in a day. (01/29/22: Started weight strengthening program of LE's) (02/13/22: Walks max before having to stop, on a busy day, [id number] steps). STG Duration 03/14/22 (01/29/22: Progressing) Network Control Technician Goal (LTG) WORK GOAL: Pt will be able to tolerate movements (run, crawl, bend, twist, wrestle someone to the ground to put handcuffs on) with tolerable pain, to complete quaterly Lethel force training. NEW HOME GOAL: Pt will be able to tolerate movements (be able to bend over and not have to use UE's to work self back up to standing. LTG Duration 05/29/22 One Impairment Pt lacks appropriate self care HEP. Short Term Goal (STG) Pt will be educated in log roll technique for transfers (10/09/21: Pt educated in log roll technique for transfers) STG Duration 10/03/21 (10/09/21: MET GOAL) Fdc Goal (LTG) Independent with a self care HEP. (10/09/21: HEP I/S: TA tightening in sidelie for strengthening and practice in prone & sup). (11/10/21: Reviewed previously issued HEP: Hip ER, and IR (L >R) stretch). (11/24/21: I/S pt in sitting core ex' of leg lifts alternating and together). LTG Duration 05/29/22 (11/24/21: Progressed) Assessment Summary Assessment Pain in L lateral knee with aurora knee ext at ~10 deg's flex on dual pully exercise. L Lateral knee pain diminished with lumbar ext correction of arch and proper posturing. Pt strength improving in knees . Pt choosing to ice at home. Physical Therapy Plan Frequency and Duration Frequency of Treatment 2x/Week Plan of Care Start Date 01/29/22 Plan of Care End Date 05/29/22 Next Visit Focus/Plan Next Note Type Treatment Note Next Visit Plan End with cryotherapy/EStim [ thoracic & lumbar spine] as needed. Pt applied for medical leave disability, Modify [facility], [place] work goals, when medical leave applied. Add HEP: Core progressive strengthening program. 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 Assess L knee pain. Knee strengthening as tolerated. Check LB/IT Bands. Progress Hip flexion mobility to start moving normal (stairs , walking, bending). Assess response to self rib mobs (if improved). Progress ex's that she can do at work and wgt lifting as tolerated. Stabilize LB/Pelvis and strengthen thoracic region if pain down. Monitor TA tightening (L>R) for equal contraction on L side compared to R side and for LB (KTC) Manual therapy as needed to: Normalize & stabilize Thoracic Core, hips/pelvis (LE roll in /outs). If needed, Manual: Balancing of thoracic region.
--- NOTE | 2022-04-10 17:24 | PT.OTN ---
Current Diagnoses Lumbago with sciatica, unspecified side (04/10/22) Physical Therapy Treatment Note PT-OP-A Visit Information Start: 09/21/21 17:15 Freq: Status: Active Protocol: Document 04/10/22 13:00 LRN (Rec: 04/10/22 13:49 LRN [id number]) Out-Patient Physical Therapy Visit Information Visit Information Visit Type Treatment Note Visit Start Time 13:00 Visit Stop Time 13:39 Total Visit Minutes 39 Visit Number Evaluation Information Evaluation Date 09/26/21 Precautions Precautions Per chart review: PTSD, Chronic back pain. 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 MRI 11/22/21: Degen facet arthritic chnages particulary at L4-L5. No central or foraminal stenosis. PT-OP-B Current Condition Start: 09/21/21 17:15 Freq: Status: Active Protocol: Document 09/26/21 08:17 LRN (Rec: 09/26/21 09:39 LRN [id number]) Current Condition History of Current Condition Onset Date 07/18/21 Current Complaints LBP, Lewis hip and knee pain. History of Current Condition Low back pain onset 07/18/21, fell down 8 stairs, R foot went out from under her, L knee buckled and L knee ended up bent and behind her when sliding down the stairs feet first (like sliding into a base in baseball). Had horrendous pain. Did not seek medical care hoping it would go away. Two weeks later went to chiropractor and 2 weeks later ended up in ER. farm or ranch animal caretaker was helpful, but she was getting only a couple hours of pain relief. Now care coordinator gives 3-4 days relief. She feels she has aggrevated an old injury (see Developmental history below). States the L4 -S1 jt is grinding. Has tried yoga stretches and states her problem feels structural and thinks she has started loosening things too soon. States the R>L hip joints hurt , thus now the knees hurt, because of modifying how she goes up/down the stairs. Pt points to her R lateral gluteal ms and sacral region as areas of pain denoted as pelvic pain. Denies urinary problems or lower abdominal pelvic pain. She is having pain with intercourse; therefore the pt may need Pelvic rehabilitation in the future. 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 Pt has been on light duty since fall. Prior Treatments and Tests farm or ranch animal caretaker 1-2 days/ week ([facility] in [place]). X-ray: shows no fractures in Sacrum, Coccyx, and lumbar vertebra. Developmental History Developmental History 17 yrs old fractured what she thinks is the SI, possibly Sacrum L4-S1 Cracked. In 2006 fell on steel pipe landing on L knee. Treatment Goals Patient/Caregiver Goals Pt goals are: *Get hip flexors to release in order to start moving normal (stairs, walking, bending). *Get back to place to start exercising (not doing any currently that is considered purposeful), because she is only doing daily living exercise. *Wear 16# belt around waist and leather gear that carries the items of the belt. * Be able to do Lethel force training (run, crawl, bend, twist, wrestle a suspect, bend down and put someone in handcuffs). Prior Functional Status Baseline Function- ADL's Independent Baseline Function- Mobility Independent Baseline Function- Work/School Was not exercising before fall . Walking 2 miles in/outside Weight lifting legs, arms, back a couple yrs ago Baseline Function- Other Able to sleep without pain. Current Functional Impairments (Reported) Functional Limitations- ADL's Limited in ability to bend, lift > 15#, twisting, sitting > 1 hr, standing > 1 hr, able to sleep w/medication. Sitting to drive >1.5 hrs is too much. Functional Limitations- Mobility/Gait Stride is short on both sides and slower than normal. Functional Limitations- Work/School On light duty. 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 At home has 3 children and spouse has 2 children. PT-OP-C Subjective Start: 09/21/21 17:15 Freq: Status: Active Protocol: Document 04/10/22 13:00 LRN (Rec: 04/10/22 13:49 LRN [id number]) OP-PT Subjective Patient Comments Patient Comments PT walks in with cane. Has been sitting on chairs at school for child's orientation and courtroom chairs, and at ER for oldest daughter. Pain in LB is 4/10, MB is 5/10. Having intermittent pain in R posterior hip>knee. Worked 20 hrs last week. Was having an easier time getting casserole's out of the oven. Pt chooses to ice at home vs modalities at clinic. PT-OP-H Neuro Start: 09/21/21 17:15 Freq: Status: Active Protocol: Document 09/26/21 08:17 LRN (Rec: 09/26/21 09:39 LRN [id number]) Sensation Evaluation Gross Sensation Gross Sensation WNL PT-OP-J Posture/Palpation/Skin Start: 09/21/21 17:15 Freq: Status: Active Protocol: Document 10/03/21 08:10 LRN (Rec: 10/03/21 09:03 LRN [id number]) Palpation Assessment Location L innominate Palpation Details Decreased PA mobility of L Ischial Tub Sacrum Palpation Location Sacrum Palpation Details Decreased mobility L inferior glide & PA of right DEEPIKA ( sacrum in R rot) ASIS Palpation Location ASIS Palpation Details R low and inflared. PT-OP-K Range of Motion Start: 09/21/21 17:15 Freq: Status: Active Protocol: Document 11/24/21 08:18 LRN (Rec: 11/24/21 09:01 LRN [id number]) Hip Goniometric Range of Motion Hip Right Active Testing Position Supine Internal Rotation 35 External Rotation 85 Left Passive Testing Position Supine Internal Rotation 25 External Rotation 75 PT-OP-L Special Tests Start: 09/21/21 17:15 Freq: Status: Active Protocol: Document 11/06/21 08:14 LRN (Rec: 11/06/21 09:05 LRN [id number]) Special Tests Lumbar Spine Special Tests Slump Test Results negative Straight Leg Raise Test Results 90 left, 95 right Comments C/O hip socket pain bilterally . PT-OP-M Strength Start: 09/21/21 17:15 Freq: Status: Active Protocol: Document 09/26/21 08:17 LRN (Rec: 09/26/21 09:39 LRN [id number]) Trunk Strength Trunk Manual Muscle Testing Core Stabilization Pt able to maintain core stability with hip flexion ms testing. Hip Strength Hip Manual Muscle Testing Right Flexion (L2) 5 Normal External Rotation 5 Normal Internal Rotation 3 Fair Left Flexion (L2) 5 Normal External Rotation 5 Normal Internal Rotation 3 Fair PT-OP-Q Treatments Start: 09/21/21 17:15 Freq: Status: Active Protocol: Document 04/10/22 13:00 LRN (Rec: 04/10/22 13:49 LRN [id number]) Gym Equipment Cable Column (Body Solid) Leg Ext Aurora Details Aurora holds at 90 deg's > 0 deg 's Resistance 110# 10 sec holds x 3 each Reps/Time Resting btn sets with active kne ext. Wheel at 2,3, 5, 6, 7 , 8, 10, 12. Leg Curl Details Leg Curl Resistance 10# Reps/Time 15x Therapeutic Exercises Supine Exercises Lewis Heel slides w/TA Supine Exercise Name Each side heel slides (HEP) Side bilateral Reps/Minutes 10-20x TA tightening Supine Exercise Name Neutral spine bracing review Manual Therapy Treatment Soft Tissue Mobilization Balancing of Sacrum/SIJ's Body Location Balancing at Sacrum Mobilization Type Myofascial Release Body Position Prone Comments Lewis infer glide of superior sacrum, PA DEEPIKA's & Sacral sulcus, PA stretch to Sacrotuberus lig. Shear of Sacrum R to L. Approximation of Ischial Tubs. MFR of Iliopsoas, mostly R side. Self-Care/Home Management Treatment Education Patient Education Home Exercise Program Activities Self-Care/Home Management Activities Issued and reviewed up to heel slides of Progressive DLS strengthening program. Pt to progress if able to do ex with neutral spine stabalized through 10x3 reps of exercise. PT-OP-R Modalities Start: 09/21/21 17:15 Freq: Status: Active Protocol: Document 03/12/22 09:51 LRN (Rec: 03/12/22 10:50 LRN [id number]) Electric Stimulation Electric Stimulation Interferential Current (IFC) Body Location [L1>opposite side of sacrum] Duration (Minutes) 11 Intensity 11 Target/Sweep Sweep Patient Position Hooklying Combined With Heat/Cold Cold Pack Comments Legs on bolster Large CP in mid>LB Hot Pack/Cold Pack Treatment Cold Pack Location Back & Sacrum Patient Position Hooklying Treatment Duration (minutes) 11 Patient Tolerance Good Comments Bolster under legs PT-OP-T Assessment and Plan Start: 09/21/21 17:15 Freq: Status: Active Protocol: Document 04/10/22 13:00 LRN (Rec: 04/10/22 13:49 LRN [id number]) Physical Therapy Assessment Goals Four Impairment Decreased function Impairment CHRISTELLE 20/50 = 40/100 (40-59% impaired, score 40-59). 01/29/22: Pt feels stride is short on both sides and slower than normal, now 6 shuffle steps, 1-2 mph speed; used to be 3 mph easily). Limited in ability to bend, lift > 15#, twisting, sitting > 1 hr, standing > 1 hr, able to sleep w/medication. Sitting to drive >1.5 hrs is too much. Short Term Goal (STG) Pt will be able to improve hip flexors mobility to start moving normal (stairs, walking ). (11/06/21: Walking with small shuffle steps, stairs are difficult, bending is very difficult). (12/05/21: Walking slow but normal, pain with stairs and bending). (01/29/22: Stairs: Up normal, down one at time; walkin steps her back (at L4-S1 ) hurts and hips are swinging around going from R to L) (02/13/22: 1st in AM, can't go down steps normal, sometime can in evening. Walking must be careful with walking and turning due to onset of hip pain. Can walk 90% normal straight except after 2500- 2800 steps in a day, starts to shuffle). STG Duration 03/14/22 (01/29/22: Progressing, normal gait ascending stairs) Plate Cleaner Goal (LTG) OLD GOAL: Improve function per CHRISTELLE score of 20-39 (20-39% impaired, score 20-39) HOME GOAL: Carry light weights of 50# for 50 ft. without becoming debilitated. (01/29/22: CHRISTELLE Score is 20/50 = 40/100). LTG Duration 04/29/22 (01/29/22: NO CHANGE ) Three Impairment Decreased strength and home work function. Impairment Pt on light duty. WORK: Not able to run, crawl, bend, twist, wrestle a suspect , bend down to put someone in handcuffs. Pain starts at 2-4/10 and ends at 7-9/10 at work. HOME: (01/29/22) Not able to fold clothes and remove casserole from oven due to back pain. Short Term Goal (STG) WORK GOAL: Pt will be able to tolerate wearing a 16# belt around waist (leather gear and items it holds) while walking around for her job. NEW HOME GOAL (01/29/22): Pt able to tolerate bring groceries into home after shopping. 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 NEW HOME GOAL: Be able to fold clothes, and getting cassole out of oven with pain no greater than 3/10. (01/29/22: Started weight strengthening program of LE's) (04/10/22: Improved ease with getting cassole out of oven) (03/12/22: 6-7/10 pain getting casserole out of oven). LTG Duration 04/29/22 (04/10/22: Progressing) Two Impairment Decreased ability to ex due to LBP, Lewis hip pain, Lewis knee pain. Impairment Pt not execising due to: LBP 4-6/10, R hip pain: anterolateral 4-6 /10, posterior 2-4/10, L hip pain: anterior 2-5/10, R knee pain: medial & lateral 3-8/10, L knee pain: medial & lateral 3-5/10. 01/29/22: Able to walk 1500 steps in a day. Functionally must use arms to lift self to upright after bending over. Short Term Goal (STG) WORK GOAL: Decrease bilateral hip and knee pain with pt able to initiate exercising ( weight lifting) beyond her daily activities. (01/11/22: twinges of pain in the R anterolateral thigh NEW HOME GOAL: Walk 5000 steps in a day. (01/29/22: Started weight strengthening program of LE's) (02/13/22: Walks max before having to stop, on a busy day, [id number] steps). STG Duration 03/14/22 (01/29/22: Progressing) Plate Cleaner Goal (LTG) WORK GOAL: Pt will be able to tolerate movements (run, crawl, bend, twist, wrestle someone to the ground to put handcuffs on) with tolerable pain, to complete quaterly Lethel force training. NEW HOME GOAL: Pt will be able to tolerate movements (be able to bend over and not have to use UE's to work self back up to standing. LTG Duration 05/29/22 One Impairment Pt lacks appropriate self care HEP. Short Term Goal (STG) Pt will be educated in log roll technique for transfers (10/09/21: Pt educated in log roll technique for transfers) STG Duration 10/03/21 (10/09/21: MET GOAL) Plate Cleaner Goal (LTG) Independent with a self care HEP. (10/09/21: HEP I/S: TA tightening in sidelie for strengthening and practice in prone & sup). (11/10/21: Reviewed previously issued HEP: Hip ER, and IR (L >R) stretch). (11/24/21: I/S pt in sitting core ex' of leg lifts alternating and together). (04/10/22: HEP issued for progressive core stabilization ) LTG Duration 05/29/22 (04/10/22: Progressed) Assessment Summary Assessment Pt ambs into therapy with SPC due to increase back pain (LB & MB and R posterior thigh pain) from sitting on uncomfortable seats and increased stress from daughter and work. Lower tolerance to strengthening exercises. Leg curl strengthening is not tolerated with L knee. Pt did appear to have a good understanding of core progression ideology. Pt progressed to heel slides with feet on mat. Physical Therapy Plan Frequency and Duration Frequency of Treatment 2x/Week Plan of Care Start Date 01/29/22 Plan of Care End Date 05/29/22 Next Visit Focus/Plan Next Note Type Treatment Note Next Visit Plan End with cryotherapy/EStim [ thoracic & lumbar spine] as needed. Pt applied for medical leave disability, Modify [facility] [place] work goals, when medical leave applied. Assess L knee pain. Knee strengthening as tolerated. Review HEP: Core progressive strengthening program and progress to next level. 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 Check LB/IT Bands. Progress Hip flexion mobility to start moving normal (stairs , walking, bending). Assess response to self rib mobs (if improved). Progress ex's that she can do at work and wgt lifting as tolerated. Monitor TA tightening (L>R) for equal contraction on L side compared to R side and for LB (KTC) Manual therapy as needed to: Normalize & stabilize Thoracic Core, hips/pelvis (LE roll in /outs). If needed, Manual: Balancing of thoracic region. Overall POC: Stabilize LB/ Pelvis and strengthen thoracic region if pain down.
--- NOTE | 2022-04-17 17:15 | PT.OTN ---
Current Diagnoses Lumbago with sciatica, unspecified side (04/17/22) Physical Therapy Treatment Note PT-OP-A Visit Information Start: 09/21/21 17:15 Freq: Status: Active Protocol: Document 04/17/22 13:02 LRN (Rec: 04/17/22 13:48 LRN [id number]) Out-Patient Physical Therapy Visit Information Visit Information Visit Type Treatment Note Visit Start Time 13:02 Visit Stop Time 13:46 Total Visit Minutes 44 Visit Number Evaluation Information Evaluation Date 09/26/21 Precautions Precautions Per chart review: PTSD, Chronic back pain. 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 MRI 11/22/21: Degen facet arthritic chnages particulary at L4-L5. No central or foraminal stenosis. PT-OP-B Current Condition Start: 09/21/21 17:15 Freq: Status: Active Protocol: Document 09/26/21 08:17 LRN (Rec: 09/26/21 09:39 LRN [id number]) Current Condition History of Current Condition Onset Date 07/18/21 Current Complaints LBP, Aime hip and knee pain. History of Current Condition Low back pain onset 07/18/21, fell down 8 stairs, R foot went out from under her, L knee buckled and L knee ended up bent and behind her when sliding down the stairs feet first (like sliding into a base in baseball). Had horrendous pain. Did not seek medical care hoping it would go away. Two weeks later went to chiropractor and 2 weeks later ended up in ER. certified caregiver was helpful, but she was getting only a couple hours of pain relief. Now director of patient care gives 3-4 days relief. She feels she has aggrevated an old injury (see Developmental history below). States the L4 -S1 jt is grinding. Has tried yoga stretches and states her problem feels structural and thinks she has started loosening things too soon. States the R>L hip joints hurt , thus now the knees hurt, because of modifying how she goes up/down the stairs. Pt points to her R lateral gluteal ms and sacral region as areas of pain denoted as pelvic pain. Denies urinary problems or lower abdominal pelvic pain. She is having pain with intercourse; therefore the pt may need Pelvic rehabilitation in the future. 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 Pt has been on light duty since fall. Prior Treatments and Tests certified caregiver 1-2 days/ week ([facility] in [place]). X-ray: shows no fractures in Sacrum, Coccyx, and lumbar vertebra. Developmental History Developmental History 17 yrs old fractured what she thinks is the SI, possibly Sacrum L4-S1 Cracked. In 2006 fell on steel pipe landing on L knee. Treatment Goals Patient/Caregiver Goals Pt goals are: *Get hip flexors to release in order to start moving normal (stairs, walking, bending). *Get back to place to start exercising (not doing any currently that is considered purposeful), because she is only doing daily living exercise. *Wear 16# belt around waist and leather gear that carries the items of the belt. * Be able to do Lethel force training (run, crawl, bend, twist, wrestle a suspect, bend down and put someone in handcuffs). Prior Functional Status Baseline Function- ADL's Independent Baseline Function- Mobility Independent Baseline Function- Work/School Was not exercising before fall . Walking 2 miles in/outside Weight lifting legs, arms, back a couple yrs ago Baseline Function- Other Able to sleep without pain. Current Functional Impairments (Reported) Functional Limitations- ADL's Limited in ability to bend, lift > 15#, twisting, sitting > 1 hr, standing > 1 hr, able to sleep w/medication. Sitting to drive >1.5 hrs is too much. Functional Limitations- Mobility/Gait Stride is short on both sides and slower than normal. Functional Limitations- Work/School On light duty. 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 At home has 3 children and spouse has 2 children. PT-OP-C Subjective Start: 09/21/21 17:15 Freq: Status: Active Protocol: Document 04/17/22 13:02 LRN (Rec: 04/17/22 13:48 LRN [id number]) OP-PT Subjective Patient Comments Patient Comments Pt w/cane. States she is able to do more heel slide ex's ( 10x 3 sets), but now has hitch in R hip. Starts in pool next week. L knee is quite sore. Some nights at end of day goes up/down on R LE (because L knee is worse than R). PT-OP-H Neuro Start: 09/21/21 17:15 Freq: Status: Active Protocol: Document 09/26/21 08:17 LRN (Rec: 09/26/21 09:39 LRN [id number]) Sensation Evaluation Gross Sensation Gross Sensation WNL PT-OP-J Posture/Palpation/Skin Start: 09/21/21 17:15 Freq: Status: Active Protocol: Document 10/03/21 08:10 LRN (Rec: 10/03/21 09:03 LRN [id number]) Palpation Assessment Location L innominate Palpation Details Decreased PA mobility of L Ischial Tub Sacrum Palpation Location Sacrum Palpation Details Decreased mobility L inferior glide & PA of right DEEPIKA ( sacrum in R rot) ASIS Palpation Location ASIS Palpation Details R low and inflared. PT-OP-K Range of Motion Start: 09/21/21 17:15 Freq: Status: Active Protocol: Document 11/24/21 08:18 LRN (Rec: 11/24/21 09:01 LRN [id number]) Hip Goniometric Range of Motion Hip Right Active Testing Position Supine Internal Rotation 35 External Rotation 85 Left Passive Testing Position Supine Internal Rotation 25 External Rotation 75 PT-OP-L Special Tests Start: 09/21/21 17:15 Freq: Status: Active Protocol: Document 11/06/21 08:14 LRN (Rec: 11/06/21 09:05 LRN [id number]) Special Tests Lumbar Spine Special Tests Slump Test Results negative Straight Leg Raise Test Results 90 left, 95 right Comments C/O hip socket pain bilterally . PT-OP-M Strength Start: 09/21/21 17:15 Freq: Status: Active Protocol: Document 09/26/21 08:17 LRN (Rec: 09/26/21 09:39 LRN [id number]) Trunk Strength Trunk Manual Muscle Testing Core Stabilization Pt able to maintain core stability with hip flexion ms testing. Hip Strength Hip Manual Muscle Testing Right Flexion (L2) 5 Normal External Rotation 5 Normal Internal Rotation 3 Fair Left Flexion (L2) 5 Normal External Rotation 5 Normal Internal Rotation 3 Fair PT-OP-Q Treatments Start: 09/21/21 17:15 Freq: Status: Active Protocol: Document 04/17/22 13:02 LRN (Rec: 04/17/22 13:48 LRN [id number]) Gym Equipment Cable Column (Body Solid) Leg Ext Aurora Details Aurora holds at 90 deg's > 0 deg 's Resistance 190# 10 sec holds x 10 each Reps/Time Resting btn sets with active kne ext. Wheel 2,3,(held 5/6), 7, 8, 10, 12. Leg Extension Details aime knees, conc with slow and careful movement. Resistance 100# Reps/Time 10x 3 Leg Curl Details Leg Curl Resistance 10# Reps/Time 10x 3 Shuttle Recovery Unilateral Squats Details Squat in painfree range (0-50 deg's knee range) Shuttle Recovery Platform Stable Reps/Time 10x 3 Bilateral Squats Details Aime Squats in neutral spine Resistance 75#, 62# Shuttle Recovery Platform Stable Reps/Time 15x 1 each, Decrease in L knee pain. Therapeutic Exercises Sitting Exercises Partial sit<>stand Sitting Exercise Name Plinth hgt 28 inches. Side bilateral Reps/Minutes 30x Comments ~10 deg's knee flexion Hamstring stretch Sitting Exercise Name Leg on plinth Side bilateral Reps/Minutes 30 H x 2 Comments Cued pt to stretch on same side for >60 Standing Exercises Iliopsoas stretch Standing Exercise Name Iliopsoas stretch Side bilateral Reps/Minutes 60SH f/b active stretch x 10, 2 sets Comments Extra time to determine proper stretch and posture. Stairs Standing Exercise Name step ups L side on 2 block and R side with 4 step PT-OP-R Modalities Start: 09/21/21 17:15 Freq: Status: Active Protocol: Document 03/12/22 09:51 LRN (Rec: 03/12/22 10:50 LRN [id number]) Electric Stimulation Electric Stimulation Interferential Current (IFC) Body Location [L1>opposite side of sacrum] Duration (Minutes) 11 Intensity 11 Target/Sweep Sweep Patient Position Hooklying Combined With Heat/Cold Cold Pack Comments Legs on bolster Large CP in mid>LB Hot Pack/Cold Pack Treatment Cold Pack Location Back & Sacrum Patient Position Hooklying Treatment Duration (minutes) 11 Patient Tolerance Good Comments Bolster under legs PT-OP-T Assessment and Plan Start: 09/21/21 17:15 Freq: Status: Active Protocol: Document 04/17/22 13:02 LRN (Rec: 04/17/22 13:48 LRN [id number]) Physical Therapy Assessment Goals Four Impairment Decreased function Impairment CHRISTELLE 20/50 = 40/100 (40-59% impaired, score 40-59). 01/29/22: Pt feels stride is short on both sides and slower than normal, now 6 shuffle steps, 1-2 mph speed; used to be 3 mph easily). Limited in ability to bend, lift > 15#, twisting, sitting > 1 hr, standing > 1 hr, able to sleep w/medication. Sitting to drive >1.5 hrs is too much. Short Term Goal (STG) Pt will be able to improve hip flexors mobility to start moving normal (stairs, walking ). (11/06/21: Walking with small shuffle steps, stairs are difficult, bending is very difficult). (12/05/21: Walking slow but normal, pain with stairs and bending). (01/29/22: Stairs: Up normal, down one at time; walkin steps her back (at L4-S1 ) hurts and hips are swinging around going from R to L) (02/13/22: 1st in AM, can't go down steps normal, sometime can in evening. Walking must be careful with walking and turning due to onset of hip pain. Can walk 90% normal straight except after 2500- 2800 steps in a day, starts to shuffle). STG Duration 03/14/22 (01/29/22: Progressing, normal gait ascending stairs) Snf Goal (LTG) OLD GOAL: Improve function per CHRISTELLE score of 20-39 (20-39% impaired, score 20-39) HOME GOAL: Carry light weights of 50# for 50 ft. without becoming debilitated. (01/29/22: CHRISTELLE Score is 20/50 = 40/100). LTG Duration 04/29/22 (01/29/22: NO CHANGE ) Three Impairment Decreased strength and home work function. Impairment Pt on light duty. WORK: Not able to run, crawl, bend, twist, wrestle a suspect , bend down to put someone in handcuffs. Pain starts at 2-4/10 and ends at 7-9/10 at work. HOME: (01/29/22) Not able to fold clothes and remove casserole from oven due to back pain. Short Term Goal (STG) WORK GOAL: Pt will be able to tolerate wearing a 16# belt around waist (leather gear and items it holds) while walking around for her job. NEW HOME GOAL (01/29/22): Pt able to tolerate bring groceries into home after shopping. 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 NEW HOME GOAL: Be able to fold clothes, and getting cassole out of oven with pain no greater than 3/10. (01/29/22: Started weight strengthening program of LE's) (04/10/22: Improved ease with getting cassole out of oven) (03/12/22: 6-7/10 pain getting casserole out of oven). LTG Duration 04/29/22 (04/10/22: Progressing) Two Impairment Decreased ability to ex due to LBP, Aime hip pain, Aime knee pain. Impairment Pt not execising due to: LBP 4-6/10, R hip pain: anterolateral 4-6 /10, posterior 2-4/10, L hip pain: anterior 2-5/10, R knee pain: medial & lateral 3-8/10, L knee pain: medial & lateral 3-5/10. 01/29/22: Able to walk 1500 steps in a day. Functionally must use arms to lift self to upright after bending over. Short Term Goal (STG) WORK GOAL: Decrease bilateral hip and knee pain with pt able to initiate exercising ( weight lifting) beyond her daily activities. (01/11/22: twinges of pain in the R anterolateral thigh NEW HOME GOAL: Walk 5000 steps in a day. (01/29/22: Started weight strengthening program of LE's) (02/13/22: Walks max before having to stop, on a busy day, [id number] steps). STG Duration 03/14/22 (01/29/22: Progressing) Snf Goal (LTG) WORK GOAL: Pt will be able to tolerate movements (run, crawl, bend, twist, wrestle someone to the ground to put handcuffs on) with tolerable pain, to complete quaterly Lethel force training. NEW HOME GOAL: Pt will be able to tolerate movements (be able to bend over and not have to use UE's to work self back up to standing. LTG Duration 05/29/22 One Impairment Pt lacks appropriate self care HEP. Short Term Goal (STG) Pt will be educated in log roll technique for transfers (10/09/21: Pt educated in log roll technique for transfers) STG Duration 10/03/21 (10/09/21: MET GOAL) Telecommunication Systems Designer Goal (LTG) Independent with a self care HEP. (10/09/21: HEP I/S: TA tightening in sidelie for strengthening and practice in prone & sup). (11/10/21: Reviewed previously issued HEP: Hip ER, and IR (L >R) stretch). (11/24/21: I/S pt in sitting core ex' of leg lifts alternating and together). (04/10/22: HEP issued for progressive core stabilization ) LTG Duration 05/29/22 (04/10/22: Progressed) Assessment Summary Assessment Pt appears to have a pain range in her L knee today. Pt did not tolerate aurora knee ext ([facility]) due to subpatellar pain at angle of ~45-90 deg's flex. She had less L knee pain with CKC Quad strengthening except smaller tolerable range of 0-~15 deg's knee flexion (2 hgt tolerated for step ups). Physical Therapy Plan Frequency and Duration Frequency of Treatment 2x/Week Plan of Care Start Date 01/29/22 Plan of Care End Date 05/29/22 Next Visit Focus/Plan Next Note Type Treatment Note Next Visit Plan End with cryotherapy/EStim [ thoracic & lumbar spine] as needed. Pt applied for medical leave disability, Modify POC, DC work goals, when medical leave applied. Assess L knee pain. L>R Knee strengthening as tolerated ( [facility]), try ex bike or stepper if LB tolerates. Review HEP: Core progressive strengthening program and progress to next level. 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 Check LB/IT Band. Progress Hip flexion mobility to start moving normal (stairs , walking, bending). Assess response to self rib mobs (if improved). Progress ex's that she can do at work and wgt lifting as tolerated. Monitor TA tightening (L>R) for equal contraction on L side compared to R side and for LB ([facility]) Manual therapy as needed to: Normalize & stabilize Thoracic Core, hips/pelvis (LE roll in /outs). If needed, Manual: Balancing of thoracic region. Overall POC: Stabilize LB/ Pelvis and strengthen thoracic region if pain down.
--- NOTE | 2022-04-23 16:46 | PT.OTN ---
Current Diagnoses Lumbago with sciatica, unspecified side (04/23/22) Physical Therapy Treatment Note PT-OP-A Visit Information Start: 09/21/21 17:15 Freq: Status: Active Protocol: Document 04/23/22 12:30 [facility]AK (Rec: 04/23/22 17:32 [facility] [id number]) Out-Patient Physical Therapy Visit Information Visit Information Visit Type Aquatic Treatment Note Visit Start Time 12:30 Visit Stop Time 13:15 Total Visit Minutes 45 Visit Number Evaluation Information Evaluation Date 09/26/21 Precautions Precautions Per chart review: PTSD, Chronic back pain. 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 MRI 11/22/21: Degen facet arthritic chnages particulary at L4-L5. No central or foraminal stenosis. PT-OP-B Current Condition Start: 09/21/21 17:15 Freq: Status: Active Protocol: Document 09/26/21 08:17 LRN (Rec: 09/26/21 09:39 LRN [id number]) Current Condition History of Current Condition Onset Date 07/18/21 Current Complaints LBP, Aime hip and knee pain. History of Current Condition Low back pain onset 07/18/21, fell down 8 stairs, R foot went out from under her, L knee buckled and L knee ended up bent and behind her when sliding down the stairs feet first (like sliding into a base in baseball). Had horrendous pain. Did not seek medical care hoping it would go away. Two weeks later went to chiropractor and 2 weeks later ended up in ER. cattle care worker was helpful, but she was getting only a couple hours of pain relief. Now personal care home administrator gives 3-4 days relief. She feels she has aggrevated an old injury (see Developmental history below). States the L4 -S1 jt is grinding. Has tried yoga stretches and states her problem feels structural and thinks she has started loosening things too soon. States the R>L hip joints hurt , thus now the knees hurt, because of modifying how she goes up/down the stairs. Pt points to her R lateral gluteal ms and sacral region as areas of pain denoted as pelvic pain. Denies urinary problems or lower abdominal pelvic pain. She is having pain with intercourse; therefore the pt may need Pelvic rehabilitation in the future. 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 Pt has been on light duty since fall. Prior Treatments and Tests cattle care worker 1-2 days/ week ([facility] in [place]). X-ray: shows no fractures in Sacrum, Coccyx, and lumbar vertebra. Developmental History Developmental History 17 yrs old fractured what she thinks is the SI, possibly Sacrum L4-S1 Cracked. In 2006 fell on steel pipe landing on L knee. Treatment Goals Patient/Caregiver Goals Pt goals are: *Get hip flexors to release in order to start moving normal (stairs, walking, bending). *Get back to place to start exercising (not doing any currently that is considered purposeful), because she is only doing daily living exercise. *Wear 16# belt around waist and leather gear that carries the items of the belt. * Be able to do Lethel force training (run, crawl, bend, twist, wrestle a suspect, bend down and put someone in handcuffs). Prior Functional Status Baseline Function- ADL's Independent Baseline Function- Mobility Independent Baseline Function- Work/School Was not exercising before fall . Walking 2 miles in/outside Weight lifting legs, arms, back a couple yrs ago Baseline Function- Other Able to sleep without pain. Current Functional Impairments (Reported) Functional Limitations- ADL's Limited in ability to bend, lift > 15#, twisting, sitting > 1 hr, standing > 1 hr, able to sleep w/medication. Sitting to drive >1.5 hrs is too much. Functional Limitations- Mobility/Gait Stride is short on both sides and slower than normal. Functional Limitations- Work/School On light duty. 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 At home has 3 children and spouse has 2 children. PT-OP-C Subjective Start: 09/21/21 17:15 Freq: Status: Active Protocol: Document 04/23/22 12:30 LEE ANN (Rec: 04/23/22 17:32 [facility] [id number]) OP-PT Subjective Patient Comments Patient Comments Reports feeling really frustrated at continued pain and inability to do her usual job. Excited to start aquatic PT. PT-OP-H Neuro Start: 09/21/21 17:15 Freq: Status: Active Protocol: Document 09/26/21 08:17 LRN (Rec: 09/26/21 09:39 LRN [id number]) Sensation Evaluation Gross Sensation Gross Sensation WNL PT-OP-J Posture/Palpation/Skin Start: 09/21/21 17:15 Freq: Status: Active Protocol: Document 10/03/21 08:10 LRN (Rec: 10/03/21 09:03 LRN [id number]) Palpation Assessment Location L innominate Palpation Details Decreased PA mobility of L Ischial Tub Sacrum Palpation Location Sacrum Palpation Details Decreased mobility L inferior glide & PA of right DEEPIKA ( sacrum in R rot) ASIS Palpation Location ASIS Palpation Details R low and inflared. PT-OP-K Range of Motion Start: 09/21/21 17:15 Freq: Status: Active Protocol: Document 11/24/21 08:18 LRN (Rec: 11/24/21 09:01 LRN [id number]) Hip Goniometric Range of Motion Hip Right Active Testing Position Supine Internal Rotation 35 External Rotation 85 Left Passive Testing Position Supine Internal Rotation 25 External Rotation 75 PT-OP-L Special Tests Start: 09/21/21 17:15 Freq: Status: Active Protocol: Document 11/06/21 08:14 LRN (Rec: 11/06/21 09:05 LRN [id number]) Special Tests Lumbar Spine Special Tests Slump Test Results negative Straight Leg Raise Test Results 90 left, 95 right Comments C/O hip socket pain bilterally . PT-OP-M Strength Start: 09/21/21 17:15 Freq: Status: Active Protocol: Document 09/26/21 08:17 LRN (Rec: 09/26/21 09:39 LRN [id number]) Trunk Strength Trunk Manual Muscle Testing Core Stabilization Pt able to maintain core stability with hip flexion ms testing. Hip Strength Hip Manual Muscle Testing Right Flexion (L2) 5 Normal External Rotation 5 Normal Internal Rotation 3 Fair Left Flexion (L2) 5 Normal External Rotation 5 Normal Internal Rotation 3 Fair PT-OP-Q Treatments Start: 09/21/21 17:15 Freq: Status: Active Protocol: Document 04/17/22 13:02 LRN (Rec: 04/17/22 13:48 LRN [id number]) Gym Equipment Cable Column (Body Solid) Leg Ext Aurora Details Aurora holds at 90 deg's > 0 deg 's Resistance 190# 10 sec holds x 10 each Reps/Time Resting btn sets with active kne ext. Wheel 2,3,(held 5/6), 7, 8, 10, 12. Leg Extension Details aime knees, conc with slow and careful movement. Resistance 100# Reps/Time 10x 3 Leg Curl Details Leg Curl Resistance 10# Reps/Time 10x 3 Shuttle Recovery Unilateral Squats Details Squat in painfree range (0-50 deg's knee range) Shuttle Recovery Platform Stable Reps/Time 10x 3 Bilateral Squats Details Aime Squats in neutral spine Resistance 75#, 62# Shuttle Recovery Platform Stable Reps/Time 15x 1 each, Decrease in L knee pain. Therapeutic Exercises Sitting Exercises Partial sit<>stand Sitting Exercise Name Plinth hgt 28 inches. Side bilateral Reps/Minutes 30x Comments ~10 deg's knee flexion Hamstring stretch Sitting Exercise Name Leg on plinth Side bilateral Reps/Minutes 30 H x 2 Comments Cued pt to stretch on same side for >60 Standing Exercises Iliopsoas stretch Standing Exercise Name Iliopsoas stretch Side bilateral Reps/Minutes 60SH f/b active stretch x 10, 2 sets Comments Extra time to determine proper stretch and posture. Stairs Standing Exercise Name step ups L side on 2 block and R side with 4 step PT-OP-R Modalities Start: 09/21/21 17:15 Freq: Status: Active Protocol: Document 03/12/22 09:51 LRN (Rec: 03/12/22 10:50 LRN [id number]) Electric Stimulation Electric Stimulation Interferential Current (IFC) Body Location [L1>opposite side of sacrum] Duration (Minutes) 11 Intensity 11 Target/Sweep Sweep Patient Position Hooklying Combined With Heat/Cold Cold Pack Comments Legs on bolster Large CP in mid>LB Hot Pack/Cold Pack Treatment Cold Pack Location Back & Sacrum Patient Position Hooklying Treatment Duration (minutes) 11 Patient Tolerance Good Comments Bolster under legs PT-OP-S Aquatic Treatment Start: 04/24/22 16:41 Freq: Status: Active Protocol: Document 04/23/22 12:30 [facility] (Rec: 04/24/22 16:46 [facility] [id number]) Aquatics Treatment Pool Entry/Exit Pool Entry/Exit Method Stairs Assistance Verbal Cues Water Walking October Water Level Chest Level Level of Assistance Verbal Cues Sideways Water Level Chest Level Level of Assistance Verbal Cues bckwd Water Level Chest Level Level of Assistance Verbal Cues fwd Water Level Chest Level Level of Assistance Verbal Cues Lower Extremity Exercises 4 way hip Body Position Standing Water Level Chest Level Reps/Duration 10x Comments verbal and tactile cues for postural alignment Lower Extremity Stretches quad Body Position Standing Water Level Chest Level Equipment Small Noodle Reps/Duration 2x30 aime HS Body Position Standing Water Level Chest Level Equipment Small Noodle Reps/Duration 2x30 aime Spinal Exercises Iron cross Details DLS Body Position Standing Water Level Woodruff Equipment med barbells Reps/Duration 8 min Comments AP, hip ab/ad, stride, october, DKTC, UE pull down aime and unil wall squat DLS Body Position Sitting Water Level Neck Level Comments poor tolerance for position, moved to deep water Woodruff Activities Woodruff Activities Bicycle,Bicycle Backwards Equipment small noodle Duration 6 min Swim Strokes Breastroke Laps/Duration 5 m Comments poorly tolerated Backstroke Laps/Duration 25 m Comments flutter LE's, torres UE's PT-OP-T Assessment and Plan Start: 09/21/21 17:15 Freq: Status: Active Protocol: Document 04/23/22 12:30 [facility] (Rec: 04/23/22 17:32 [facility] [id number]) Physical Therapy Assessment Goals Four Impairment Decreased function Impairment CHRISTELLE 20/50 = 40/100 (40-59% impaired, score 40-59). 01/29/22: Pt feels stride is short on both sides and slower than normal, now 6 shuffle steps, 1-2 mph speed; used to be 3 mph easily). Limited in ability to bend, lift > 15#, twisting, sitting > 1 hr, standing > 1 hr, able to sleep w/medication. Sitting to drive >1.5 hrs is too much. Short Term Goal (STG) Pt will be able to improve hip flexors mobility to start moving normal (stairs, walking ). (11/06/21: Walking with small shuffle steps, stairs are difficult, bending is very difficult). (12/05/21: Walking slow but normal, pain with stairs and bending). (01/29/22: Stairs: Up normal, down one at time; walkin steps her back (at L4-S1 ) hurts and hips are swinging around going from R to L) (02/13/22: 1st in AM, can't go down steps normal, sometime can in evening. Walking must be careful with walking and turning due to onset of hip pain. Can walk 90% normal straight except after 2500- 2800 steps in a day, starts to shuffle). STG Duration 03/14/22 (01/29/22: Progressing, normal gait ascending stairs) Grain Weigher Goal (LTG) OLD GOAL: Improve function per CHRISTELLE score of 20-39 (20-39% impaired, score 20-39) HOME GOAL: Carry light weights of 50# for 50 ft. without becoming debilitated. (01/29/22: CHRISTELLE Score is 20/50 = 40/100). LTG Duration 04/29/22 (01/29/22: NO CHANGE ) Three Impairment Decreased strength and home work function. Impairment Pt on light duty. WORK: Not able to run, crawl, bend, twist, wrestle a suspect , bend down to put someone in handcuffs. Pain starts at 2-4/10 and ends at 7-9/10 at work. HOME: (01/29/22) Not able to fold clothes and remove casserole from oven due to back pain. Short Term Goal (STG) WORK GOAL: Pt will be able to tolerate wearing a 16# belt around waist (leather gear and items it holds) while walking around for her job. NEW HOME GOAL (01/29/22): Pt able to tolerate bring groceries into home after shopping. 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 NEW HOME GOAL: Be able to fold clothes, and getting cassole out of oven with pain no greater than 3/10. (01/29/22: Started weight strengthening program of LAITH's) (04/10/22: Improved ease with getting cassole out of oven) (03/12/22: 6-7/10 pain getting casserole out of oven). LTG Duration 04/29/22 (04/10/22: Progressing) Two Impairment Decreased ability to ex due to LBP, Aime hip pain, Aime knee pain. Impairment Pt not execising due to: LBP 4-6/10, R hip pain: anterolateral 4-6 /10, posterior 2-4/10, L hip pain: anterior 2-5/10, R knee pain: medial & lateral 3-8/10, L knee pain: medial & lateral 3-5/10. 01/29/22: Able to walk 1500 steps in a day. Functionally must use arms to lift self to upright after bending over. Short Term Goal (STG) WORK GOAL: Decrease bilateral hip and knee pain with pt able to initiate exercising ( weight lifting) beyond her daily activities. (01/11/22: twinges of pain in the R anterolateral thigh NEW HOME GOAL: Walk 5000 steps in a day. (01/29/22: Started weight strengthening program of LE's) (02/13/22: Walks max before having to stop, on a busy day, [id number] steps). STG Duration 03/14/22 (01/29/22: Progressing) Grain Weigher Goal (LTG) WORK GOAL: Pt will be able to tolerate movements (run, crawl, bend, twist, wrestle someone to the ground to put handcuffs on) with tolerable pain, to complete quaterly Lethel force training. NEW HOME GOAL: Pt will be able to tolerate movements (be able to bend over and not have to use UE's to work self back up to standing. LTG Duration 05/29/22 One Impairment Pt lacks appropriate self care HEP. Short Term Goal (STG) Pt will be educated in log roll technique for transfers (10/09/21: Pt educated in log roll technique for transfers) STG Duration 10/03/21 (10/09/21: MET GOAL) Long-Term Goal (LTG) Independent with a self care HEP. (10/09/21: HEP I/S: TA tightening in sidelie for strengthening and practice in prone & sup). (11/10/21: Reviewed previously issued HEP: Hip ER, and IR (L >R) stretch). (11/24/21: I/S pt in sitting core ex' of leg lifts alternating and together). (04/10/22: HEP issued for progressive core stabilization ) LTG Duration 05/29/22 (04/10/22: Progressed) Assessment Summary Assessment Good tolerance for aquatic therapy today with moderate cues for core engagement and neutral postural alignment with all activities; tendency toward anterior pelvic tilt and posterior thoracic positioning. Deep water tolerated best, cues for exercise in pain-free ROM and intensity. Physical Therapy Plan Frequency and Duration Frequency of Treatment 2x/Week Plan of Care Start Date 01/29/22 Plan of Care End Date 05/29/22 Next Visit Focus/Plan Next Note Type Treatment Note Next Visit Plan assess response to aquatic PT, gentle progression and modification as indicated. Consider manual aquatic techniques. Continue PT per POC: End with cryotherapy/EStim [thoracic & lumbar spine] as needed. Pt applied for medical leave disability, Modify POC, DC work goals, when medical leave applied. Assess L knee pain. L>R Knee strengthening as tolerated ( CKC), try ex bike or stepper if LB tolerates. Review HEP: Core progressive strengthening program and progress to next level. 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 Check LB/IT Band. Progress Hip flexion mobility to start moving normal (stairs , walking, bending). Assess response to self rib mobs (if improved). Progress ex's that she can do at work and wgt lifting as tolerated. Monitor TA tightening (L>R) for equal contraction on L side compared to R side and for LB (KTC) Manual therapy as needed to: Normalize & stabilize Thoracic Core, hips/pelvis (LE roll in /outs). If needed, Manual: Balancing of thoracic region. Overall POC: Stabilize LB/ Pelvis and strengthen thoracic region if pain down.
--- NOTE | 2022-04-30 16:57 | PT.OTN ---
Current Diagnoses Lumbago with sciatica, unspecified side (04/30/22) Physical Therapy Treatment Note PT-OP-A Visit Information Start: 09/21/21 17:15 Freq: Status: Active Protocol: Document 04/30/22 16:49 SAK (Rec: 04/30/22 16:56 [facility]AK [id number]) Out-Patient Physical Therapy Visit Information Visit Information Visit Type Aquatic Treatment Note Visit Start Time 11:45 Visit Stop Time 12:30 Total Visit Minutes 45 Visit Number Evaluation Information Evaluation Date 09/26/21 Precautions Precautions Per chart review: PTSD, Chronic back pain. 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 MRI 11/22/21: Degen facet arthritic chnages particulary at L4-L5. No central or foraminal stenosis. PT-OP-B Current Condition Start: 09/21/21 17:15 Freq: Status: Active Protocol: Document 09/26/21 08:17 LRN (Rec: 09/26/21 09:39 LRN [id number]) Current Condition History of Current Condition Onset Date 07/18/21 Current Complaints LBP, Aime hip and knee pain. History of Current Condition Low back pain onset 07/18/21, fell down 8 stairs, R foot went out from under her, L knee buckled and L knee ended up bent and behind her when sliding down the stairs feet first (like sliding into a base in baseball). Had horrendous pain. Did not seek medical care hoping it would go away. Two weeks later went to chiropractor and 2 weeks later ended up in ER. ambulatory care was helpful, but she was getting only a couple hours of pain relief. Now transitions rn care coordinator gives 3-4 days relief. She feels she has aggrevated an old injury (see Developmental history below). States the L4 -S1 jt is grinding. Has tried yoga stretches and states her problem feels structural and thinks she has started loosening things too soon. States the R>L hip joints hurt , thus now the knees hurt, because of modifying how she goes up/down the stairs. Pt points to her R lateral gluteal ms and sacral region as areas of pain denoted as pelvic pain. Denies urinary problems or lower abdominal pelvic pain. She is having pain with intercourse; therefore the pt may need Pelvic rehabilitation in the future. 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 Pt has been on light duty since fall. Prior Treatments and Tests ambulatory care 1-2 days/ week ([facility] in [place]). X-ray: shows no fractures in Sacrum, Coccyx, and lumbar vertebra. Developmental History Developmental History 17 yrs old fractured what she thinks is the SI, possibly Sacrum L4-S1 Cracked. In 2006 fell on steel pipe landing on L knee. Treatment Goals Patient/Caregiver Goals Pt goals are: *Get hip flexors to release in order to start moving normal (stairs, walking, bending). *Get back to place to start exercising (not doing any currently that is considered purposeful), because she is only doing daily living exercise. *Wear 16# belt around waist and leather gear that carries the items of the belt. * Be able to do Lethel force training (run, crawl, bend, twist, wrestle a suspect, bend down and put someone in handcuffs). Prior Functional Status Baseline Function- ADL's Independent Baseline Function- Mobility Independent Baseline Function- Work/School Was not exercising before fall . Walking 2 miles in/outside Weight lifting legs, arms, back a couple yrs ago Baseline Function- Other Able to sleep without pain. Current Functional Impairments (Reported) Functional Limitations- ADL's Limited in ability to bend, lift > 15#, twisting, sitting > 1 hr, standing > 1 hr, able to sleep w/medication. Sitting to drive >1.5 hrs is too much. Functional Limitations- Mobility/Gait Stride is short on both sides and slower than normal. Functional Limitations- Work/School On light duty. 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 At home has 3 children and spouse has 2 children. PT-OP-C Subjective Start: 09/21/21 17:15 Freq: Status: Active Protocol: Document 04/30/22 16:49 LEE ANN (Rec: 04/30/22 16:56 [facility] [id number]) OP-PT Subjective Patient Comments Patient Comments Reports had a sore week, but also enjoyed the freedom of mobility in the pool, wants to continue. Reports saw chiropractor on Saturday , PT-OP-H Neuro Start: 09/21/21 17:15 Freq: Status: Active Protocol: Document 09/26/21 08:17 LRN (Rec: 09/26/21 09:39 LRN [id number]) Sensation Evaluation Gross Sensation Gross Sensation WNL PT-OP-J Posture/Palpation/Skin Start: 09/21/21 17:15 Freq: Status: Active Protocol: Document 10/03/21 08:10 LRN (Rec: 10/03/21 09:03 LRN [id number]) Palpation Assessment Location L innominate Palpation Details Decreased PA mobility of L Ischial Tub Sacrum Palpation Location Sacrum Palpation Details Decreased mobility L inferior glide & PA of right DEEPIKA ( sacrum in R rot) ASIS Palpation Location ASIS Palpation Details R low and inflared. PT-OP-K Range of Motion Start: 09/21/21 17:15 Freq: Status: Active Protocol: Document 11/24/21 08:18 LRN (Rec: 11/24/21 09:01 LRN [id number]) Hip Goniometric Range of Motion Hip Right Active Testing Position Supine Internal Rotation 35 External Rotation 85 Left Passive Testing Position Supine Internal Rotation 25 External Rotation 75 PT-OP-L Special Tests Start: 09/21/21 17:15 Freq: Status: Active Protocol: Document 11/06/21 08:14 LRN (Rec: 11/06/21 09:05 LRN [id number]) Special Tests Lumbar Spine Special Tests Slump Test Results negative Straight Leg Raise Test Results 90 left, 95 right Comments C/O hip socket pain bilterally . PT-OP-M Strength Start: 09/21/21 17:15 Freq: Status: Active Protocol: Document 09/26/21 08:17 LRN (Rec: 09/26/21 09:39 LRN [id number]) Trunk Strength Trunk Manual Muscle Testing Core Stabilization Pt able to maintain core stability with hip flexion ms testing. Hip Strength Hip Manual Muscle Testing Right Flexion (L2) 5 Normal External Rotation 5 Normal Internal Rotation 3 Fair Left Flexion (L2) 5 Normal External Rotation 5 Normal Internal Rotation 3 Fair PT-OP-Q Treatments Start: 09/21/21 17:15 Freq: Status: Active Protocol: Document 04/17/22 13:02 LRN (Rec: 04/17/22 13:48 LRN [id number]) Gym Equipment Cable Column (Body Solid) Leg Ext Aurora Details Aurora holds at 90 deg's > 0 deg 's Resistance 190# 10 sec holds x 10 each Reps/Time Resting btn sets with active kne ext. Wheel 2,3,(held 5/6), 7, 8, 10, 12. Leg Extension Details aime knees, conc with slow and careful movement. Resistance 100# Reps/Time 10x 3 Leg Curl Details Leg Curl Resistance 10# Reps/Time 10x 3 Shuttle Recovery Unilateral Squats Details Squat in painfree range (0-50 deg's knee range) Shuttle Recovery Platform Stable Reps/Time 10x 3 Bilateral Squats Details Aime Squats in neutral spine Resistance 75#, 62# Shuttle Recovery Platform Stable Reps/Time 15x 1 each, Decrease in L knee pain. Therapeutic Exercises Sitting Exercises Partial sit<>stand Sitting Exercise Name Plinth hgt 28 inches. Side bilateral Reps/Minutes 30x Comments ~10 deg's knee flexion Hamstring stretch Sitting Exercise Name Leg on plinth Side bilateral Reps/Minutes 30 H x 2 Comments Cued pt to stretch on same side for >60 Standing Exercises Iliopsoas stretch Standing Exercise Name Iliopsoas stretch Side bilateral Reps/Minutes 60SH f/b active stretch x 10, 2 sets Comments Extra time to determine proper stretch and posture. Stairs Standing Exercise Name step ups L side on 2 block and R side with 4 step PT-OP-R Modalities Start: 09/21/21 17:15 Freq: Status: Active Protocol: Document 03/12/22 09:51 LRN (Rec: 03/12/22 10:50 LRN [id number]) Electric Stimulation Electric Stimulation Interferential Current (IFC) Body Location [L1>opposite side of sacrum] Duration (Minutes) 11 Intensity 11 Target/Sweep Sweep Patient Position Hooklying Combined With Heat/Cold Cold Pack Comments Legs on bolster Large CP in mid>LB Hot Pack/Cold Pack Treatment Cold Pack Location Back & Sacrum Patient Position Hooklying Treatment Duration (minutes) 11 Patient Tolerance Good Comments Bolster under legs PT-OP-S Aquatic Treatment Start: 04/24/22 16:41 Freq: Status: Active Protocol: Document 04/30/22 16:49 [facility] (Rec: 04/30/22 16:56 [facility] [id number]) Aquatics Treatment Pool Entry/Exit Pool Entry/Exit Method Stairs Assistance Verbal Cues Water Walking October Water Level Chest Level Level of Assistance Verbal Cues Comments cues for core activation fwd Water Level Chest Level Level of Assistance Verbal Cues Comments cues for core activation Lower Extremity Stretches HS stretch Body Position Standing Water Level [place] Comments feet on wall spiderman stretch Body Position Standing Water Level [place] Comments wall SKTC, DKTC Body Position Standing Water Level [place] Comments at wall Spinal Exercises UE pull downs Details fwd Equipment medium bb Reps/Duration 10x Iron cross Details DLS Body Position Standing Water Level [place] Equipment med barbells Reps/Duration 8 min Comments UE pull down aime and unil wall squat DLS Body Position Sitting Water Level Neck Level Comments holding ball between knees [place] Activities [place] Activities Bicycle,Bicycle Backwards, Running Other Activities deep water traction: 5# aime LE 's, [place] float Equipment none Duration 10 min PT-OP-T Assessment and Plan Start: 09/21/21 17:15 Freq: Status: Active Protocol: Document 04/30/22 16:49 [facility] (Rec: 04/30/22 16:56 [facility] [id number]) Physical Therapy Assessment Goals Four Impairment Decreased function Impairment CHRISTELLE 20/50 = 40/100 (40-59% impaired, score 40-59). 01/29/22: Pt feels stride is short on both sides and slower than normal, now 6 shuffle steps, 1-2 mph speed; used to be 3 mph easily). Limited in ability to bend, lift > 15#, twisting, sitting > 1 hr, standing > 1 hr, able to sleep w/medication. Sitting to drive >1.5 hrs is too much. Short Term Goal (STG) Pt will be able to improve hip flexors mobility to start moving normal (stairs, walking ). (11/06/21: Walking with small shuffle steps, stairs are difficult, bending is very difficult). (12/05/21: Walking slow but normal, pain with stairs and bending). (01/29/22: Stairs: Up normal, down one at time; walkin steps her back (at L4-S1 ) hurts and hips are swinging around going from R to L) (02/13/22: 1st in AM, can't go down steps normal, sometime can in evening. Walking must be careful with walking and turning due to onset of hip pain. Can walk 90% normal straight except after 2500- 2800 steps in a day, starts to shuffle). STG Duration 03/14/22 (01/29/22: Progressing, normal gait ascending stairs) Telecommunication Engineer Goal (LTG) OLD GOAL: Improve function per CHRISTELLE score of 20-39 (20-39% impaired, score 20-39) HOME GOAL: Carry light weights of 50# for 50 ft. without becoming debilitated. (01/29/22: CHRISTELLE Score is 20/50 = 40/100). LTG Duration 04/29/22 (01/29/22: NO CHANGE ) Three Impairment Decreased strength and home work function. Impairment Pt on light duty. WORK: Not able to run, crawl, bend, twist, wrestle a suspect , bend down to put someone in handcuffs. Pain starts at 2-4/10 and ends at 7-9/10 at work. HOME: (01/29/22) Not able to fold clothes and remove casserole from oven due to back pain. Short Term Goal (STG) WORK GOAL: Pt will be able to tolerate wearing a 16# belt around waist (leather gear and items it holds) while walking around for her job. NEW HOME GOAL (01/29/22): Pt able to tolerate bring groceries into home after shopping. 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 NEW HOME GOAL: Be able to fold clothes, and getting cassole out of oven with pain no greater than 3/10. (01/29/22: Started weight strengthening program of LE's) (04/10/22: Improved ease with getting cassole out of oven) (03/12/22: 6-7/10 pain getting casserole out of oven). LTG Duration 04/29/22 (04/10/22: Progressing) Two Impairment Decreased ability to ex due to LBP, Aime hip pain, Aime knee pain. Impairment Pt not execising due to: LBP 4-6/10, R hip pain: anterolateral 4-6 /10, posterior 2-4/10, L hip pain: anterior 2-5/10, R knee pain: medial & lateral 3-8/10, L knee pain: medial & lateral 3-5/10. 01/29/22: Able to walk 1500 steps in a day. Functionally must use arms to lift self to upright after bending over. Short Term Goal (STG) WORK GOAL: Decrease bilateral hip and knee pain with pt able to initiate exercising ( weight lifting) beyond her daily activities. (01/11/22: twinges of pain in the R anterolateral thigh NEW HOME GOAL: Walk 5000 steps in a day. (01/29/22: Started weight strengthening program of 's) (02/13/22: Walks max before having to stop, on a busy day, 2568-1376 steps). STG Duration 03/14/22 (01/29/22: Progressing) Detention Goal (LTG) WORK GOAL: Pt will be able to tolerate movements (run, crawl, bend, twist, wrestle someone to the ground to put handcuffs on) with tolerable pain, to complete quaterly Lethel force training. NEW HOME GOAL: Pt will be able to tolerate movements (be able to bend over and not have to use UE's to work self back up to standing. LTG Duration 05/29/22 One Impairment Pt lacks appropriate self care HEP. Short Term Goal (STG) Pt will be educated in log roll technique for transfers (10/09/21: Pt educated in log roll technique for transfers) STG Duration 10/03/21 (10/09/21: MET GOAL) Detention Goal (LTG) Independent with a self care HEP. (10/09/21: HEP I/S: TA tightening in sidelie for strengthening and practice in prone & sup). (11/10/21: Reviewed previously issued HEP: Hip ER, and IR (L >R) stretch). (11/24/21: I/S pt in sitting core ex' of leg lifts alternating and together). (04/10/22: HEP issued for progressive core stabilization ) LTG Duration 05/29/22 (04/10/22: Progressed) Assessment Summary Assessment Modification of treatment today with addition of deep water traction trial with good tolerance. Physical Therapy Plan Frequency and Duration Frequency of Treatment 2x/Week Plan of Care Start Date 01/29/22 Plan of Care End Date 05/29/22 Next Visit Focus/Plan Next Note Type Treatment Note Next Visit Plan Assess response to today's treatment, modify and progress as tolerated.
--- NOTE | 2022-05-07 10:10 | PT.OTN ---
Current Diagnoses Lumbago with sciatica, unspecified side (04/30/22) Physical Therapy Treatment Note PT-OP-A Visit Information Start: 09/21/21 17:15 Freq: Status: Active Protocol: Document 05/07/22 10:15 SAK (Rec: 05/08/22 16:41 SAK [id number]) Out-Patient Physical Therapy Visit Information Visit Information Visit Type Aquatic Treatment Note Visit Start Time 10:15 Visit Stop Time 11:00 Total Visit Minutes 45 Visit Number [id number] Evaluation Information Evaluation Date 09/26/21 Precautions Precautions Per chart review: PTSD, Chronic back pain. 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 MRI 11/22/21: Degen facet arthritic chnages particulary at L4-L5. No central or foraminal stenosis. PT-OP-B Current Condition Start: 09/21/21 17:15 Freq: Status: Active Protocol: Document 09/26/21 08:17 LRN (Rec: 09/26/21 09:39 LRN [id number]) Current Condition History of Current Condition Onset Date 07/18/21 Current Complaints LBP, Aime hip and knee pain. History of Current Condition Low back pain onset 07/18/21, fell down 8 stairs, R foot went out from under her, L knee buckled and L knee ended up bent and behind her when sliding down the stairs feet first (like sliding into a base in baseball). Had horrendous pain. Did not seek medical care hoping it would go away. Two weeks later went to chiropractor and 2 weeks later ended up in ER. career technical counselor was helpful, but she was getting only a couple hours of pain relief. Now companion caregiver gives 3-4 days relief. She feels she has aggrevated an old injury (see Developmental history below). States the L4 -S1 jt is grinding. Has tried yoga stretches and states her problem feels structural and thinks she has started loosening things too soon. States the R>L hip joints hurt , thus now the knees hurt, because of modifying how she goes up/down the stairs. Pt points to her R lateral gluteal ms and sacral region as areas of pain denoted as pelvic pain. Denies urinary problems or lower abdominal pelvic pain. She is having pain with intercourse; therefore the pt may need Pelvic rehabilitation in the future. 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 Pt has been on light duty since fall. Prior Treatments and Tests career technical counselor 1-2 days/ week ([facility] in [place]). X-ray: shows no fractures in Sacrum, Coccyx, and lumbar vertebra. Developmental History Developmental History 17 yrs old fractured what she thinks is the SI, possibly Sacrum L4-S1 Cracked. In 2006 fell on steel pipe landing on L knee. Treatment Goals Patient/Caregiver Goals Pt goals are: *Get hip flexors to release in order to start moving normal (stairs, walking, bending). *Get back to place to start exercising (not doing any currently that is considered purposeful), because she is only doing daily living exercise. *Wear 16# belt around waist and leather gear that carries the items of the belt. * Be able to do Lethel force training (run, crawl, bend, twist, wrestle a suspect, bend down and put someone in handcuffs). Prior Functional Status Baseline Function- ADL's Independent Baseline Function- Mobility Independent Baseline Function- Work/School Was not exercising before fall . Walking 2 miles in/outside Weight lifting legs, arms, back a couple yrs ago Baseline Function- Other Able to sleep without pain. Current Functional Impairments (Reported) Functional Limitations- ADL's Limited in ability to bend, lift > 15#, twisting, sitting > 1 hr, standing > 1 hr, able to sleep w/medication. Sitting to drive >1.5 hrs is too much. Functional Limitations- Mobility/Gait Stride is short on both sides and slower than normal. Functional Limitations- Work/School On light duty. 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 At home has 3 children and spouse has 2 children. PT-OP-C Subjective Start: 09/21/21 17:15 Freq: Status: Active Protocol: Document 05/07/22 10:15 LEE ANN (Rec: 05/08/22 16:[address] [facility] [id number]) OP-PT Subjective Patient Comments Patient Comments Patient reports felt decrease in pain after deep water traction. Went to the [facility] in [place] next day for about 1 hour and I probably overdid it and was hurting more. Saw chiropractor on Saturday which helped a little, then helped paint a cabin over the weekend and reports increase in pain. PT-OP-H Neuro Start: 09/21/21 17:15 Freq: Status: Active Protocol: Document 09/26/21 08:17 LRN (Rec: 09/26/21 09:39 LRN [id number]) Sensation Evaluation Gross Sensation Gross Sensation WNL PT-OP-J Posture/Palpation/Skin Start: 09/21/21 17:15 Freq: Status: Active Protocol: Document 10/03/21 08:10 LRN (Rec: 10/03/21 09:03 LRN [id number]) Palpation Assessment Location L innominate Palpation Details Decreased PA mobility of L Ischial Tub Sacrum Palpation Location Sacrum Palpation Details Decreased mobility L inferior glide & PA of right DEEPIKA ( sacrum in R rot) ASIS Palpation Location ASIS Palpation Details R low and inflared. PT-OP-K Range of Motion Start: 09/21/21 17:15 Freq: Status: Active Protocol: Document 11/24/21 08:18 LRN (Rec: 11/24/21 09:01 LRN [id number]) Hip Goniometric Range of Motion Hip Right Active Testing Position Supine Internal Rotation 35 External Rotation 85 Left Passive Testing Position Supine Internal Rotation 25 External Rotation 75 PT-OP-L Special Tests Start: 09/21/21 17:15 Freq: Status: Active Protocol: Document 11/06/21 08:14 LRN (Rec: 11/06/21 09:05 LRN [id number]) Special Tests Lumbar Spine Special Tests Slump Test Results negative Straight Leg Raise Test Results 90 left, 95 right Comments C/O hip socket pain bilterally . PT-OP-M Strength Start: 09/21/21 17:15 Freq: Status: Active Protocol: Document 09/26/21 08:17 LRN (Rec: 09/26/21 09:39 LRN [id number]) Trunk Strength Trunk Manual Muscle Testing Core Stabilization Pt able to maintain core stability with hip flexion ms testing. Hip Strength Hip Manual Muscle Testing Right Flexion (L2) 5 Normal External Rotation 5 Normal Internal Rotation 3 Fair Left Flexion (L2) 5 Normal External Rotation 5 Normal Internal Rotation 3 Fair PT-OP-Q Treatments Start: 09/21/21 17:15 Freq: Status: Active Protocol: Document 04/17/22 13:02 LRN (Rec: 04/17/22 13:48 LRN [id number]) Gym Equipment Cable Column (Body Solid) Leg Ext Aurora Details Aurora holds at 90 deg's > 0 deg 's Resistance 190# 10 sec holds x 10 each Reps/Time Resting btn sets with active kne ext. Wheel 2,3,(held 5/6), 7, 8, 10, 12. Leg Extension Details aime knees, conc with slow and careful movement. Resistance 100# Reps/Time 10x 3 Leg Curl Details Leg Curl Resistance 10# Reps/Time 10x 3 Shuttle Recovery Unilateral Squats Details Squat in painfree range (0-50 deg's knee range) Shuttle Recovery Platform Stable Reps/Time 10x 3 Bilateral Squats Details Aime Squats in neutral spine Resistance 75#, 62# Shuttle Recovery Platform Stable Reps/Time 15x 1 each, Decrease in L knee pain. Therapeutic Exercises Sitting Exercises Partial sit<>stand Sitting Exercise Name Plinth hgt 28 inches. Side bilateral Reps/Minutes 30x Comments ~10 deg's knee flexion Hamstring stretch Sitting Exercise Name Leg on plinth Side bilateral Reps/Minutes 30 H x 2 Comments Cued pt to stretch on same side for >60 Standing Exercises Iliopsoas stretch Standing Exercise Name Iliopsoas stretch Side bilateral Reps/Minutes 60SH f/b active stretch x 10, 2 sets Comments Extra time to determine proper stretch and posture. Stairs Standing Exercise Name step ups L side on 2 block and R side with 4 step PT-OP-R Modalities Start: 09/21/21 17:15 Freq: Status: Active Protocol: Document 03/12/22 09:51 LRN (Rec: 03/12/22 10:50 LRN [id number]) Electric Stimulation Electric Stimulation Interferential Current (IFC) Body Location [L1>opposite side of sacrum] Duration (Minutes) 11 Intensity 11 Target/Sweep Sweep Patient Position Hooklying Combined With Heat/Cold Cold Pack Comments Legs on bolster Large CP in mid>LB Hot Pack/Cold Pack Treatment Cold Pack Location Back & Sacrum Patient Position Hooklying Treatment Duration (minutes) 11 Patient Tolerance Good Comments Bolster under legs PT-OP-S Aquatic Treatment Start: 04/24/22 16:41 Freq: Status: Active Protocol: Document 05/07/22 10:15 LEE ANN (Rec: 05/08/22 16:[address] [facility] [id number]) Aquatics Treatment Pool Entry/Exit Pool Entry/Exit Method Stairs Assistance Verbal Cues Water Walking March Water Level Chest Level Walking Equipment UE paddles Level of Assistance Verbal Cues Comments cues for core activation Sideways Water Level Chest Level Walking Equipment UE paddles Level of Assistance Verbal Cues Comments cues for core activation bckwd Water Level Chest Level Walking Equipment UE paddles Level of Assistance Verbal Cues Comments cues for core activation fwd Water Level Chest Level Walking Equipment UE paddles Level of Assistance Verbal Cues Comments cues for core activation Lower Extremity Stretches IT band Body Position Standing Water Level Chest Level Equipment Small Noodle spiderman stretch Body Position Standing Water Level [place] Comments wall SKTC, DKTC Body Position Standing Water Level [place] Comments at wall quad Body Position Standing Water Level Chest Level Equipment Small Noodle Reps/Duration 2x30 aime HS Body Position Standing Water Level Chest Level Equipment Small Noodle Reps/Duration 2x30 aime Spinal Exercises UE pull downs Details fwd Equipment medium bb Reps/Duration 10x Iron cross Details DLS Body Position Standing Water Level [place] Equipment med barbells Reps/Duration 8 min Comments UE pull down aime and unil, pendulum with LE lower and lift, aime KTC wall squat DLS Body Position Sitting Water Level Neck Level Equipment UE paddles Comments holding ball between knees [place] Activities [place] Activities Bicycle,Bicycle Backwards, Cross [place],Running Other Activities deep water traction: 7.5# aime LE's, chipewwa float Equipment none Duration 10 min PT-OP-T Assessment and Plan Start: 09/21/21 17:15 Freq: Status: Active Protocol: Document 05/07/22 10:[address] [facility] (Rec: 05/08/22 16:[address] [facility] [id number]) Physical Therapy Assessment Impairments Impairments Activity Tolerance,Functional Activities,Functional Mobility ,Gait,Pain,Posture,ROM,Soft Tissue Mobility,Strength, Transfers Goals Four Impairment Decreased function Impairment CHRISTELLE 20/50 = 40/100 (40-59% impaired, score 40-59). 01/29/22: Pt feels stride is short on both sides and slower than normal, now 6 shuffle steps, 1-2 mph speed; used to be 3 mph easily). Limited in ability to bend, lift > 15#, twisting, sitting > 1 hr, standing > 1 hr, able to sleep w/medication. Sitting to drive >1.5 hrs is too much. Short Term Goal (STG) Pt will be able to improve hip flexors mobility to start moving normal (stairs, walking ). (11/06/21: Walking with small shuffle steps, stairs are difficult, bending is very difficult). (12/05/21: Walking slow but normal, pain with stairs and bending). (01/29/22: Stairs: Up normal, down one at time; walkin steps her back (at L4-S1 ) hurts and hips are swinging around going from R to L) (02/13/22: 1st in AM, can't go down steps normal, sometime can in evening. Walking must be careful with walking and turning due to onset of hip pain. Can walk 90% normal straight except after 2500- 2800 steps in a day, starts to shuffle). STG Duration 03/14/22 (01/29/22: Progressing, normal gait ascending stairs) Retirement Goal (LTG) OLD GOAL: Improve function per CHRISTELLE score of 20-39 (20-39% impaired, score 20-39) HOME GOAL: Carry light weights of 50# for 50 ft. without becoming debilitated. (01/29/22: CHRISTELLE Score is 20/50 = 40/100). LTG Duration 04/29/22 (01/29/22: NO CHANGE ) Three Impairment Decreased strength and home work function. Impairment Pt on light duty. WORK: Not able to run, crawl, bend, twist, wrestle a suspect , bend down to put someone in handcuffs. Pain starts at 2-4/10 and ends at 7-9/10 at work. HOME: (01/29/22) Not able to fold clothes and remove casserole from oven due to back pain. Short Term Goal (STG) WORK GOAL: Pt will be able to tolerate wearing a 16# belt around waist (leather gear and items it holds) while walking around for her job. NEW HOME GOAL (01/29/22): Pt able to tolerate bring groceries into home after shopping. 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 NEW HOME GOAL: Be able to fold clothes, and getting cassole out of oven with pain no greater than 3/10. (01/29/22: Started weight strengthening program of LE's) (04/10/22: Improved ease with getting cassole out of oven) (03/12/22: 6-7/10 pain getting casserole out of oven). LTG Duration 04/29/22 (04/10/22: Progressing) Two Impairment Decreased ability to ex due to LBP, Aime hip pain, Aime knee pain. Impairment Pt not execising due to: LBP 4-6/10, R hip pain: anterolateral 4-6 /10, posterior 2-4/10, L hip pain: anterior 2-5/10, R knee pain: medial & lateral 3-8/10, L knee pain: medial & lateral 3-5/10. 01/29/22: Able to walk 1500 steps in a day. Functionally must use arms to lift self to upright after bending over. Short Term Goal (STG) WORK GOAL: Decrease bilateral hip and knee pain with pt able to initiate exercising ( weight lifting) beyond her daily activities. (01/11/22: twinges of pain in the R anterolateral thigh NEW HOME GOAL: Walk 5000 steps in a day. (01/29/22: Started weight strengthening program of LE's) (02/13/22: Walks max before having to stop, on a busy day, [id number] steps). STG Duration 03/14/22 (01/29/22: Progressing) Retirement Goal (LTG) WORK GOAL: Pt will be able to tolerate movements (run, crawl, bend, twist, wrestle someone to the ground to put handcuffs on) with tolerable pain, to complete quaterly Lethel force training. NEW HOME GOAL: Pt will be able to tolerate movements (be able to bend over and not have to use UE's to work self back up to standing. LTG Duration 05/29/22 One Impairment Pt lacks appropriate self care HEP. Short Term Goal (STG) Pt will be educated in log roll technique for transfers (10/09/21: Pt educated in log roll technique for transfers) STG Duration 10/03/21 (10/09/21: MET GOAL) Hardware Designer Goal (LTG) Independent with a self care HEP. (10/09/21: HEP I/S: TA tightening in sidelie for strengthening and practice in prone & sup). (11/10/21: Reviewed previously issued HEP: Hip ER, and IR (L >R) stretch). (11/24/21: I/S pt in sitting core ex' of leg lifts alternating and together). (04/10/22: HEP issued for progressive core stabilization ) LTG Duration 05/29/22 (04/10/22: Progressed) Assessment Summary Assessment Noted improvement with addition of deep water traction, requested increased weight and had good tolerance today. Benefiting from aquatic therapy; has 1 further session then will return to land-based PT. Physical Therapy Plan Frequency and Duration Frequency of Treatment 2x/Week Plan of Care Start Date 01/29/22 Therapeutic Interventions Therapeutic Interventions Aquatic Therapy,Balance Training,Gait Training,Home Exercise Program,Joint Mobilizations,Manual Therapy, Neuromuscular Re-education, Patient/Caregiver Education, Self-Care/Home Management,Soft Tissue Mobilization,Taping, Therapeutic Activities, Therapeutic Exercises Modalities Cold Pack/Ice Massage,Electric Stimulation,Hot Packs, Ultrasound Next Visit Focus/Plan Next Note Type Treatment Note Next Visit Plan Assess response to today's treatment, modify and progress as tolerated. Issue written aquatic exercise program.
--- NOTE | 2022-05-14 15:27 | PT.OTN ---
Current Diagnoses Lumbago with sciatica, unspecified side (05/14/22) Physical Therapy Treatment Note PT-OP-A Visit Information Start: 09/21/21 17:15 Freq: Status: Active Protocol: Document 05/14/22 15:14 LJ (Rec: 05/14/22 15:27 LJ [id number]) Out-Patient Physical Therapy Visit Information Visit Information Visit Type Aquatic Treatment Note Visit Start Time 11:00 Visit Stop Time 11:45 Total Visit Minutes 45 Visit Number 50 Evaluation Information Evaluation Date 09/26/21 Precautions Precautions Per chart review: PTSD, Chronic back pain. 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 MRI 11/22/21: Degen facet arthritic chnages particulary at L4-L5. No central or foraminal stenosis. PT-OP-B Current Condition Start: 09/21/21 17:15 Freq: Status: Active Protocol: Document 09/26/21 08:17 LRN (Rec: 09/26/21 09:39 LRN [id number]) Current Condition History of Current Condition Onset Date 07/18/21 Current Complaints LBP, Aime hip and knee pain. History of Current Condition Low back pain onset 07/18/21, fell down 8 stairs, R foot went out from under her, L knee buckled and L knee ended up bent and behind her when sliding down the stairs feet first (like sliding into a base in baseball). Had horrendous pain. Did not seek medical care hoping it would go away. Two weeks later went to chiropractor and 2 weeks later ended up in ER. patient care nursing assistant was helpful, but she was getting only a couple hours of pain relief. Now spiritual care coordinator gives 3-4 days relief. She feels she has aggrevated an old injury (see Developmental history below). States the L4 -S1 jt is grinding. Has tried yoga stretches and states her problem feels structural and thinks she has started loosening things too soon. States the R>L hip joints hurt , thus now the knees hurt, because of modifying how she goes up/down the stairs. Pt points to her R lateral gluteal ms and sacral region as areas of pain denoted as pelvic pain. Denies urinary problems or lower abdominal pelvic pain. She is having pain with intercourse; therefore the pt may need Pelvic rehabilitation in the future. 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 Pt has been on light duty since fall. Prior Treatments and Tests patient care nursing assistant 1-2 days/ week ([facility] in [place]). X-ray: shows no fractures in Sacrum, Coccyx, and lumbar vertebra. Developmental History Developmental History 17 yrs old fractured what she thinks is the SI, possibly Sacrum L4-S1 Cracked. In 2006 fell on steel pipe landing on L knee. Treatment Goals Patient/Caregiver Goals Pt goals are: *Get hip flexors to release in order to start moving normal (stairs, walking, bending). *Get back to place to start exercising (not doing any currently that is considered purposeful), because she is only doing daily living exercise. *Wear 16# belt around waist and leather gear that carries the items of the belt. * Be able to do Lethel force training (run, crawl, bend, twist, wrestle a suspect, bend down and put someone in handcuffs). Prior Functional Status Baseline Function- ADL's Independent Baseline Function- Mobility Independent Baseline Function- Work/School Was not exercising before fall . Walking 2 miles in/outside Weight lifting legs, arms, back a couple yrs ago Baseline Function- Other Able to sleep without pain. Current Functional Impairments (Reported) Functional Limitations- ADL's Limited in ability to bend, lift > 15#, twisting, sitting > 1 hr, standing > 1 hr, able to sleep w/medication. Sitting to drive >1.5 hrs is too much. Functional Limitations- Mobility/Gait Stride is short on both sides and slower than normal. Functional Limitations- Work/School On light duty. 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 At home has 3 children and spouse has 2 children. PT-OP-C Subjective Start: 09/21/21 17:15 Freq: Status: Active Protocol: Document 05/14/22 15:14 PRINCESS (Rec: 05/14/22 15:27 PRINCESS [id number]) OP-PT Subjective Patient Comments Patient Comments Pt states that overall she feels she is doing better. 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 She now has a family membership at the [facility] in so is highly motivated to continue aquatic HEP PT-OP-H Neuro Start: 09/21/21 17:15 Freq: Status: Active Protocol: Document 09/26/21 08:17 LRN (Rec: 09/26/21 09:39 LRN [id number]) Sensation Evaluation Gross Sensation Gross Sensation WNL PT-OP-J Posture/Palpation/Skin Start: 09/21/21 17:15 Freq: Status: Active Protocol: Document 10/03/21 08:10 LRN (Rec: 10/03/21 09:03 LRN [id number]) Palpation Assessment Location L innominate Palpation Details Decreased PA mobility of L Ischial Tub Sacrum Palpation Location Sacrum Palpation Details Decreased mobility L inferior glide & PA of right DEEPIKA ( sacrum in R rot) ASIS Palpation Location ASIS Palpation Details R low and inflared. PT-OP-K Range of Motion Start: 09/21/21 17:15 Freq: Status: Active Protocol: Document 11/24/21 08:18 LRN (Rec: 11/24/21 09:01 LRN [id number]) Hip Goniometric Range of Motion Hip Right Active Testing Position Supine Internal Rotation 35 External Rotation 85 Left Passive Testing Position Supine Internal Rotation 25 External Rotation 75 PT-OP-L Special Tests Start: 09/21/21 17:15 Freq: Status: Active Protocol: Document 11/06/21 08:14 LRN (Rec: 11/06/21 09:05 LRN [id number]) Special Tests Lumbar Spine Special Tests Slump Test Results negative Straight Leg Raise Test Results 90 left, 95 right Comments C/O hip socket pain bilterally . PT-OP-M Strength Start: 09/21/21 17:15 Freq: Status: Active Protocol: Document 09/26/21 08:17 LRN (Rec: 09/26/21 09:39 LRN [id number]) Trunk Strength Trunk Manual Muscle Testing Core Stabilization Pt able to maintain core stability with hip flexion ms testing. Hip Strength Hip Manual Muscle Testing Right Flexion (L2) 5 Normal External Rotation 5 Normal Internal Rotation 3 Fair Left Flexion (L2) 5 Normal External Rotation 5 Normal Internal Rotation 3 Fair PT-OP-Q Treatments Start: 09/21/21 17:15 Freq: Status: Active Protocol: Document 04/17/22 13:02 LRN (Rec: 04/17/22 13:48 LRN [id number]) Gym Equipment Cable Column (Body Solid) Leg Ext Aurroa Details Aurora holds at 90 deg's > 0 deg 's Resistance 190# 10 sec holds x 10 each Reps/Time Resting btn sets with active kne ext. Wheel 2,3,(held 5/6), 7, 8, 10, 12. Leg Extension Details aime knees, conc with slow and careful movement. Resistance 100# Reps/Time 10x 3 Leg Curl Details Leg Curl Resistance 10# Reps/Time 10x 3 Shuttle Recovery Unilateral Squats Details Squat in painfree range (0-50 deg's knee range) Shuttle Recovery Platform Stable Reps/Time 10x 3 Bilateral Squats Details Aime Squats in neutral spine Resistance 75#, 62# Shuttle Recovery Platform Stable Reps/Time 15x 1 each, Decrease in L knee pain. Therapeutic Exercises Sitting Exercises Partial sit<>stand Sitting Exercise Name Plinth hgt 28 inches. Side bilateral Reps/Minutes 30x Comments ~10 deg's knee flexion Hamstring stretch Sitting Exercise Name Leg on plinth Side bilateral Reps/Minutes 30 H x 2 Comments Cued pt to stretch on same side for >60 Standing Exercises Iliopsoas stretch Standing Exercise Name Iliopsoas stretch Side bilateral Reps/Minutes 60SH f/b active stretch x 10, 2 sets Comments Extra time to determine proper stretch and posture. Stairs Standing Exercise Name step ups L side on 2 block and R side with 4 step PT-OP-R Modalities Start: 09/21/21 17:15 Freq: Status: Active Protocol: Document 03/12/22 09:51 LRN (Rec: 03/12/22 10:50 LRN [id number]) Electric Stimulation Electric Stimulation Interferential Current (IFC) Body Location [L1>opposite side of sacrum] Duration (Minutes) 11 Intensity 11 Target/Sweep Sweep Patient Position Hooklying Combined With Heat/Cold Cold Pack Comments Legs on bolster Large CP in mid>LB Hot Pack/Cold Pack Treatment Cold Pack Location Back & Sacrum Patient Position Hooklying Treatment Duration (minutes) 11 Patient Tolerance Good Comments Bolster under legs PT-OP-S Aquatic Treatment Start: 04/24/22 16:41 Freq: Status: Active Protocol: Document 05/14/22 15:14 PRINCESS (Rec: 05/14/22 15:27 [id number]) Aquatics Treatment Pool Entry/Exit Pool Entry/Exit Method Stairs Water Walking March Water Level Chest Level Walking Equipment BBs Level of Assistance Verbal Cues Comments cues for core activation Sideways Water Level Chest Level Walking Equipment BBs Level of Assistance Verbal Cues Comments cues for core activation bckwd Water Level Chest Level Walking Equipment BBs Level of Assistance Verbal Cues Comments cues for core activation fwd Water Level Chest Level Walking Equipment BBs Level of Assistance Verbal Cues Comments cues for core activation Lower Extremity Exercises step-ups Details slow motion for control Equipment 8 box Reps/Duration 12 B Comments emphasis on slow and controlled Lower Extremity Stretches IT band Body Position Standing Water Level Chest Level Equipment Small Noodle HS stretch Body Position Standing Water Level [place] Comments feet on wall spiderman stretch Body Position Standing Water Level [place] Comments wall quad Body Position Standing Water Level Chest Level Equipment Small Noodle Reps/Duration 2x30 aime Spinal Exercises Iron cross Details DLS Body Position Standing Water Level [place] Equipment med barbells Reps/Duration 8 min Comments UE pull down aime and unil, pendulum with LE lower and lift, aime KTC [place] Activities [place] Activities Bicycle,Bicycle Backwards, Cross Country,Running Other Activities deep water traction: 7.5# aime LE's, kenaitze float pendulum-full swing and 1/2 swing deep kicks at wall prone extension Burpees-3 way hacky sac L sit cross-overs Equipment BBs Duration 20 min PT-OP-T Assessment and Plan Start: 09/21/21 17:15 Freq: Status: Active Protocol: Document 05/14/22 15:14 PRINCESS (Rec: 05/14/22 15:27 [id number]) Physical Therapy Assessment Rehab Potential Rehabilitation Potential Good Evaluation Complexity Number of Personal Factors/Comorbidities 3 or More Number of Body Systems Impaired 4 or More Clinical Presentation at Evaluation Evolving Impairments Impairments Activity Tolerance,Functional Activities,Functional Mobility ,Gait,Pain,Posture,ROM,Soft Tissue Mobility,Strength, Transfers Goals Four Impairment Decreased function Impairment CHRISTELLE 20/50 = 40/100 (40-59% impaired, score 40-59). 01/29/22: Pt feels stride is short on both sides and slower than normal, now 6 shuffle steps, 1-2 mph speed; used to be 3 mph easily). Limited in ability to bend, lift > 15#, twisting, sitting > 1 hr, standing > 1 hr, able to sleep w/medication. Sitting to drive >1.5 hrs is too much. Short Term Goal (STG) Pt will be able to improve hip flexors mobility to start moving normal (stairs, walking ). (11/06/21: Walking with small shuffle steps, stairs are difficult, bending is very difficult). (12/05/21: Walking slow but normal, pain with stairs and bending). (01/29/22: Stairs: Up normal, down one at time; walkin steps her back (at L4-S1 ) hurts and hips are swinging around going from R to L) (02/13/22: 1st in AM, can't go down steps normal, sometime can in evening. Walking must be careful with walking and turning due to onset of hip pain. Can walk 90% normal straight except after 2500- 2800 steps in a day, starts to shuffle). STG Duration 03/14/22 (01/29/22: Progressing, normal gait ascending stairs) Nursing Home Goal (LTG) OLD GOAL: Improve function per CHRISTELLE score of 20-39 (20-39% impaired, score 20-39) HOME GOAL: Carry light weights of 50# for 50 ft. without becoming debilitated. (01/29/22: CHRISTELLE Score is 20/50 = 40/100). LTG Duration 04/29/22 (01/29/22: NO CHANGE ) Three Impairment Decreased strength and home work function. Impairment Pt on light duty. WORK: Not able to run, crawl, bend, twist, wrestle a suspect , bend down to put someone in handcuffs. Pain starts at 2-4/10 and ends at 7-9/10 at work. HOME: (01/29/22) Not able to fold clothes and remove casserole from oven due to back pain. Short Term Goal (STG) WORK GOAL: Pt will be able to tolerate wearing a 16# belt around waist (leather gear and items it holds) while walking around for her job. NEW HOME GOAL (01/29/22): Pt able to tolerate bring groceries into home after shopping. 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 NEW HOME GOAL: Be able to fold clothes, and getting cassole out of oven with pain no greater than 3/10. (01/29/22: Started weight strengthening program of LE's) (04/10/22: Improved ease with getting cassole out of oven) (03/12/22: 6-7/10 pain getting casserole out of oven). LTG Duration 04/29/22 (04/10/22: Progressing) Two Impairment Decreased ability to ex due to LBP, Aime hip pain, Aime knee pain. Impairment Pt not execising due to: LBP 4-6/10, R hip pain: anterolateral 4-6 /10, posterior 2-4/10, L hip pain: anterior 2-5/10, R knee pain: medial & lateral 3-8/10, L knee pain: medial & lateral 3-5/10. 01/29/22: Able to walk 1500 steps in a day. Functionally must use arms to lift self to upright after bending over. Short Term Goal (STG) WORK GOAL: Decrease bilateral hip and knee pain with pt able to initiate exercising ( weight lifting) beyond her daily activities. (01/11/22: twinges of pain in the R anterolateral thigh NEW HOME GOAL: Walk 5000 steps in a day. (01/29/22: Started weight strengthening program of LE's) (02/13/22: Walks max before having to stop, on a busy day, [id number] steps). STG Duration 03/14/22 (01/29/22: Progressing) Sand Screener Operator Goal (LTG) WORK GOAL: Pt will be able to tolerate movements (run, crawl, bend, twist, wrestle someone to the ground to put handcuffs on) with tolerable pain, to complete quaterly Lethel force training. NEW HOME GOAL: Pt will be able to tolerate movements (be able to bend over and not have to use UE's to work self back up to standing. LTG Duration 05/29/22 One Impairment Pt lacks appropriate self care HEP. Short Term Goal (STG) Pt will be educated in log roll technique for transfers (10/09/21: Pt educated in log roll technique for transfers) STG Duration 10/03/21 (10/09/21: MET GOAL) Nursing Home Goal (LTG) Independent with a self care HEP. (10/09/21: HEP I/S: TA tightening in sidelie for strengthening and practice in prone & sup). (11/10/21: Reviewed previously issued HEP: Hip ER, and IR (L >R) stretch). (11/24/21: I/S pt in sitting core ex' of leg lifts alternating and together). (04/10/22: HEP issued for progressive core stabilization ) LTG Duration 05/29/22 (04/10/22: Progressed) Assessment Summary Assessment Pt given Aquatic HEP sheets and reviewed some new exercises for her to explore on her own. All exercises are within her ability and painfree. Physical Therapy Plan Frequency and Duration Frequency of Treatment 2x/Week Plan of Care Start Date 01/29/22 Therapeutic Interventions Therapeutic Interventions Aquatic Therapy,Balance Training,Gait Training,Home Exercise Program,Joint Mobilizations,Manual Therapy, Neuromuscular Re-education, Patient/Caregiver Education, Self-Care/Home Management,Soft Tissue Mobilization,Taping, Therapeutic Activities, Therapeutic Exercises Modalities Cold Pack/Ice Massage,Electric Stimulation,Hot Packs, Ultrasound Next Visit Focus/Plan Next Note Type Treatment Note Next Visit Plan Return to land based PT
--- NOTE | 2022-05-28 16:44 | PT.OTN ---
Current Diagnoses Lumbago with sciatica, unspecified side (05/28/22) Physical Therapy Treatment Note PT-OP-A Visit Information Start: 09/21/21 17:15 Freq: Status: Active Protocol: Document 05/28/22 14:35 LRN (Rec: 05/28/22 15:20 LRN [id number]) Out-Patient Physical Therapy Visit Information Visit Information Visit Type Treatment Note Visit Start Time 14:35 Visit Stop Time 15:09 Total Visit Minutes 34 Visit Number 30/50 Evaluation Information Evaluation Date 09/26/21 Precautions Precautions Per chart review: PTSD, Chronic back pain. 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 MRI 11/22/21: Degen facet arthritic chnages particulary at L4-L5. No central or foraminal stenosis. PT-OP-B Current Condition Start: 09/21/21 17:15 Freq: Status: Active Protocol: Document 09/26/21 08:17 LRN (Rec: 09/26/21 09:39 LRN [id number]) Current Condition History of Current Condition Onset Date 07/18/21 Current Complaints LBP, Aime hip and knee pain. History of Current Condition Low back pain onset 07/18/21, fell down 8 stairs, R foot went out from under her, L knee buckled and L knee ended up bent and behind her when sliding down the stairs feet first (like sliding into a base in baseball). Had horrendous pain. Did not seek medical care hoping it would go away. Two weeks later went to chiropractor and 2 weeks later ended up in ER. care navigator was helpful, but she was getting only a couple hours of pain relief. Now manager home healthcare gives 3-4 days relief. She feels she has aggrevated an old injury (see Developmental history below). States the L4 -S1 jt is grinding. Has tried yoga stretches and states her problem feels structural and thinks she has started loosening things too soon. States the R>L hip joints hurt , thus now the knees hurt, because of modifying how she goes up/down the stairs. Pt points to her R lateral gluteal ms and sacral region as areas of pain denoted as pelvic pain. Denies urinary problems or lower abdominal pelvic pain. She is having pain with intercourse; therefore the pt may need Pelvic rehabilitation in the future. 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 Pt has been on light duty since fall. Prior Treatments and Tests care navigator 1-2 days/ week ([facility] in [place]). X-ray: shows no fractures in Sacrum, Coccyx, and lumbar vertebra. Developmental History Developmental History 17 yrs old fractured what she thinks is the SI, possibly Sacrum L4-S1 Cracked. In 2006 fell on steel pipe landing on L knee. Treatment Goals Patient/Caregiver Goals Pt goals are: *Get hip flexors to release in order to start moving normal (stairs, walking, bending). *Get back to place to start exercising (not doing any currently that is considered purposeful), because she is only doing daily living exercise. *Wear 16# belt around waist and leather gear that carries the items of the belt. * Be able to do Lethel force training (run, crawl, bend, twist, wrestle a suspect, bend down and put someone in handcuffs). Prior Functional Status Baseline Function- ADL's Independent Baseline Function- Mobility Independent Baseline Function- Work/School Was not exercising before fall . Walking 2 miles in/outside Weight lifting legs, arms, back a couple yrs ago Baseline Function- Other Able to sleep without pain. Current Functional Impairments (Reported) Functional Limitations- ADL's Limited in ability to bend, lift > 15#, twisting, sitting > 1 hr, standing > 1 hr, able to sleep w/medication. Sitting to drive >1.5 hrs is too much. Functional Limitations- Mobility/Gait Stride is short on both sides and slower than normal. Functional Limitations- Work/School On light duty. 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 At home has 3 children and spouse has 2 children. PT-OP-C Subjective Start: 09/21/21 17:15 Freq: Status: Active Protocol: Document 05/28/22 14:35 LRN (Rec: 05/28/22 15:20 LRN [id number]) OP-PT Subjective Patient Comments Patient Comments States doing better. [facility] [place]. Couldn't walk against the current but now can walk against the current and can pull the pull core muscles in more automatically. Pain in hips is not as bad at night and took self off the anti-spasmatic med and the bone pain went away. Walked in with cane due to limp on the R side. Can do a bigger stride if have cane with her ( used on the R side). States she can carry light weights of 50# for 50 ft. without becoming debilitated, but does have pain. Pt reports being able to carry groceries into her home. Patient Questionnaires Oswestry Low Back Index Oswestry Score 26 Oswestry Impairment 20 to 39% Impaired (Score 20- 39) OP-PT Pain Assessment Pain Assessment Grid Paper Pain Assessment Grid Completed Yes Location Thoracic region Pain Location Details L THoracic Region Scale Used Numeric (0 - 10) Sternum Pain Location Details Sternal pain occasional related to stress/anxiety Intensity 0 Scale Used Numeric (0 - 10) Knees Pain Location Details R posterior knee radiating from R Sacrum, L knee after stairs Intensity 0 Scale Used Numeric (0 - 10) Description Sharp Hip Flexors Pain Location Details Hip Flexors Intensity 0 Scale Used Numeric (0 - 10) Sacrum Pain Location Details R sacrum, rarely on L side Intensity 2 Scale Used Numeric (0 - 10) Description Radiating,Sharp Description- Other Radiating pain into the posterior R knee. PT-OP-H Neuro Start: 09/21/21 17:15 Freq: Status: Active Protocol: Document 09/26/21 08:17 LRN (Rec: 09/26/21 09:39 LRN [id number]) Sensation Evaluation Gross Sensation Gross Sensation WNL PT-OP-J Posture/Palpation/Skin Start: 09/21/21 17:15 Freq: Status: Active Protocol: Document 10/03/21 08:10 LRN (Rec: 10/03/21 09:03 LRN [id number]) Palpation Assessment Location L innominate Palpation Details Decreased PA mobility of L Ischial Tub Sacrum Palpation Location Sacrum Palpation Details Decreased mobility L inferior glide & PA of right DEEPIKA ( sacrum in R rot) ASIS Palpation Location ASIS Palpation Details R low and inflared. PT-OP-K Range of Motion Start: 09/21/21 17:15 Freq: Status: Active Protocol: Document 11/24/21 08:18 LRN (Rec: 11/24/21 09:01 LRN [id number]) Hip Goniometric Range of Motion Hip Right Active Testing Position Supine Internal Rotation 35 External Rotation 85 Left Passive Testing Position Supine Internal Rotation 25 External Rotation 75 PT-OP-L Special Tests Start: 09/21/21 17:15 Freq: Status: Active Protocol: Document 11/06/21 08:14 LRN (Rec: 11/06/21 09:05 LRN [id number]) Special Tests Lumbar Spine Special Tests Slump Test Results negative Straight Leg Raise Test Results 90 left, 95 right Comments C/O hip socket pain bilterally . PT-OP-M Strength Start: 09/21/21 17:15 Freq: Status: Active Protocol: Document 09/26/21 08:17 LRN (Rec: 09/26/21 09:39 LRN [id number]) Trunk Strength Trunk Manual Muscle Testing Core Stabilization Pt able to maintain core stability with hip flexion ms testing. Hip Strength Hip Manual Muscle Testing Right Flexion (L2) 5 Normal External Rotation 5 Normal Internal Rotation 3 Fair Left Flexion (L2) 5 Normal External Rotation 5 Normal Internal Rotation 3 Fair PT-OP-Q Treatments Start: 09/21/21 17:15 Freq: Status: Active Protocol: Document 05/28/22 14:35 LRN (Rec: 05/28/22 15:20 LRN [id number]) Therapeutic Exercises Supine Exercises Piriformis Supine Exercise Name Piriformis stretch Side bilateral Reps/Minutes 3x each Fig 4 Supine Exercise Name Fig 4 Side bilateral Reps/Minutes 4' Sidelying Exercises TA/CLamshell Sidelying Exercise Name TA/Clamshell Side bilateral Reps/Minutes 20x each, moving slowly Comments light cuing at ASIS to keep pelvis netural Sitting Exercises Hamstring stretch Sitting Exercise Name Leg on plinth Side bilateral Reps/Minutes 30 H x 2 Comments Cued pt to stretch on same side for >60 Gait Training Gait Activity Walk training Description Pt has shortened stride due to L hip flexor tightness Device Used None Surface Level Distance/Duration 50' Treatment Focus Stretch to L hip flexor and wgt shift bilaterally. Self-Care/Home Management Treatment Education Patient Education Home Exercise Program Activities Self-Care/Home Management Activities Reviewed verbally self care program with no questions or concerns. PT-OP-R Modalities Start: 09/21/21 17:15 Freq: Status: Active Protocol: Document 03/12/22 09:51 LRN (Rec: 03/12/22 10:50 LRN [id number]) Electric Stimulation Electric Stimulation Interferential Current (IFC) Body Location [L1>opposite side of sacrum] Duration (Minutes) 11 Intensity 11 Target/Sweep Sweep Patient Position Hooklying Combined With Heat/Cold Cold Pack Comments Legs on bolster Large CP in mid>LB Hot Pack/Cold Pack Treatment Cold Pack Location Back & Sacrum Patient Position Hooklying Treatment Duration (minutes) 11 Patient Tolerance Good Comments Bolster under legs PT-OP-S Aquatic Treatment Start: 04/24/22 16:41 Freq: Status: Active Protocol: Document 05/14/22 15:14 LJ (Rec: 05/14/22 15:27 LJ [id number]) Aquatics Treatment Pool Entry/Exit Pool Entry/Exit Method Stairs Water Walking March Water Level Chest Level Walking Equipment BBs Level of Assistance Verbal Cues Comments cues for core activation Sideways Water Level Chest Level Walking Equipment BBs Level of Assistance Verbal Cues Comments cues for core activation bckwd Water Level Chest Level Walking Equipment BBs Level of Assistance Verbal Cues Comments cues for core activation fwd Water Level Chest Level Walking Equipment BBs Level of Assistance Verbal Cues Comments cues for core activation Lower Extremity Exercises step-ups Details slow motion for control Equipment 8 box Reps/Duration 12 B Comments emphasis on slow and controlled Lower Extremity Stretches IT band Body Position Standing Water Level Chest Level Equipment Small Noodle HS stretch Body Position Standing Water Level [place] Comments feet on wall spiderman stretch Body Position Standing Water Level [place] Comments wall quad Body Position Standing Water Level Chest Level Equipment Small Noodle Reps/Duration 2x30 aime Spinal Exercises Iron cross Details DLS Body Position Standing Water Level [place] Equipment med barbells Reps/Duration 8 min Comments UE pull down aime and unil, pendulum with LE lower and lift, aime KTC [place] Activities [place] Activities Bicycle,Bicycle Backwards, Cross Country,Running Other Activities deep water traction: 7.5# aime LE's, [place] float pendulum-full swing and 1/2 swing deep kicks at wall prone extension Burpees-3 way hacky sac L sit cross-overs Equipment BBs Duration 20 min PT-OP-T Assessment and Plan Start: 09/21/21 17:15 Freq: Status: Active Protocol: Document 05/28/22 14:35 LRN (Rec: 05/28/22 15:20 LRN [id number]) Physical Therapy Assessment Goals Four Impairment Decreased function Impairment CHRISTELLE 20/50 = 40/100 (40-59% impaired, score 40-59). 01/29/22: Pt feels stride is short on both sides and slower than normal, now 6 shuffle steps, 1-2 mph speed; used to be 3 mph easily). Limited in ability to bend, lift > 15#, twisting, sitting > 1 hr, standing > 1 hr, able to sleep w/medication. Sitting to drive >1.5 hrs is too much. Short Term Goal (STG) Pt will be able to improve hip flexors mobility to start moving normal (stairs, walking ). (11/06/21: Walking with small shuffle steps, stairs are difficult, bending is very difficult). (12/05/21: Walking slow but normal, pain with stairs and bending). (01/29/22: Stairs: Up normal, down one at time; walkin steps her back (at L4-S1 ) hurts and hips are swinging around going from R to L) (02/13/22: 1st in AM, can't go down steps normal, sometime can in evening. Walking must be careful with walking and turning due to onset of hip pain. Can walk 90% normal straight except after 2500- 2800 steps in a day, starts to shuffle). (05/28/22: Normal, slow, stair gait unless super tired or had done a lot of bending down during the day, will have trouble. STG Duration 03/14/22 (05/28/22: MET GOAL to pt satisfaction) Shelter Goal (LTG) OLD GOAL: Improve function per CHRISTELLE score of 20-39 (20-39% impaired, score 20-39) HOME GOAL: Carry light weights of 50# for 50 ft. without becoming debilitated. (01/29/22: CHRISTELLE Score is 20/50 = 40/100). (05/28/22: CHRISTELLE Score is 13/50 = 23/100) LTG Duration 04/29/22 (05/28/22: MET GOAL ) Three Impairment Decreased strength and home work function. Impairment Pt on light duty. WORK: Not able to run, crawl, bend, twist, wrestle a suspect , bend down to put someone in handcuffs. Pain starts at 2-4/10 and ends at 7-9/10 at work. HOME: (01/29/22) Not able to fold clothes and remove casserole from oven due to back pain. Short Term Goal (STG) WORK GOAL: Pt will be able to tolerate wearing a 16# belt around waist (leather gear and items it holds) while walking around for her job. NEW HOME GOAL (01/29/22): Pt able to tolerate bring groceries into home after shopping. 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 NEW HOME GOAL: Be able to fold clothes, and getting cassole out of oven with pain no greater than 3/10. (01/29/22: Started weight strengthening program of LE's) (04/10/22: Improved ease with getting cassole out of oven) (03/12/22: 6-7/10 pain getting casserole out of oven). (05/28/22: Pt able to fold clothes on day off and make dinner and get it out of the oven). LTG Duration 04/29/22 (05/28/22: MET GOAL ) Two Impairment Decreased ability to ex due to LBP, Aime hip pain, Aime knee pain. Impairment Pt not execising due to: LBP 4-6/10, R hip pain: anterolateral 4-6 /10, posterior 2-4/10, L hip pain: anterior 2-5/10, R knee pain: medial & lateral 3-8/10, L knee pain: medial & lateral 3-5/10. 01/29/22: Able to walk 1500 steps in a day. Functionally must use arms to lift self to upright after bending over. Short Term Goal (STG) WORK GOAL: Decrease bilateral hip and knee pain with pt able to initiate exercising ( weight lifting) beyond her daily activities. (01/11/22: twinges of pain in the R anterolateral thigh NEW HOME GOAL: Walk 5000 steps in a day. (01/29/22: Started weight strengthening program of 's) (02/13/22: Walks max before having to stop, on a busy day, [id number] steps). (05/28/22: Able to tolerate busy days at work better than was. Stamina is up, pt thinks she is close enought to be satisfied with current condition) STG Duration 03/14/22 (05/28/22: MET GOAL TO PT SATISFACTION) Telephone Directory Deliverer Goal (LTG) WORK GOAL: Pt will be able to tolerate movements (run, crawl, bend, twist, wrestle someone to the ground to put handcuffs on) with tolerable pain, to complete quaterly Lethel force training. NEW HOME GOAL: Pt will be able to tolerate movements (be able to bend over and not have to use UE's to work self back up to standing. (05/28/22: Sometimes can get self back up without use of hands with pain 3-4/10, but can tolerate getting up without use of hands). LTG Duration 05/29/22 (05/28/22: MET GOAL to pt satisfaction,to achieve on aquatic prog) One Impairment Pt lacks appropriate self care HEP. Short Term Goal (STG) Pt will be educated in log roll technique for transfers (10/09/21: Pt educated in log roll technique for transfers) STG Duration 10/03/21 (10/09/21: GOAL MET) Telephone Directory Deliverer Goal (LTG) Independent with a self care HEP. (10/09/21: HEP I/S: TA tightening in sidelie for strengthening and practice in prone & sup). (11/10/21: Reviewed previously issued HEP: Hip ER, and IR (L >R) stretch). (11/24/21: I/S pt in sitting core ex' of leg lifts alternating and together). (04/10/22: HEP issued for progressive core stabilization ) LTG Duration 05/29/22 (05/28/22: GOAL MET ) Assessment Summary Assessment Pt presents today with overall reducation in her pain with elimination of anterior hip and mostly posterior knee pain . She is still experiencing L thoracic and R LB/Sacral pain that sometimes radiates into her posterior R knee. The pt demonstrated ability to bend over and pickle solution maker a paperclip without complaints of pain. She reports ability to ambulate stairs with a normal gait pattern and can ambulate normal on level if she takes very short step lengths, otherwise limited R hip flexor mobility is noted with gait. The pt has an aquatic therapy and home program that she is doing at least 2x/week. The pt is ready to be placed on a her independent HEP to continue to work towards improving her core stability and strength to reduce her upper and lower back pain. Physical Therapy Plan Discharge Physical Therapy Discharge Reasons Goals Met Discharge Comments Goals mostly met, but pt satisfied with current condition and home programs that she will continue to do ( home and aquatic ex's). Pt will continue to work towards improving trunk stability, hip /trunk mobility in order to continue working towards decreasing her thoracic and low back pain.
== END 2022-05-29 12:26 | disposition home or self-care (01) ==
LOC: PHYS 14:30
PROVIDERS: Family Provider Family Medicine; PCP Family Medicine; Referring Provider Family Medicine; Visit Provider Family Medicine
DX: M54.40 Lumbago with sciatica, unspecified side (principal)
CPT/HCPCS: 97014; 97035; 97110; 97113; 97140; 97162; 97530; 97535; G0283

== ENCOUNTER → 2022-06-12 08:28 | Outpatient (CLI) | payer BC, OTHER, SELFPAY ==
[2022-06-12 10:49] LABS: Add Manual Diff / Slide Review NO; Basophils Absolute Auto 0 /uL (0-100); Basophils Percent Auto 0.5 % (0-2); Eosinophils Absolute Auto 100 /uL (0-450); Eosinophils Percent Auto 2.1 % (2-4); Hemoglobin 14.5 g/dL (12.0-16.0); Lymphocytes Absolute Auto 1800 /uL (1100-4500); Lymphocytes Percent Auto 25.7 % (25-40); Mean Corpuscular HGB Conc 33.6 % (30-36); Mean Corpuscular Volume 86.3 fL (80-100); Monocytes Absolute Auto 600 /uL (0-900); Monocytes Percent Auto 9.2 % (3-14); Neutrophils Absolute Auto 4300 /uL (1500-7000); Neutrophils Percent Auto 62.5 % (50-75); Platelet Count 243 X10^3/uL (150-400); Red Blood Cell Count 4.98 X10^6/uL (4.0-5.2); Red Cell Distribution Width 13.8 % (11.6-14.8); White Blood Cell Count 6.9 X10^3/uL (4.5-11.0)
[2022-06-12 10:56] LABS: Hemoglobin A1C% w Est Avg Glu 5.1 % (4.0-6.0)
[2022-06-12 11:14] LABS: Alanine Aminotransferase 24 IU/L (<35); Albumin 4.3 g/dL (3.5-5.0); Albumin Globulin Ratio 1.2 (1.0-2.8); Alkaline Phosphatase 83 U/L (38-126); Aspartate Aminotransferase 19 IU/L (14-36); BUN Creatinine Ratio 16.3 (6-22); Bilirubin Total 0.8 mg/dL (0.2-1.3); Blood Urea Nitrogen 13 mg/dL (7-17); Calcium 9.4 mg/dL (8.4-10.2); Carbon Dioxide 26 mmol/L (22-32); Chloride 102 mmol/L (98-107); Cholesterol 170 mg/dL (140-199); Estimated Glomerular Filt Rate > 60 mL/min (>60); Globulin 3.5 g/dL (1.7-4.1); Glucose 95 mg/dL (70-100); HDL Cholesterol 44 mg/dL (40-60); HEMOLYSIS 18 (0-50); LDL Cholesterol Calculated 106 mg/dL (<100); Potassium 4.9 mmol/L (3.4-5.1); Sodium 137 mmol/L (137-145); Total Protein 7.8 g/dL (6.3-8.2); Triglycerides 98 mg/dL (35-150)
[2022-06-12 11:30] LABS: Prolactin 17.6 ng/mL (3.0-18.6)
[2022-06-12 11:42] LABS: TSH w/ Reflex to FT4 2.27 uIU/mL (0.47-4.68)
== END ==
PROVIDERS: Family Provider Family Medicine; PCP Family Medicine; Referring Provider Family Medicine; Visit Provider Family Medicine
DX: F43.10 Post-traumatic stress disorder, unspecified (principal); G89.29 Other chronic pain; M25.561 Pain in right knee; M25.562 Pain in left knee; N64.52 Nipple discharge
CPT/HCPCS: 36415; 80053; 80061; 83036; 84146; 84443; 85025

== ENCOUNTER → 2022-06-19 08:46 | Outpatient (CLI) | payer BC, OTHER, SELFPAY ==
--- NOTE | 2022-06-19 08:46 | DI.US.S_ITS ---
LIMITED ULTRASOUND OF LEFT BREAST: 06/19/2022 CLINICAL: Nipple discharge, left breast, not bloody. Comparison is made to exam dated: 06/19/2022 mammogram - [facility]. Real-time ultrasound of the left breast retroareolar was performed. Soni scale images of the real-time examination were reviewed. No significant abnormalities were seen sonographically in the left breast. IMPRESSION: NEGATIVE There is no sonographic evidence of malignancy. There is no abnormality seen in the left breast to correspond with the non-bloody discharge from the nipple in the sub-areolar depth, however, clinical followup is recommended. A 1 year screening mammogram is recommended. This exam was interpreted at Station ID: [id number]. Electronically Signed By: Wood sheffield/fady:06/19/2022 09:43:16 letter sent: Clinical Evaluation Ultrasound BI-RADS: 1 Negative
--- NOTE | 2022-06-19 08:46 | DI.MG.S_ITS ---
BILATERAL DIGITAL DIAGNOSTIC MAMMOGRAM 3D/2D: 06/19/2022 CLINICAL: Drainage from left breast. No prior exams were available for comparison. There are scattered areas of fibroglandular density in both breasts (category b / 25%-50% glandular tissue). No significant masses, calcifications, or other findings are seen in either breast. IMPRESSION: INCOMPLETE: NEEDS ADDITIONAL IMAGING EVALUATION There is no abnormality seen in either breast to correspond with the diffuse pain, however, clinical followup is recommended. There is no abnormality seen in the left breast to correspond with the non-bloody discharge from the nipple in the sub-areolar depth, however, ultrasound is recommended. Based on the Tyrer Cuzick model (a risk assessment model) the patient's lifetime risk is 12.3% and her 10 year risk is 2.3%. According to the ACR, ACS, and NCCN guidelines, an annual breast MRI exam along with mammogram is recommended if the patient's lifetime risk is 20% or greater. This exam was interpreted at Station ID: [id number]. NOTE: For mammograms, a report in lay terms will be sent to the patient. Approximately 15% of breast malignancies will not be visualized mammographically. In the management of a palpable breast mass, a negative mammogram must not discourage biopsy of a clinically suspicious lesion. Electronically Signed By: Wood sheffield/fady:06/19/2022 09:32:29 ACR BI-RADS Category 0: Incomplete [id number]
== END ==
PROVIDERS: Family Provider Family Medicine; PCP Family Medicine; Referring Provider Family Medicine; Visit Provider Family Medicine
DX: N64.4 Mastodynia (principal); R92.2 Inconclusive mammogram; N64.52 Nipple discharge
CPT/HCPCS: 76642; 77066; G0279

== ENCOUNTER → 2022-08-14 09:52 | Outpatient (CLI) | payer BC, OTHER, SELFPAY ==
[2022-08-14 10:30] LABS: COVID19 -Nasal RAPID Negative (Negative)
== END ==
PROVIDERS: Family Provider Family Medicine; PCP Family Medicine; Visit Provider Surgery
DX: Z01.812 Encounter for preprocedural laboratory examination (principal); Z20.822 Contact with and (suspected) exposure to COVID-19
CPT/HCPCS: 87635

== ENCOUNTER 2022-08-14 09:53 | Day surgery (SDC) | payer BC, OTHER, SELFPAY ==
[2022-08-14 10:45] VITALS: BP 118/81; PULSE 66; RESP 16; TEMP 36.9; O2SAT 99; BMI 42.4
[2022-08-14] MEDS: LACTATED RINGERS 1,000 ML 200 ML IV (11:10)
--- NOTE | 2022-08-14 12:00 | PM.HP.1 ---
History of Present Illness History of Present Illness Date Patient Seen: 08/14/22 Time Patient Seen: 12:01 Chief complaint: Colonoscopy Narrative: The patient presents for colorectal screening. They have never had any previous examination for such. No personal or family history of colon cancer. On further history denies any recent gastrointestinal symptoms. No nausea, vomiting, abdominal pain, loss of appetite, unexplained weight loss, change in bowel habits, or blood per rectum. Patient History Medical History Abnormal vaginal bleeding with endometrial thickness less than 16 mm present on transvaginal ultrasound in premenopausal patient Acne (~1987) Allergies (~2005) Ankle pain (~2017) Asthma, mild intermittent (~2003) Bilateral knee pain Carpal tunnel syndrome (~2008) Chicken pox (~1980) Chronic back pain (~2013) Depression Female hirsutism Foot pain (~2009) Fracture of left wrist GERD (gastroesophageal reflux disease) Hemorrhagic cyst History of urinary incontinence (~2008) Irregular menstruation (~2011) Measles Menorrhagia (~1992) Plantar warts (~1993) Recurrent sinusitis Scarlet fever (~1985) Shoulder pain (~2010) Uterine fibroid Surgical History Anesthesia H/O left wrist surgery (~02/1995) History of History of tubal ligation (~03/15/12) Hx of appendectomy (~2000) Hx of cholecystectomy (~1997) Family & Social History Family History Father Camarena's esophagus Mother Hypothyroidism Hypertension Hyperlipidemia Stroke Brother Alcoholic Grandfather History of heart disease Grandmother Cancer Grandfather Cancer Grandmother Alzheimer's disease Family/Other Postural orthostatic tachycardia syndrome Social History: household members spouse,children Tobacco & Substance use: Smoking Status Never smoker alcohol intake current alcohol intake frequency a few times a week Substance Use Type does not use Meds Home Medications and Allergies Home Medications Medication Instructions Recorded Confirmed Type omeprazole 20 mg capsule,delayed See Rx Instructions .Route 03/16/22 06/12/22 Rx release .COMPLEX #180 caps Disabled Parking #1 ea 04/13/22 06/12/22 Rx sodium,potassium,mag sulfates 17.5 See Rx Instructions PO .COMPLEX 07/26/22 Rx gram-3.13 gram-1.6 gram oral soln #354 mL (Suprep Bowel Prep Kit) Allergies Allergy/AdvReac Type Severity Reaction Status Date / Time naproxen Allergy Severe feels Verified 08/14/22 10:35 like throat is closing nitrofurantoin Allergy Severe Rash Verified 08/14/22 10:35 [From Macrobid] Sulfa (Sulfonamide Allergy Severe Rash Verified 08/14/22 10:35 Antibiotics) Exam Vital Signs (past 8 hours): - 08/14/22 10:45 Temperature 98.4 F Pulse Rate 66 Respiratory Rate 16 Blood Pressure 118/81 Pulse Oximetry 99 Oxygen Delivery Method Room Air Oxygen Delivery Method Room Air Narrative Exam Narrative: General adult woman alert oriented no acute distress Abdomen soft nontender nondistended Assessment & Plan Assessment & Plan narrative: The patient requires colorectal screening and colonoscopy is recommended. Technical details were discussed. Risks, benefits, alternatives explained. Risks including but not limited to myocardial infarction, aspiration, bleeding, pain, missed lesion, incomplete examination, need for further radiographic studies, colonic perforation, and need for major abdominal surgery were discussed. All questions were answered to their satisfaction, and they are in agreement with this plan. Time Spent With Patient Critical Care time: I spent a total of [] minutes of critical care time on this patient's care today; this time is exclusive of procedural time.
--- NOTE | 2022-08-14 12:05 | P.OP.COLON_ITS ---
Operative Date/Time/Diagnoses Date of procedure: 08/14/22 Time of procedure: 12:05 Pre-op diagnosis: Screening colonoscopy Post-op diagnosis: same Procedure & Clinicians Study performed: Colonoscopy Same procedure as scheduled: Yes Indications: Colorectal screening Surgeon: Gregg Cross Procedure Notes Procedure in detail: The history and physical was performed/updated and the patient is ASA class is 3. The procedure was discussed in detail with the patient. Potential risks complications including infection, bleeding, missed diagnosis, perforation, need for surgery, and were explained. Their questions were answered and informed consent was obtained. Patient was brought to the procedure room and placed standard monitoring equipment. The patient's vital signs were monitored continuously throughout the entire procedure. Prior to starting time-out was performed. The patient was placed in the left lateral recumbent position. Procedural sedation was administered by anesthesia. Examination began with a thorough inspection of the perianal area there was no evidence of fissures, fistulae, external hemorrhoids or cutaneous malignancy. The colonoscopy scope was then placed into the anal canal and was advanced to the cecum, which was identified by the ileocecal valve, and the confluence of the taenia. The scope was then slowly withdrawn examining colon thoroughly in all directions, irrigating it of any residual s tool. FINDINGS 1. No masses polyps or inflammation 2. Internal hemorrhoids The patient tolerated the procedure well. They will be discharged once criteria are met. The prep was of good/excellent quality. The withdrawl time was 6 minutes. Impression: Normal colonoscopy Post-procedure Recommendations: Colonoscopy in 10 years and High fiber diet Disposition: same day surgery
[2022-08-14 12:31] VITALS: BP 113/70; PULSE 69; RESP 12; TEMP 36.2; O2SAT 99
[2022-08-14 12:36] VITALS: BP 115/73; PULSE 65; RESP 13; O2SAT 98
[2022-08-14 12:40] VITALS: BP 134/77; PULSE 66; RESP 13; O2SAT 98
[2022-08-14 12:56] VITALS: BP 143/81; PULSE 66; RESP 16; O2SAT 99
== END 2022-08-14 13:02 | disposition home or self-care (01) ==
PROVIDERS: Family Provider Family Medicine; PCP Family Medicine; Referring Provider Surgery; Visit Provider Surgery
PROC: 0DJD8ZZ Inspection of Lower Intestinal Tract, Via Natural or Artificial Opening Endoscopic (ICD-10-PCS; CPT 45378; principal; 2022-08-14 11:15)
DX: Z12.11 Encounter for screening for malignant neoplasm of colon (principal); Z20.822 Contact with and (suspected) exposure to COVID-19; K64.8 Other hemorrhoids; Z01.812 Encounter for preprocedural laboratory examination
CPT/HCPCS: 45378; 87635; C9803; J2704

== ENCOUNTER → 2022-10-01 11:56 | Outpatient (CLI) | payer BC, OTHER, SELFPAY ==
--- NOTE | 2022-10-01 11:58 | DI.RAD.S_ITS ---
PROCEDURE: XR ELBOW RT MIN 3V INDICATIONS: right elbow pain and joint swelling TECHNIQUE: 3 views of the elbow were acquired. COMPARISON: None. FINDINGS: Bones: No acute fractures or dislocations. No suspicious bony lesions. Soft tissues: No elbow joint effusion. No suspicious soft tissue calcifications. IMPRESSION: No acute osseous abnormality. If clinical suspicion and/or symptoms persist, additional imaging with repeat plain films, or advanced imaging (e.g. CT, MRI) may be helpful for further assessment. Approved by: Wood Altamirano M.D. on 10/01/2022 at 13:48
== END ==
PROVIDERS: Family Provider Family Medicine; PCP Family Medicine; Referring Provider Family Medicine; Visit Provider Family Medicine
DX: M25.521 Pain in right elbow (principal)
CPT/HCPCS: 73080

== ENCOUNTER → 2022-10-09 16:05 | Outpatient (CLI) | payer BC, OTHER, SELFPAY ==
[2022-10-09 17:55] LABS: C-Reactive Protein Quant < 0.5 mg/dL (<1.0)
[2022-10-09 17:58] LABS: Rheumatoid Factor < 8.6 IU/mL (<12.0)
[2022-10-09 18:20] LABS: Erythrocyte Sedimentation Rate 11 MM/HR (0-20)
[2022-10-13 16:10] LABS: ANA Screen, IFA Negative (.)
== END ==
PROVIDERS: Family Provider Family Medicine; PCP Family Medicine; Referring Provider Family Medicine; Visit Provider Family Medicine
DX: M25.521 Pain in right elbow (principal); M25.561 Pain in right knee; M25.562 Pain in left knee
CPT/HCPCS: 36415; 85651; 86038; 86140; 86430

== ENCOUNTER → 2023-06-25 08:59 | Outpatient (CLI) | payer BC, SELFPAY ==
[2023-06-25 10:17] LABS: Influenza A - CEPHEID Flu A NEGATIVE (NEGATIVE); Influenza B - CEPHEID Flu B NEGATIVE (NEGATIVE); Respiratory Syncytial Virus Negative (Negative)
[2023-06-25 10:22] LABS: COVID-19 CEPHEID 4-PLEX PCR Negative (Negative)
== END ==
PROVIDERS: Family Provider Family Medicine; PCP Family Medicine; Visit Provider Family Medicine
DX: R05.9 Cough, unspecified (principal)
CPT/HCPCS: 0241U

== ENCOUNTER → 2023-06-25 09:20 | Outpatient (CLI) | payer BC, SELFPAY ==
[2023-06-25 11:11] LABS: Add Manual Diff / Slide Review NO; Basophils Absolute Auto 0 /uL (0-100); Basophils Percent Auto 0.5 % (0-2); Eosinophils Absolute Auto 200 /uL (0-450); Eosinophils Percent Auto 2.5 % (2-4); Hemoglobin 14.9 g/dL (12.0-16.0); Lymphocytes Absolute Auto 2200 /uL (1100-4500); Lymphocytes Percent Auto 22.4 % (25-40); Mean Corpuscular HGB Conc 34.6 % (30-36); Mean Corpuscular Hemoglobin 30.8 PG (26-34); Mean Corpuscular Volume 89.1 fL (80-100); Monocytes Absolute Auto 900 /uL (0-900); Neutrophils Absolute Auto 6600 /uL (1500-7000); Neutrophils Percent Auto 65.6 % (50-75); Platelet Count 314 X10^3/uL (150-400); Red Blood Cell Count 4.82 X10^6/uL (4.0-5.2); Red Cell Distribution Width 13.6 % (11.6-14.8)
[2023-06-25 11:46] LABS: Alanine Aminotransferase 59 IU/L (<35); Albumin Globulin Ratio 1.3 (1.0-2.8); Alkaline Phosphatase 74 U/L (38-126); Aspartate Aminotransferase 38 IU/L (14-36); BUN Creatinine Ratio 12.9 (6-22); Bilirubin Total 1.4 mg/dL (0.2-1.3); Blood Urea Nitrogen 11 mg/dL (7-17); Calcium 9.5 mg/dL (8.4-10.2); Carbon Dioxide 27 mmol/L (22-32); Chloride 101 mmol/L (98-107); Cholesterol 161 mg/dL (140-199); Estimated Glomerular Filt Rate > 60 mL/min (>60); Globulin 3.2 g/dL (1.7-4.1); Glucose 84 mg/dL (70-100); HDL Cholesterol 38 mg/dL (40-60); HEMOLYSIS < 15 (0-50); Sodium 135 mmol/L (137-145); Total Protein 7.2 g/dL (6.3-8.2)
[2023-06-25 12:05] LABS: TSH w/ Reflex to FT4 2.36 uIU/mL (0.47-4.68)
[2023-06-25 12:10] LABS: LDL Cholesterol Calculated 95 mg/dL (<100); Triglycerides 140 mg/dL (35-150)
[2023-06-25 12:51] LABS: Appearance Urine UA CLEAR; Bilirubin Urine UA NEGATIVE (NEGATIVE); Glucose Urine UA NEGATIVE (Negative); Ketones Urine UA TRACE (NEGATIVE); Leukocyte Esterase Urine UA NEGATIVE (NEGATIVE); Nitrite Urine UA NEGATIVE (Negative); Occult Blood Urine UA NEGATIVE (Negative); Protein Urine UA TRACE (Negative); Specific Gravity Urine UA 1.025 (1.000-1.035)
[2023-06-25 12:55] LABS: Color Urine UA Orange
[2023-06-25 13:04] LABS: Bacteria Urine Many (>30); Mucus Urine 2+ (Negative); RBC Urine None Seen (0-5/HPF); Squamous Epithelial Cell Urine 10-30 /HPF (0-5/HPF); WBC Urine 0-1/HPF (0-5/HPF)
[2023-06-25 13:05] LABS: Culture Indicated Urine Specimen Cultured
== END ==
PROVIDERS: Family Provider Family Medicine; PCP Family Medicine; Referring Provider Family Medicine; Visit Provider Family Medicine
DX: J45.20 Mild intermittent asthma, uncomplicated (principal); J40 Bronchitis, not specified as acute or chronic; E78.5 Hyperlipidemia, unspecified; R10.9 Unspecified abdominal pain; R05.9 Cough, unspecified
CPT/HCPCS: 0241U; 36415; 80053; 80061; 81001; 84443; 85025; 87086

== ENCOUNTER → 2023-10-10 10:10 | Outpatient (CLI) | payer BC, OTHER, SELFPAY ==
[2023-10-10 12:03] LABS: Alanine Aminotransferase 21 IU/L (<35); Albumin 3.9 g/dL (3.5-5.0); Albumin Globulin Ratio 1.2 (1.0-2.8); Alkaline Phosphatase 75 U/L (38-126); Aspartate Aminotransferase 18 IU/L (14-36); BUN Creatinine Ratio 15.1 (6-22); Bilirubin Total 0.6 mg/dL (0.2-1.3); Blood Urea Nitrogen 11 mg/dL (7-17); Calcium 9.1 mg/dL (8.4-10.2); Carbon Dioxide 29 mmol/L (22-32); Chloride 108 mmol/L (98-107); Estimated Glomerular Filt Rate > 60 mL/min (>60); Globulin 3.2 g/dL (1.7-4.1); Glucose 84 mg/dL (70-100); HEMOLYSIS < 15 (0-50); Potassium 4.4 mmol/L (3.4-5.1); Sodium 138 mmol/L (137-145); Total Protein 7.1 g/dL (6.3-8.2)
== END ==
PROVIDERS: Family Provider Family Medicine; PCP Family Medicine; Referring Provider Family Medicine; Visit Provider Family Medicine
DX: R74.8 Abnormal levels of other serum enzymes (principal)
CPT/HCPCS: 36415; 80053

== ENCOUNTER → 2023-10-21 06:39 | Outpatient (CLI) | payer BC, OTHER, SELFPAY ==
--- NOTE | 2023-10-21 06:40 | DI.US.S_ITS ---
PROCEDURE: US PELVIC COMPLETE INDICATIONS: MENORRHAGIA TECHNIQUE: Real-time scanning was performed of the pelvic organs, with image documentation. Additional endovaginal scanning was necessary due to incomplete visualization of the adnexal and endometrial structures by transabdominal scanning. COMPARISON: [facility], , US PELVIC COMPLETE, 01/31/2021, 17:01. FINDINGS: Uterus: Uterus is anteverted and normal in size at 9.5 x 5.3 x 6.8 cm. The myometrium is homogeneous. The endometrium measures 14.9 mm combined thickness. Left posterior intramural fibroid measuring 2.8 x 2.2 x 2.6 centimeters, previously 1.9 x 1.8 x 1.7 centimeters. Ovaries: The right ovary is surgically absent. The left ovary measures 5.7 x 2.0 x 3.7 cm, with a calculated ovarian volume of 21.7 cc. Left ovarian simple cyst measuring 2.9 x 1.8 x 2.3 centimeters. Less than 12 follicles in the left ovary. The left ovary is otherwise normal in appearance. No adnexal masses are seen. Other: No pathologic free abdominal or pelvic fluid. IMPRESSION: Thickened endometrium measuring 15 millimeters. Recommend endometrial sampling for further evaluation. Left ovarian simple cyst measuring 2.9 centimeters. Increased size of fibroid measuring 2.8 centimeters, previously 1.9 centimeters. Right ovary is surgically absent. We strive to produce accurate, complete, and clear reports of imaging services. To assist us in improving patient care, this report was composed using standard report templates and voice recognition software. Therefore, it may contain abnormal punctuation, insertions and/or omissions. Occasional wrong-word or sound-alike substitutions may occur. Though we review the report and make efforts to correct it, we do recommend that the report be read carefully in proper context to recognize any text inaccuracies. Dictated by: Law Fuhcs M.D. on 10/21/2023 at 9:16 Approved by: Law Fuchs M.D. on 10/21/2023 at 9:21
== END ==
LOC: US 06:40
PROVIDERS: Family Provider Family Medicine; PCP Family Medicine; Referring Provider Physician Assistant; Visit Provider Physician Assistant
DX: N92.0 Excessive and frequent menstruation with regular cycle (principal); D25.1 Intramural leiomyoma of uterus; R93.89 Abnormal findings on diagnostic imaging of other specified body structures; N83.292 Other ovarian cyst, left side; Z90.721 Acquired absence of ovaries, unilateral
CPT/HCPCS: 76830; 76856

== ENCOUNTER 2024-05-18 18:57 | Emergency (ER) | payer BC, OTHER, SELFPAY ==
[2024-05-18] VITALS (10 sets, daily range): BP systolic 116–150; BP diastolic 67–93; PULSE 64–78; RESP 15–21; TEMP 36.9; O2SAT 96–98; BMI 43.0
--- NOTE | 2024-05-18 19:08 | DI.RAD.S_ITS ---
PROCEDURE: XR CHEST 1V INDICATIONS: Chest pain TECHNIQUE: One view of the chest was acquired. COMPARISON: None. FINDINGS: Surgical changes and devices: None. Lungs and pleura: There is pulmonary vascular congestion. No definite focal infiltrate. No pleural effusions or pneumothorax. Mediastinum: Mediastinal contours appear normal. Heart size is enlarged. Bones and chest wall: No suspicious bony lesions. Overlying soft tissues appear unremarkable. IMPRESSION: Cardiomegaly and mild congestion. No definite focal infiltrate. No pleural effusion or pneumothorax. Dictated by: Eron Boateng M.D. on 05/18/2024 at 19:37 Approved by: Eron Boateng M.D. on 05/18/2024 at 19:37
--- NOTE | 2024-05-18 19:14 | EKG_ITS ---
[facility] [address] [place] [address] Test Date: 2024-05-18 Pat Name: Sharita Mackay Department: [facility] Room: Gender: Female Soda Maker: PLACIDO : 1975 Requested By: Order Number: [id number] Reading MD: Hernán Wood MD Measurements Intervals [place] Rate: 55 P: 24 SC: 188 QRS: -12 QRSD: 90 T: 2 QT: 432 QTc: 413 Interpretive Statements Sinus bradycardia with sinus arrhythmia Possible Anterior infarct , age undetermined Electronically Signed On 05-19-2024 7:30:10 PDT by Hernán Wood MD
[2024-05-18 19:26] LABS: Add Manual Diff / Slide Review NO; Basophils Absolute Auto 100 /uL (0-100); Eosinophils Absolute Auto 200 /uL (0-450); Eosinophils Percent Auto 2.6 % (2-4); Hematocrit 39.6 % (36-46); Hemoglobin 13.4 g/dL (12.0-16.0); Lymphocytes Absolute Auto 2100 /uL (1100-4500); Lymphocytes Percent Auto 29.3 % (25-40); Mean Corpuscular HGB Conc 33.7 % (30-36); Mean Corpuscular Hemoglobin 29.3 PG (26-34); Mean Corpuscular Volume 86.7 fL (80-100); Monocytes Absolute Auto 700 /uL (0-900); Monocytes Percent Auto 9.6 % (3-14); Neutrophils Absolute Auto 4100 /uL (1500-7000); Neutrophils Percent Auto 57.5 % (50-75); Platelet Count 218 X10^3/uL (150-400); Red Blood Cell Count 4.57 X10^6/uL (4.0-5.2); White Blood Cell Count 7.2 X10^3/uL (4.5-11.0)
--- NOTE | 2024-05-18 19:40 | ED.CHESTPAIN ---
HPI - Chest Pain General Chief Complaint: Chest Pain Stated Complaint: chest px Time Seen by Provider: 05/18/24 19:07 Source: patient and family Mode of arrival: Wheelchair History of Present Illness HPI narrative: Patient is a 48-year-old female. Does have history of a panic attack. Is here for evaluation of chest discomfort. Symptoms started at approximately 0540 in the afternoon today. She states she has had symptoms like this in the past and was told that it was a panic attack. She was unsure as to whether or not he was hurt. She does admit that she has quite a bit of life stressors dealing with her and family. Has not tried anything for the symptoms prior to arrival. No shortness of breath. Related Data Previous Rx's Medication Instructions Recorded omeprazole 20 mg capsule,delayed See Rx Instructions .Route 01/03/24 release .COMPLEX #180 caps Allergies Allergy/AdvReac Type Severity Reaction Status Date / Time naproxen Allergy Severe feels Verified 05/18/24 19:04 like throat is closing nitrofurantoin AdvReac Severe Rash Verified 05/18/24 19:04 [From Macrobid] Sulfa (Sulfonamide AdvReac Severe Rash Verified 05/18/24 19:04 Antibiotics) Review of Systems Review of Systems Narrative: See HPI Patient History Medical History Bilateral knee pain Plantar warts (~1993) Acne (~1987) Allergies (~2005) Depression Shoulder pain (~2010) Foot pain (~2009) Chronic back pain (~2013) Carpal tunnel syndrome (~2008) Ankle pain (~2017) Scarlet fever (~1985) Measles Chicken pox (~1980) Recurrent sinusitis History of urinary incontinence (~2008) Fracture of left wrist Uterine fibroid Female hirsutism Hemorrhagic cyst Abnormal vaginal bleeding with endometrial thickness less than 16 mm present on transvaginal ultrasound in premenopausal patient Menorrhagia (~1992) Asthma, mild intermittent (~2003) Irregular menstruation (~2011) GERD (gastroesophageal reflux disease) Surgical History Anesthesia H/O left wrist surgery (~02/1995) History of History of tubal ligation (~03/15/12) Hx of appendectomy (~2000) Hx of cholecystectomy (~1997) Family History Father Camarena's esophagus Mother Hypothyroidism Hypertension Hyperlipidemia Stroke Brother Alcoholic Grandfather History of heart disease Grandmother Cancer Grandfather Cancer Grandmother Alzheimer's disease Family/Other Postural orthostatic tachycardia syndrome Social History household members: spouse and children Smoking Status: Never smoker second hand exposure: Yes alcohol intake: current Smoking Status: Never smoker alcohol intake frequency: a few times a week Substance Use Type: does not use Exam Initial Vital Signs Initial Vital Signs: Vital Signs Temperature 98.4 F 05/18/24 19:04 Pulse Rate 64 05/18/24 19:04 Respiratory Rate 18 05/18/24 19:04 Blood Pressure 150/93 H 05/18/24 19:04 Pulse Oximetry 98 05/18/24 19:04 Oxygen Delivery Method Room Air 05/18/24 19:04 Const General: cooperative, comfortable and No ill appearing HENMT Head: normal to inspection and normocephalic Resp Effort & Inspection: normal respiratory effort Auscultation: clear to auscultation bilaterally Cardio Rate: regular rate Rhythm: regular rhythm GI Inspection: normal to inspection and non-distended Skin General: no rashes or lesions noted Neuro General: patient alert, patient awake and moves all extremities Extrem General: normal to inspection and capillary refill normal Course Orders Ordered: ED Orders 05/18/24 19:08 XR chest 1V Stat EKG-12 Lead Stat 05/18/24 19:16 Complete Blood Count AUTO DIFF Stat Comprehensive Metabolic Panel Stat Lipase Stat Troponin & CK Cardiac Panel Stat 05/18/24 21:13 Troponin & CK Cardiac Panel Stat Discontinued Medications Lorazepam (Lorazepam 2 Mg/Ml Inj) 1 mg IV NOW ONE Stop: 05/18/24 19:41 Last Admin: 05/18/24 19:45 Dose: 1 mg Documented By: RL Vital Signs Vital signs: Vital Signs - 8 hr 05/18/24 19:04 05/18/24 19:31 05/18/24 20:00 Temperature 98.4 F Pulse Rate 64 64 70 Respiratory Rate 18 16 15 Blood Pressure 150/93 H Pulse Oximetry 98 97 Oxygen Delivery Method Room Air 05/18/24 20:24 05/18/24 20:24 05/18/24 20:30 Temperature Pulse Rate 70 Respiratory Rate 16 Blood Pressure 131/82 116/72 Pulse Oximetry 98 Oxygen Delivery Method 05/18/24 20:30 05/18/24 21:00 05/18/24 21:00 Temperature Pulse Rate 69 73 Respiratory Rate 16 17 Blood Pressure 135/71 Pulse Oximetry 97 96 Oxygen Delivery Method Room Air Room Air 05/18/24 21:30 05/18/24 21:30 05/18/24 22:02 Temperature Pulse Rate 68 78 Respiratory Rate 16 21 Blood Pressure 122/67 Pulse Oximetry 96 98 Oxygen Delivery Method Room Air 05/18/24 22:03 05/18/24 22:03 05/18/24 22:30 Temperature Pulse Rate 72 Respiratory Rate 19 Blood Pressure 135/72 128/73 Pulse Oximetry 97 Oxygen Delivery Method Room Air 05/18/24 22:30 Temperature Pulse Rate 72 Respiratory Rate 15 Blood Pressure Pulse Oximetry 97 Oxygen Delivery Method Room Air MDM - Chest Pain Lab Data Attestation: I reviewed the patient's lab results. 05/18/24 19:16 05/18/24 19:16 Labs: Lab Results 05/18/24 05/18/24 Range/Units 19:16 21:13 WBC 7.2 (4.5-11.0) X10^3/uL RBC 4.57 (4.0-5.2) X10^6/uL Hgb 13.4 (12.0-16.0) g/dL Hct 39.6 (36-46) % MCV 86.7 (80-100) fL MCH 29.3 (26-34) PG MCHC 33.7 (30-36) % RDW 14.0 (11.6-14.8) % Plt Count 218 (150-400) X10^3/uL Neut % (Auto) 57.5 (50-75) % Lymph % (Auto) 29.3 (25-40) % [place] % (Auto) 9.6 (3-14) % Eos % (Auto) 2.6 (2-4) % Baso % (Auto) 1.0 (0-2) % Neut # (Auto) 4100 (2999-7312) /uL Lymph # (Auto) 2100 (2932-2866) /uL [place] # (Auto) 700 (0-900) /uL Eos # (Auto) 200 (0-450) /uL Baso # (Auto) 100 (0-100) /uL Sodium 138 (137-145) mmol/L Potassium 3.9 (3.4-5.1) mmol/L Chloride 107 (98-107) mmol/L Carbon Dioxide 24 (22-32) mmol/L BUN 9 (7-17) mg/dL Creatinine 0.65 (0.52-1.04) mg/dL Estimated GFR > 60 (>60) mL/min BUN/Creatinine Ratio 13.8 (6-22) Glucose 101 H (70-100) mg/dL Calcium 8.7 (8.4-10.2) mg/dL Total Bilirubin 0.5 (0.2-1.3) mg/dL AST 23 (14-36) IU/L ALT 26 (<35) IU/L Alkaline Phosphatase 79 (38-126) U/L Total Creatine Kinase 49 43 (30-135) U/L Troponin I < 0.012 < 0.012 (0.01-0.034) ng/mL Total Protein 7.1 (6.3-8.2) g/dL Albumin 4.1 (3.5-5.0) g/dL Globulin 3.0 (1.7-4.1) g/dL Albumin/Globulin Ratio 1.4 (1.0-2.8) Lipase 182 (23-300) U/L Imaging Data Chest x-ray: Radiologist's Impression: PROCEDURE: XR CHEST 1V INDICATIONS: Chest pain TECHNIQUE: One view of the chest was acquired. COMPARISON: None. FINDINGS: Surgical changes and devices: None. Lungs and pleura: There is pulmonary vascular congestion. No definite focal infiltrate. No pleural effusions or pneumothorax. Mediastinum: Mediastinal contours appear normal. Heart size is enlarged. Bones and chest wall: No suspicious bony lesions. Overlying soft tissues appear unremarkable. IMPRESSION: Cardiomegaly and mild congestion. No definite focal infiltrate. No pleural effusion or pneumothorax. ECG Data Attestation: I personally reviewed and interpreted this ECG as follows: Interpretation: Sinus bradycardia Ventricular of 55 [place] Normal QRS Normal QTC No ST T wave changes MDM Narrative Medical decision making narrative: Low risk heart score. No fevers. Does feel better after Ativan. Nonischemic EKG. 2- troponins. Chest x-ray is unremarkable. I have low suspicion for ACS and I do suspect that this is related to anxiety. Will discharge patient home with return precautions. She expressed understanding and agreement with plan. Discharge Plan Departure Patient Disposition: Home Clinical Impression: Atypical chest pain Instructions: DI for Atypical Chest Pain Activity Restrictions/Additional Instructions: Recommend that you continue to take all of your medications as directed. I do recommend that you talk with your primary care doctor for a follow-up. Return to the emergency department for new or worsening symptoms. Prescriptions: No Action omeprazole 20 mg capsule,delayed release(DR/EC) See Rx Instructions .ROUTE .COMPLEX Qty: 180 3RF Dose Instruction: TAKE 1 CAPSULE BY MOUTH TWICE DAILY Rx Instructions: TAKE 1 CAPSULE BY MOUTH TWICE DAILY Referrals: Landon Trujillo MD [Primary Care Provider] - Stand Alone Forms: Patient Portal/API
[2024-05-18] MEDS: LORazepam 2 MG/ML INJ 1 MG IV (19:45)
[2024-05-18 19:46] LABS: Alanine Aminotransferase 26 IU/L (<35); Albumin 4.1 g/dL (3.5-5.0); Albumin Globulin Ratio 1.4 (1.0-2.8); Alkaline Phosphatase 79 U/L (38-126); Aspartate Aminotransferase 23 IU/L (14-36); BUN Creatinine Ratio 13.8 (6-22); Bilirubin Total 0.5 mg/dL (0.2-1.3); Blood Urea Nitrogen 9 mg/dL (7-17); Calcium 8.7 mg/dL (8.4-10.2); Carbon Dioxide 24 mmol/L (22-32); Chloride 107 mmol/L (98-107); Creatine Kinase 49 U/L (30-135); Estimated Glomerular Filt Rate > 60 mL/min (>60); Glucose 101 mg/dL (70-100); HEMOLYSIS < 15 (0-50); Lipase 182 U/L (23-300); Potassium 3.9 mmol/L (3.4-5.1); Sodium 138 mmol/L (137-145); Total Protein 7.1 g/dL (6.3-8.2)
[2024-05-18 19:58] LABS: Troponin I < 0.012 ng/mL (0.01-0.034)
[2024-05-18 21:55] LABS: Creatine Kinase 43 U/L (30-135)
[2024-05-18 22:08] LABS: Troponin I < 0.012 ng/mL (0.01-0.034)
== END 2024-05-18 22:49 | disposition home or self-care (01) ==
PROVIDERS: Emergency Provider Emergency Medicine; Family Provider Family Medicine; PCP Family Medicine
DX: R07.89 Other chest pain (principal); R00.1 Bradycardia, unspecified
CPT/HCPCS: 36415; 71045; 80053; 82550; 83690; 84484; 85025; 93005; 96374; 99284; J2060

== ENCOUNTER → 2024-06-16 06:19 | Outpatient (CLI) | payer BC, OTHER, SELFPAY ==
--- NOTE | 2024-06-16 06:21 | DI.ECHO.S_ITS ---
[facility] : : [address] : : [place] : : [id number] : : Phone: [phone] Echocardiogram Report + + :Name: JED RAPP Study Date: 06/16/2024 Height: 67.5 in: :[facility] ReadingLocation: Weight: 279 lb : : Gender: Female BSA: 2.3 m2 : :: 1975 Age: 49 yrs BP: 144/93 mmHg: :Reason For Study: CARDIOMEGALY : :Ordering Physician: HU, : :ROBBIE Performed By: Ina Buenrostro : :Referring: ROBBIE LUI : + + Interpretation Summary 1) Normal left ventricular thickness, size, wall motion, and systolic function (EF 60-65%). 2) Mildly enlarged right ventricle with normal function. 3) No significant valvular abnormalities. 4) No prior Echo available for comparison. Procedure: A two-dimensional transthoracic echocardiogram with color flow and Doppler was performed. The study quality was technically adequate. There is no prior echocardiogram noted for this patient. The patient was in sinus rhythm with heart rates between 57-71 bpm during the exam. Left Ventricle: The left ventricle is normal in size and wall thickness. The ejection fraction is estimated to be 60-65%. Left ventricular systolic function appears normal without focal wall motion abnormalities. Diastolic parameters suggest a relaxation abnormality of the left ventricle, consistent with probable normal filling pressures. Right Ventricle: The right ventricle is mildly dilated. The right ventricular systolic function is normal. Atria: The left atrial size is normal. Right atrial size is normal. There is no Doppler evidence for an interatrial shunt. Mitral Valve: The mitral valve is normal in structure and function. There is trace mitral regurgitation. Aortic Valve: The aortic valve is trileaflet. The aortic valve opens well. There is no aortic valve stenosis. No aortic regurgitation is present. Tricuspid Valve: The tricuspid valve is normal in structure and function. There is mild tricuspid regurgitation. The right ventricular systolic pressure is estimated to be at least 19 mmHg based on an estimated right atrial pressure of 3 mm Hg. Pulmonic Valve: The pulmonic valve leaflets are thin and pliable; valve motion is normal. There is trace pulmonic regurgitation. Great Vessels: The aortic root is normal size. The dimensions of the ascending aorta are normal. The IVC is of normal diameter and collapses greater than 50% with a sniff. This suggests a low right atrial pressure of 3 mm Hg. Pericardium/ Pleura There is no pericardial effusion. There is no pleural effusion. MMode/2D Measurements & Calculations LVIDd: 4.9 cm LVOT diam: 2.1 cm LVIDs: 3.6 cm Ao root diam: 3.2 cm FS: 26.9 % asc Aorta Diam: 3.6 cm EPSS: 0.37 cm Ao Arch Diam (Prox Trans): 3.1 cm IVSd: 0.94 cm LVPWd: 0.91 cm LV watson. diameter/BSA (cm/m^2): 2.1 LV sys. diameter/BSA (cm/m^2): 1.5 LA A2 area: 17.8 cm2 RA long axis: 5.5 cm LA A4 area: 22.9 cm2 RA area: 17.9 cm2 LA length (vol): 5.7 cm RA vol: 49.6 ml LA vol: 60.6 ml RA : 21.2 ml/m2 LA vol index: 25.8 ml/m2 IVC diam: 1.5 cm RVD1 (basal): 4.2 cm RVD2 (mid): 4.4 cm TAPSE: 2.3 cm Doppler Measurements & Calculations Ao V2 max: 144.4 cm/sec LVOT Max Erik: 96.0 cm/sec Ao V2 mean: 93.1 cm/sec LV V1 max P.7 mmHg Ao max P.3 mmHg LV V1 VTI: 22.0 cm Ao mean P.0 mmHg ANGIE(I,D): 2.5 cm2 Ao V2 VTI: 29.8 cm ANGIE(V,D): 2.3 cm2 sev ratio: 0.74 ANGIE indexed to BSA (cm^2/m^2): 1.1 MV E max erik: 73.1 cm/sec TR max erik: 197.5 cm/sec MV A max erik: 52.7 cm/sec TR max P.6 mmHg MV E/A: 1.4 PA V2 max: 84.7 cm/sec Med Peak E' Erik: 11.1 cm/sec PA V2 mean: 57.7 cm/sec E/E' med: 6.6 PA mean P.5 mmHg Lat Peak E' Erik: 13.8 cm/sec PA pr(Accel): 34.5 mmHg E/E' lat: 5.3 E/e' average: 6.0 MV dec time: 0.21 sec SV(LVOT): 74.9 ml Reading Physician:11:41 AM
[2024-06-16 07:41] LABS: Add Manual Diff / Slide Review NO; Basophils Absolute Auto 100 /uL (0-100); Basophils Percent Auto 0.8 % (0-2); Eosinophils Absolute Auto 200 /uL (0-450); Eosinophils Percent Auto 2.3 % (2-4); Hematocrit 41.8 % (36-46); Lymphocytes Absolute Auto 1600 /uL (1100-4500); Lymphocytes Percent Auto 23.7 % (25-40); Mean Corpuscular HGB Conc 33.4 % (30-36); Mean Corpuscular Hemoglobin 29.2 PG (26-34); Mean Corpuscular Volume 87.4 fL (80-100); Monocytes Absolute Auto 600 /uL (0-900); Monocytes Percent Auto 8.6 % (3-14); Neutrophils Absolute Auto 4400 /uL (1500-7000); Neutrophils Percent Auto 64.6 % (50-75); Platelet Count 236 X10^3/uL (150-400); Red Blood Cell Count 4.79 X10^6/uL (4.0-5.2); Red Cell Distribution Width 13.8 % (11.6-14.8); White Blood Cell Count 6.8 X10^3/uL (4.5-11.0)
[2024-06-16 07:59] LABS: Alanine Aminotransferase 35 IU/L (<35); Albumin 3.9 g/dL (3.5-5.0); Albumin Globulin Ratio 1.2 (1.0-2.8); Alkaline Phosphatase 69 U/L (38-126); Aspartate Aminotransferase 25 IU/L (14-36); BUN Creatinine Ratio 18.1 (6-22); Bilirubin Total 0.4 mg/dL (0.2-1.3); Blood Urea Nitrogen 13 mg/dL (7-17); Calcium 9.2 mg/dL (8.4-10.2); Carbon Dioxide 27 mmol/L (22-32); Chloride 105 mmol/L (98-107); Cholesterol 169 mg/dL (140-199); Estimated Glomerular Filt Rate > 60 mL/min (>60); Globulin 3.3 g/dL (1.7-4.1); Glucose 103 mg/dL (70-100); HDL Cholesterol 46 mg/dL (40-60); HEMOLYSIS < 15 (0-50); LDL Cholesterol Calculated 106 mg/dL (<100); Potassium 4.5 mmol/L (3.4-5.1); Sodium 137 mmol/L (137-145); Total Protein 7.2 g/dL (6.3-8.2); Triglycerides 85 mg/dL (35-150)
[2024-06-16 08:30] LABS: TSH w/ Reflex to FT4 3.37 uIU/mL (0.47-4.68)
[2024-06-17 03:36] LABS: Apolipoprotein B 81 mg/dL (<90)
== END ==
LOC: ECHO 06:20
PROVIDERS: Family Provider Family Medicine; PCP Family Medicine; Referring Provider Family Medicine; Visit Provider Family Medicine
DX: I07.1 Rheumatic tricuspid insufficiency (principal); R07.89 Other chest pain; M54.9 Dorsalgia, unspecified; G89.29 Other chronic pain; R74.8 Abnormal levels of other serum enzymes; K21.9 Gastro-esophageal reflux disease without esophagitis; E78.5 Hyperlipidemia, unspecified; J45.20 Mild intermittent asthma, uncomplicated
CPT/HCPCS: 36415; 80053; 80061; 82172; 84443; 85025; 93306

== ENCOUNTER → 2024-07-16 15:35 | Outpatient (CLI) | payer BC, OTHER, SELFPAY ==
--- NOTE | 2024-07-16 15:36 | DI.MG.S_ITS ---
BILATERAL DIGITAL SCREENING MAMMOGRAM 3D/2D WITH CAD: 07/16/2024 CLINICAL: Routine screening. Family history of breast cancer. Comparison is made to exam dated: 06/19/2022 mammogram - [facility]. There are scattered areas of fibroglandular density (category b / 25%-50% glandular tissue). Current study was also evaluated with a Computer Aided Detection (CAD) system. No significant masses, calcifications, or other findings are seen in either breast. There has been no significant interval change. IMPRESSION: NEGATIVE There is no mammographic evidence of malignancy. A 1 year screening mammogram is recommended. Based on the Tyrer Cuzick model (a risk assessment model) the patient's lifetime risk is 12.2% and her 10 year risk is 2.5%. According to the ACR, ACS, and NCCN guidelines, an annual breast MRI exam along with mammogram is recommended if the patient's lifetime risk is 20% or greater. This exam was interpreted at Station ID: [id number]. NOTE: For mammograms, a report in lay terms will be sent to the patient. Approximately 15% of breast malignancies will not be visualized mammographically. In the management of a palpable breast mass, a negative mammogram must not discourage biopsy of a clinically suspicious lesion. Electronically Signed By: Wood sheffield/fady:07/17/2024 10:24:26 letter sent: Normal Exam ACR BI-RADS Category 1: Negative
== END ==
PROVIDERS: Family Provider Family Medicine; PCP Family Medicine; Referring Provider Family Medicine; Visit Provider Family Medicine
DX: Z12.31 Encounter for screening mammogram for malignant neoplasm of breast (principal); Z80.3 Family history of malignant neoplasm of breast
CPT/HCPCS: 77063; 77067

== ENCOUNTER → 2024-10-12 15:52 | Outpatient (CLI) | payer BC, OTHER, SELFPAY | PROVIDERS: Family Provider Family Medicine; PCP Family Medicine; Visit Provider Nurse Practitioner Family | DX: N94.9 Unspecified condition associated with female genital organs and menstrual cycle (principal) | CPT/HCPCS: 87210 ==

== ENCOUNTER → 2025-02-19 13:53 | Outpatient (CLI) | payer BC, OTHER, SELFPAY ==
[2025-02-19 14:31] LABS: Add Manual Diff / Slide Review NO; Hematocrit 43.8 % (36-46); Hemoglobin 15.1 g/dL (12.0-16.0); Lymphocytes Absolute Auto 1700 /uL (1100-4500); Mean Corpuscular HGB Conc 34.5 % (30-36); Mean Corpuscular Hemoglobin 29.9 PG (26-34); Mean Corpuscular Volume 86.7 fL (80-100); Platelet Count 269 X10^3/uL (150-400)
[2025-02-19 14:53] LABS: Alanine Aminotransferase 165 IU/L (<35); Albumin 4.5 g/dL (3.5-5.0); Albumin Globulin Ratio 1.2 (1.0-2.8); Alkaline Phosphatase 87 U/L (38-126); Blood Urea Nitrogen 10 mg/dL (7-17); Calcium 9.5 mg/dL (8.4-10.2); Carbon Dioxide 24 mmol/L (22-32); Chloride 104 mmol/L (98-107); Estimated Glomerular Filt Rate > 60 mL/min (>60); Globulin 3.7 g/dL (1.7-4.1); Glucose 113 mg/dL (70-99); HEMOLYSIS < 15 (0-50); Potassium 4.6 mmol/L (3.4-5.1); Sodium 138 mmol/L (137-145); Total Protein 8.2 g/dL (6.3-8.2)
[2025-02-19 15:22] LABS: TSH w/ Reflex to FT4 3.22 uIU/mL (0.47-4.68)
[2025-02-19 15:57] LABS: Folate 18.8 ng/mL (2.76-20.0); Vitamin B12 776 pg/mL (239-931)
[2025-02-23 11:11] LABS: ANA Screen, IFA Negative (.)
== END ==
PROVIDERS: Family Provider Family Medicine; PCP Family Medicine; Referring Provider Family Medicine; Visit Provider Family Medicine
DX: F41.9 Anxiety disorder, unspecified (principal); R53.83 Other fatigue; M94.0 Chondrocostal junction syndrome [Tietze]
CPT/HCPCS: 36415; 80053; 82607; 82746; 84443; 85025; 85651; 86038; 86140; 86200; 86430

== ENCOUNTER → 2025-03-05 07:03 | Outpatient (CLI) | payer BC, OTHER, SELFPAY ==
[2025-03-05 08:00] LABS: Alanine Aminotransferase 226 IU/L (<35); Albumin 4.2 g/dL (3.5-5.0); Albumin Globulin Ratio 1.3 (1.0-2.8); Alkaline Phosphatase 85 U/L (38-126); Blood Urea Nitrogen 10 mg/dL (7-17); Calcium 9.2 mg/dL (8.4-10.2); Carbon Dioxide 25 mmol/L (22-32); Chloride 106 mmol/L (98-107); Estimated Glomerular Filt Rate > 60 mL/min (>60); Globulin 3.2 g/dL (1.7-4.1); Glucose 109 mg/dL (70-99); HEMOLYSIS < 15 (0-50); Potassium 4.7 mmol/L (3.4-5.1); Sodium 138 mmol/L (137-145); Total Protein 7.4 g/dL (6.3-8.2)
== END ==
PROVIDERS: Family Provider Family Medicine; PCP Family Medicine; Referring Provider Family Medicine; Visit Provider Family Medicine
DX: R74.8 Abnormal levels of other serum enzymes (principal)
CPT/HCPCS: 36415; 80053

== ENCOUNTER → 2025-03-08 09:36 | Outpatient (CLI) | payer BC, OTHER, SELFPAY ==
[2025-03-08 11:19] LABS: TSH w/ Reflex to FT4 1.89 uIU/mL (0.47-4.68)
[2025-03-09 15:21] LABS: Hepatitis B Surface Antigen NEGATIVE s/c (NEGATIVE)
[2025-03-09 15:37] LABS: Hep C Virus Ab w/Reflex Quant NEGATIVE s/c (NEGATIVE)
[2025-03-10 10:13] LABS: Hepatitis B Surf Ab Qualitativ Non Reactive (.)
[2025-03-10 18:07] LABS: ANA Screen, IFA Negative (.)
== END ==
PROVIDERS: Family Provider Family Medicine; PCP Family Medicine; Referring Provider Family Medicine; Visit Provider Family Medicine
DX: R74.8 Abnormal levels of other serum enzymes (principal)
CPT/HCPCS: 36415; 82390; 84443; 86015; 86038; 86706; 86803; 87340

== ENCOUNTER 2025-03-09 10:21 | Emergency (ER) | payer BC, OTHER, SELFPAY ==
[2025-03-09 10:51] VITALS: BP 145/89; PULSE 72; RESP 18; TEMP 36.1; O2SAT 99; BMI 41.1
--- NOTE | 2025-03-09 11:28 | DI.US.S_ITS ---
PROCEDURE: US PERIPH VENOUS LOW EXTREM LT INDICATIONS: HISTORY OF THROMBOPHLEBITIS 02/03. RED,SWOLLEN LEG WITH LUMPS TECHNIQUE: Real-time imaging, as well as color and pulse Doppler interrogation, were performed of the lower extremity deep veins from the inguinal ligament to the popliteal fossa, with documentation of the visualized calf veins. COMPARISON: None. FINDINGS: The common femoral, femoral, popliteal, and the visualized calf veins are normally compressible, and free of intraluminal thrombus. Color and pulse Doppler demonstrate normal phasic intraluminal flow. There is normal augmentation response to distal compression maneuver. Occlusive clots are noted in superficial veins of the anterior mid thigh and anterolateral aspect of distal thigh. IMPRESSION: 1. No evidence of DVT in visualized left lower extremity veins. 2. Occlusive thrombosis involving superficial varicosities in mid to distal thigh as above concerning for thrombophlebitis. Dictated by: Eron Boateng M.D. on 03/09/2025 at 12:47 Approved by: Eron Boateng M.D. on 03/09/2025 at 12:48
[2025-03-09 13:40] VITALS: BP 161/93; PULSE 65; RESP 16; O2SAT 100
--- NOTE | 2025-03-09 16:09 | ED_ITS ---
HPI - Skin/Abscess/Foreign Bdy General Chief complaint: Skin/Abscess/Foreign Body Stated complaint: Spot on upper left leg . x 5 days Time Seen by Provider: 03/09/25 11:13 Source: patient Mode of arrival: Family Vehicle History of Present Illness HPI narrative: 49-year-old female presents to the ED with 4-5 days of pain, redness in the left lower thigh. Patient states that it started just above the right knee, has progressed to above the mid thigh. No fever, chills, chest pain, shortness of breath, lightheadedness, dizziness, syncope. Patient states that she had similar symptoms in the left lower calf sometime ago which resolved when she got blood thinners during a hospitalization for a different reason. Related Data Home Medications ?Medication ?Instructions ?Recorded ?Confirmed albuterol sulfate 90 mcg/actuation 2 inh inhalation Q4 -6H PRN 10/08/24 02/19/25 breath activated powder inhaler (ProAir RespiClick) omeprazole 20 mg capsule,delayed 20 mg PO BID 10/08/24 02/19/25 release Previous Rx's ?Medication ?Instructions ?Recorded clonazepam 0.5 mg tablet (Klonopin) See Rx Instruction s PO BID PRN 06/18/24 anxiety #30 tabs norethindrone acetate 1 mg-ethinyl 1 tab PO DAILY #63 tabs 10/29/24 estradiol 20 mcg tablet (Loestrin) escitalopram oxalate 20 mg tablet 30 mg (1.5 x 20 mg) PO DAILY #135 01/26/25 (Lexapro) tabs tizanidine 4 mg tablet See Rx Instructions .Route 0 01/26/25 .COMPLEX #90 tabs enoxaparin 40 mg/0.4 mL 40 mg (0.4 mL) SUBCUT DAILY 45 03/09/25 subcutaneous syringe days #18 mL Allergies Allergy/AdvReac Type Severity Reaction Status Date / Time naproxen Allergy Severe feels Verified 03/09/25 10:56 like throat is closing nitrofurantoin (From AdvReac Severe Rash Verified 03/09/25 10:56 Macrobid) Sulfa (Sulfonamide AdvReac Severe Rash Verified 03/09/25 10:56 Antibiotics) Review of Systems Constitutional Constitutional: Denies chills, Denies fatigue, Denies fever(s), Denies frequent falls, Denies lethargy and Denies weakness Eyes Eyes: Denies change in vision, Denies eye discharge, Denies irritation and Denies loss of vision ENT Ears, Nose, Mouth, and Throat: Denies change in voice, Denies dizziness, Denies neck pain, Denies sore throat and Denies throat swelling Cardiovascular Cardiovascular: Denies chest pain, Denies irregular heart rhythm, Denies lightheadedness, Denies palpitations, Denies dyspnea, Denies dyspnea on exertion and Denies orthopnea Respiratory Respiratory: Denies cough, Denies dyspnea, Denies dyspnea on exertion and Denies wheezing Gastrointestinal Gastrointestinal: Denies abdominal pain, Denies change in bowel habits, Denies diarrhea, Denies nausea and Denies vomiting Musculoskeletal Musculoskeletal: Denies neck pain and Denies numbness Integumentary/Breasts Skin/Breast: Denies pruritus, Denies erythema, Denies rash and Denies wounds Comments: Left thigh redness, pain Neurologic Neurologic: Denies behavioral changes, Denies confusion, Denies dizziness, Denies frequent falls, Denies loss of vision, Denies numbness and Denies weakness Psychiatric Psychiatric: Denies anxiety, Denies behavioral changes, Denies confusion, Denies depression, Denies homicidal ideation and Denies suicidal ideation Endocrine Endocrine: Denies fatigue, Denies flushing and Denies palpitations Hematologic/Lymphatic Hematologic/Lymphatic: Denies easy bruising Allergic/Immunologic Allergic/Immunologic: Denies urticaria, Denies throat swelling and Denies wheezing Patient History Medical History Cardiomegaly Bilateral knee pain Plantar warts (~1993) Acne (~1987) Allergies (~2005) Depression Shoulder pain (~2010) Foot pain (~2009) Chronic back pain (~2013) Carpal tunnel syndrome (~2008) Ankle pain (~2017) Scarlet fever (~1985) Measles Chicken pox (~1980) Recurrent sinusitis History of urinary incontinence (~2008) Fracture of left wrist Uterine fibroid Female hirsutism Hemorrhagic cyst Abnormal vaginal bleeding with endometrial thickness less than 16 mm present on transvaginal ultrasound in premenopausal patient Menorrhagia (~1992) Asthma, mild intermittent (~2003) Irregular menstruation (~2011) GERD (gastroesophageal reflux disease) Surgical History Anesthesia History of tubal ligation (~03/15/12) H/O left wrist surgery (~02/1995) History of Hx of appendectomy (~2000) Hx of cholecystectomy (~1997) Family History Father Camarena's esophagus Mother Hypothyroidism Hypertension Hyperlipidemia Stroke Brother Alcoholic Grandfather History of heart disease Grandmother Cancer Grandfather Cancer Grandmother Alzheimer's disease Family/Other Postural orthostatic tachycardia syndrome Social History household members: spouse and children second hand exposure: Yes alcohol intake: current Smoking Status: Former smoker tobacco type: cigarettes alcohol intake frequency: a few times a week Exam Narrative Exam Narrative: Const General:?cooperative, healthy appearing and comfortable HENMT Head:?normal to inspection Ears:?hearing grossly normal bilaterally Nose:?external nose normal Face and sinus:?normal facial exam and sinuses nontender Mouth:?oral mucosae normal Throat:?posterior oropharynx normal Eyes General:?appearance normal, both eyes and all related structures Neck Neck:?normal visual inspection and no lymphadenopathy noted Resp Effort & Inspection:?normal respiratory effort Auscultation:?clear to auscultation bilaterally Cardio Rate:?regular rate Rhythm:?regular rhythm Musculoskeletal/integumentary Palpable hard, superficial, veins extending from the right knee into the mid thigh. Tender to palpation, erythematous. Neurovascularly intact Neuro General:?patient alert, patient awake and patient oriented x3 Initial Vital Signs Initial Vital Signs: Vital Signs Temperature 97.0 F L 03/09/25 10:51 Pulse Rate 72 03/09/25 10:51 Respiratory Rate 18 03/09/25 10:51 Blood Pressure 145/89 H 03/09/25 10:51 Pulse Oximetry 99 03/09/25 10:51 Oxygen Delivery Method Room Air 03/09/25 10:51 Course Orders Ordered: ED Orders 03/09/25 11:28 US periph venous low extrem lt Stat Vital Signs Vital signs: Vital Signs - 8 hr 03/09/25 13:40 Pulse Rate 65 Respiratory Rate 16 Blood Pressure 161/93 H Pulse Oximetry 100 Oxygen Delivery Method Room Air MDM - Skin/Abscess/Foreign Bdy MDM Narrative Medical decision making narrative: 49-year-old female presents to the ED with 4-5 days of pain, redness in the left lower thigh. History and physical exam consistent with superficial venous thrombosis versus superficial thrombophlebitis vs other. Ultrasound was obtained which showed no evidence of DVT in visualized left lower extremity veins. Occlusive thrombosis involving superficial varicosities in mid to distal thigh concerning for thrombophlebitis. Discussed findings with patient. Joint decision making of Lovenox versus Xarelto. Patient is currently being worked up for elevated transaminases by PCP Dr. Trujillo. Prescribed Lovenox due to milder effects on transaminases as well as better efficacy. Also discussed supportive care with compression, ice. Recommend follow-up with Dr. Trujillo as soon as possible. ED return precautions were discussed with patient. Patient verbalized understanding. Medical records reviewed: Yes Discharge Plan Departure Patient Disposition: Home Clinical Impression: Acute superficial venous thrombosis of left lower extremity Instructions: DI for Superficial Thrombophlebitis Activity Restrictions/Additional Instructions: You were evaluated in the ED today for painful superficial veins in the left thigh. The ultrasound does show occlusive thrombosis involving the superficial veins in mid to distal thigh which is concerning for thrombophlebitis. Given the extent of thrombosis, it is advised that you start anticoagulation. You are being prescribed daily Lovenox injections for 45 days. Do note that anticoagulants to make you more prone to bleeding and therefore please exercise good fall precautions. Please follow-up with your PCP as soon as possible for further evaluation and treatment. Return to the ED if you have worsening symptoms, chest pain, shortness of breath. Prescriptions: New enoxaparin 40 mg/0.4 mL syringe 40 mg SUBCUT DAILY 45 Days Qty: 18 0RF No Action ProAir RespiClick 90 mcg/actuation aerosol powdr breath activated 2 inh inhalation Q4-6H PRN Patient Comments: [NO ORIGINAL SIG] omeprazole 20 mg capsule,delayed release(DR/EC) 20 mg PO BID clonazepam [Klonopin] 0.5 mg tablet See Rx Instructions PO BID PRN (Reason: anxiety) Qty: 30 1RF Rx Instructions: take 1 tab daily and a 2nd tab as needed in the evening for anxiety norethindrone ac-eth estradiol [Loestrin 08/31 ()] 1-20 mg-mcg tablet 1 tab PO DAILY Qty: 63 3RF escitalopram oxalate [Lexapro] 20 mg tablet 30 mg PO DAILY Qty: 135 1RF tizanidine 4 mg tablet See Rx Instructions .ROUTE .COMPLEX Qty: 90 3RF Dose Instruction: TAKE 1 TABLET BY MOUTH AT BEDTIME NEEDED FOR MUSCLE SPASMS Rx Instructions: TAKE 1 TABLET BY MOUTH AT BEDTIME NEEDED FOR MUSCLE SPASMS Referrals: Landon Trujillo MD [Primary Care Provider, Family Practice] Stand Alone Forms: Patient Portal/API
== END 2025-03-09 13:40 | disposition home or self-care (01) ==
PROVIDERS: Emergency Provider Student in an Organized Health Care Education/Training Program; Family Provider Family Medicine; PCP Family Medicine
DX: I82.812 Embolism and thrombosis of superficial veins of left lower extremity (principal)
CPT/HCPCS: 93971; 99281; 99283

== ENCOUNTER → 2025-03-10 07:35 | Outpatient (CLI) | payer BC, OTHER, SELFPAY ==
--- NOTE | 2025-03-10 07:36 | DI.US.S_ITS ---
PROCEDURE: US ABDOMEN LIMITED INDICATIONS: evaluate R upper quad/liver TECHNIQUE: Real-time scanning was performed of the abdominal and retroperitoneal organs, with image documentation. COMPARISON: None. FINDINGS: Liver: Liver is normal in size and homogeneous in echotexture. Gallbladder: Absent. Biliary ducts: Intrahepatic bile ducts are non-dilated. Extrahepatic bile duct caliber measures 8 mm. Normal is 6-7 mm or less in diameter, or 10 mm or less post-cholecystectomy. Pancreas: Visualized portions of the pancreas are sonographically normal. Miscellaneous: No free abdominal fluid. IMPRESSION: Cholecystectomy. No intrahepatic or extrahepatic biliary dilation, accounting for a post cholecystectomy state. Unremarkable sonographic appearance of the liver. Dictated by: Michael Meyers M.D. on 03/10/2025 at 10:22 Approved by: Michael Meyers M.D. on 03/10/2025 at 10:23
== END ==
LOC: US 07:35
PROVIDERS: Family Provider Family Medicine; PCP Family Medicine; Referring Provider Family Medicine; Visit Provider Family Medicine
DX: R74.8 Abnormal levels of other serum enzymes (principal); Z90.49 Acquired absence of other specified parts of digestive tract
CPT/HCPCS: 76705

== ENCOUNTER → 2025-03-16 09:29 | Outpatient (CLI) | payer BC, OTHER, SELFPAY ==
[2025-03-16 11:03] LABS: Alanine Aminotransferase 175 IU/L (<35); Albumin 4.0 g/dL (3.5-5.0); Albumin Globulin Ratio 1.3 (1.0-2.8); Alkaline Phosphatase 86 U/L (38-126); Blood Urea Nitrogen 10 mg/dL (7-17); Calcium 9.2 mg/dL (8.4-10.2); Carbon Dioxide 24 mmol/L (22-32); Chloride 107 mmol/L (98-107); Estimated Glomerular Filt Rate > 60 mL/min (>60); Globulin 3.0 g/dL (1.7-4.1); Glucose 110 mg/dL (70-99); HEMOLYSIS < 15 (0-50); Potassium 4.6 mmol/L (3.4-5.1); Sodium 139 mmol/L (137-145); Total Protein 7.0 g/dL (6.3-8.2)
== END ==
PROVIDERS: Family Provider Family Medicine; PCP Family Medicine; Referring Provider Family Medicine; Visit Provider Family Medicine
DX: R74.8 Abnormal levels of other serum enzymes (principal)
CPT/HCPCS: 36415; 80053